=== PATIENT | female | born 1955 | race Caucasian/White ===

== ENCOUNTER 2016-10-17 16:26 | Inpatient (IN) | payer OTHER ==
[2016-10-17 17:41] LABS: Hematocrit 32 % (35-47); Mean Corpuscular HGB Conc 31 g/dl (31-36); Mean Corpuscular Hemoglobin 25 pg (27-31); Mean Corpuscular Volume 80 fL (80-97); Mean Platelet Volume 10 um3 (7.4-10.4); Red Blood Count 3.96 10^6/ul (4.0-5.4); Red Cell Distribution Width 16 % (10.5-15); White Blood Count 6.9 10^3/ul (3.5-10.8)
[2016-10-17 17:55] LABS: Albumin 3.5 g/dL (3.2-5.2); BUN/Creatinine Ratio 56.1 (8-20); C Reactive Protein 25.23 mg/L (< 5.00); Calcium 10.1 mg/dL (8.6-10.3); EGFR Non-African American 57.5 (>60); Globulin 4.2 g/dL (2-4); Potassium 4.2 mmol/L (3.5-5.0); Total Bilirubin 0.6 mg/dL (0.2-1.0); Total Protein 7.7 g/dL (6.4-8.9)
[2016-10-17 19:20] LABS: Budding Yeast Present (Absent); Urine Bacteria Absent (Absent); Urine Bilirubin Negative (Negative); Urine Glucose 3+(>=500 mg/dL) (Negative); Urine Nitrite Negative (Negative)
[2016-10-17] MEDS ORDERED: NS 0.9% 1000 ML* 1,000 ML IV ONE (20:53)
[2016-10-17] MEDS ORDERED: Insulin REGULAR(*) 1 UNITS UNIT IV PUSH ONE (20:53)
[2016-10-17] MEDS ORDERED: Insulin REGULAR(*) 1 UNITS UNIT SUBCUT ONE (20:59)
--- NOTE | 2016-10-17 21:42 | RAD ---
INDICATION: Confusion. History of CVA. COMPARISON: None. TECHNIQUE: Multidetector CT images were obtained from the lung bases to the ischial tuberosities. Evaluation of the viscera is limited without IV contrast. Multiplanar reformation. REPORT: Mild bibasilar subsegmental atelectasis. Mild cardiomegaly and coronary artery calcifications. Unremarkable unenhanced liver. Dependent stones versus hyperdense sludge in the normally distended gallbladder. Unremarkable moderately atrophic pancreas. Small splenule adjacent to the normal dominant spleen. Percutaneous feeding tube enters at the gastric body and extends to the level of the ligament of Treitz. Enteric contrast extends to the rectum. No abnormality of the small bowel loops evident. The appendix is not visualized. Negative for inflammatory change in the RIGHT lower quadrant or surrounding the cecum. Mild colonic diverticulosis primarily at the sigmoid colon without findings of diverticulitis. Negative for ascites, free air, or significant hernias. Normal adrenal glands. Negative for focal renal lesions, conspicuous stones, or hydronephrosis. Unremarkable ureters. Catheterized decompressed urinary bladder. Post hysterectomy. Unremarkable adnexal regions. Negative for lymphadenopathy. Atherosclerotic calcification of normal diameter abdominal aorta and iliac arteries. Largely decompressed IVC indicating low volume state. Polyarticular degenerative arthropathy. No fractures or suspicious focal osseous lesions evident. Negative for retroperitoneal or superficial soft tissue hematoma. IMPRESSION: 1. Cholelithiasis versus biliary sludge without additional CT abnormality of the gallbladder. 2. Mild diverticulosis of the colon without findings of diverticulitis. 3. Negative for obstructive uropathy. 4. Largely decompressed IVC indicating low volume state.
--- NOTE | 2016-10-17 21:50 | RAD ---
Indication: Cough, possible aspiration. Altered mental status. Comparison: October 17, 2016 CT abdomen. Technique: Sitting AP chest 2128 hours Report: Elevated lung volumes and mild prominence of interstitial markings. Confluent alveolar consolidation, focal pulmonary lesion, pleural effusion, pneumothorax. Upper normal heart size. Unremarkable central pulmonary vasculature and mediastinal contours. IMPRESSION: Stigmata of probable chronic obstructive pulmonary disease. No acute cardiopulmonary process evident.
[2016-10-17] MEDS ORDERED: Levofloxacin 750 MG IVPREMIX(* 750 MG/150 ML BAG IVPB ONE (21:59)
--- NOTE | 2016-10-17 22:34 | HP ---
H&P (Free Text) History and Physical: PCP: Derrek Pza MD Date/Time of Evaluation: 10/17/2016 2245 CC: confusion HPI: Mrs Francis is a 61YO female HX NIDDM, CAD, CVA who was admitted to [facility] Aug 2016 with a L MCA CVA causing expressive aphasia, dysphagia, and R- sided weakness. Subsequently she was discharged to [facility] for inpatient rehab services. She presents this evening due to increasing confusion. She denies new or worsening stroke symptoms. She has a feeding tube in place dated 10/16/2016. She denies chest pain, SOB, cough, congestion, abdominal pain, palpitations, subjective F/C, N/V/D, or other issues. Overall she is a very poor historian. Records from [facility] will be requested as well a summary from her PCP. Work up reveals systolics in the 150s-160s and an saO2 in the mid-90s on 2L NC. Labs reveal WBCs of 6.9, HGB 10.0, BUN/cre 55/0.98, & glucose of 428. UA is consistent with UTI. PMedHx DM2 CVA 08/2016 w/ mild residual R-sided weakness, dysphagia s/p L BKA reportedly for an infection resulting from a fall at [facility] ~ 2years ago CAD/CT/stent HTN HLD HLD DVT hypothyroidism GERD Allergies Penicillins Allergy (Verified 10/17/16 18:13) Hives Ambulatory Orders Albuterol 2.5MG/3ML (0.083%)* [Ventolin 2.5 MG/3 ML NEB.AYSE*] 2.5 mg INH Q6H 10/05 Albuterol Sulfate [Proventil Hfa] 108 mcg INH Q4HR PRN 10/18/16 Apixaban* [Eliquis*] 5 mg PEG TUBE DAILY 10/18/16 Aspirin Low Dose CHEW TAB* [Aspirin Low Dose TAB*] 81 mg PEG TUBE DAILY Docusate CAP* [Colace Cap*] 100 mg PEG TUBE BID 10/18/16 Escitalopram Oxalate [Lexapro] 10 mg PO DAILY 10/18/16 Furosemide TAB* [Lasix TAB*] 40 mg PEG TUBE DAILY 10/18/16 Gabapentin CAP(*) [Neurontin 300 CAP(*)] 300 mg PEG TUBE BEDTIME 10/18/16 Insulin GLARGINE(*) [Lantus(*)] 40 units SUBCUT BEDTIME 10/18/16 Insulin REGULAR(*) 8 units SUBCUT ONCE 10/18/16 Lactobacillus [Probiotic] 1 cap PEG TUBE DAILY 10/18/16 Levothyroxine TAB* [Synthroid TAB*] 50 mcg PEG TUBE DAILY 10/18/16 Melatonin 5 mg PO BEDTIME 10/18/16 Metformin HCl [Glucophage] 500 mg PEG TUBE BID 10/18/16 Metoclopramide LIQ* [Reglan LIQ*] 10 mg PEG TUBE Q8HR 10/18/16 Metoprolol Tartrate TAB* [Lopressor TAB*] 50 mg PO DAILY 10/18/16 Mometasone/Formoter 200/5 MDI* [Dulera 200/5 MDI*] 2 puff INH BID 10/18/16 Multivitamins/Minerals TAB* [Thera M Plus TAB*] 1 tab PEG TUBE DAILY 10/18/16 Pantoprazole SUSP(NF) [Protonix SUSP (NF)] 40 mg G TUBE DAILY 10/18/16 Polyethylene Glycol 3350* [Miralax*] 17 gm PEG TUBE DAILY 10/18/16 Rosuvastatin Calcium 20 mg PEG TUBE BEDTIME 10/18/16 Sodium Phosphate ADULT ENEMA* [Fleet Enema*] 1 enema OR BEDTIME PRN 10/18/16 Sucralfate TAB* [Carafate*] 1 gm PEG TUBE QID 10/18/16 Valsartan TAB* [Diovan TAB*] 160 mg PEG TUBE DAILY 10/18/16 hydrALAZINE TAB* [Apresoline TAB*] 25 mg PEG TUBE BID 10/18/16 PSurgHx PEG placement L BKA cardiac stents SocHx: no tobacco, alcohol, or recreational drug HX; , currently residing at [facility] for inpatient rehab s/p CVA; full code status FamHx: positive for HTN, HLD, CAD, DM2 ROS: as above, otherwise reviewed and all were negative Constitutional: NAD, normally developed, morbidly obese white female vitals: Vital Signs Temp 38.5 C 10/17/16 16:33 Pulse 71 10/17/16 23:00 Resp 17 10/17/16 23:00 BP 180/55 10/17/16 21:00 Pulse Ox 96 10/17/16 23:00 Intake & Output 10/16/16 10/17/16 10/17/16 23:59 11:59 23:59 Intake Total 1000 Balance 1000 Weight 115.212 kg Intake: IV Fluids 1000 HEENM: atraumatic; sclera/conjunctiva: non-icteric/clear; hearing: clinically intact; oropharynx: clear, mucosa dry Neck: soft tissue: non-tender, no nuchal rigidity; thyroid: normal Pulmonary: clear to auscultation bilaterally, fair aeration, no accessory muscle use CV: RR/RR, normal S1S2, no carotid bruit, no jugular venous distention, 2+ B DP/ PT, no edema Abdominal: soft, non-distended, non-tender, no rebound/guarding/rigidity, normoactive bowel sounds, no hepatosplenomegaly or masses, no costovertebral angle tenderness, well healed feeding tube in place Musculoskeletal: general: L BKA; gait: non-ambulatory 2nd L BKA, residual weakness on R from CVA Integumental: normal appearance and texture of exposed skin Neurological motor: moves extremities x4, generally weak, mild R pronator drift Psychiatric orientation: AA&O to PP, loosely to situation affect: calm mood: acquiescent eye contact: fair content: seemingly reliable memory: patchy regarding recent events responses: mildly slowed insight: poor Testing: Lab Results 10/17/16 10/17/16 10/17/16 Range/Units 17:30 17:30 17:30 WBC 6.9 (3.5-10.8) 10^3/ul RBC 3.96 L (4.0-5.4) 10^6/ul Hgb 10.0 L (12.0-16.0) g/dl Hct 32 L (35-47) % MCV 80 (80-97) fL MCH 25 L (27-31) pg MCHC 31 (31-36) g/dl RDW 16 H (10.5-15) % Plt Count 267 (150-450) 10^3/ul MPV 10 (7.4-10.4) um3 Neut % (Auto) 78.3 (38-83) % Lymph % (Auto) 12.9 L (25-47) % [place] % (Auto) 8.0 (1-9) % Eos % (Auto) 0.4 (0-6) % Baso % (Auto) 0.4 (0-2) % Absolute Neuts (auto) 5.4 (1.5-7.7) 10^3/ul Absolute Lymphs (auto) 0.9 L (1.0-4.8) 10^3/ul Absolute Monos (auto) 0.6 (0-0.8) 10^3/ul Absolute Eos (auto) 0 (0-0.6) 10^3/ul Absolute Basos (auto) 0 (0-0.2) 10^3/ul Absolute Nucleated RBC 0 10^3/ul Nucleated RBC % 0 Sodium 140 (133-145) mmol/L Potassium 4.2 (3.5-5.0) mmol/L Chloride 101 (101-111) mmol/L Carbon Dioxide 33 H (22-32) mmol/L Anion Gap 6 (2-11) mmol/L BUN 55 H (6-24) mg/dL Creatinine 0.98 H (0.51-0.95) mg/dL Est GFR ( Amer) 74.0 (>60) Est GFR (Non-Af Amer) 57.5 (>60) BUN/Creatinine Ratio 56.1 H (8-20) Glucose 428 H (70-100) mg/dL POC Glucose (mg/dL) (74-106) mg/dL Lactic Acid 0.9 (0.5-2.0) mmol/L Calcium 10.1 (8.6-10.3) mg/dL Total Bilirubin 0.60 (0.2-1.0) mg/dL AST 20 (13-39) U/L ALT 18 (7-52) U/L Alkaline Phosphatase 70 (34-104) U/L C-Reactive Protein 25.23 H (< 5.00) mg/L Total Protein 7.7 (6.4-8.9) g/dL Albumin 3.5 (3.2-5.2) g/dL Globulin 4.2 H (2-4) g/dL Albumin/Globulin Ratio 0.8 L (1-3) Urine Color Urine Appearance Urine pH (5-9) Ur Specific [place] (1.010-1.030) Urine Protein (Negative) Urine Ketones (Negative) Urine Blood (Negative) Urine Nitrate (Negative) Urine Bilirubin (Negative) Urine Urobilinogen (Negative) Ur Leukocyte Esterase (Negative) Urine WBC (Auto) (Absent) Urine RBC (Auto) (Absent) Ur Squamous Epith Cells (Absent) Urine Bacteria (Absent) Urine Yeast (Absent) Urine Glucose (Negative) Urine Ascorbic Acid (Negative) 10/17/16 10/17/16 Range/Units 18:50 20:53 WBC (3.5-10.8) 10^3/ul RBC (4.0-5.4) 10^6/ul Hgb (12.0-16.0) g/dl Hct (35-47) % MCV (80-97) fL MCH (27-31) pg MCHC (31-36) g/dl RDW (10.5-15) % Plt Count (150-450) 10^3/ul MPV (7.4-10.4) um3 Neut % (Auto) (38-83) % Lymph % (Auto) (25-47) % [place] % (Auto) (1-9) % Eos % (Auto) (0-6) % Baso % (Auto) (0-2) % Absolute Neuts (auto) (1.5-7.7) 10^3/ul Absolute Lymphs (auto) (1.0-4.8) 10^3/ul Absolute Monos (auto) (0-0.8) 10^3/ul Absolute Eos (auto) (0-0.6) 10^3/ul Absolute Basos (auto) (0-0.2) 10^3/ul Absolute Nucleated RBC 10^3/ul Nucleated RBC % Sodium (133-145) mmol/L Potassium (3.5-5.0) mmol/L Chloride (101-111) mmol/L Carbon Dioxide (22-32) mmol/L Anion Gap (2-11) mmol/L BUN (6-24) mg/dL Creatinine (0.51-0.95) mg/dL Est GFR ( Amer) (>60) Est GFR (Non-Af Amer) (>60) BUN/Creatinine Ratio (8-20) Glucose (70-100) mg/dL POC Glucose (mg/dL) 389 H (74-106) mg/dL Lactic Acid (0.5-2.0) mmol/L Calcium (8.6-10.3) mg/dL Total Bilirubin (0.2-1.0) mg/dL AST (13-39) U/L ALT (7-52) U/L Alkaline Phosphatase (34-104) U/L C-Reactive Protein (< 5.00) mg/L Total Protein (6.4-8.9) g/dL Albumin (3.2-5.2) g/dL Globulin (2-4) g/dL Albumin/Globulin Ratio (1-3) Urine Color Yellow Urine Appearance Cloudy Urine pH 6.0 (5-9) Ur Specific [place] 1.022 (1.010-1.030) Urine Protein 2+(100 mg/dl) H (Negative) Urine Ketones Negative (Negative) Urine Blood 1+ H (Negative) Urine Nitrate Negative (Negative) Urine Bilirubin Negative (Negative) Urine Urobilinogen Negative (Negative) Ur Leukocyte Esterase 2+ H (Negative) Urine WBC (Auto) 3+(>20/hpf) H (Absent) Urine RBC (Auto) 3+(>10/hpf) H (Absent) Ur Squamous Epith Cells Present H (Absent) Urine Bacteria Absent (Absent) Urine Yeast Present H (Absent) Urine Glucose 3+(>=500 mg/dl) H (Negative) Urine Ascorbic Acid * H (Negative) CXR, personally reviewed: IMPRESSION: Stigmata of probable chronic obstructive pulmonary disease. No acute cardiopulmonary process evident. CT abd/pel WO, personally reviewed: IMPRESSION: 1. Cholelithiasis versus biliary sludge without additional CT abnormality of the gallbladder. 2. Mild diverticulosis of the colon without findings of diverticulitis. 3. Negative for obstructive uropathy. 4. Largely decompressed IVC indicating low volume state. CT brain WO, personally reviewed: no acute finding noted, final read pending Impression: 61F HX CVA 08/2016 presents with confusion with finding of UTI DIAGNOSIS & PLAN Primary UTI : IV ceftriaxone, given 1 dose 750mg IV levofloxacin in ED : IVFs : blood & urine CXs : supportive care : obtain records from [facility] & PCP dehydration : IVFs, recheck BMP in AM Secondary DM2 : basal/bolus/correctional protocol : check A1c : insulin carb ratio diet : hold metformin COPD : albuterol nebs : mometasone/formoterol : tiotropium : incentive spirometry CVA 08/2016 : mild residual R-sided weakness w/ pronator drift : dysphagia, PEG in place s/p L BKA : reportedly for an infection resulting from a fall at [facility] ~2years ago : PT/OT evaluations CAD/CT/stent : continue aspirin & furosemide HTN : continue valsartan, metoprolol, & hydralazine HLD : continue rosuvastatin DVT : continue apixaban hypothyroidism : continue levothyroxine GERD : pantoprazole depression : continue escitalopram Admission Rational: observation for UTI w/ AMS DVTp: SCDs to RLE, no anticoagulation until non-hemorrhagic nature of recent CVA confirmed via records Code Status: full HCP: daughter
--- NOTE | 2016-10-17 22:44 | RAD ---
Indication: Altered mental status. Elevated blood sugar. Diabetic. Comparison: None. Technique: Noncontrast CT vertex of skull through foramen magnum. Report: Mild prominence of the cerebral sulci and moderate prominence of the cerebellar fissures reflecting volume loss. Negative for strange matter white matter obscuration, intra or extra-axial hemorrhage, or mass effect. Unremarkable partially visualized orbital contents. Negative for calvarial or skull base lesions. Fluid level with gas bubbles in the RIGHT sphenoid sinus concerning for potential acute sinusitis. Clear mastoid air spaces. Unremarkable scalp. IMPRESSION: 1. Mild involutional change. No acute pathologic process of the brain evident. 2. Correlate for potential acute RIGHT sphenoid sinusitis.
[2016-10-17] MEDS ORDERED: Melatonin (NF) 3 MG TAB PO PRN (23:36)
[2016-10-17] MEDS ORDERED: Acetaminophen TAB* 325 MG PRN (23:36)
[2016-10-18] MEDS: NS 0.9% 1000 ML* 1,000 ML IV SCH ×2 (02:21→11:57)
[2016-10-18] MEDS: cefTRIAXone VIAL(*) 1,000 MG in NS 0.9% 50 ML* 50 ML IVPB SCH (02:22)
[2016-10-18] MEDS ORDERED: Sodium Phosphate ADULT ENEMA* 118 ml bottle PR PRN (03:29)
[2016-10-18] MEDS ORDERED: Albuterol 2.5 MG/3 ML NEB.SOL* (0.083%) INH PRN (03:32)
[2016-10-18 05:16] LABS: Hematocrit 28 % (35-47); Hemoglobin 8.9 g/dl (12.0-16.0); Mean Corpuscular HGB Conc 32 g/dl (31-36); Mean Corpuscular Hemoglobin 26 pg (27-31); Mean Corpuscular Volume 81 fL (80-97); Mean Platelet Volume 10 um3 (7.4-10.4); Red Blood Count 3.47 10^6/ul (4.0-5.4); Red Cell Distribution Width 16 % (10.5-15); White Blood Count 6.6 10^3/ul (3.5-10.8)
[2016-10-18 05:35] LABS: BUN/Creatinine Ratio 48.8 (8-20); EGFR African American 93.5 (>60); EGFR Non-African American 72.7 (>60); Potassium 3.6 mmol/L (3.5-5.0)
[2016-10-18] MEDS: Levothyroxine TAB* 50 MCG TAB PO SCH (07:00)
[2016-10-18] MEDS: Metoclopramide LIQ* 10 MG/10 ML ORAL.SOLN PEG TUBE SCH ×3 (07:00→20:47)
[2016-10-18] MEDS: Albuterol 2.5 MG/3 ML NEB.SOL* (0.083%) INH SCH ×2 (08:08→13:07)
[2016-10-18] MEDS: Tiotropium CAP.INH* CAP.INH/18 MCG (USE ORDER SET !) INH SCH (08:12)
[2016-10-18] MEDS: Mometasone/Formoter 200/5 MDI INH SCH ×2 (08:12→21:36)
[2016-10-18] MEDS: Insulin LISPRO* 1 UNITS UNIT SUBCUT SCH ×5 (08:16→18:08)
[2016-10-18] MEDS: hydrALAZINE TAB* 25 MG PEG TUBE SCH ×2 (08:21→20:46)
[2016-10-18] MEDS: Polyethylene Glycol 3350* 17 GM PACKET PEG TUBE SCH (08:21)
[2016-10-18] MEDS: Sucralfate TAB* 1 GM PEG TUBE SCH ×4 (08:21→20:42)
[2016-10-18] MEDS: Metoprolol Tartrate TAB* 50 mg PO SCH (08:21)
[2016-10-18] MEDS: Aspirin Low Dose CHEW TAB* 81 MG PEG TUBE SCH (08:22)
[2016-10-18] MEDS: Valsartan TAB* 160 MG PO SCH (08:22)
[2016-10-18] MEDS: Apixaban* 5 MG TAB PO SCH (08:24)
[2016-10-18] MEDS ORDERED: Pantoprazole IV* 40 MG IV SCH (09:00)
[2016-10-18] MEDS ORDERED: Citalopram TAB* 20 MG PO SCH (09:00)
[2016-10-18] MEDS ORDERED: Spiriva Inhaler DEVICE* 1 EACH DEVICE INH ONE (09:00)
[2016-10-18] MEDS ORDERED: Docusate CAP* 100 MG SCH (09:00)
[2016-10-18] MEDS: Ondansetron INJ* 2 MG/ML VIAL IV PRN (10:22)
--- NOTE | 2016-10-18 10:58 | ED ---
Jasbir Mayo Adam, scribed for Jaxon Laws MD on 10/17/16 at 1818 . HPI Diabetic - HPI Summary HPI Summary: Pt is a 61 year old diabetic female presenting with high blood sugar, weakness, and altered mental status. The pt had a CVA 1 month ago which left her with right-sided deficits and loss of her swallowing muscles. She has been in rehab with a feeding tube and a catheter but she had begun to try solid food again. However 5 days ago the pt's family members began to notice that she did not seem to be doing as well. They state that she went from being able to walk 5 steps and eat some solid food to lying in bed with a decreased level of consciousness. They also state that her skin has turned more pale than usual and yesterday they noticed right eye droop. They also report swelling of her extremities. The pt's family state that the pt's glucose has been over 500 for the past 2 days and her BP has been high too. They state that nothing has been done yet to treat these problems. In addition to DM and CVA, pt has a PMHx of CHF. - History Of Current Complaint Chief Complaint: EDDiabeticProb Time Seen by Provider: 10/17/16 18:11 Hx Obtained From: Patient Onset/Duration: Gradual Onset, Lasting Days, Still Present Timing: Constant Severity Initially: Mild Severity Currently: Moderate Aggravating: Other - Unknown Alleviating: Nothing Associated Signs & Symptoms: Decreased Level of Conciousness - Allergies/Home Medications Allergies/Adverse Reactions: Allergies Allergy/AdvReac Type Severity Reaction Status Date / Time Penicillins Allergy Hives Verified 10/17/16 18:13 Home Medications: Home Medications Albuterol 2.5MG/3ML (0.083%)* [Ventolin 2.5 MG/3 ML NEB.AYSE*] 2.5 mg INH Q6H 10/05 [History Confirmed 10/18/16] Albuterol Sulfate [Proventil Hfa] 108 mcg INH Q4HR PRN 10/18/16 [History Confirmed 10/18/16] Apixaban* [Eliquis*] 5 mg PEG TUBE DAILY 10/18/16 [History Confirmed 10/18/16] Aspirin Low Dose CHEW TAB* [Aspirin Low Dose TAB*] 81 mg PEG TUBE DAILY [History Confirmed 10/18/16] Docusate CAP* [Colace Cap*] 100 mg PEG TUBE BID 10/18/16 [History Confirmed 10/05] Escitalopram Oxalate [Lexapro] 10 mg PO DAILY 10/18/16 [History Confirmed ] Furosemide TAB* [Lasix TAB*] 40 mg PEG TUBE DAILY 10/18/16 [History Confirmed ] Gabapentin CAP(*) [Neurontin 300 CAP(*)] 300 mg PEG TUBE BEDTIME 10/18/16 [ History Confirmed 10/18/16] Insulin GLARGINE(*) [Lantus(*)] 40 units SUBCUT BEDTIME 10/18/16 [History Confirmed 10/18/16] Insulin REGULAR(*) 8 units SUBCUT ONCE 10/18/16 [History Confirmed 10/18/16] Lactobacillus [Probiotic] 1 cap PEG TUBE DAILY 10/18/16 [History Confirmed 10/18] Levothyroxine TAB* [Synthroid TAB*] 50 mcg PEG TUBE DAILY 10/18/16 [History Confirmed 10/18/16] Melatonin 5 mg PO BEDTIME 10/18/16 [History Confirmed 10/18/16] Metformin HCl [Glucophage] 500 mg PEG TUBE BID 10/18/16 [History Confirmed 10/18] Metoclopramide LIQ* [Reglan LIQ*] 10 mg PEG TUBE Q8HR 10/18/16 [History Confirmed 10/18/16] Metoprolol Tartrate TAB* [Lopressor TAB*] 50 mg PO DAILY 10/18/16 [History Confirmed 10/18/16] Mometasone/Formoter 200/5 MDI* [Dulera 200/5 MDI*] 2 puff INH BID 10/18/16 [ History Confirmed 10/18/16] Multivitamins/Minerals TAB* [Thera M Plus TAB*] 1 tab PEG TUBE DAILY 10/18/16 [ History Confirmed 10/18/16] Pantoprazole SUSP(NF) [Protonix SUSP (NF)] 40 mg G TUBE DAILY 10/18/16 [History Confirmed 10/18/16] Polyethylene Glycol 3350* [Miralax*] 17 gm PEG TUBE DAILY 10/18/16 [History Confirmed 10/18/16] Rosuvastatin Calcium 20 mg PEG TUBE BEDTIME 10/18/16 [History Confirmed 10/18/16 ] Sodium Phosphate ADULT ENEMA* [Fleet Enema*] 1 enema [place] BEDTIME PRN 10/18/16 [ History Confirmed 10/18/16] Sucralfate TAB* [Carafate*] 1 gm PEG TUBE QID 10/18/16 [History Confirmed ] Valsartan TAB* [Diovan TAB*] 160 mg PEG TUBE DAILY 10/18/16 [History Confirmed 10/18/16] hydrALAZINE TAB* [Apresoline TAB*] 25 mg PEG TUBE BID 10/18/16 [History Confirmed 10/18/16] PMH/Surg Hx/FS Hx/Imm Hx Endocrine/Hematology History: Reports: Hx Diabetes Cardiovascular History: Reports: Hx Congestive Heart Failure Infectious Disease History: No Infectious Disease History: Denies: Traveled Outside the [place] in Last 30 Days - Family History Known Family History: Positive: Cardiac Disease, Diabetes, Other - Cancer, CVA - Social History Occupation: Disabled Lives: Alone Alcohol Use: None Hx Substance Use: No Substance Use Type: Reports: None Hx Tobacco Use: No Smoking Status (MU): Never Smoked Tobacco Review of Systems Positive: Fever Positive: Other - Right eye droop Positive: Other - Difficulty swallowing Positive: Edema - Extremities Positive: Other - Pale Neurological: Other - AMS All Other Systems Reviewed And Are Negative: Yes Physical Exam - Summary Physical Exam Summary: VITAL SIGNS: Reviewed. GENERAL: Patient is an obese female who is lying comfortable in the stretcher. Patient is not in any acute respiratory distress. HEAD AND FACE: No signs of trauma. No ecchymosis, hematomas or skull depressions. No sinus tenderness. EYES: PERRLA, EOMI x 2, No injected conjunctiva, no nystagmus. No photophobia. EARS: Hearing grossly intact. Ear canals and tympanic membranes are within normal limits. MOUTH: Oropharynx within normal limits. NECK: Supple, trachea is midline, no adenopathy, no JVD, no carotid bruit, no c- spine tenderness, neck with full ROM. No meningeal signs, no Kernig's or brudzinskis signs. CHEST: Symmetric, no tenderness at palpation LUNGS: Clear to auscultation bilaterally. No wheezing or crackles. CVS: Regular rate and rhythm, S1 and S2 present, no murmurs or gallops appreciated. ABDOMEN: Soft, non-tender. No signs of distention. No rebound no guarding, and no masses palpated. Bowel sounds are normal. Positive indwelling urinary Villegas catheter. EXTREMITIES: left lower extremity with BKA NEURO: Alert and oriented x 3. No acute neurological deficits. Speech is normal and follows commands. SKIN: Dry and warm Triage Information Reviewed: Yes Vital Signs On Initial Exam: Initial Vitals Temp Pulse Resp BP Pulse Ox 101.3 F 74 17 166/59 95 10/17/16 16:33 10/17/16 16:33 10/17/16 16:33 10/17/16 16:33 10/17/16 16:33 Vital Signs Reviewed: Yes - [place] Coma Scale Coma Scale Total: 15 Diagnostics - Vital Signs Vital Signs Temp Pulse Resp BP Pulse Ox 10/17/16 18:00 73 18 166/57 96 10/17/16 17:31 73 19 92 10/17/16 17:30 159/61 10/17/16 16:33 101.3 F 74 17 166/59 95 - Laboratory Lab Results: Lab Results 10/17/16 10/17/16 10/17/16 Range/Units 17:30 17:30 17:30 WBC 6.9 (3.5-10.8) 10^3/ul RBC 3.96 L (4.0-5.4) 10^6/ul Hgb 10.0 L (12.0-16.0) g/dl Hct 32 L (35-47) % MCV 80 (80-97) fL MCH 25 L (27-31) pg MCHC 31 (31-36) g/dl RDW 16 H (10.5-15) % Plt Count 267 (150-450) 10^3/ul MPV 10 (7.4-10.4) um3 Neut % (Auto) 78.3 (38-83) % Lymph % (Auto) 12.9 L (25-47) % [place] % (Auto) 8.0 (1-9) % Eos % (Auto) 0.4 (0-6) % Baso % (Auto) 0.4 (0-2) % Absolute Neuts (auto) 5.4 (1.5-7.7) 10^3/ul Absolute Lymphs (auto) 0.9 L (1.0-4.8) 10^3/ul Absolute Monos (auto) 0.6 (0-0.8) 10^3/ul Absolute Eos (auto) 0 (0-0.6) 10^3/ul Absolute Basos (auto) 0 (0-0.2) 10^3/ul Absolute Nucleated RBC 0 10^3/ul Nucleated RBC % 0 Sodium 140 (133-145) mmol/L Potassium 4.2 (3.5-5.0) mmol/L Chloride 101 (101-111) mmol/L Carbon Dioxide 33 H (22-32) mmol/L Anion Gap 6 (2-11) mmol/L BUN 55 H (6-24) mg/dL Creatinine 0.98 H (0.51-0.95) mg/dL Est GFR ( Amer) 74.0 (>60) Est GFR (Non-Af Amer) 57.5 (>60) BUN/Creatinine Ratio 56.1 H (8-20) Glucose 428 H (70-100) mg/dL Lactic Acid 0.9 (0.5-2.0) mmol/L Calcium 10.1 (8.6-10.3) mg/dL Total Bilirubin 0.60 (0.2-1.0) mg/dL AST 20 (13-39) U/L ALT 18 (7-52) U/L Alkaline Phosphatase 70 (34-104) U/L C-Reactive Protein 25.23 H (< 5.00) mg/L Total Protein 7.7 (6.4-8.9) g/dL Albumin 3.5 (3.2-5.2) g/dL Globulin 4.2 H (2-4) g/dL Albumin/Globulin Ratio 0.8 L (1-3) Result Diagrams: 10/18/16 04:34 10/18/16 04:34 Lab Statement: Any lab studies that have been ordered have been reviewed, and results considered in the medical decision making process. - Radiology CXR Radiology Interpretation Completed By: Radiologist - IMPRESSION: Stigmata of probable chronic obstructive pulmonary disease. No acute cardiopulmonary process evident. - CT A/P CT Interpretation Completed By: Radiologist - IMPRESSION: 1. Cholelithiasis versus biliary sludge without additional CT abnormality of the gallbladder. 2. Mild diverticulosis of the colon without findings of diverticulitis. 3. Negative for obstructive uropathy. 4. Largely decompressed IVC indicating low volume state. - Additional Comments Diagnostic Additional Comments: POC Glucose - 389 Diabetic Course/Dx - Course Course Of Treatment: Pt is a 61 year old diabetic female presenting with high blood sugar, weakness, and altered mental status. The pt had a CVA 1 month ago which left her with right-sided deficits and loss of her swallowing muscles. She has been in rehab with a feeding tube and a catheter but she had begun to try solid food again. However 5 days ago the pt's family members began to notice that she did not seem to be doing as well. They state that she went from being able to walk 5 steps and eat some solid food to lying in bed with a decreased level of consciousness. They also state that her skin has turned more pale than usual and yesterday they noticed right eye droop. They also report swelling of her extremities. The pt's family state that the pt's glucose has been over 500 for the past 2 days and her BP has been high too. They state that nothing has been done yet to treat these problems. In addition to DM and CVA, pt has a PMHx of CHF. BW is WNL except for slight anemia, creatinine of 0.98, and glucose of 428. Urine seems to be contaminated. However since the pt is febrile I believe that the source is from her urine. CXR shows no acute process. The pt was given Levaquin, IV fluids gently since she has Hx of CHF, and she was given insulin for the hyperglycemia. Head CT impression mild involutional change. No acute pathological process of the brain. Correlate for right sphenoid sinusitis. I did a abdominal and pelvic CT since patient had mild abdominal pain and she has hx of recently PEG tube placement. I discussed my physical exam and findings with Dr. King who agreed to accept the patient for admission. - Diagnoses Differential Dx: CVA, Diabetic Ketoacidosis, Hyperglycemia, Hyperosmolar State, Other - UTI, Pneumonia Provider Diagnoses: UTI (urinary tract infection), Hyperglycemia due to type 2 diabetes mellitus Discharge - Discharge Plan Condition: Stable Disposition: ADMITTED TO [facility] documentation as recorded by the Jasbir ramirez Adam accurately reflects the service I personally performed and the decisions made by me, Jaxon Laws MD.
[2016-10-18] MEDS ORDERED: Acetaminophen ADULT LIQ* 650 MG/20.3 ML UDC G TUBE PRN (15:22)
[2016-10-18] MEDS ORDERED: Dextrose 50% Syringe 50 ML* 25 GM/50 ML SYRINGE IV PUSH PRN (15:26)
--- NOTE | 2016-10-18 15:42 | PN ---
Subjective Date of Service: 10/18/16 Interval History: Pt is feeling well. she states she wants to go back home-when I stated she was at [facility], she stated that is where she wants to go back to. She denies any pain or SOB. Objective Active Medications: Acetaminophen (Tylenol Adult Liq*) 650 mg G TUBE Q4H PRN PRN Reason: PAIN Albuterol (Ventolin 2.5 Mg/3 Ml Neb.Katlyn*) 2.5 mg INH Q2H PRN PRN Reason: SOB/WHEEZING Apixaban (Eliquis*) 5 mg PO DAILY [facility] Last Admin: 10/18/16 08:24 Dose: 5 mg Aspirin (Aspirin Low Dose Tab*) 81 mg PEG TUBE DAILY [facility] Last Admin: 10/18/16 08:22 Dose: 81 mg Atorvastatin Calcium (Lipitor*) 40 mg G TUBE BEDTIME [facility] Citalopram Hydrobromide (Citalopram Katlyn*) 20 mg G TUBE DAILY [facility] Dextrose (D50w Syringe 50 Ml*) 12.5 gm IV PUSH .FOR FS < 60 - SS PRN PRN Reason: FS < 60 Gabapentin (Neurontin Cap(*)) 300 mg PO BEDTIME [facility] Hydralazine HCl (Apresoline Tab*) 25 mg PEG TUBE BID [facility] Last Admin: 10/18/16 08:21 Dose: 25 mg Ceftriaxone Sodium 1,000 mg/ (Sodium Chloride) 50 mls @ 200 mls/hr IVPB Q24H [facility] Last Admin: 10/18/16 02:22 Dose: 200 mls/hr Insulin Glargine (Lantus(*)) 40 units SUBCUT BEDTIME [facility] Insulin Human Lispro (Humalog*) 0 units SUBCUT Q6HR JAROD PRN Reason: Protocol Lansoprazole (Prevacid Solutab*) 30 mg G TUBE DAILY [facility] Levothyroxine Sodium (Synthroid Tab*) 50 mcg PO DAILY@0600 [facility] Last Admin: 10/18/16 07:00 Dose: 50 mcg Metformin HCl (Glucophage*) 500 mg PEG TUBE BID [facility] Metoclopramide HCl (Reglan Liq*) 10 mg PEG TUBE Q8HR [facility] Last Admin: 10/18/16 12:42 Dose: 10 mg Metoprolol Tartrate (Lopressor Tab*) 50 mg PO DAILY [facility] Last Admin: 10/18/16 08:21 Dose: 50 mg Mometasone Furoate/Formoterol Fumar (Dulera 200/5 Mdi*) 2 puff INH BID [facility] Last Admin: 10/18/16 08:12 Dose: 2 puff Ondansetron HCl (Zofran Inj*) 4 mg IV Q6H PRN PRN Reason: NAUSEA Last Admin: 10/18/16 10:22 Dose: 4 mg Polyethylene Glycol/Electrolytes (Miralax*) 17 gm PEG TUBE DAILY [facility] Last Admin: 10/18/16 08:21 Dose: 17 gm Sodium Biphosphate/Sodium Phosphate (Fleet Enema*) 1 bottle LA BEDTIME PRN PRN Reason: CONSTIPATION Sucralfate (Carafate*) 1 gm PEG TUBE QID [facility] Last Admin: 10/18/16 12:42 Dose: 1 gm Tiotropium [place] (Spiriva Cap.Inh*) 1 cap INH DAILY [facility] Last Admin: 10/18/16 08:12 Dose: 1 cap.inh Valsartan (Diovan Tab*) 160 mg PO DAILY [facility] Last Admin: 10/18/16 08:22 Dose: 160 mg Vital Signs 10/17/16 10/18/16 10/18/16 23:52 00:00 00:01 Temperature Pulse Rate 70 69 69 Respiratory 20 20 19 Rate Blood Pressure 147/46 155/45 (mmHg) O2 Sat by Pulse 96 96 96 Oximetry 10/18/16 10/18/16 10/18/16 01:10 07:30 08:15 Temperature 100.2 F 99.3 F Pulse Rate 72 75 72 Respiratory 20 18 16 Rate Blood Pressure 165/63 151/50 (mmHg) O2 Sat by Pulse 99 99 98 Oximetry 10/18/16 10/18/16 13:09 13:10 Temperature 99.4 F Pulse Rate 74 74 Respiratory 16 18 Rate Blood Pressure 162/54 (mmHg) O2 Sat by Pulse 100 99 Oximetry Oxygen Devices in Use Now: None Appearance: Middle aged female sitting up in bed, NAD Eyes: No Scleral Icterus Ears/Nose/Mouth/Throat: Mucous Membranes Moist Respiratory: Symmetrical Chest Expansion and Respiratory Effort, Clear to Auscultation Cardiovascular: NL Sounds; No Murmurs; No JVD, RRR, No Edema Abdominal: NL Sounds; No Tenderness; No Distention Extremities: No Clubbing, Cyanosis, - - s/p L BKA Skin: No Rash or Ulcers, No Nodules or Sclerosis Neurological: Alert and Oriented x 3 Result Diagrams: 10/18/16 04:34 10/18/16 04:34 Additional Lab and Data: Lab Results 10/17/16 10/17/16 10/17/16 Range/Units 17:30 17:30 17:30 WBC 6.9 (3.5-10.8) 10^3/ul RBC 3.96 L (4.0-5.4) 10^6/ul Hgb 10.0 L (12.0-16.0) g/dl Hct 32 L (35-47) % MCV 80 (80-97) fL MCH 25 L (27-31) pg MCHC 31 (31-36) g/dl RDW 16 H (10.5-15) % Plt Count 267 (150-450) 10^3/ul MPV 10 (7.4-10.4) um3 Neut % (Auto) 78.3 (38-83) % Lymph % (Auto) 12.9 L (25-47) % Todd % (Auto) 8.0 (1-9) % Eos % (Auto) 0.4 (0-6) % Baso % (Auto) 0.4 (0-2) % Absolute Neuts (auto) 5.4 (1.5-7.7) 10^3/ul Absolute Lymphs (auto) 0.9 L (1.0-4.8) 10^3/ul Absolute Monos (auto) 0.6 (0-0.8) 10^3/ul Absolute Eos (auto) 0 (0-0.6) 10^3/ul Absolute Basos (auto) 0 (0-0.2) 10^3/ul Absolute Nucleated RBC 0 10^3/ul Nucleated RBC % 0 Sodium 140 (133-145) mmol/L Potassium 4.2 (3.5-5.0) mmol/L Chloride 101 (101-111) mmol/L Carbon Dioxide 33 H (22-32) mmol/L Anion Gap 6 (2-11) mmol/L BUN 55 H (6-24) mg/dL Creatinine 0.98 H (0.51-0.95) mg/dL Est GFR ( Amer) 74.0 (>60) Est GFR (Non-Af Amer) 57.5 (>60) BUN/Creatinine Ratio 56.1 H (8-20) Glucose 428 H (70-100) mg/dL Lactic Acid 0.9 (0.5-2.0) mmol/L Calcium 10.1 (8.6-10.3) mg/dL Total Bilirubin 0.60 (0.2-1.0) mg/dL AST 20 (13-39) U/L ALT 18 (7-52) U/L Alkaline Phosphatase 70 (34-104) U/L C-Reactive Protein 25.23 H (< 5.00) mg/L Total Protein 7.7 (6.4-8.9) g/dL Albumin 3.5 (3.2-5.2) g/dL Globulin 4.2 H (2-4) g/dL Albumin/Globulin Ratio 0.8 L (1-3) Microbiology and Other Data: Microbiology 10/18/16 01:31 Nasal Screen MRSA (PCR)(CLARA) - Final Nasal Mrsa Negative 10/18/16 00:20 Influenza Types A,B Antigen (CLARA) - Final Nasopharyngeal Specimen received for Influenza A/B Molecular testing Assess/Plan/Problems-Billing Ms Francis is a 61 yo F who has a h/o CVA, type II DM, CAD, HTN, HLD, and hypothyroidism who presented to the ER for evaluation of confusion and was found to have a UTI. - Patient Problems (1) UTI (urinary tract infection) Current Visit: Yes Status: Acute Comment: The patient's urine grew stenotrophomonas maltophila. Will continue ceftriaxone for now. Await sensitivites. (2) Encephalopathy Current Visit: Yes Status: Acute Code(s): G93.40 - ENCEPHALOPATHY, UNSPECIFIED SNOMED Code(s): 54940528 Comment: Much improved today. She is oriented except to year which she stated was 2016. I think she will be ready to go back to [facility] tomorrow. (3) Type II diabetes mellitus Current Visit: Yes Status: Acute Comment: Sugars are markedly elevated today though she is not on her usual home medication regimen. Resume home meds and follow sugars. (4) HTN (hypertension) Current Visit: Yes Status: Acute Code(s): I10 - ESSENTIAL (PRIMARY) HYPERTENSION SNOMED Code(s): 52374214 Comment: BP is moderately elevated. Add amlodipine and monitor BP. (5) HLD (hyperlipidemia) Current Visit: Yes Status: Acute Code(s): E78.5 - HYPERLIPIDEMIA, UNSPECIFIED SNOMED Code(s): 81671603 Comment: Continue lipitor. (6) H/O deep venous thrombosis Current Visit: Yes Status: Acute Code(s): Z86.718 - PERSONAL HISTORY OF OTHER VENOUS THROMBOSIS AND EMBOLISM SNOMED Code(s): 942393700 Comment: Continue eliquis. (7) DVT prophylaxis Current Visit: Yes Status: Acute Code(s): GVP3923 - SNOMED Code(s): 230694041 Comment: eliquis (8) Full code status Current Visit: Yes Status: Acute Code(s): Z78.9 - OTHER SPECIFIED HEALTH STATUS SNOMED Code(s): 660281118
[2016-10-18] MEDS: amLODIPine TAB* 5 MG PO SCH (18:03)
[2016-10-18] MEDS: metFORMIN* 500 MG TAB PEG TUBE SCH (20:46)
[2016-10-18] MEDS ORDERED: Melatonin [Melatonin] 5 MG PO SCH (21:00)
[2016-10-18] MEDS ORDERED: Atorvastatin* 40 MG TAB PO SCH (21:00)
[2016-10-18] MEDS ORDERED: Gabapentin CAP(*) 300 MG PO SCH (21:00)
[2016-10-18] MEDS ORDERED: Atorvastatin* 40 MG TAB G TUBE SCH (21:00)
[2016-10-18] MEDS ORDERED: Insulin GLARGINE(*) 1 UNITS UNIT SUBCUT SCH ×2 (21:00)
[2016-10-19] MEDS: Insulin LISPRO* 1 UNITS UNIT SUBCUT SCH ×3 (00:27→12:44)
[2016-10-19] MEDS: cefTRIAXone VIAL(*) 1,000 MG in NS 0.9% 50 ML* 50 ML IVPB SCH (02:41)
[2016-10-19] MEDS: Metoclopramide LIQ* 10 MG/10 ML ORAL.SOLN PEG TUBE SCH ×2 (05:50→13:15)
[2016-10-19] MEDS: Levothyroxine TAB* 50 MCG TAB PO SCH (05:50)
[2016-10-19 06:01] LABS: Hematocrit 30 % (35-47); Hemoglobin 9.4 g/dl (12.0-16.0); Mean Corpuscular HGB Conc 32 g/dl (31-36); Mean Corpuscular Hemoglobin 26 pg (27-31); Mean Corpuscular Volume 81 fL (80-97); Mean Platelet Volume 9 um3 (7.4-10.4); Red Blood Count 3.66 10^6/ul (4.0-5.4); Red Cell Distribution Width 16 % (10.5-15); White Blood Count 8.1 10^3/ul (3.5-10.8)
[2016-10-19] MEDS: Mometasone/Formoter 200/5 MDI INH SCH (08:44)
[2016-10-19] MEDS: Tiotropium CAP.INH* CAP.INH/18 MCG (USE ORDER SET !) INH SCH (08:44)
[2016-10-19] MEDS ORDERED: Lansoprazole SOLUTAB* 30 MG G TUBE SCH (09:00)
[2016-10-19] MEDS ORDERED: CITALOPRAM G TUBE SCH (09:00)
[2016-10-19] MEDS: amLODIPine TAB* 5 MG PO SCH (10:08)
[2016-10-19] MEDS: hydrALAZINE TAB* 25 MG PEG TUBE SCH (10:08)
[2016-10-19] MEDS: Valsartan TAB* 160 MG PO SCH (10:08)
[2016-10-19] MEDS: Sucralfate TAB* 1 GM PEG TUBE SCH ×2 (10:08→13:15)
[2016-10-19] MEDS: Aspirin Low Dose CHEW TAB* 81 MG PEG TUBE SCH (10:08)
[2016-10-19] MEDS: Apixaban* 5 MG TAB PO SCH (10:08)
[2016-10-19] MEDS: Metoprolol Tartrate TAB* 50 mg PO SCH (10:08)
[2016-10-19] MEDS: metFORMIN* 500 MG TAB PEG TUBE SCH (10:08)
[2016-10-19] MEDS: Polyethylene Glycol 3350* 17 GM PACKET PEG TUBE SCH (10:08)
--- NOTE | 2016-10-19 11:50 | PN ---
Subjective Date of Service: 10/19/16 Interval History: Pt is feeling well. No pain or SOB. She is anxious to go back to [facility]. Objective Active Medications: Acetaminophen (Tylenol Adult Liq*) 650 mg G TUBE Q4H PRN PRN Reason: PAIN Albuterol (Ventolin 2.5 Mg/3 Ml Neb.Katlyn*) 2.5 mg INH Q2H PRN PRN Reason: SOB/WHEEZING Amlodipine Besylate (Norvasc Tab*) 5 mg PO DAILY [facility] Last Admin: 10/19/16 10:08 Dose: 5 mg Apixaban (Eliquis*) 5 mg PO DAILY [facility] Last Admin: 10/19/16 10:08 Dose: 5 mg Aspirin (Aspirin Low Dose Tab*) 81 mg PEG TUBE DAILY [facility] Last Admin: 10/19/16 10:08 Dose: 81 mg Atorvastatin Calcium (Lipitor*) 40 mg G TUBE BEDTIME [facility] Last Admin: 10/18/16 20:46 Dose: 40 mg Citalopram Hydrobromide (Citalopram Katlyn*) 20 mg G TUBE DAILY [facility] Last Admin: 10/19/16 10:08 Dose: 20 mg Dextrose (D50w Syringe 50 Ml*) 12.5 gm IV PUSH .FOR FS < 60 - SS PRN PRN Reason: FS < 60 Gabapentin (Neurontin Cap(*)) 300 mg PO BEDTIME [facility] Last Admin: 10/18/16 20:46 Dose: 300 mg Hydralazine HCl (Apresoline Tab*) 25 mg PEG TUBE BID [facility] Last Admin: 10/19/16 10:08 Dose: 25 mg Ceftriaxone Sodium 1,000 mg/ (Sodium Chloride) 50 mls @ 200 mls/hr IVPB Q24H [facility] Last Admin: 10/19/16 02:41 Dose: 200 mls/hr Insulin Glargine (Lantus(*)) 45 units SUBCUT BEDTIME [facility] Insulin Human Lispro (Humalog*) 0 units SUBCUT Q6HR [facility] PRN Reason: Protocol Last Admin: 10/19/16 06:43 Dose: 12 unit Lansoprazole (Prevacid Solutab*) 30 mg G TUBE DAILY [facility] Last Admin: 10/19/16 10:08 Dose: 30 mg Levothyroxine Sodium (Synthroid Tab*) 50 mcg PO DAILY@0600 [facility] Last Admin: 10/19/16 05:50 Dose: 50 mcg Metformin HCl (Glucophage*) 500 mg PEG TUBE BID [facility] Last Admin: 10/19/16 10:08 Dose: 500 mg Metoclopramide HCl (Reglan Liq*) 10 mg PEG TUBE Q8HR [facility] Last Admin: 10/19/16 05:50 Dose: 10 mg Metoprolol Tartrate (Lopressor Tab*) 50 mg PO DAILY [facility] Last Admin: 10/19/16 10:08 Dose: 50 mg Mometasone Furoate/Formoterol Fumar (Dulera 200/5 Mdi*) 2 puff INH BID [facility] Last Admin: 10/19/16 08:44 Dose: 2 puff Ondansetron HCl (Zofran Inj*) 4 mg IV Q6H PRN PRN Reason: NAUSEA Last Admin: 10/18/16 10:22 Dose: 4 mg Polyethylene Glycol/Electrolytes (Miralax*) 17 gm PEG TUBE DAILY [facility] Last Admin: 10/19/16 10:08 Dose: 17 gm Sodium Biphosphate/Sodium Phosphate (Fleet Enema*) 1 bottle SC BEDTIME PRN PRN Reason: CONSTIPATION Sucralfate (Carafate*) 1 gm PEG TUBE QID [facility] Last Admin: 10/19/16 10:08 Dose: 1 gm Tiotropium [place] (Spiriva Cap.Inh*) 1 cap INH DAILY [facility] Last Admin: 10/19/16 08:44 Dose: 1 cap.inh Valsartan (Diovan Tab*) 160 mg PO DAILY [facility] Last Admin: 10/19/16 10:08 Dose: 160 mg Vital Signs 10/18/16 10/18/16 10/18/16 17:52 19:21 20:00 Temperature 99.2 F Pulse Rate 73 75 Respiratory 18 16 Rate Blood Pressure 154/55 (mmHg) O2 Sat by Pulse 98 97 Oximetry 10/18/16 10/18/16 10/19/16 20:46 21:41 01:03 Temperature 100.0 F Pulse Rate 72 Respiratory 20 20 Rate Blood Pressure 136/56 (mmHg) O2 Sat by Pulse 97 95 Oximetry 10/19/16 10/19/16 10/19/16 07:46 08:00 08:46 Temperature 99.3 F Pulse Rate 75 74 Respiratory 20 20 18 Rate Blood Pressure 149/53 (mmHg) O2 Sat by Pulse 98 98 Oximetry Oxygen Devices in Use Now: None Appearance: Middle aged morbidly obese female sitting up in bed, NAD Eyes: No Scleral Icterus Ears/Nose/Mouth/Throat: Mucous Membranes Moist Respiratory: Symmetrical Chest Expansion and Respiratory Effort, Clear to Auscultation Cardiovascular: NL Sounds; No Murmurs; No JVD, RRR, No Edema Abdominal: NL Sounds; No Tenderness; No Distention Extremities: No Clubbing, Cyanosis Skin: No Rash or Ulcers, No Nodules or Sclerosis Neurological: Alert and Oriented x 3 Result Diagrams: 10/19/16 05:48 10/18/16 04:34 Additional Lab and Data: Lab Results 10/17/16 10/17/16 10/17/16 Range/Units 17:30 17:30 17:30 WBC 6.9 (3.5-10.8) 10^3/ul RBC 3.96 L (4.0-5.4) 10^6/ul Hgb 10.0 L (12.0-16.0) g/dl Hct 32 L (35-47) % MCV 80 (80-97) fL MCH 25 L (27-31) pg MCHC 31 (31-36) g/dl RDW 16 H (10.5-15) % Plt Count 267 (150-450) 10^3/ul MPV 10 (7.4-10.4) um3 Neut % (Auto) 78.3 (38-83) % Lymph % (Auto) 12.9 L (25-47) % [place] % (Auto) 8.0 (1-9) % Eos % (Auto) 0.4 (0-6) % Baso % (Auto) 0.4 (0-2) % Absolute Neuts (auto) 5.4 (1.5-7.7) 10^3/ul Absolute Lymphs (auto) 0.9 L (1.0-4.8) 10^3/ul Absolute Monos (auto) 0.6 (0-0.8) 10^3/ul Absolute Eos (auto) 0 (0-0.6) 10^3/ul Absolute Basos (auto) 0 (0-0.2) 10^3/ul Absolute Nucleated RBC 0 10^3/ul Nucleated RBC % 0 Sodium 140 (133-145) mmol/L Potassium 4.2 (3.5-5.0) mmol/L Chloride 101 (101-111) mmol/L Carbon Dioxide 33 H (22-32) mmol/L Anion Gap 6 (2-11) mmol/L BUN 55 H (6-24) mg/dL Creatinine 0.98 H (0.51-0.95) mg/dL Est GFR ( Amer) 74.0 (>60) Est GFR (Non-Af Amer) 57.5 (>60) BUN/Creatinine Ratio 56.1 H (8-20) Glucose 428 H (70-100) mg/dL Lactic Acid 0.9 (0.5-2.0) mmol/L Calcium 10.1 (8.6-10.3) mg/dL Total Bilirubin 0.60 (0.2-1.0) mg/dL AST 20 (13-39) U/L ALT 18 (7-52) U/L Alkaline Phosphatase 70 (34-104) U/L C-Reactive Protein 25.23 H (< 5.00) mg/L Total Protein 7.7 (6.4-8.9) g/dL Albumin 3.5 (3.2-5.2) g/dL Globulin 4.2 H (2-4) g/dL Albumin/Globulin Ratio 0.8 L (1-3) Microbiology and Other Data: Microbiology 10/18/16 01:31 Nasal Screen MRSA (PCR)(CLARA) - Final Nasal Mrsa Negative 10/18/16 00:20 Influenza Types A,B Antigen (CLARA) - Final Nasopharyngeal Specimen received for Influenza A/B Molecular testing Assess/Plan/Problems-Billing Ms Francis is a 61 yo F who has a h/o CVA, type II DM, CAD, HTN, HLD, and hypothyroidism who presented to the ER for evaluation of confusion and was found to have a UTI. - Patient Problems (1) UTI (urinary tract infection) Current Visit: Yes Status: Acute Comment: The patient's urine grew stenotrophomonas maltophila. Sensitivites are not back yet- will change to cipro to complete 7 days total of therapy. (2) Encephalopathy Current Visit: Yes Status: Acute Code(s): G93.40 - ENCEPHALOPATHY, UNSPECIFIED SNOMED Code(s): 48029557 Comment: Pt appears to be alert/oriented and back to baseline. She is ready to go back to [facility] today. (3) Type II diabetes mellitus Current Visit: Yes Status: Acute Comment: Sugars remain markedly elevated. Increase lantus to 45 units SQ daily but I suspect she is going to need further increases in her lantus dose. (4) HTN (hypertension) Current Visit: Yes Status: Acute Code(s): I10 - ESSENTIAL (PRIMARY) HYPERTENSION SNOMED Code(s): 19766603 Comment: BP is better with addition of amlodipine. (5) HLD (hyperlipidemia) Current Visit: Yes Status: Acute Code(s): E78.5 - HYPERLIPIDEMIA, UNSPECIFIED SNOMED Code(s): 16695159 Comment: Continue lipitor. (6) H/O deep venous thrombosis Current Visit: Yes Status: Acute Code(s): Z86.718 - PERSONAL HISTORY OF OTHER VENOUS THROMBOSIS AND EMBOLISM SNOMED Code(s): 888874462 Comment: Continue eliquis. (7) DVT prophylaxis Current Visit: Yes Status: Acute Code(s): GUG2596 - SNOMED Code(s): 192527719 Comment: elialton (8) Full code status Current Visit: Yes Status: Acute Code(s): Z78.9 - OTHER SPECIFIED HEALTH STATUS SNOMED Code(s): 766473648 Status and Disposition: d/c to [facility]
--- NOTE | 2016-10-19 14:01 | DS ---
DISCHARGE SUMMARY: DATE OF ADMISSION: 10/17/16 DATE OF DISCHARGE: 10/19/16 PRIMARY CARE PROVIDER: Dr. Rivas, [facility]. PRINCIPAL DIAGNOSIS: Encephalopathy secondary to Stenotrophomonas maltophilia urinary tract infection. SECONDARY DIAGNOSES: 1. 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 2. Hypertension. 3. Coronary artery disease. 4. Hyperlipidemia. 5. History of deep vein thrombosis. 6. Hypothyroidism. 7. Gastroesophageal reflux disease. DISCHARGE MEDICATIONS: 1. Colace 100 mg per tube b.i.d. 2. Fleet enema 1 enema p.r. at bedtime p.r.n. constipation. 3. Protonix 40 mg per tube daily. 4. Lasix 40 mg per tube daily. 5. Metformin 500 mg per tube b.i.d. 6. Albuterol 2 puffs inhaled q. 4 hours p.r.n. shortness of breath. 7. Crestor 20 mg per tube daily at bedtime. 8. Albuterol 1 neb inhaled q. 6 hours. 9. Valsartan 160 mg per tube daily. 10. MiraLAX 17 g per tube daily. 11. Metoclopramide 10 mg per tube q. 8 hours. 12. Hydralazine 25 mg per tube twice daily. 13. Carafate 1 g per tube 4 times daily. 14. Lexapro 10 mg per tube daily. 15. Aspirin 81 mg per tube daily. 16. Multivitamin 1 tab per tube daily. 17. Lactobacillus 1 cap per tube daily. 18. Eliquis 5 mg per tube twice daily (new frequency). 19. Dulera 200/5 two puffs inhaled twice daily. 20. Melatonin 5 mg per tube q.h.s. 21. Gabapentin 300 mg per tube q.h.s. 22. Synthroid 50 mcg per tube daily. 23. Metoprolol titrate twice daily. 24. Amlodipine 5 mg per tube daily (new). 25. Lantus 45 units subcutaneous q.h.s. (new dose). 26. Cipro 500 mg per tube twice daily x5 days. HOSPITAL COURSE: Ms. Francis is a 61-year-old female, current resident of [facility] following a CVA last year, who presented to the emergency room with hyperglycemia, hypertension, and altered mental status. The patient was found to have a urinalysis consistent with urinary tract infection. Ultimately, this grew Stenotrophomonas maltophilia. The patient has done well in terms of her mental status with treatment of her urinary tract infection. She is now alert and oriented and appropriate. The patient received ceftriaxone while in the hospital and will be discharged with Cipro 500 mg per tube twice daily for 5 more days. In terms of the patient's hypertension, amlodipine was added to her medication regimen. With this, her blood pressure is under better control. Of note, she was only receiving metoprolol tartrate once daily in the hospital as it was not ordered correctly from admission. She will go back up to twice daily and this change with the addition of amlodipine will likely improve her blood pressure. In terms of the patient's marked hyperglycemia, I believe that she needs more Lantus. I have increased her Lantus from 40 units to 45 units. The patient will likely need her Lantus dose being increased even further. If her sugars remain greater than 200 on the day after discharge, her Lantus could be increased to 50 units daily with continued aggressive uptitration to achieve optimal blood sugar control. In reviewing the patient's MAR from the [facility], I noted that she was on Eliquis 5 mg only once daily. For treatment of DVT, this should be twice daily and I have made this adjustment on her discharge medication list to be Eliquis 5 mg per tube twice daily. The patient has otherwise been maintained on all of her usual home medications. At this point, the patient is stable and ready for discharge back to [facility]. FOLLOW-UP CONCERNS: The patient is being discharged to [facility] today, . ACTIVITY LEVEL: As tolerated. DIET: Glucerna tube feeds. CONDITION ON DISCHARGE: Stable. TIME: Thirty-five minute was spent discharging this patient. CC: Dr. Rivas, [facility]* [id number]/[facility] #: [id number] [facility]
[2016-10-19] MEDS: Ondansetron INJ* 2 MG/ML VIAL IV PRN (16:09)
[2016-10-19 16:29] VITALS: BP 138/57
[2016-10-19] MEDS ORDERED: Pneumococcal *Vac Polyvalent 0.5 ML VIAL ONE (17:14)
[2016-10-19] MEDS ORDERED: Insulin GLARGINE(*) 1 UNITS UNIT SUBCUT SCH (21:00)
[2016-10-19] MEDS ORDERED: Apixaban* 5 MG TAB PO SCH (21:00)
[2016-10-20] MEDS ORDERED: Pneumococcal *Vac Polyvalent 0.5 ML VIAL IM ONE (09:00)
== END 2016-10-19 17:15 | DRG 463 ==
LOC: ED 16:26 → MEDTELE 23:33 → OBSVTOIN 10-18 16:44
PROVIDERS: ADMIT Hospitalist; ATTEND Hospitalist
PROC: 3E0234Z Introduction of Serum, Toxoid and Vaccine into Muscle, Percutaneous Approach (ICD-10-PCS; principal; 2016-10-19)
DX: N39.0 Urinary tract infection, site not specified (principal); G93.40 Encephalopathy, unspecified; R13.10 Dysphagia, unspecified; E11.65 Type 2 diabetes mellitus with hyperglycemia; I69.351 Hemiplegia and hemiparesis following cerebral infarction affecting right dominant side; Z68.41 Body mass index [BMI] 40.0-44.9, adult; I25.10 Atherosclerotic heart disease of native coronary artery without angina pectoris; I10 Essential (primary) hypertension; E78.5 Hyperlipidemia, unspecified; E03.9 Hypothyroidism, unspecified; K21.9 Gastro-esophageal reflux disease without esophagitis; E66.01 Morbid (severe) obesity due to excess calories; E86.0 Dehydration; J44.9 Chronic obstructive pulmonary disease, unspecified; F32.9 Major depressive disorder, single episode, unspecified; B96.89 Other specified bacterial agents as the cause of diseases classified elsewhere; I69.391 Dysphagia following cerebral infarction; Z89.512 Acquired absence of left leg below knee; I25.2 Old myocardial infarction; Z95.5 Presence of coronary angioplasty implant and graft; Z86.718 Personal history of other venous thrombosis and embolism; Z88.0 Allergy status to penicillin; Z93.1 Gastrostomy status; Z82.49 Family history of ischemic heart disease and other diseases of the circulatory system; Z83.3 Family history of diabetes mellitus; Z83.49 Family history of other endocrine, nutritional and metabolic diseases; Z23 Encounter for immunization; I69.321 Dysphasia following cerebral infarction; Z79.82 Long term (current) use of aspirin; Z79.01 Long term (current) use of anticoagulants; Z79.4 Long term (current) use of insulin
CPT/HCPCS: 36415; 70450; 71010; 74176; 80048; 80053; 81003; 81015; 82272; 82947; 83036; 83605; 85025; 85027; 86140; 87040; 87086; 87502; 87641; 90732; 93005; 94640; 94760; A9270-GY; G0378; G8978-GP-CN; G8979-GP-CM; G8980-GP-CN; J0696; J2405

== ENCOUNTER 2017-01-04 21:03 | Inpatient (IN) | payer OTHER ==
[2017-01-04 22:25] LABS: Hematocrit 23 % (35-47); Hemoglobin 7.3 g/dl (12.0-16.0); Mean Corpuscular HGB Conc 31 g/dl (31-36); Mean Corpuscular Hemoglobin 24 pg (27-31); Mean Corpuscular Volume 78 fL (80-97); Mean Platelet Volume 8 um3 (7.4-10.4); Red Cell Distribution Width 19 % (10.5-15); White Blood Count 5.6 10^3/ul (3.5-10.8)
[2017-01-04 22:40] LABS: BUN/Creatinine Ratio 22.7 (8-20); Calcium 8.6 mg/dL (8.6-10.3); EGFR African American 116.7 (>60); EGFR Non-African American 90.7 (>60); Globulin 3.7 g/dL (2-4); Potassium 3.3 mmol/L (3.5-5.0); Total Bilirubin 0.8 mg/dL (0.2-1.0); Total Protein 6.7 g/dL (6.4-8.9)
[2017-01-04 22:42] LABS: Troponin I 0.02 ng/mL (<0.04)
--- NOTE | 2017-01-04 22:45 | RAD ---
Indication: Shortness of breath. Single frontal view of the chest performed at 2219 hours was reviewed. Comparison is made with previous exam dated October 17, 2016. No mediastinal shift is noted. Heart is of normal size and configuration. Lung go appear clear. Increased density in the lung bases likely due to overlying soft tissue. IMPRESSION: NO ACTIVE CARDIOPULMONARY DISEASE IS NOTED.
[2017-01-05] MEDS ORDERED: Furosemide IV* 10 MG/ML 10 ML VIAL (100 MG) ONE (00:24)
[2017-01-05] MEDS ORDERED: Furosemide IV* 10 MG/ML 10 ML VIAL (100 MG) IV ONE (00:27)
[2017-01-05] MEDS ORDERED: Nitroglycerin 2% OINT* 1 GM PAK TOPICAL ONE (00:27)
[2017-01-05] MEDS ORDERED: Sodium Phosphate ADULT ENEMA* 118 ml bottle PR PRN (02:21)
[2017-01-05] MEDS ORDERED: Loperamide CAP* 2 MG PO PRN (02:21)
[2017-01-05] MEDS ORDERED: Acetaminophen TAB* 325 MG PO PRN (02:21)
[2017-01-05 02:37] LABS: TSH (Thyroid Stimulating Horm) 6.08 mcIU/mL (0.34-5.60)
[2017-01-05 03:01] LABS: Ferritin 43.3 ng/mL (11-307)
[2017-01-05] MEDS: Albuterol 2.5 MG/3 ML NEB.SOL* (0.083%) INH SCH ×4 (04:09→20:36)
[2017-01-05] MEDS ORDERED: Furosemide IV* 10 MG/ML VIAL (40 MG) IV ONE (07:00)
[2017-01-05] MEDS: Potassium Chlor TAB* 20 MEQ TAB.ER PO SCH ×3 (07:00→22:15)
[2017-01-05] MEDS: Levothyroxine TAB* 50 MCG TAB PO SCH (07:08)
[2017-01-05] MEDS: Mometasone/Formoter 200/5 MDI INH SCH ×2 (07:55→20:37)
[2017-01-05] MEDS: Insulin LISPRO* 1 UNITS UNIT SUBCUT SCH ×4 (08:42→23:47)
[2017-01-05] MEDS: Insulin GLARGINE(*) 1 UNITS UNIT SUBCUT SCH (08:43)
[2017-01-05] MEDS: Losartan TAB* 25 MG PO SCH (08:44)
[2017-01-05] MEDS: Lactobacillus Acidophilu (GG)* 1 CAP CAP PO SCH (08:45)
[2017-01-05] MEDS: amLODIPine TAB* 5 MG PO SCH (08:45)
[2017-01-05] MEDS: Metoprolol Tartrate TAB* 50 mg PO SCH ×2 (08:46→22:14)
[2017-01-05] MEDS: Citalopram TAB* 20 MG PO SCH (08:46)
[2017-01-05] MEDS: Omeprazole CAP* 20 MG PO SCH (08:46)
[2017-01-05 08:58] LABS: Hematocrit 26 % (35-47); Hemoglobin 8.5 g/dl (12.0-16.0); Mean Corpuscular HGB Conc 32 g/dl (31-36); Mean Corpuscular Hemoglobin 25 pg (27-31); Mean Corpuscular Volume 78 fL (80-97); Mean Platelet Volume 8 um3 (7.4-10.4); Red Blood Count 3.35 10^6/ul (4.0-5.4); Red Cell Distribution Width 18 % (10.5-15); White Blood Count 5.3 10^3/ul (3.5-10.8)
[2017-01-05] MEDS ORDERED: hydrALAZINE TAB* 25 MG PEG TUBE SCH (09:00)
[2017-01-05] MEDS ORDERED: Apixaban* 5 MG TAB PO SCH (09:00)
[2017-01-05 09:13] LABS: BUN/Creatinine Ratio 22.2 (8-20); Calcium 8.7 mg/dL (8.6-10.3); EGFR African American 123.1 (>60); EGFR Non-African American 95.8 (>60); Potassium 3.2 mmol/L (3.5-5.0)
[2017-01-05] MEDS: Sucralfate TAB* 1 GM PEG TUBE SCH ×2 (09:38→14:11)
[2017-01-05] MEDS ORDERED: Potassium Chloride LIQUID* 20 MEQ PACKET PO ONE (10:14)
[2017-01-05] MEDS ORDERED: Potassium Chloride LIQUID* 20 MEQ PACKET ONE (10:25)
--- NOTE | 2017-01-05 14:42 | PN ---
Subjective Date of Service: 01/05/17 Interval History: Patient seen and examined at bedside. Denies fever, chills, chest discomfort, N/ V/D. Pt also denies knowledge of blood in her stool. Pt states that she has had UE and LE edema since her stroke in August, but that it is worse over the last few weeks. Denies eating salty foods, but reports she is unaware of what diet she is on at [facility]. Pt reports shortness of breath, feels it is improved from yesterday. She reports orthopnea, she isn't ambulatory so she is unable to report if she has dyspnea on exertion. Pt states that she feels more weak than usual, she was able to transfer to a chair while in acute rehab and has gotten more weak while at [facility]. She is slow in her speech, but states that it is because she has to think about the words and not because she has to catch her breath. Tele: Sinus rhythm, rate 60-70's. Family History: Unchanged from Admission Social History: Unchanged from Admission Past Medical History: Unchanged from Admission Objective Active Medications: Acetaminophen (Tylenol Tab*) 650 mg PO Q6H PRN Reason: PAIN Albuterol (Ventolin 2.5 Mg/3 Ml Neb.Katlyn*) 2.5 mg INH [id number] AWAKE JAROD Amlodipine Besylate (Norvasc Tab*) 5 mg PO DAILY JAROD Atorvastatin Calcium (Lipitor*) 40 mg PO BEDTIME JAROD Citalopram Hydrobromide (Celexa Tab*) 20 mg PO DAILY JAROD Cyanocobalamin (Vitamin B12 Tab*) 1,000 mcg PO DAILY JAROD Ferrous Sulfate (Ferrous Sulfate Tab*) 325 mg PO DAILY JAROD Gabapentin (Neurontin Cap(*)) 300 mg PO BEDTIME JAROD Hydralazine HCl (Apresoline Tab*) 25 mg PEG TUBE BID JAROD Insulin Glargine (Lantus(*)) 10 units SUBCUT Q24H JAROD Insulin Human Lispro (Humalog*) 0 units SUBCUT ACHS JAROD Reason: Protocol Lactobacillus Rhamnosus (Culturelle*) 1 cap PO DAILY JAROD Levothyroxine Sodium (Synthroid Tab*) 50 mcg PO 0600 JAROD Loperamide HCl (Imodium Cap*) 2 mg PO Q4H PRN Reason: DIARRHEA Losartan Potassium (Cozaar Tab*) 100 mg PO DAILY JAROD Metoprolol Tartrate (Lopressor Tab*) 50 mg PO BID [facility] Mometasone Furoate/Formoterol Fumar (Dulera 200/5 Mdi*) 2 puff INH BID [facility] Non-Formulary Medication (Temazepam) 7.5 mg PO BEDTIME JAROD Omeprazole (Prilosec Cap*) 20 mg PO DAILY [facility] Potassium Chloride (Klor Con Er Tab*) 20 meq PO BID JAROD Sodium Biphosphate/Sodium Phosphate (Fleet Enema*) 1 bottle CA BEDTIME PRN Reason: CONSTIPATION Sucralfate (Carafate*) 1 gm PEG TUBE QID JAROD Vital Signs 01/05/17 01/05/17 01/05/17 03:44 04:53 05:07 Temperature 98.0 F 98.7 F 97.9 F Pulse Rate 70 71 70 Respiratory 26 26 28 Rate Blood Pressure 116/56 132/55 121/50 (mmHg) O2 Sat by Pulse 99 98 98 Oximetry 01/05/17 01/05/17 01/05/17 07:00 07:49 07:53 Temperature 97.9 F Pulse Rate 88 74 Respiratory 16 16 16 Rate Blood Pressure 143/53 (mmHg) O2 Sat by Pulse 97 98 Oximetry 01/05/17 01/05/17 08:29 12:11 Temperature 98.1 F 98.2 F Pulse Rate 80 62 Respiratory 26 22 Rate Blood Pressure 129/58 138/56 (mmHg) O2 Sat by Pulse 99 95 Oximetry Oxygen Devices in Use Now: Nasal Cannula - 2L Appearance: NAD, sitting up in bed Eyes: No Scleral Icterus Ears/Nose/Mouth/Throat: Mucous Membranes Moist Respiratory: Symmetrical Chest Expansion and Respiratory Effort, - - Lung sounds with crackles in the bases Cardiovascular: RRR, - - 2+ edema right UE and 1+ edema left LE, 1-2 bilateral LE edema Abdominal: NL Sounds; No Tenderness; No Distention Extremities: - - Left BKA Skin: No Rash or Ulcers Neurological: Alert and Oriented x 3 Lines/Tubes/Other Access: Clean, Dry and Intact Peripheral IV - x2, sites benign , Clean, Dry and Intact Percuteneous Feeding Tube - site benign Nutrition: Taking PO's Result Diagrams: 01/05/17 08:47 01/05/17 08:47 Additional Lab and Data: Microbiology and Other Data: Microbiology 01/05/17 03:35 Nasal Screen MRSA (PCR)(CLARA) - Final Nasal Mrsa Negative 01/05/17 01:49 Stool Occult Blood (CLARA) - Final Stool Assess/Plan/Problems-Billing Assessment: Ms. Francis is a 61 yo female with PMH significant for DM, CVA, HTN, HLD, CAD, GERD and CHF who presented to the emergency room for concern of shortness of breath. She was found to have a acute on chronic CHF exacerbation. - Patient Problems (1) CHF exacerbation Code(s): I50.9 - HEART FAILURE, UNSPECIFIED SNOMED Code(s): 80397880 Comment: - Pt reports improvement in shortness of breath and edema - Echo pending - Continue strict I+O's, daily weights - Will give another dose of IV lasix in the AM (2) Anemia Code(s): D64.9 - ANEMIA, UNSPECIFIED SNOMED Code(s): 952176753 Comment: - Suspect r/t possible GI bleed - Pt has never had a colonoscopy - Received 1 unit RBCs - Guaiac positive, will check another - Continue to follow (3) Electrolyte abnormality Code(s): E87.8 - OTH DISORDERS OF ELECTROLYTE AND FLUID BALANCE, NEC SNOMED Code(s): 269167853 Comment: - Hypokalemia - received replacement and will recheck labs in the AM - Hypomagnesemia - will replace and recheck labs in the AM (4) History of coronary artery disease Code(s): Z86.79 - PERSONAL HISTORY OF OTHER DISEASES OF THE CIRCULATORY SYSTEM SNOMED Code(s): 726782828 Comment: - Asymptomatic - Continue Metoprolol and statin (5) H/O deep venous thrombosis Code(s): Z86.718 - PERSONAL HISTORY OF OTHER VENOUS THROMBOSIS AND EMBOLISM SNOMED Code(s): 874223359 Comment: - Hold eliquis in setting of a possible GI bleed (6) HLD (hyperlipidemia) Code(s): E78.5 - HYPERLIPIDEMIA, UNSPECIFIED SNOMED Code(s): 85718541 Comment: - Continue lipitor. (7) HTN (hypertension) Code(s): I10 - ESSENTIAL (PRIMARY) HYPERTENSION SNOMED Code(s): 76055753 Comment: - Normotensive - Continue amlodipine, losartan, hydralazine, and metoprolol (8) Type II diabetes mellitus Current Visit: No Status: Acute Comment: - HgA1C 6.6 - Hold metformin - Continue Lantus and Lispro SS (9) Hypothyroidism Code(s): E03.9 - HYPOTHYROIDISM, UNSPECIFIED SNOMED Code(s): 99978177 Comment: - TSH 6.08 - Continue levothyroxine (10) DVT prophylaxis Code(s): SYL1796 - SNOMED Code(s): 580253120 Comment: - Hold chemical DVT prophylaxsis in setting of possible GI bleed - SCDs (11) DNR (do not resuscitate) Status and Disposition: OBV. Discharge to [facility] when medically stable, possibly in the morning.
[2017-01-05 14:44] LABS: Magnesium 1.5 mg/dL (1.9-2.7)
[2017-01-05] MEDS ORDERED: Magnesium Sulf 4 GM/100 ML IV* 4,000 MG/100 ML BAG IVPB ONE (15:33)
[2017-01-05] MEDS: Sucralfate TAB* 1 GM PO SCH ×2 (16:18→23:01)
--- NOTE | 2017-01-05 20:45 | ED ---
Ta Mayo Alok, scribed for Roney Morgan MD on 01/05/17 at 0051 . Shortness of Breath - HPI Summary HPI Summary: 61F presents to the ED BIBA for SOB at rest for the past few days, worsening today. Pt states her SOB is aggravated by talking. Pt also notes edema and pain of the upper and lower extremities as well as weakness of the RUE. Her extremities have been swollen since her stroke in 4 months ago. Pt notes weight gain recently. EMS report diaphoresis and gave her 4L O2 in ambulance. Pt denies CP. PMHx includes DM, CHF, h/o UTI, and dx of PNA one week ago. Pt is on a feeding tube but has been eaten food regularly for the last month. Her doctor at [facility] recently prescribed her 40 mg Lasix QD. - History of Current Complaint Chief Complaint: EDShortnessOfBreath Time Seen by Provider: 01/04/17 21:57 Hx Obtained From: Patient Onset/Duration: Lasting Days - SOB, Still Present Timing: Constant Current Severity: Moderate Dyspnea At: Rest Aggrevating Factors: Deep Breaths - talking Associated Signs & Symptoms: Diaphoresis - Allergy/Home Medications Allergies/Adverse Reactions: Allergies Allergy/AdvReac Type Severity Reaction Status Date / Time Penicillins Allergy Hives Verified 10/17/16 18:13 PMH/Surg Hx/FS Hx/Imm Hx Endocrine/Hematology History: Reports: Hx Anticoagulant Therapy - Eliquis, Hx Diabetes Cardiovascular History: Reports: Hx Congestive Heart Failure, Hx Coronary Artery Disease, Hx Hypertension GI History: Reports: Other GI Disorders - PEG tube Musculoskeletal History: Reports: Other Musculoskeletal History - [facility] Neurological History: Reports: Other Neuro Impairments/Disorders - CVA Psychiatric History: Reports: Hx Depression - Surgical History Surgery Procedure, Year, and Place: [facility]. PEG Tube Hx Anesthesia Reactions: No - Immunization History Date of Tetanus Vaccine: unknown Date of Influenza Vaccine: unknown Infectious Disease History: Denies: Traveled Outside the [place] in Last 30 Days - Family History Known Family History: Positive: Cardiac Disease, Diabetes, Other - Cancer, CVA - Social History Occupation: Retired Lives: [facility] [employer] Alcohol Use: None Hx Substance Use: No Substance Use Type: Reports: None Hx Tobacco Use: No Smoking Status (MU): Never Smoked Tobacco Review of Systems Positive: Skin Diaphoresis. Negative: Fever, Chills Negative: Erythema Negative: Sore Throat Negative: Chest Pain Positive: Shortness Of Breath. Negative: Cough Negative: Abdominal Pain, Vomiting, Nausea Negative: hematuria Positive: Edema. Negative: Myalgia Negative: Rash Neurological: Other - Negative: Dizziness All Other Systems Reviewed And Are Negative: Yes Physical Exam - Summary Physical Exam Summary: Constitutional: Well-developed, Well-nourished, Alert. (-) Distressed Skin: Warm, Dry HENT: Normocephalic; Atraumatic Eyes: Conjunctiva normal Neck: Musculoskeletal ROM normal neck. (-) JVD, (-) Stridor, (-) Tracheal deviation Cardio: Rhythm regular, rate normal, Heart sounds normal; Intact distal pulses; The pedal pulses are 2+ and symmetric. Radial pulses are 2+ and symmetric. (-) Murmur Pulmonary/Chest wall: Rales in lung field bases Abd: Soft, (-) Tenderness, (-) Distension, (-) Guarding, (-) Rebound Musculoskeletal: (-) Edema Lymph: (-) Cervical adenopathy Neuro: Alert, Oriented x3 Psych: Mood and affect Normal Triage Information Reviewed: Yes Vital Signs On Initial Exam: Initial Vitals Temp Pulse Resp BP Pulse Ox 98.3 F 66 22 150/45 96 01/04/17 21:10 01/04/17 21:10 01/04/17 21:10 01/04/17 21:10 01/04/17 21:10 Vital Signs Reviewed: Yes - Marshall Coma Scale Coma Scale Total: 15 Diagnostics - Vital Signs Vital Signs Temp Pulse Resp BP Pulse Ox 01/04/17 22:00 65 26 146/53 98 01/04/17 21:30 65 26 135/53 98 01/04/17 21:19 19 01/04/17 21:18 150/45 01/04/17 21:10 98.3 F 66 22 150/45 96 - Laboratory Lab Results: Lab Results 01/04/17 01/04/17 01/04/17 Range/Units 22:15 22:15 22:15 WBC 5.6 (3.5-10.8) 10^3/ul RBC 3.00 L (4.0-5.4) 10^6/ul Hgb 7.3 L (12.0-16.0) g/dl Hct 23 L (35-47) % MCV 78 L (80-97) fL MCH 24 L (27-31) pg MCHC 31 (31-36) g/dl RDW 19 H (10.5-15) % Plt Count 279 (150-450) 10^3/ul MPV 8 (7.4-10.4) um3 Neut % (Auto) 66.8 (38-83) % Lymph % (Auto) 17.6 L (25-47) % [place] % (Auto) 9.8 H (1-9) % Eos % (Auto) 5.1 (0-6) % Baso % (Auto) 0.7 (0-2) % Absolute Neuts (auto) 3.8 (1.5-7.7) 10^3/ul Absolute Lymphs (auto) 1.0 (1.0-4.8) 10^3/ul Absolute Monos (auto) 0.5 (0-0.8) 10^3/ul Absolute Eos (auto) 0.3 (0-0.6) 10^3/ul Absolute Basos (auto) 0 (0-0.2) 10^3/ul Absolute Nucleated RBC 0 10^3/ul Nucleated RBC % 0.1 Sodium 139 (133-145) mmol/L Potassium 3.3 L (3.5-5.0) mmol/L Chloride 99 L (101-111) mmol/L Carbon Dioxide 34 H (22-32) mmol/L Anion Gap 6 (2-11) mmol/L BUN 15 (6-24) mg/dL Creatinine 0.66 (0.51-0.95) mg/dL Est GFR ( Amer) 116.7 (>60) Est GFR (Non-Af Amer) 90.7 (>60) BUN/Creatinine Ratio 22.7 H (8-20) Glucose 173 H (70-100) mg/dL Lactic Acid 1.5 (0.5-2.0) mmol/L Calcium 8.6 (8.6-10.3) mg/dL Total Bilirubin 0.80 (0.2-1.0) mg/dL AST 12 L (13-39) U/L ALT 8 (7-52) U/L Alkaline Phosphatase 74 (34-104) U/L Troponin I 0.02 (<0.04) ng/mL B-Natriuretic Peptide ( - 100) pg/mL Total Protein 6.7 (6.4-8.9) g/dL Albumin 3.0 L (3.2-5.2) g/dL Globulin 3.7 (2-4) g/dL Albumin/Globulin Ratio 0.8 L (1-3) 05// Range/Units 22:15 WBC (3.5-10.8) 10^3/ul RBC (4.0-5.4) 10^6/ul Hgb (12.0-16.0) g/dl Hct (35-47) % MCV (80-97) fL MCH (27-31) pg MCHC (31-36) g/dl RDW (10.5-15) % Plt Count (150-450) 10^3/ul MPV (7.4-10.4) um3 Neut % (Auto) (38-83) % Lymph % (Auto) (25-47) % [place] % (Auto) (1-9) % Eos % (Auto) (0-6) % Baso % (Auto) (0-2) % Absolute Neuts (auto) (1.5-7.7) 10^3/ul Absolute Lymphs (auto) (1.0-4.8) 10^3/ul Absolute Monos (auto) (0-0.8) 10^3/ul Absolute Eos (auto) (0-0.6) 10^3/ul Absolute Basos (auto) (0-0.2) 10^3/ul Absolute Nucleated RBC 10^3/ul Nucleated RBC % Sodium (133-145) mmol/L Potassium (3.5-5.0) mmol/L Chloride (101-111) mmol/L Carbon Dioxide (22-32) mmol/L Anion Gap (2-11) mmol/L BUN (6-24) mg/dL Creatinine (0.51-0.95) mg/dL Est GFR ( Amer) (>60) Est GFR (Non-Af Amer) (>60) BUN/Creatinine Ratio (8-20) Glucose (70-100) mg/dL Lactic Acid (0.5-2.0) mmol/L Calcium (8.6-10.3) mg/dL Total Bilirubin (0.2-1.0) mg/dL AST (13-39) U/L ALT (7-52) U/L Alkaline Phosphatase (34-104) U/L Troponin I (<0.04) ng/mL B-Natriuretic Peptide 620 H ( - 100) pg/mL Total Protein (6.4-8.9) g/dL Albumin (3.2-5.2) g/dL Globulin (2-4) g/dL Albumin/Globulin Ratio (1-3) Result Diagrams: 01/05/17 08:47 01/05/17 08:47 Lab Statement: Any lab studies that have been ordered have been reviewed, and results considered in the medical decision making process. - Radiology CXR Xray Interpretation: Positive (See Comments) - IMPRESSION: NO ACTIVE CARDIOPULMONARY DISEASE IS NOTED. Radiology Interpretation Completed By: Radiologist - EKG 2242 Cardiac Rate: Other Rate - 64 bpm EKG Interpretation: No STEMI EKG Comparison: No Significant Change - From 10/17/2016 Course/Dx - Diagnoses Provider Diagnoses: Pulmonary edema, CHF (congestive heart failure), Symptomatic anemia - Physician Notifications Discussed Care of Patient With: Dr. Vera (Hospitalist) @ [phone] - Will admit pt Discharge - Discharge Plan Condition: Fair Disposition: ADMITTED TO [facility] documentation as recorded by the Ta ramirez Alok accurately reflects the service I personally performed and the decisions made by me, Roney Morgan MD.
--- NOTE | 2017-01-05 21:04 | HP ---
ADMISSION HISTORY AND PHYSICAL: DATE OF ADMISSION: 01/05/17 CHIEF COMPLAINT: Dyspnea. HISTORY OF PRESENT ILLNESS: Ms. Francis is a 61-year-old woman with history of coronary artery disease and diabetes who lives in a long term at this point. The patient reports 3 days of progressive dyspnea at rest. She has had orthopnea, but no PND. She has had a nonproductive cough. The patient denies any chest pain, nausea, or vomiting. She cannot really exert herself, so we cannot ask about exertional dyspnea. She does state that she gets out of breath just from talking. She believes she is following a low sodium diet and she believes she has gained a lot of weight over the last few months. The patient reports that she has had progressive, overall edema in her hands and legs since August. The patient had a stroke in August and has had indwelling Villegas since that time. The patient's stroke left her with some right-sided weakness and dysphagia. For a time, she was on percutaneous gastric tube feeding, but the tube remains, but she is not eating chopped food. PAST MEDICAL HISTORY: Includes: 1. Type 2 diabetes. 2. Hypertension. 3. Hyperlipidemia. 4. History of stroke as above. 5. Coronary artery disease, status post UT and stent. 6. Hypothyroidism. 7. GERD. 8. History of DVT. PAST SURGICAL HISTORY: Left qtzet-nau-geae amputation 2 years ago after a fall at [facility]. She also had PEG tube placement in the past. MEDICATIONS ON ADMISSION: 1. Acetaminophen 650 mg p.o. q.6 hours p.r.n. 2. Albuterol nebulizer q.6 hours as needed. 3. Apixaban 5 mg by G-tube b.i.d. 4. Lexapro 10 mg p.o. daily. 5. Furosemide 40 mg by PEG tube daily. 6. Gabapentin 300 mg by PEG tube at h.s. 7. Humalog insulin 10 units subcutaneous b.i.d. 8. Probiotic 1 cap by PEG tube daily. 9. Levothyroxine 50 mcg by PEG tube daily. 10. Imodium cap 2 mg q.4 hours p.r.n. diarrhea by PEG tube. 11. Losartan 100 mg p.o. daily. 12. Metformin 500 mg by PEG tube b.i.d. 13. Metoprolol 50 mg p.o. b.i.d. 14. Dulera 2 puffs inhaled b.i.d., dose is 200/5 mcg. 15. Multivitamin 1 tablet PEG tube daily. 16. Omeprazole 20 mg p.o. daily. 17. Pantoprazole 40 mg by G-tube b.i.d., unclear why there is 2 PPI's listed. 18. Rosuvastatin 20 mg by PEG tube p.m. 19. Fleet enema as needed bedtime by rectum. 20. Sucralfate 1 g by PEG tube 4 times a day. 21. Temazepam 7.5 mg p.o. q.h.s. p.r.n. insomnia. 22. Amlodipine 5 mg p.o. daily. 23. Hydralazine 25 mg by PEG tube b.i.d. ALLERGIES: PENICILLIN. FAMILY HISTORY: Notable for sister who had a stroke also. Mother and father both of lung cancer. SOCIAL HISTORY: She is disabled. She is and has 2 children. Her daughter, Kavita, is her healthcare proxy. She quit tobacco 5 years ago. No alcohol or drug use. REVIEW OF SYSTEMS: The patient denies any fevers, weight loss, or anorexia. The patient denies any chest pain or palpitations. The patient denies nay hemoptysis, but does have cough and shortness of breath. The patient denies any nausea or vomiting and also denies melena or bright red blood per rectum. Remainder of a 14- point review of systems is negative other than mentioned in the HPI. PHYSICAL EXAMINATION GENERAL: She is an obese woman, lying in bed, no acute distress. VITAL SIGNS: Temperature is 36.8, pulse is 66, respirations 26, blood pressure is 146/53, O2 sat 98%. HEAD: Head is normocephalic, atraumatic. Sclerae anicteric. Pupils are equal , round, and reactive to light and accommodation. Oropharynx is moist. No lesions. NECK: No carotid bruit. No thyromegaly. Neck is thick and JVD is difficult to appreciate. LUNGS: Diminished throughout. No rales or wheezes. HEART: Regular rate and rhythm without murmurs or gallops. ABDOMEN: Soft, obese, nontender. G tube is present in the left upper quadrant. EXTREMITIES: She has a left [id number]-[id number] amputation. She has 3+ pitting edema in both legs and her forearms. SKIN: No rashes. NEUROLOGIC: Cranial nerves II through XII are intact. Right hand wheel borer is 4+/ 5. She moves all 4 extremities with equal power. She is alert and oriented x3. LABORATORY DATA: Sodium 139, potassium 3.3, chloride 99, bicarb 34, BUN 15, creatinine 0.66, glucose 173, calcium 8.6, albumin 3.0, AST 12, ALT 8, bilirubin 0.8, lactic acid 1.5. Troponin 0.02. BNP is 620. White count 5.6, hemoglobin 7.3, hematocrit 23%, platelets are 279. EKG, no sinus rhythm, left bundle branch block. Chest x-ray is negative for infiltrates or effusions. ASSESSMENT AND PLAN: A 61-year-old woman with history of coronary artery disease, now presenting with extensive heart failure symptoms, peripheral edema , and orthopnea. It is unclear at this time whether she has systolic or diastolic failure, but she certainly has decompensation. She will be admitted to the hospital and diuresed with Lasix. We will follow her and take it out strictly and have her daily weights. We will check an echocardiogram as soon as possible to assess her audio function. The patient also has significant anemia, which is below her baseline. She may have a slow GI bleed due to her Eliquis and some other GI lesion. We will hold her Eliquis if her fecal occult blood test comes back positive, which was done in the emergency department. I will also check her iron, TIBC and ferritin and transfuse 1 unit of packed red cells if her occult blood is positive. For her diabetes, she is on b.i.d. Humalog without adjustment for her intake. I will switch her to basal-bolus insulin, which should be more effective. She has hypokalemia due to Lasix used at the emergency room and long term. We will replete this and check in the morning. We will continue diuresis with a goal to have her out a liter per day. The patient arrived with a MOLST form that states she is do not resuscitate. This is confirmed with the patient verbally and the MOLST form was re-signed. For DVT prophylaxis, she is currently on Eliquis. If this is held, we should give her sequential compression devices while she is being worked up for GI bleed. CC: Dr. Naila Valdes * [id number]/[facility] #: [id number] [facility]ITALDiana
[2017-01-05] MEDS: Atorvastatin* 40 MG TAB PO SCH (22:14)
[2017-01-05] MEDS: Gabapentin CAP(*) 300 MG PO SCH (22:15)
[2017-01-05] MEDS: hydrALAZINE TAB* 25 MG PO SCH (22:16)
[2017-01-05] MEDS: TEMAZEPAM 7.5 MG PO SCH (23:06)
[2017-01-06] MEDS: Albuterol 2.5 MG/3 ML NEB.SOL* (0.083%) INH SCH ×4 (01:04→20:00)
[2017-01-06 05:29] LABS: BUN/Creatinine Ratio 19.4 (8-20); Calcium 8.8 mg/dL (8.6-10.3); EGFR African American 125.4 (>60); EGFR Non-African American 97.5 (>60); Potassium 3.5 mmol/L (3.5-5.0)
[2017-01-06 05:33] LABS: Hematocrit 26 % (35-47); Hemoglobin 8.1 g/dl (12.0-16.0); Mean Corpuscular HGB Conc 32 g/dl (31-36); Mean Corpuscular Hemoglobin 25 pg (27-31); Mean Corpuscular Volume 79 fL (80-97); Mean Platelet Volume 9 um3 (7.4-10.4); Red Blood Count 3.24 10^6/ul (4.0-5.4); Red Cell Distribution Width 19 % (10.5-15); White Blood Count 5.2 10^3/ul (3.5-10.8)
[2017-01-06] MEDS: Levothyroxine TAB* 50 MCG TAB PO SCH (05:40)
[2017-01-06] MEDS: Mometasone/Formoter 200/5 MDI INH SCH ×2 (08:06→20:00)
[2017-01-06] MEDS ORDERED: Loperamide LIQ* 2 MG/10 ML UDC PO PRN (08:23)
[2017-01-06] MEDS ORDERED: Acetaminophen ADULT LIQ* 650 MG/20.3 ML UDC PO PRN (08:25)
[2017-01-06] MEDS: Insulin GLARGINE(*) 1 UNITS UNIT SUBCUT SCH (08:26)
[2017-01-06] MEDS: Insulin LISPRO* 1 UNITS UNIT SUBCUT SCH ×4 (08:26→23:09)
[2017-01-06] MEDS: hydrALAZINE TAB* 25 MG PO SCH ×2 (08:27→21:58)
[2017-01-06] MEDS: Lactobacillus Acidophilu (GG)* 1 CAP CAP PO SCH (08:27)
[2017-01-06] MEDS: Omeprazole CAP* 20 MG PO SCH (08:27)
[2017-01-06] MEDS: Losartan TAB* 25 MG PO SCH (08:28)
[2017-01-06] MEDS: Sucralfate TAB* 1 GM PO SCH ×4 (08:28→21:57)
[2017-01-06] MEDS: Citalopram TAB* 20 MG PO SCH (08:28)
[2017-01-06] MEDS: Cyanocobalamin TAB* 500 MCG PO SCH (08:28)
[2017-01-06] MEDS: Metoprolol Tartrate TAB* 50 mg PO SCH ×2 (08:28→21:58)
[2017-01-06] MEDS: amLODIPine TAB* 5 MG PO SCH (08:28)
[2017-01-06] MEDS: Potassium Chloride LIQUID* 20 MEQ PACKET PO SCH ×2 (08:45→21:56)
[2017-01-06] MEDS: Ferrous Sulfate LIQ* 300 MG/5 ML UDC PO SCH (08:45)
--- NOTE | 2017-01-06 09:05 | PN ---
Subjective Date of Service: 01/06/17 Interval History: Patient seen and examined at bedside. Ms. Francis is sleeping but arouses to verbal and tactile stimuli. Denies fever/chills, dyspnea, chest pain, discomfort. Reports no increased edema to extremities. Reports feeling very tired and fatigued today. Family History: Unchanged from Admission Social History: Unchanged from Admission Past Medical History: Unchanged from Admission Objective Active Medications: Acetaminophen (Tylenol Adult Liq*) 650 mg PO Q6H PRN PRN Reason: PAIN Albuterol (Ventolin 2.5 Mg/3 Ml Neb.Katlyn*) 2.5 mg INH [id number] AWAKE JAROD Amlodipine Besylate (Norvasc Tab*) 5 mg PO DAILY JAROD Atorvastatin Calcium (Lipitor*) 40 mg PO BEDTIME JAROD Citalopram Hydrobromide (Celexa Tab*) 20 mg PO DAILY JAROD Cyanocobalamin (Vitamin B12 Tab*) 1,000 mcg PO DAILY JAROD Ferrous Sulfate (Feosol Liq*) 300 mg PO DAILY JAROD Gabapentin (Neurontin Cap(*)) 300 mg PO BEDTIME JAROD Hydralazine HCl (Apresoline Tab*) 25 mg PO BID JAROD Insulin Glargine (Lantus(*)) 10 units SUBCUT Q24H JAROD Insulin Human Lispro (Humalog*) 0 units SUBCUT ACHS [facility] Lactobacillus Rhamnosus (Culturelle*) 1 cap PO DAILY JAROD Levothyroxine Sodium (Synthroid Tab*) 50 mcg PO 0600 JAROD Loperamide HCl (Imodium Liq*) 2 mg PO Q4H PRN PRN Reason: DIARRHEA Losartan Potassium (Cozaar Tab*) 100 mg PO DAILY JAROD Metoprolol Tartrate (Lopressor Tab*) 50 mg PO BID JAROD Mometasone Furoate/Formoterol Fumar (Dulera 200/5 Mdi*) 2 puff INH BID JAROD Non-Formulary Medication (Temazepam) 7.5 mg PO BEDTIME JAROD Omeprazole (Prilosec Cap*) 20 mg PO DAILY JAROD Potassium Chloride (Klor-Con Liquid*) 20 meq PO BID JAROD Sodium Biphosphate/Sodium Phosphate (Fleet Enema*) 1 bottle [place] BEDTIME PRN PRN Reason: CONSTIPATION Sucralfate (Carafate*) 1 gm PO ACHS [facility] Vital Signs 01/05/17 01/05/1701/05/17 12:11 16:09 19:46 Temperature 98.2 F 98.3 F 98.6 F Pulse Rate 62 69 63 Respiratory 22 20 20 Rate Blood Pressure 138/56 129/58 129/55 (mmHg) O2 Sat by Pulse 95 94 94 Oximetry 01/05/17 01/05/17 01/05/17 20:40 22:15 23:47 Temperature 98.7 F Pulse Rate 87 61 Respiratory 20 18 32 Rate Blood Pressure 118/49 (mmHg) O2 Sat by Pulse 99 94 Oximetry 01/06/17 01/06/17 01/06/17 03:42 04:44 08:05 Temperature 98.1 F Pulse Rate 59 64 Respiratory 20 16 Rate Blood Pressure 139/53 (mmHg) O2 Sat by Pulse 99 97 100 Oximetry Oxygen Devices in Use Now: Nasal Cannula - 2L Appearance: Female patient, lying in bed, NAD Eyes: PERRLA Ears/Nose/Mouth/Throat: Mucous Membranes Moist Neck: NL Appearance and Movements; NL JVP Respiratory: Symmetrical Chest Expansion and Respiratory Effort, - - crackles in the bases Cardiovascular: RRR, - - 2+ edema to RUE, 1+ edema to LUE, 1+ LLE, 1-2+ RLE Abdominal: NL Sounds; No Tenderness; No Distention Extremities: - - left BKA Skin: No Rash or Ulcers Neurological: Alert and Oriented x 3 Lines/Tubes/Other Access: Clean, Dry and Intact Peripheral IV Nutrition: Taking PO's Result Diagrams: 01/06/17 04:18 01/06/17 04:18 Additional Lab and Data: Lab Results 01/04/17 01/04/17 01/04/17 Range/Units 22:15 22:15 22:15 WBC 5.6 (3.5-10.8) 10^3/ul RBC 3.00 L (4.0-5.4) 10^6/ul Hgb 7.3 L (12.0-16.0) g/dl Hct 23 L (35-47) % MCV 78 L (80-97) fL MCH 24 L (27-31) pg MCHC 31 (31-36) g/dl RDW 19 H (10.5-15) % Plt Count 279 (150-450) 10^3/ul MPV 8 (7.4-10.4) um3 Neut % (Auto) 66.8 (38-83) % Lymph % (Auto) 17.6 L (25-47) % Coke % (Auto) 9.8 H (1-9) % Eos % (Auto) 5.1 (0-6) % Baso % (Auto) 0.7 (0-2) % Absolute Neuts (auto) 3.8 (1.5-7.7) 10^3/ul Absolute Lymphs (auto) 1.0 (1.0-4.8) 10^3/ul Absolute Monos (auto) 0.5 (0-0.8) 10^3/ul Absolute Eos (auto) 0.3 (0-0.6) 10^3/ul Absolute Basos (auto) 0 (0-0.2) 10^3/ul Absolute Nucleated RBC 0 10^3/ul Nucleated RBC % 0.1 Sodium 139 (133-145) mmol/L Potassium 3.3 L (3.5-5.0) mmol/L Chloride 99 L (101-111) mmol/L Carbon Dioxide 34 H (22-32) mmol/L Anion Gap 6 (2-11) mmol/L BUN 15 (6-24) mg/dL Creatinine 0.66 (0.51-0.95) mg/dL Est GFR ( Amer) 116.7 (>60) Est GFR (Non-Af Amer) 90.7 (>60) BUN/Creatinine Ratio 22.7 H (8-20) Glucose 173 H (70-100) mg/dL Lactic Acid 1.5 (0.5-2.0) mmol/L Calcium 8.6 (8.6-10.3) mg/dL Total Bilirubin 0.80 (0.2-1.0) mg/dL AST 12 L (13-39) U/L ALT 8 (7-52) U/L Alkaline Phosphatase 74 (34-104) U/L Troponin I 0.02 (<0.04) ng/mL B-Natriuretic Peptide ( - 100) pg/mL Total Protein 6.7 (6.4-8.9) g/dL Albumin 3.0 L (3.2-5.2) g/dL Globulin 3.7 (2-4) g/dL Albumin/Globulin Ratio 0.8 L (1-3) 01/04/17 Range/Units 22:15 WBC (3.5-10.8) 10^3/ul RBC (4.0-5.4) 10^6/ul Hgb (12.0-16.0) g/dl Hct (35-47) % MCV (80-97) fL MCH (27-31) pg MCHC (31-36) g/dl RDW (10.5-15) % Plt Count (150-450) 10^3/ul MPV (7.4-10.4) um3 Neut % (Auto) (38-83) % Lymph % (Auto) (25-47) % Coke % (Auto) (1-9) % Eos % (Auto) (0-6) % Baso % (Auto) (0-2) % Absolute Neuts (auto) (1.5-7.7) 10^3/ul Absolute Lymphs (auto) (1.0-4.8) 10^3/ul Absolute Monos (auto) (0-0.8) 10^3/ul Absolute Eos (auto) (0-0.6) 10^3/ul Absolute Basos (auto) (0-0.2) 10^3/ul Absolute Nucleated RBC 10^3/ul Nucleated RBC % Sodium (133-145) mmol/L Potassium (3.5-5.0) mmol/L Chloride (101-111) mmol/L Carbon Dioxide (22-32) mmol/L Anion Gap (2-11) mmol/L BUN (6-24) mg/dL Creatinine (0.51-0.95) mg/dL Est GFR ( Amer) (>60) Est GFR (Non-Af Amer) (>60) BUN/Creatinine Ratio (8-20) Glucose (70-100) mg/dL Lactic Acid (0.5-2.0) mmol/L Calcium (8.6-10.3) mg/dL Total Bilirubin (0.2-1.0) mg/dL AST (13-39) U/L ALT (7-52) U/L Alkaline Phosphatase (34-104) U/L Troponin I (<0.04) ng/mL B-Natriuretic Peptide 620 H ( - 100) pg/mL Total Protein (6.4-8.9) g/dL Albumin (3.2-5.2) g/dL Globulin (2-4) g/dL Albumin/Globulin Ratio (1-3) Microbiology and Other Data: Microbiology 01/05/17 03:35 Nasal Screen MRSA (PCR)(CLARA) - Final Nasal Mrsa Negative 01/05/17 01:49 Stool Occult Blood (CLARA) - Final Stool Assess/Plan/Problems-Billing Assessment: Ms. Francis is a 61 yo female with PMH significant for DM, CVA, HTN, HLD, CAD, GERD and CHF who presented to the emergency room for concern of shortness of breath. She was found to have a acute on chronic CHF exacerbation. - Patient Problems (1) CHF exacerbation Code(s): I50.9 - HEART FAILURE, UNSPECIFIED Comment: Pt reports improvement in shortness of breath and edema Echo pending Continue strict I+O's, daily weights (2) Anemia Code(s): D64.9 - ANEMIA, UNSPECIFIED Comment: Suspect r/t possible GI bleed Pt has never had a colonoscopy Received 1 unit PRBCs Stool occult positive on admission, recheck specimen Continue to follow HH (3) Electrolyte abnormality Code(s): E87.8 - OTH DISORDERS OF ELECTROLYTE AND FLUID BALANCE, NEC Comment: Hypokalemia - resolved. Hypomagnesemia - resolved. (4) History of coronary artery disease Code(s): Z86.79 - PERSONAL HISTORY OF OTHER DISEASES OF THE CIRCULATORY SYSTEM Comment: Asymptomatic Continue metoprolol and statin. (5) H/O deep venous thrombosis Code(s): Z86.718 - PERSONAL HISTORY OF OTHER VENOUS THROMBOSIS AND EMBOLISM Comment: Hold Eliquis in setting of a possible GI bleed. (6) HLD (hyperlipidemia) Code(s): E78.5 - HYPERLIPIDEMIA, UNSPECIFIED Comment: Continue atorvastatin. (7) HTN (hypertension) Code(s): I10 - ESSENTIAL (PRIMARY) HYPERTENSION Comment: Normotensive Continue amlodipine, losartan, hydralazine, and metoprolol. (8) Type II diabetes mellitus Comment: HgA1C 6.6 Hold metformin. Continue Lantus and Lispro SS. (9) Hypothyroidism Code(s): E03.9 - HYPOTHYROIDISM, UNSPECIFIED Comment: TSH 6.08 Continue levothyroxine. (10) DVT prophylaxis Code(s): YQJ4990 - Comment: Hold chemical DVT prophylaxis in setting of possible GI bleed SCDs (11) DNR (do not resuscitate) Status and Disposition: OBV. Discharge to [facility] when medically stable.
[2017-01-06] MEDS ORDERED: Potassium Chloride LIQUID* 20 MEQ PACKET PO ONE (09:30)
[2017-01-06 10:19] LABS: Magnesium 2.3 mg/dL (1.9-2.7)
[2017-01-06] MEDS ORDERED: NS 0.9% 500 ML BAG* 500 ML IV SCH (15:00)
[2017-01-06] MEDS ORDERED: Furosemide IV* 10 MG/ML VIAL (40 MG) IV SLOW PU ONE (17:06)
[2017-01-06] MEDS: Gabapentin CAP(*) 300 MG PO SCH (21:57)
[2017-01-06] MEDS: Atorvastatin* 40 MG TAB PO SCH (21:58)
--- NOTE | 2017-01-06 22:41 | ECHO ---
Patient: ARNOLD CHAMBERLAIN [facility] Rec#: [id number] : 1955 Date: 01/06/2017 Age: 61y Height: 165.1 cm / 65.0 in Weight: 104.3 kg / 229.9 lbs Sex: F BSA: 2.1 Room#: [facility] Admit Date#: 01/05/2017 Type: Inpatient Referring: Sebastian Vera MD Reading: Fer Del Castillo MD Office Assistant: Liza Silver RN RDCS CC: Lucio DALTON,Naila Transthoracic Echocardiogram Indication: CHF BP: 118/49 HR: 65 Rhythm: NSR Findings History: CAD, NH, coronary stent, DM, HTN, HLD, CVA, hypothyroidism, DVT, former smoker, morbid obesity. Technical Comments: The study is technically limited due to patient body habitus. The study is technically limited due to the patient's smoking history. The study was technically limited due to the patient's inability to lay in the left lateral decubitus position. Completed at 1525. Left Ventricle: The left ventricular chamber size is normal. Mild to moderate concentric left ventricular hypertrophy is observed. Global left ventricular wall motion and contractility are within normal limits. Left ventricular systolic function is at the lower limits of normal. The estimated ejection fraction is 50-55%. There is septal flattening of the interventricular septum consistent with right ventricular volume or pressure overload. There is a left ventricular septal wall motion abnormality observed, possibly due to the presence of a left bundle branch block. There is no consistent Doppler evidence of clinically significant diastolic dysfunction. Left Atrium: The left atrial chamber size is normal. Right Ventricle: The right ventricle wall thickness is mildly increased. The right ventricular cavity size is normal. The right ventricular global systolic function is low normal. Right Atrium: The right atrium is mildly dilated. Aortic Valve: The aortic valve structure is not well visualized. There is no evidence of aortic regurgitation. There is no evidence of aortic stenosis. Mitral Valve: The mitral valve leaflets are mildly thickened. There is mild mitral regurgitation. There is no evidence of mitral stenosis. Tricuspid Valve: The tricuspid valve structure is not well visualized. There is mild to moderate tricuspid regurgitation. Unable to estimate the right ventricular systolic pressure. Pulmonic Valve: The pulmonic valve structure is not well visualized. Pericardium: A trivial pericardial effusion is visualized. There are no signs of significant hemodynamic compromise. A pericardial fat pad is visualized. Aorta: The ascending aorta is not well visualized. The aortic arch is not well visualized. There is no dilation of the aortic root. Pulmonary Artery: The main pulmonary artery is not well visualized. Venous: The inferior vena cava appears normal in size. There is less than 50% respiratory change in the inferior vena cava dimension. Summary: There was not any prior study for comparison. Conclusions Mild to moderate concentric left ventricular hypertrophy is observed. Global left ventricular wall motion and contractility are within normal limits. The estimated ejection fraction is 50-55%. There is septal flattening of the interventricular septum consistent with right ventricular volume or pressure overload. There is a left ventricular septal wall motion abnormality observed, possibly due to the presence of a left bundle branch block. The right ventricular global systolic function is low normal. There is no evidence of aortic regurgitation. There is no evidence of aortic stenosis. There is mild mitral regurgitation. There is mild to moderate tricuspid regurgitation. Unable to estimate the right ventricular systolic pressure. A trivial pericardial effusion is visualized. The ascending aorta is not well visualized. Measurements Name Value Normal Range RVDdMajor (2D) 3.9 cm (2.2 - 4.4) RVAW (2D) 0.8 cm (0.2 - 0.5) RAd ISD 4CH 5 cm (3.4 - 4.9) RA (A4C)W 3.9 cm (2.9 - 4.6) IVSd (2D) 1.3 cm (0.6 - 1) LVPWd (2D) 1.2 cm (0.6 - 1) LVIDd (2D) 4.5 cm (3.6 - 5.4) Aortic Annulus 2 cm (1.4 - 2.6) Ao root diameter (2D) 2.8 cm (2.1 - 3.5) LA dimension (AP) 2D 3.8 cm (2.3 - 3.8) LAd ISD 4CH 4.7 cm (2.9 - 5.3) LA ISD 4CH W 4.3 cm (2.5 - 4.5) Name Value Normal Range LA ESV SP 4CH (A/L) 59 ml - LA ESV SP 2CH (A/L) 51 ml - LA ESV BP (A/L) 55 ml - LA ESV BP (A/L) index 26.3 ml/m2 - LA ESV SP 4CH (MOD) 55 ml - LA ESV SP 2CH (MOD) 50 ml - Name Value Normal Range MV E-wave Vmax 1.3 m/sec - MV deceleration time 181 msec - MV A-wave Vmax 0.94 m/sec - MV E:A ratio 1.4 ratio - LV septal e' Vmax 0.06 m/sec - LV lateral e' Vmax 0.08 m/sec - LV E:e' septal ratio 21.7 ratio - LV E:e' lateral ratio 16.3 ratio - Name Value Normal Range AV Vmax 1.7 m/sec - AV VTI 41 cm - AV peak gradient 12 mmHg - AV mean gradient 7 mmHg - LVOT Vmax 1.1 m/sec - LVOT VTI 29 cm - LVOT peak gradient 5 mmHg - LVOT mean gradient 3 mmHg - Name Value Normal Range IVC diameter 2.1 cm - Name Value Normal Range PV Vmax 1.1 m/sec -
[2017-01-07] MEDS: Albuterol 2.5 MG/3 ML NEB.SOL* (0.083%) INH SCH ×4 (01:00→20:23)
[2017-01-07] MEDS: TEMAZEPAM 7.5 MG PO SCH ×2 (01:19→23:30)
[2017-01-07] MEDS: Levothyroxine TAB* 50 MCG TAB PO SCH (05:55)
[2017-01-07 06:42] LABS: Hematocrit 25 % (35-47); Hemoglobin 8.1 g/dl (12.0-16.0)
[2017-01-07 06:51] LABS: BUN/Creatinine Ratio 18.2 (8-20); Calcium 8.6 mg/dL (8.6-10.3); EGFR African American 116.7 (>60); EGFR Non-African American 90.7 (>60); Potassium 3.7 mmol/L (3.5-5.0)
[2017-01-07] MEDS: Mometasone/Formoter 200/5 MDI INH SCH ×2 (07:21→20:26)
[2017-01-07] MEDS ORDERED: Furosemide IV* 10 MG/ML VIAL (40 MG) IV SLOW PU ONE (07:26)
[2017-01-07] MEDS: Insulin GLARGINE(*) 1 UNITS UNIT SUBCUT SCH (09:00)
[2017-01-07] MEDS: Insulin LISPRO* 1 UNITS UNIT SUBCUT SCH ×4 (09:00→21:25)
[2017-01-07] MEDS: Sucralfate TAB* 1 GM PO SCH ×4 (09:06→21:23)
[2017-01-07] MEDS: amLODIPine TAB* 5 MG PO SCH (09:07)
[2017-01-07] MEDS: Ferrous Sulfate LIQ* 300 MG/5 ML UDC PO SCH (09:08)
[2017-01-07] MEDS: Cyanocobalamin TAB* 500 MCG PO SCH (09:08)
[2017-01-07] MEDS: hydrALAZINE TAB* 25 MG PO SCH ×2 (09:08→21:23)
[2017-01-07] MEDS: Citalopram TAB* 20 MG PO SCH (09:08)
[2017-01-07] MEDS: Lactobacillus Acidophilu (GG)* 1 CAP CAP PO SCH (09:09)
[2017-01-07] MEDS: Potassium Chloride LIQUID* 20 MEQ PACKET PO SCH ×2 (09:09→21:25)
[2017-01-07] MEDS: Losartan TAB* 25 MG PO SCH (09:09)
[2017-01-07] MEDS: Omeprazole CAP* 20 MG PO SCH (09:09)
[2017-01-07] MEDS: Metoprolol Tartrate TAB* 50 mg PO SCH ×2 (09:25→21:23)
--- NOTE | 2017-01-07 10:23 | PN ---
Subjective Date of Service: 01/07/17 Interval History: Patient seen and examined at bedside. Reports feeling better this morning. She is laying flat and denies feeling SOB. Denies fever/chills, CP, SOB, abd pain, n/v. No acute complaints. Patient is unable to tell me why she is on Eliquis. I did speak with her daughter, Kavita, who states that the patient never had a DVT or PE (per her knowledge). She reports that the patient had an KS in 2013 and had a stent placed and was maintained on ASA and Plavix. In May 2015, she reports that her mother's cardiology switched her to Xarelto, "in order to keep her blood thin." The patient had a CVA in August 2016 and was switched to Eliquis at that time. Patient and daughter deny any history of PE/DVT or atrial fibrillation. Kavita requested a GI consult for colonoscopy so that her mother can continue her Eliquis, as she is concerned for her mother's high risk for DVT. Records from [facility] report that patient had a positive stool guaiac and decreasing HH after initiating Eliquis. Gastroenterology at [facility] recommended conservative treatment with Protonix and Carafate. Patient's HH was able to remain stable. Family History: Unchanged from Admission Social History: Unchanged from Admission Past Medical History: Unchanged from Admission Objective Active Medications: Acetaminophen (Tylenol Adult Liq*) 650 mg PO Q6H PRN PRN Reason: PAIN Albuterol (Ventolin 2.5 Mg/3 Ml Neb.Katlyn*) 2.5 mg INH [id number] AWAKE [facility] Last Admin: 01/07/17 07:21 Dose: 2.5 mg Amlodipine Besylate (Norvasc Tab*) 5 mg PO DAILY [facility] Last Admin: 01/07/17 09:07 Dose: 5 mg Atorvastatin Calcium (Lipitor*) 40 mg PO BEDTIME JAROD Last Admin: 01/06/17 21:58 Dose: 40 mg Citalopram Hydrobromide (Celexa Tab*) 20 mg PO DAILY [facility] Last Admin: 01/07/17 09:08 Dose: 20 mg Cyanocobalamin (Vitamin B12 Tab*) 1,000 mcg PO DAILY JAROD Last Admin: 01/07/17 09:08 Dose: 1,000 mcg Ferrous Sulfate (Feosol Liq*) 300 mg PO DAILY [facility] Last Admin: 01/07/17 09:08 Dose: 300 mg Gabapentin (Neurontin Cap(*)) 300 mg PO BEDTIME [facility] Last Admin: 01/06/17 21:57 Dose: 300 mg Hydralazine HCl (Apresoline Tab*) 25 mg PO BID [facility] Last Admin: 01/07/17 09:08 Dose: 25 mg Insulin Glargine (Lantus(*)) 10 units SUBCUT Q24H [facility] Last Admin: 01/07/17 09:00 Dose: 10 units Insulin Human Lispro (Humalog*) 0 units SUBCUT [facility] PRN Reason: Protocol Last Admin: 01/07/17 09:00 Dose: 6 units Lactobacillus Rhamnosus (Culturelle*) 1 cap PO DAILY [facility] Last Admin: 01/07/17 09:09 Dose: 1 cap Levothyroxine Sodium (Synthroid Tab*) 50 mcg PO 0600 [facility] Last Admin: 01/07/17 05:55 Dose: 50 mcg Loperamide HCl (Imodium Liq*) 2 mg PO Q4H PRN PRN Reason: DIARRHEA Losartan Potassium (Cozaar Tab*) 100 mg PO DAILY [facility] Last Admin: 01/07/17 09:09 Dose: 100 mg Metoprolol Tartrate (Lopressor Tab*) 50 mg PO BID [facility] Last Admin: 01/07/17 09:25 Dose: Not Given Mometasone Furoate/Formoterol Fumar (Dulera 200/5 Mdi*) 2 puff INH BID [facility] Last Admin: 01/07/17 07:21 Dose: 2 puff Non-Formulary Medication (Temazepam) 7.5 mg PO BEDTIME [facility] Last Admin: 01/07/17 01:19 Dose: Not Given Omeprazole (Prilosec Cap*) 20 mg PO DAILY [facility] Last Admin: 01/07/17 09:09 Dose: 20 mg Potassium Chloride (Klor-Con Liquid*) 20 meq PO BID [facility] Last Admin: 01/07/17 09:09 Dose: 20 meq Sodium Biphosphate/Sodium Phosphate (Fleet Enema*) 1 bottle [place] BEDTIME PRN PRN Reason: CONSTIPATION Sucralfate (Carafate*) 1 gm PO ACHS [facility] Last Admin: 01/07/17 09:06 Dose: 1 gm Vital Signs 05/2101/06/17 01/06/17 11:50 15:04 15:07 Temperature 98.3 F 98.5 F Pulse Rate 57 76 58 Respiratory 20 20 Rate Blood Pressure 136/58 123/56 (mmHg) O2 Sat by Pulse 98 100 100 Oximetry 01/06/17 01/06/17 01/06/17 19:32 21:57 23:27 Temperature 98.0 F 97.8 F Pulse Rate 60 55 Respiratory 20 22 16 Rate Blood Pressure 131/52 118/50 (mmHg) O2 Sat by Pulse 97 97 Oximetry 01/06/17 01/07/17 01/07/17 23:57 05:15 07:23 Temperature 97.6 F 98.3 F Pulse Rate 58 61 Respiratory 16 16 20 Rate Blood Pressure 133/55 149/59 (mmHg) O2 Sat by Pulse 96 95 Oximetry 01/07/17 07:24 Temperature Pulse Rate 60 Respiratory 20 Rate Blood Pressure (mmHg) O2 Sat by Pulse 96 Oximetry Oxygen Devices in Use Now: Nasal Cannula - 2L Appearance: Female patient, lying in bed, NAD Eyes: PERRLA Ears/Nose/Mouth/Throat: Mucous Membranes Moist Neck: NL Appearance and Movements; NL JVP Respiratory: Symmetrical Chest Expansion and Respiratory Effort, Clear to Auscultation - diminished Cardiovascular: NL Sounds; No Murmurs; No JVD, RRR Abdominal: NL Sounds; No Tenderness; No Distention Extremities: - - BLE edema, 1+ edema to BUE Skin: No Rash or Ulcers Neurological: Alert and Oriented x 3 Lines/Tubes/Other Access: Clean, Dry and Intact Peripheral IV Result Diagrams: 01/07/17 06:08 01/07/17 06:08 Additional Lab and Data: Lab Results 01/04/17 01/04/17 01/04/17 Range/Units 22:15 22:15 22:15 WBC 5.6 (3.5-10.8) 10^3/ul RBC 3.00 L (4.0-5.4) 10^6/ul Hgb 7.3 L (12.0-16.0) g/dl Hct 23 L (35-47) % MCV 78 L (80-97) fL MCH 24 L (27-31) pg MCHC 31 (31-36) g/dl RDW 19 H (10.5-15) % Plt Count 279 (150-450) 10^3/ul MPV 8 (7.4-10.4) um3 Neut % (Auto) 66.8 (38-83) % Lymph % (Auto) 17.6 L (25-47) % Slope % (Auto) 9.8 H (1-9) % Eos % (Auto) 5.1 (0-6) % Baso % (Auto) 0.7 (0-2) % Absolute Neuts (auto) 3.8 (1.5-7.7) 10^3/ul Absolute Lymphs (auto) 1.0 (1.0-4.8) 10^3/ul Absolute Monos (auto) 0.5 (0-0.8) 10^3/ul Absolute Eos (auto) 0.3 (0-0.6) 10^3/ul Absolute Basos (auto) 0 (0-0.2) 10^3/ul Absolute Nucleated RBC 0 10^3/ul Nucleated RBC % 0.1 Sodium 139 (133-145) mmol/L Potassium 3.3 L (3.5-5.0) mmol/L Chloride 99 L (101-111) mmol/L Carbon Dioxide 34 H (22-32) mmol/L Anion Gap 6 (2-11) mmol/L BUN 15 (6-24) mg/dL Creatinine 0.66 (0.51-0.95) mg/dL Est GFR ( Amer) 116.7 (>60) Est GFR (Non-Af Amer) 90.7 (>60) BUN/Creatinine Ratio 22.7 H (8-20) Glucose 173 H (70-100) mg/dL Lactic Acid 1.5 (0.5-2.0) mmol/L Calcium 8.6 (8.6-10.3) mg/dL Total Bilirubin 0.80 (0.2-1.0) mg/dL AST 12 L (13-39) U/L ALT 8 (7-52) U/L Alkaline Phosphatase 74 (34-104) U/L Troponin I 0.02 (<0.04) ng/mL B-Natriuretic Peptide ( - 100) pg/mL Total Protein 6.7 (6.4-8.9) g/dL Albumin 3.0 L (3.2-5.2) g/dL Globulin 3.7 (2-4) g/dL Albumin/Globulin Ratio 0.8 L (1-3) // Range/Units 22:15 WBC (3.5-10.8) 10^3/ul RBC (4.0-5.4) 10^6/ul Hgb (12.0-16.0) g/dl Hct (35-47) % MCV (80-97) fL MCH (27-31) pg MCHC (31-36) g/dl RDW (10.5-15) % Plt Count (150-450) 10^3/ul MPV (7.4-10.4) um3 Neut % (Auto) (38-83) % Lymph % (Auto) (25-47) % Slope % (Auto) (1-9) % Eos % (Auto) (0-6) % Baso % (Auto) (0-2) % Absolute Neuts (auto) (1.5-7.7) 10^3/ul Absolute Lymphs (auto) (1.0-4.8) 10^3/ul Absolute Monos (auto) (0-0.8) 10^3/ul Absolute Eos (auto) (0-0.6) 10^3/ul Absolute Basos (auto) (0-0.2) 10^3/ul Absolute Nucleated RBC 10^3/ul Nucleated RBC % Sodium (133-145) mmol/L Potassium (3.5-5.0) mmol/L Chloride (101-111) mmol/L Carbon Dioxide (22-32) mmol/L Anion Gap (2-11) mmol/L BUN (6-24) mg/dL Creatinine (0.51-0.95) mg/dL Est GFR ( Amer) (>60) Est GFR (Non-Af Amer) (>60) BUN/Creatinine Ratio (8-20) Glucose (70-100) mg/dL Lactic Acid (0.5-2.0) mmol/L Calcium (8.6-10.3) mg/dL Total Bilirubin (0.2-1.0) mg/dL AST (13-39) U/L ALT (7-52) U/L Alkaline Phosphatase (34-104) U/L Troponin I (<0.04) ng/mL B-Natriuretic Peptide 620 H ( - 100) pg/mL Total Protein (6.4-8.9) g/dL Albumin (3.2-5.2) g/dL Globulin (2-4) g/dL Albumin/Globulin Ratio (1-3) Microbiology and Other Data: Microbiology 01/05/17 03:35 Nasal Screen MRSA (PCR)(CLARA) - Final Nasal Mrsa Negative 01/05/17 01:49 Stool Occult Blood (CLARA) - Final Stool Assess/Plan/Problems-Billing Assessment: Ms. Francis is a 61 yo female with PMH significant for DM, CVA, HTN, HLD, CAD, GERD and CHF who presented to the emergency room for concern of shortness of breath. She was found to have a acute on chronic CHF exacerbation. - Patient Problems (1) CHF exacerbation Code(s): I50.9 - HEART FAILURE, UNSPECIFIED Comment: Pt reports improvement in shortness of breath and edema Echo shows EF 50-55%; patient with diastolic heart failure. Acute on chronic diastolic HF exacerbation Continue strict I+O's, daily weights (2) Anemia Code(s): D64.9 - ANEMIA, UNSPECIFIED Comment: Suspect r/t possible GI bleed Pt reports remote history of colonoscopy GI consult appreciated - pt and family wish to continue Eliquis but wish to pursue source of bleeding. Received 1 unit PRBCs Stool occult positive on admission, recheck specimen Continue to follow HH (3) Electrolyte abnormality Code(s): E87.8 - OTH DISORDERS OF ELECTROLYTE AND FLUID BALANCE, NEC Comment: Hypokalemia - resolved. Hypomagnesemia - resolved. (4) History of coronary artery disease Code(s): Z86.79 - PERSONAL HISTORY OF OTHER DISEASES OF THE CIRCULATORY SYSTEM Comment: Asymptomatic Continue metoprolol and statin. (5) H/O deep venous thrombosis Code(s): Z86.718 - PERSONAL HISTORY OF OTHER VENOUS THROMBOSIS AND EMBOLISM Comment: Hold Eliquis in setting of a possible GI bleed. (6) HLD (hyperlipidemia) Code(s): E78.5 - HYPERLIPIDEMIA, UNSPECIFIED Comment: Continue atorvastatin. (7) HTN (hypertension) Code(s): I10 - ESSENTIAL (PRIMARY) HYPERTENSION Comment: Normotensive Continue amlodipine, losartan, hydralazine, and metoprolol. (8) Type II diabetes mellitus Comment: HgA1C 6.6 Hold metformin. Continue Lantus and Lispro SS. (9) Hypothyroidism Code(s): E03.9 - HYPOTHYROIDISM, UNSPECIFIED Comment: TSH 6.08 Continue levothyroxine. (10) DVT prophylaxis Code(s): EQM1055 - Comment: Hold chemical DVT prophylaxis in setting of possible GI bleed SCDs (11) DNR (do not resuscitate) Status and Disposition: Inpatient. Discharge to [facility] [place] when medically stable.
[2017-01-07] MEDS: Acetaminophen TAB* 325 MG PO PRN ×2 (18:01→21:21)
[2017-01-07] MEDS: Gabapentin CAP(*) 300 MG PO SCH (21:24)
[2017-01-07] MEDS: Atorvastatin* 40 MG TAB PO SCH (21:24)
[2017-01-08] MEDS: Albuterol 2.5 MG/3 ML NEB.SOL* (0.083%) INH SCH ×2 (02:00→09:30)
--- NOTE | 2017-01-08 03:50 | CONS ---
CONSULTATION REPORT: DATE OF CONSULT: 01/07/17 REQUESTING PROVIDER: Chen Mckeon NP INDICATION: Anemia. NARRATIVE: Ms. Francis is a 61-year-old female with multiple medical comorbidities. She has a history of a recent stroke in August of this year with resulting right- sided weakness and hemiparesis. She has type 2 diabetes; hypertension; hyperlipidemia; coronary artery disease; history of an ME and a stent; hypothyroid; GERD; history of a DVT, on Eliquis; super morbid obesity and was pretty much either bedbound or wheelchair bound. The patient was admitted from her fdc for CHF exacerbation. She has been diuresed. She was found to be anemic. She has been anemic in the past. She had seen a ship's pilot in [facility] during her stroke and was found to be anemic and he recommended conservative GI care. The patient did have heme- positive card. She denies any blood in the stool, but cannot see her stools. The question is whether or not the patient should have a colonoscopy. The patient states that her last colonoscopy was 30 years ago. PAST SURGICAL HISTORY: Includes: 1. Left below the knee amputation. 2. PEG tube placement. MEDICATIONS: Include: 1. Albuterol. 2. Acetaminophen. 3. Lexapro. 4. Lasix. 5. Gabapentin. 6. Humalog. 7. Probiotic. 8. Synthroid. 9. Imodium. 10. Losartan. 11. Metformin. 12. Metoprolol. 13. Dulera. 14. Omeprazole. 15. Rosuvastatin. 16. Fleet's Enema. 17. Sucralfate. 18. Temazepam. 19. Amlodipine. 20. Hydralazine. ALLERGIES: To PENICILLIN. FAMILY HISTORY: CVA and lung cancer. SOCIAL HISTORY: She denies any tobacco or IV drug use. REVIEW OF SYSTEMS: All systems were reviewed, other than that mentioned in the HPI were unremarkable. PHYSICAL EXAM: Temperature is 98.3, blood pressure is 130/52, pulse 62. General: Chronically ill-appearing female, appears older than stated age, lying flat in bed. Super morbidly obese. HEENT: Mucous membranes are moist without lesions, ulcers, or exudate. Neck is supple. Trachea is midline. Head is normocephalic, atraumatic. Heart: Regular rate and rhythm. Lungs: Diffuse breath sounds bilaterally, faint crackles. Abdomen: Super morbidly obese. Positive bowel sounds, soft. Skin is warm and dry. LABORATORY DATA: Of note, BUN is 12, creatinine 0.66. White count is 5.2, hemoglobin 7.1. IMPRESSION: This is a 61-year-old female with multiple medical issues admitted with congestive heart failure exacerbation. She was found to be anemic, which is not new for her. She is now off her Eliquis. Question from the primary team is whether or not she should have a colonoscopy. Unfortunately, this would be a very difficult, risky, and challenge of a colonoscopy. I discussed the procedure with her. I discussed that the patient would need to drink an entire gallon of GoLYTELY. She does not think she can drink the GoLYTELY preparation. She does need to be adequately cleaned out. I also discussed the fact that we would need to sedate her given the fact that she is just now recovering from a congestive heart failure exacerbation. I do not know if now is the time to be sedating this patient. I think she is at high risk. I think this is going to be a very difficult colonoscopy and at this point, I think the risks would outweigh any other benefits. The patient is understanding of this and she states that she really does not want a colonoscopy right now. If things were to change, she may change her mind. We will continue to follow along. I will call the patient's daughter, Kavita. CC: Dr. Naila Valdes* [id number]/CPS #: [id number] MTDD
[2017-01-08 05:08] LABS: Hematocrit 26 % (35-47); Hemoglobin 8.2 g/dl (12.0-16.0)
[2017-01-08] MEDS: Levothyroxine TAB* 50 MCG TAB PO SCH (05:39)
[2017-01-08] MEDS ORDERED: Albuterol 2.5 MG/3 ML NEB.SOL* (0.083%) INH PRN (09:25)
[2017-01-08] MEDS: Mometasone/Formoter 200/5 MDI INH SCH ×2 (09:28→21:10)
[2017-01-08] MEDS: Insulin LISPRO* 1 UNITS UNIT SUBCUT SCH ×4 (09:29→21:48)
[2017-01-08] MEDS: Omeprazole CAP* 20 MG PO SCH (09:29)
[2017-01-08] MEDS: Insulin GLARGINE(*) 1 UNITS UNIT SUBCUT SCH ×2 (09:29→18:39)
[2017-01-08] MEDS: Ferrous Sulfate LIQ* 300 MG/5 ML UDC PO SCH (09:29)
[2017-01-08] MEDS: amLODIPine TAB* 5 MG PO SCH (09:29)
[2017-01-08] MEDS: Citalopram TAB* 20 MG PO SCH (09:30)
[2017-01-08] MEDS: Metoprolol Tartrate TAB* 50 mg PO SCH ×2 (09:30→21:47)
[2017-01-08] MEDS: Lactobacillus Acidophilu (GG)* 1 CAP CAP PO SCH (09:30)
[2017-01-08] MEDS: Cyanocobalamin TAB* 500 MCG PO SCH (09:30)
[2017-01-08] MEDS: Potassium Chloride LIQUID* 20 MEQ PACKET PO SCH ×2 (09:30→21:48)
[2017-01-08] MEDS: Losartan TAB* 25 MG PO SCH (09:30)
[2017-01-08] MEDS: hydrALAZINE TAB* 25 MG PO SCH ×2 (09:30→21:47)
[2017-01-08] MEDS: Sucralfate TAB* 1 GM PO SCH ×4 (09:31→21:47)
[2017-01-08] MEDS: Apixaban* 5 MG TAB PO SCH ×2 (13:43→21:47)
[2017-01-08] MEDS ORDERED: Furosemide IV* 10 MG/ML VIAL (40 MG) IV SLOW PU ONE (17:47)
--- NOTE | 2017-01-08 17:48 | PN ---
Subjective Date of Service: 01/08/17 Interval History: Patient seen and examined at bedside. Patient denies CP, SOB, orthopnea, abd pain, n/v. She is reluctant to have colonoscopy. Patient would like to resume Eliquis but does not want colonoscopy. This was discussed with patient's daughter, Kavita. We discussed having the patient resume her Eliquis with close outpatient monitoring. She would be in agreement with this plan, as long as [facility] continues to follow her mother closely. I spoke with Linda Foreman NP at [facility] who is in agreement with weekly CBC monitoring while resuming Eliquis at this time. Patient is a poor candidate for colonoscopy at this time, per GI, as she is high risk for sedation. Also, she is likely unable to complete the bowel prep. Family History: Unchanged from Admission Social History: Unchanged from Admission Past Medical History: Unchanged from Admission Objective Active Medications: Acetaminophen (Tylenol Tab*) 650 mg PO Q6H PRN PRN Reason: PAIN Last Admin: 01/07/17 21:21 Dose: 650 mg Albuterol (Ventolin 2.5 Mg/3 Ml Neb.Katlyn*) 2.5 mg INH Q6H PRN PRN Reason: SOB/WHEEZING Amlodipine Besylate (Norvasc Tab*) 5 mg PO DAILY [facility] Last Admin: 01/08/17 09:29 Dose: 5 mg Apixaban (Eliquis*) 5 mg PO BID [facility] Last Admin: 01/08/17 13:43 Dose: 5 mg Atorvastatin Calcium (Lipitor*) 40 mg PO BEDTIME [facility] Last Admin: 01/07/17 21:24 Dose: 40 mg Citalopram Hydrobromide (Celexa Tab*) 20 mg PO DAILY [facility] Last Admin: 01/08/17 09:30 Dose: 20 mg Cyanocobalamin (Vitamin B12 Tab*) 1,000 mcg PO DAILY [facility] Last Admin: 01/08/17 09:30 Dose: 1,000 mcg Ferrous Sulfate (Feosol Liq*) 300 mg PO DAILY [facility] Last Admin: 01/08/17 09:29 Dose: 300 mg Gabapentin (Neurontin Cap(*)) 300 mg PO BEDTIME [facility] Last Admin: 01/07/17 21:24 Dose: 300 mg Hydralazine HCl (Apresoline Tab*) 25 mg PO BID [facility] Last Admin: 01/08/17 09:30 Dose: 25 mg Insulin Glargine (Lantus(*)) 10 units SUBCUT Q24H [facility] Last Admin: 01/08/17 09:29 Dose: 10 units Insulin Human Lispro (Humalog*) 0 units SUBCUT [facility] PRN Reason: Protocol Last Admin: 01/08/17 17:23 Dose: 12 units Lactobacillus Rhamnosus (Culturelle*) 1 cap PO DAILY [facility] Last Admin: 01/08/17 09:30 Dose: 1 cap Levothyroxine Sodium (Synthroid Tab*) 50 mcg PO 0600 [facility] Last Admin: 01/08/17 05:39 Dose: 50 mcg Loperamide HCl (Imodium Liq*) 2 mg PO Q4H PRN PRN Reason: DIARRHEA Losartan Potassium (Cozaar Tab*) 100 mg PO DAILY [facility] Last Admin: 01/08/17 09:30 Dose: 100 mg Metoprolol Tartrate (Lopressor Tab*) 50 mg PO BID [facility] Last Admin: 01/08/17 09:30 Dose: 50 mg Mometasone Furoate/Formoterol Fumar (Dulera 200/5 Mdi*) 2 puff INH BID [facility] Last Admin: 01/08/17 09:28 Dose: 2 puff Omeprazole (Prilosec Cap*) 20 mg PO DAILY [facility] Last Admin: 01/08/17 09:29 Dose: 20 mg Potassium Chloride (Klor-Con Liquid*) 20 meq PO BID [facility] Last Admin: 01/08/17 09:30 Dose: 20 meq Sodium Biphosphate/Sodium Phosphate (Fleet Enema*) [address] BEDTIME PRN PRN Reason: CONSTIPATION Sucralfate (Carafate*) 1 gm PO [facility] Last Admin: 01/08/17 12:55 Dose: 1 gm Vital Signs 01/07/17 01/07/17 01/07/17 20:00 20:02 20:27 Temperature 98.6 F Pulse Rate 66 67 Respiratory 20 20 16 Rate Blood Pressure 170/56 (mmHg) O2 Sat by Pulse 91 93 Oximetry 01/07/17 01/07/17 01/07/17 21:24 23:14 23:33 Temperature 98.6 F Pulse Rate 69 Respiratory 20 19 20 Rate Blood Pressure 119/49 (mmHg) O2 Sat by Pulse 95 Oximetry 01/08/17 01/08/17 01/08/17 02:01 08:00 08:03 Temperature 97.6 F Pulse Rate 58 Respiratory 19 22 Rate Blood Pressure 142/58 (mmHg) O2 Sat by Pulse 93 93 Oximetry 01/08/17 01/08/17 01/08/17 09:30 09:31 13:09 Temperature 97.3 F Pulse Rate 69 18 56 Respiratory 18 86 22 Rate Blood Pressure 121/46 (mmHg) O2 Sat by Pulse 93 93 96 Oximetry 01/08/17 16:15 Temperature 98.1 F Pulse Rate 58 Respiratory 20 Rate Blood Pressure 148/60 (mmHg) O2 Sat by Pulse 96 Oximetry Oxygen Devices in Use Now: Nasal Cannula - 2L Appearance: Female patient, OOB to chair, NAD Eyes: PERRLA Ears/Nose/Mouth/Throat: Mucous Membranes Moist Neck: NL Appearance and Movements; NL JVP Respiratory: Symmetrical Chest Expansion and Respiratory Effort, Clear to Auscultation - diminished Cardiovascular: NL Sounds; No Murmurs; No JVD, RRR Abdominal: NL Sounds; No Tenderness; No Distention Extremities: - - 1+ edema to BLE Neurological: Alert and Oriented x 3 Lines/Tubes/Other Access: Clean, Dry and Intact Peripheral IV Nutrition: Taking PO's Result Diagrams: 01/08/17 04:38 01/07/17 06:08 Additional Lab and Data: Lab Results 01/04/17 01/04/17 01/04/17 Range/Units 22:15 22:15 22:15 WBC 5.6 (3.5-10.8) 10^3/ul RBC 3.00 L (4.0-5.4) 10^6/ul Hgb 7.3 L (12.0-16.0) g/dl Hct 23 L (35-47) % MCV 78 L (80-97) fL MCH 24 L (27-31) pg MCHC 31 (31-36) g/dl RDW 19 H (10.5-15) % Plt Count 279 (150-450) 10^3/ul MPV 8 (7.4-10.4) um3 Neut % (Auto) 66.8 (38-83) % Lymph % (Auto) 17.6 L (25-47) % [place] % (Auto) 9.8 H (1-9) % Eos % (Auto) 5.1 (0-6) % Baso % (Auto) 0.7 (0-2) % Absolute Neuts (auto) 3.8 (1.5-7.7) 10^3/ul Absolute Lymphs (auto) 1.0 (1.0-4.8) 10^3/ul Absolute Monos (auto) 0.5 (0-0.8) 10^3/ul Absolute Eos (auto) 0.3 (0-0.6) 10^3/ul Absolute Basos (auto) 0 (0-0.2) 10^3/ul Absolute Nucleated RBC 0 10^3/ul Nucleated RBC % 0.1 Sodium 139 (133-145) mmol/L Potassium 3.3 L (3.5-5.0) mmol/L Chloride 99 L (101-111) mmol/L Carbon Dioxide 34 H (22-32) mmol/L Anion Gap 6 (2-11) mmol/L BUN 15 (6-24) mg/dL Creatinine 0.66 (0.51-0.95) mg/dL Est GFR ( Amer) 116.7 (>60) Est GFR (Non-Af Amer) 90.7 (>60) BUN/Creatinine Ratio 22.7 H (8-20) Glucose 173 H (70-100) mg/dL Lactic Acid 1.5 (0.5-2.0) mmol/L Calcium 8.6 (8.6-10.3) mg/dL Total Bilirubin 0.80 (0.2-1.0) mg/dL AST 12 L (13-39) U/L ALT 8 (7-52) U/L Alkaline Phosphatase 74 (34-104) U/L Troponin I 0.02 (<0.04) ng/mL B-Natriuretic Peptide ( - 100) pg/mL Total Protein 6.7 (6.4-8.9) g/dL Albumin 3.0 L (3.2-5.2) g/dL Globulin 3.7 (2-4) g/dL Albumin/Globulin Ratio 0.8 L (1-3) // Range/Units 22:15 WBC (3.5-10.8) 10^3/ul RBC (4.0-5.4) 10^6/ul Hgb (12.0-16.0) g/dl Hct (35-47) % MCV (80-97) fL MCH (27-31) pg MCHC (31-36) g/dl RDW (10.5-15) % Plt Count (150-450) 10^3/ul MPV (7.4-10.4) um3 Neut % (Auto) (38-83) % Lymph % (Auto) (25-47) % [place] % (Auto) (1-9) % Eos % (Auto) (0-6) % Baso % (Auto) (0-2) % Absolute Neuts (auto) (1.5-7.7) 10^3/ul Absolute Lymphs (auto) (1.0-4.8) 10^3/ul Absolute Monos (auto) (0-0.8) 10^3/ul Absolute Eos (auto) (0-0.6) 10^3/ul Absolute Basos (auto) (0-0.2) 10^3/ul Absolute Nucleated RBC 10^3/ul Nucleated RBC % Sodium (133-145) mmol/L Potassium (3.5-5.0) mmol/L Chloride (101-111) mmol/L Carbon Dioxide (22-32) mmol/L Anion Gap (2-11) mmol/L BUN (6-24) mg/dL Creatinine (0.51-0.95) mg/dL Est GFR ( Amer) (>60) Est GFR (Non-Af Amer) (>60) BUN/Creatinine Ratio (8-20) Glucose (70-100) mg/dL Lactic Acid (0.5-2.0) mmol/L Calcium (8.6-10.3) mg/dL Total Bilirubin (0.2-1.0) mg/dL AST (13-39) U/L ALT (7-52) U/L Alkaline Phosphatase (34-104) U/L Troponin I (<0.04) ng/mL B-Natriuretic Peptide 620 H ( - 100) pg/mL Total Protein (6.4-8.9) g/dL Albumin (3.2-5.2) g/dL Globulin (2-4) g/dL Albumin/Globulin Ratio (1-3) Microbiology and Other Data: Microbiology 01/05/17 03:35 Nasal Screen MRSA (PCR)(CLARA) - Final Nasal Mrsa Negative 01/05/17 01:49 Stool Occult Blood (CLARA) - Final Stool Assess/Plan/Problems-Billing Assessment: Ms. Francis is a 61 yo female with PMH significant for DM, CVA, HTN, HLD, CAD, GERD and CHF who presented to the emergency room for concern of shortness of breath. She was found to have a acute on chronic CHF exacerbation. - Patient Problems (1) CHF exacerbation Code(s): I50.9 - HEART FAILURE, UNSPECIFIED Comment: Resolved. Pt reports improvement in shortness of breath and edema Echo shows EF 50-55%; patient with diastolic heart failure. Acute on chronic diastolic HF exacerbation Continue strict I+O's, daily weights (2) Anemia Code(s): D64.9 - ANEMIA, UNSPECIFIED Comment: Suspect r/t possible GI bleed HH stable after transfusion Patient poor colonoscopy candidate and currently unwilling to take prep. Patient and family in agreement with plan to monitor CBC on weekly basis and resuming Eliquis. Discussed with MAYUR Foreman at [facility]. (3) History of coronary artery disease Code(s): Z86.79 - PERSONAL HISTORY OF OTHER DISEASES OF THE CIRCULATORY SYSTEM Comment: Asymptomatic Continue metoprolol and statin. (4) H/O deep venous thrombosis Code(s): Z86.718 - PERSONAL HISTORY OF OTHER VENOUS THROMBOSIS AND EMBOLISM Comment: Patient and family deny hx of DVT (5) HLD (hyperlipidemia) Code(s): E78.5 - HYPERLIPIDEMIA, UNSPECIFIED Comment: Continue atorvastatin. (6) HTN (hypertension) Code(s): I10 - ESSENTIAL (PRIMARY) HYPERTENSION Comment: Normotensive Continue amlodipine, losartan, hydralazine, and metoprolol. (7) Type II diabetes mellitus Comment: HgA1C 6.6 Hold metformin. Continue Lantus and Lispro SS. (8) Hypothyroidism Code(s): E03.9 - HYPOTHYROIDISM, UNSPECIFIED Comment: TSH 6.08 Continue levothyroxine. (9) DVT prophylaxis Code(s): LGX5500 - Comment: Resume Eliquis SCDs (10) DNR (do not resuscitate) Status and Disposition: Inpatient. Discharge to [facility] tomorrow, pending insurance approval.
[2017-01-08] MEDS: Gabapentin CAP(*) 300 MG PO SCH (21:46)
[2017-01-08] MEDS: Atorvastatin* 40 MG TAB PO SCH (21:48)
[2017-01-09] MEDS: Insulin GLARGINE(*) 1 UNITS UNIT SUBCUT SCH (05:45)
[2017-01-09] MEDS: Levothyroxine TAB* 50 MCG TAB PO SCH (05:46)
[2017-01-09 08:05] VITALS: BP 148/58
[2017-01-09 08:17] LABS: Hematocrit 27 % (35-47); Hemoglobin 8.6 g/dl (12.0-16.0)
[2017-01-09] MEDS: Mometasone/Formoter 200/5 MDI INH SCH (08:29)
[2017-01-09] MEDS: Potassium Chloride LIQUID* 20 MEQ PACKET PO SCH (08:50)
[2017-01-09] MEDS: amLODIPine TAB* 5 MG PO SCH (08:50)
[2017-01-09] MEDS: Losartan TAB* 25 MG PO SCH (08:54)
[2017-01-09] MEDS: Ferrous Sulfate LIQ* 300 MG/5 ML UDC PO SCH (08:54)
[2017-01-09] MEDS: Cyanocobalamin TAB* 500 MCG PO SCH (08:55)
[2017-01-09] MEDS: Lactobacillus Acidophilu (GG)* 1 CAP CAP PO SCH (08:55)
[2017-01-09] MEDS: Citalopram TAB* 20 MG PO SCH (08:55)
[2017-01-09] MEDS: hydrALAZINE TAB* 25 MG PO SCH (08:56)
[2017-01-09] MEDS: Metoprolol Tartrate TAB* 50 mg PO SCH (08:56)
[2017-01-09] MEDS: Sucralfate TAB* 1 GM PO SCH ×2 (08:57→12:38)
[2017-01-09] MEDS: Insulin LISPRO* 1 UNITS UNIT SUBCUT SCH ×2 (08:57→12:38)
[2017-01-09] MEDS: Apixaban* 5 MG TAB PO SCH (08:58)
[2017-01-09] MEDS ORDERED: Furosemide IV* 10 MG/ML VIAL (40 MG) IV SLOW PU SCH (09:00)
--- NOTE | 2017-01-09 09:11 | PN ---
Subjective Date of Service: 01/09/17 Interval History: Patient seen and examined at bedside. Denies fever/chills, CP, SOB, orthopnea, abd pain. No acute complaints. Is agreeable to discharge to [facility] today, pending insurance approval. No acute nursing concerns. Family History: Unchanged from Admission Social History: Unchanged from Admission Past Medical History: Unchanged from Admission Objective Active Medications: Acetaminophen (Tylenol Tab*) 650 mg PO Q6H PRN PRN Reason: PAIN Last Admin: 01/07/17 21:21 Dose: 650 mg Albuterol (Ventolin 2.5 Mg/3 Ml Neb.Katlyn*) 2.5 mg INH Q6H PRN PRN Reason: SOB/WHEEZING Amlodipine Besylate (Norvasc Tab*) 5 mg PO DAILY [facility] Last Admin: 01/09/17 08:50 Dose: 5 mg Apixaban (Eliquis*) 5 mg PO BID [facility] Last Admin: 01/09/17 08:58 Dose: 5 mg Atorvastatin Calcium (Lipitor*) 40 mg PO BEDTIME [facility] Last Admin: 01/08/17 21:48 Dose: 40 mg Citalopram Hydrobromide (Celexa Tab*) 20 mg PO DAILY [facility] Last Admin: 01/09/17 08:55 Dose: 20 mg Cyanocobalamin (Vitamin B12 Tab*) 1,000 mcg PO DAILY [facility] Last Admin: 01/09/17 08:55 Dose: 1,000 mcg Ferrous Sulfate (Feosol Liq*) 300 mg PO DAILY [facility] Last Admin: 01/09/17 08:54 Dose: 300 mg Furosemide (Lasix Iv*) 40 mg IV SLOW PU DAILY [facility] Last Admin: 01/09/17 08:53 Dose: 40 mg Gabapentin (Neurontin Cap(*)) 300 mg PO BEDTIME [facility] Last Admin: 01/08/17 21:46 Dose: 300 mg Hydralazine HCl (Apresoline Tab*) 25 mg PO BID [facility] Last Admin: 01/09/17 08:56 Dose: 25 mg Insulin Glargine (Lantus(*)) 10 units SUBCUT Q12H [facility] Last Admin: 01/09/17 05:45 Dose: 10 units Insulin Human Lispro (Humalog*) 0 units SUBCUT ACHS [facility] PRN Reason: Protocol Last Admin: 01/09/17 08:57 Dose: 3 units Lactobacillus Rhamnosus (Culturelle*) 1 cap PO DAILY [facility] Last Admin: 01/09/17 08:55 Dose: 1 cap Levothyroxine Sodium (Synthroid Tab*) 50 mcg PO 0600 [facility] Last Admin: 01/09/17 05:46 Dose: 50 mcg Loperamide HCl (Imodium Liq*) 2 mg PO Q4H PRN PRN Reason: DIARRHEA Losartan Potassium (Cozaar Tab*) 100 mg PO DAILY [facility] Last Admin: 01/09/17 08:54 Dose: 100 mg Metoprolol Tartrate (Lopressor Tab*) 50 mg PO BID [facility] Last Admin: 01/09/17 08:56 Dose: 50 mg Mometasone Furoate/Formoterol Fumar (Dulera 200/5 Mdi*) 2 puff INH BID [facility] Last Admin: 01/09/17 08:29 Dose: 2 puff Omeprazole (Prilosec Cap*) 20 mg PO DAILY [facility] Last Admin: 01/08/17 09:29 Dose: 20 mg Potassium Chloride (Klor-Con Liquid*) 20 meq PO BID [facility] Last Admin: 01/09/17 08:50 Dose: 20 meq Sodium Biphosphate/Sodium Phosphate (Fleet Enema*) 1 bottle NE BEDTIME PRN PRN Reason: CONSTIPATION Sucralfate (Carafate*) 1 gm PO ACHS [facility] Last Admin: 01/09/17 08:57 Dose: 1 gm Vital Signs 01/08/17 01/08/17 01/08/17 09:30 09:31 13:09 Temperature 97.3 F Pulse Rate 69 18 56 Respiratory 18 86 22 Rate Blood Pressure 121/46 (mmHg) O2 Sat by Pulse 93 93 96 Oximetry 01/08/17 01/08/17 01/08/17 16:15 20:00 20:35 Temperature 98.1 F 98.5 F Pulse Rate 58 59 Respiratory 20 18 18 Rate Blood Pressure 148/60 153/59 (mmHg) O2 Sat by Pulse 96 95 Oximetry 01/08/17 01/08/17 01/08/17 21:13 21:46 23:43 Temperature 98.6 F Pulse Rate 60 57 Respiratory 16 18 16 Rate Blood Pressure 125/46 (mmHg) O2 Sat by Pulse 94 95 Oximetry 01/08/17 01/09/17 01/09/17 23:46 01:46 03:41 Temperature 99.5 F Pulse Rate 58 Respiratory 16 18 18 Rate Blood Pressure 114/44 (mmHg) O2 Sat by Pulse 90 Oximetry 01/09/17 01/09/17 07:53 08:31 Temperature 98.3 F Pulse Rate 61 60 Respiratory 20 12 Rate Blood Pressure 148/58 (mmHg) O2 Sat by Pulse 82 95 Oximetry Oxygen Devices in Use Now: Nasal Cannula - 2L Appearance: Female patient, lying in bed, in NAD Eyes: PERRLA Ears/Nose/Mouth/Throat: Mucous Membranes Moist Neck: NL Appearance and Movements; NL JVP Respiratory: Symmetrical Chest Expansion and Respiratory Effort, Clear to Auscultation - slightly diminished Cardiovascular: NL Sounds; No Murmurs; No JVD, RRR Abdominal: NL Sounds; No Tenderness; No Distention, - - PEG c/d/i Extremities: - - BLE edema 1+ Neurological: Alert and Oriented x 3 Lines/Tubes/Other Access: Clean, Dry and Intact Peripheral IV Nutrition: Taking PO's Result Diagrams: 01/09/17 07:50 01/07/17 06:08 Additional Lab and Data: Lab Results 01/04/17 01/04/17 01/04/17 Range/Units 22:15 22:15 22:15 WBC 5.6 (3.5-10.8) 10^3/ul RBC 3.00 L (4.0-5.4) 10^6/ul Hgb 7.3 L (12.0-16.0) g/dl Hct 23 L (35-47) % MCV 78 L (80-97) fL MCH 24 L (27-31) pg MCHC 31 (31-36) g/dl RDW 19 H (10.5-15) % Plt Count 279 (150-450) 10^3/ul MPV 8 (7.4-10.4) um3 Neut % (Auto) 66.8 (38-83) % Lymph % (Auto) 17.6 L (25-47) % [place] % (Auto) 9.8 H (1-9) % Eos % (Auto) 5.1 (0-6) % Baso % (Auto) 0.7 (0-2) % Absolute Neuts (auto) 3.8 (1.5-7.7) 10^3/ul Absolute Lymphs (auto) 1.0 (1.0-4.8) 10^3/ul Absolute Monos (auto) 0.5 (0-0.8) 10^3/ul Absolute Eos (auto) 0.3 (0-0.6) 10^3/ul Absolute Basos (auto) 0 (0-0.2) 10^3/ul Absolute Nucleated RBC 0 10^3/ul Nucleated RBC % 0.1 Sodium 139 (133-145) mmol/L Potassium 3.3 L (3.5-5.0) mmol/L Chloride 99 L (101-111) mmol/L Carbon Dioxide 34 H (22-32) mmol/L Anion Gap 6 (2-11) mmol/L BUN 15 (6-24) mg/dL Creatinine 0.66 (0.51-0.95) mg/dL Est GFR ( Amer) 116.7 (>60) Est GFR (Non-Af Amer) 90.7 (>60) BUN/Creatinine Ratio 22.7 H (8-20) Glucose 173 H (70-100) mg/dL Lactic Acid 1.5 (0.5-2.0) mmol/L Calcium 8.6 (8.6-10.3) mg/dL Total Bilirubin 0.80 (0.2-1.0) mg/dL AST 12 L (13-39) U/L ALT 8 (7-52) U/L Alkaline Phosphatase 74 (34-104) U/L Troponin I 0.02 (<0.04) ng/mL B-Natriuretic Peptide ( - 100) pg/mL Total Protein 6.7 (6.4-8.9) g/dL Albumin 3.0 L (3.2-5.2) g/dL Globulin 3.7 (2-4) g/dL Albumin/Globulin Ratio 0.8 L (1-3) // Range/Units 22:15 WBC (3.5-10.8) 10^3/ul RBC (4.0-5.4) 10^6/ul Hgb (12.0-16.0) g/dl Hct (35-47) % MCV (80-97) fL MCH (27-31) pg MCHC (31-36) g/dl RDW (10.5-15) % Plt Count (150-450) 10^3/ul MPV (7.4-10.4) um3 Neut % (Auto) (38-83) % Lymph % (Auto) (25-47) % [place] % (Auto) (1-9) % Eos % (Auto) (0-6) % Baso % (Auto) (0-2) % Absolute Neuts (auto) (1.5-7.7) 10^3/ul Absolute Lymphs (auto) (1.0-4.8) 10^3/ul Absolute Monos (auto) (0-0.8) 10^3/ul Absolute Eos (auto) (0-0.6) 10^3/ul Absolute Basos (auto) (0-0.2) 10^3/ul Absolute Nucleated RBC 10^3/ul Nucleated RBC % Sodium (133-145) mmol/L Potassium (3.5-5.0) mmol/L Chloride (101-111) mmol/L Carbon Dioxide (22-32) mmol/L Anion Gap (2-11) mmol/L BUN (6-24) mg/dL Creatinine (0.51-0.95) mg/dL Est GFR ( Amer) (>60) Est GFR (Non-Af Amer) (>60) BUN/Creatinine Ratio (8-20) Glucose (70-100) mg/dL Lactic Acid (0.5-2.0) mmol/L Calcium (8.6-10.3) mg/dL Total Bilirubin (0.2-1.0) mg/dL AST (13-39) U/L ALT (7-52) U/L Alkaline Phosphatase (34-104) U/L Troponin I (<0.04) ng/mL B-Natriuretic Peptide 620 H ( - 100) pg/mL Total Protein (6.4-8.9) g/dL Albumin (3.2-5.2) g/dL Globulin (2-4) g/dL Albumin/Globulin Ratio (1-3) Microbiology and Other Data: Microbiology 01/05/17 03:35 Nasal Screen MRSA (PCR)(CLARA) - Final Nasal Mrsa Negative 01/05/17 01:49 Stool Occult Blood (CLARA) - Final Stool Assess/Plan/Problems-Billing Assessment: Ms. Francis is a 61 yo female with PMH significant for DM, CVA, HTN, HLD, CAD, GERD and CHF who presented to the emergency room for concern of shortness of breath. She was found to have a acute on chronic CHF exacerbation. - Patient Problems (1) CHF exacerbation Code(s): I50.9 - HEART FAILURE, UNSPECIFIED Comment: Resolved. Pt reports improvement in shortness of breath and edema Echo shows EF 50-55%; patient with diastolic heart failure. Acute on chronic diastolic HF exacerbation Continue strict I+O's, daily weights (2) Anemia Code(s): D64.9 - ANEMIA, UNSPECIFIED Comment: Patient with acute blood loss anemia from gastrointestinal bleeding, source unknown. HH stable after transfusion Patient poor colonoscopy candidate and currently unwilling to take prep. Patient and family in agreement with plan to monitor CBC on weekly basis and resuming Eliquis. Discussed with MAYUR Foreman at [facility]. (3) History of coronary artery disease Code(s): Z86.79 - PERSONAL HISTORY OF OTHER DISEASES OF THE CIRCULATORY SYSTEM Comment: Asymptomatic Continue metoprolol and statin. (4) H/O deep venous thrombosis Code(s): Z86.718 - PERSONAL HISTORY OF OTHER VENOUS THROMBOSIS AND EMBOLISM Comment: Patient and family deny hx of DVT (5) HLD (hyperlipidemia) Code(s): E78.5 - HYPERLIPIDEMIA, UNSPECIFIED Comment: Continue atorvastatin. (6) HTN (hypertension) Code(s): I10 - ESSENTIAL (PRIMARY) HYPERTENSION Comment: Normotensive Continue amlodipine, losartan, hydralazine, and metoprolol. (7) Type II diabetes mellitus Comment: HgA1C 6.6 Hold metformin. Continue Lantus and Lispro SS. (8) Hypothyroidism Code(s): E03.9 - HYPOTHYROIDISM, UNSPECIFIED Comment: TSH 6.08 Continue levothyroxine. (9) DVT prophylaxis Code(s): OBW0881 - Comment: Resume Eliquis SCDs (10) DNR (do not resuscitate) Status and Disposition: Inpatient. Discharge to [facility] today, pending insurance approval.
[2017-01-09] MEDS: Omeprazole CAP* 20 MG PO SCH (09:17)
--- NOTE | 2017-01-09 11:46 | DS ---
DISCHARGE SUMMARY: DATE OF ADMISSION: 01/05/17 DATE OF DISCHARGE: 01/09/17 PROVIDER: Arnie Portillo NP. ATTENDING PHYSICIAN: Dr. Caridad Aldana* (dictated by Arnie Portillo NP). CONSULTING PHYSICIAN: Urban Paez MD. PRIMARY CARE PHYSICIAN: Linda Foreman NP. PRIMARY DISCHARGE DIAGNOSES: 1. Congestive heart failure exacerbation. 2. Gastrointestinal bleeding. 3. Anemia. SECONDARY DISCHARGE DIAGNOSES: 1. Type 2 diabetes. 2. Hypertension. 3. Hyperlipidemia. 4. History of cerebrovascular accident. 5. Coronary artery disease, status post myocardial infarction and stent placement. 6. Hypothyroidism. 7. Gastroesophageal reflux disease. Please note that the patient previously has a documented history of DVT. However, per the patient, as well as the daughter, they deny any history of DVT. The patient also has a history of a left mbmif-[id number] amputation 2 years ago. This was secondary to a fall and subsequent infection. MEDICATIONS AT DISCHARGE: 1. Albuterol sulphate one puff inhaled q.4 hours p.r.n. 2. Losartan 100 mg daily. 3. Loperamide 2 mg q.4 hours p.r.n. 4. Albuterol nebulizer 2.5 mg inhaled q.6 hours p.r.n. 5. Acetaminophen 650 mg q.6 hours p.r.n. 6. Fleet Enema, one enema per rectum at bedtime p.r.n. 7. Protonix suspension 40 mg per PEG tube daily p.r.n. 8. Eliquis 5 mg per PEG tube b.i.d. 9. Metoprolol tartrate 50 mg b.i.d. 10. Furosemide 40 mg per PEG tube daily. 11. Hydralazine 25 mg per PEG tube b.i.d. 12. Rosuvastatin 20 mg per PEG tube at bedtime. 13. Multivitamin one tab per PEG tube daily. 14. Metformin 500 mg per PEG tube b.i.d. 15. Gabapentin 300 mg per PEG tube at bedtime. 16. Carafate 1 g per PEG tube 4 times a day. 17. Probiotic one capsule per PEG tube daily. 18. Amlodipine 5 mg per PEG tube daily. 19. Levothyroxine 50 mcg per PEG tube daily. 20. Lexapro 10 mg per PEG tube daily. 21. Clonazepam 7.5 mg at bedtime. 22. Lispro 10 units subcutaneous b.i.d. 23. Omeprazole 20 mg daily. 24. Dulera 200/5, two puffs inhaled b.i.d. 25. Ferrous sulfate 300 mg daily. 26. Vitamin B12, 1000 mcg daily. HOSPITAL COURSE OF STAY: For full details, please refer to the H and P provider by Dr. Vera on 01/05/17. In summary, Ms. Francis is a 61-year-old female with a previous history of CVA earlier this year in August. Since that time she has had indwelling Villegas and the stroke left her with right-sided weakness and dysphagia. The patient has a PEG tube from which she was previously receiving feeds, but now she is able to eat chopped food. When the patient presented to the ER, she reported 3 days of progressive dyspnea at rest with orthopnea. She has had a nonproductive cough. She also reports a progressive weight gain over 10 days, and swelling of her upper and lower extremities. The patient was admitted with concern for CHF exacerbation. She was diuresed with Lasix, with good effect. The patient's echocardiogram showed estimated ejection fraction of 50% to 55%. The patient has septal flattening of the interventricular septum consistent with right ventricular volume or pressure overload. There is a left ventricular septal wall motion abnormality observed, possibly due to presence of a left bundle branch block. The right ventricular global systolic function is low normal. There is no evidence of aortic regurgitation or aortic stenosis. There is mild mitral regurgitation. There is moderate tricuspid regurgitation. The patient's presentation was consistent with [id number]-eccifro diastolic heart failure, which was confirmed through her records that we obtained from [facility]. The patient also presented with anemia. She had a hemoglobin and hematocrit of 7.3 and 22%. Her stool guaiac was positive. The patient was transfused 1 unit of packed red blood cells and her H and H remained stable throughout her stay. The patient was on Eliquis and this was held. I did speak with the patient and her daughter regarding the continuation of Eliquis. Apparently, the patient had a heart attack back in 2013, when she was started on aspirin and Plavix. Per the daughter, in 2014 the cable dispatcher switched her to Eliquis in order to "keep her blood thin". She has been on this, but there is no confirmed history of DVT or PE to support the continuation of the Eliquis. Additionally, there is no documented atrial fibrillation and both the patient and the daughter deny that the patient ever had atrial fibrillation. However, the daughter was very firm that she wanted her mother to continue on Eliquis as she is bedridden and obese and has multiple risk factors for thromboembolism. We did discuss the risk of rebleeding as we have not discovered the source yet. Incidentally, after reviewing the records from [facility], it appears that the patient had the same issue in August before she was released from the hospital where they had switched her from Xarelto to Eliquis following her stroke. The patient was started on Eliquis there and was noted to have a drop in her H and H. She was seen by GI at [facility], who recommended continuing the Eliquis and maintaining the patient on Carafate and the PPI. The patient was seen in consultation by our knotter hand who spoke with the patient. The patient did indicate that she was not interested in taking a prep because she felt that she was not able to complete it fully and have a good diagnostic colonoscopy. Initially there was a concern that the patient would be a high risk for sedation given her cardiac and respiratory function. This was discussed with the patient's daughter, Kavita. We did discuss the possibility of continuing the Eliquis and having the patient be monitored on weekly CBCs to monitor for bleeding. If she does continue to bleed then we need to pursue either endoscopy or just consider that she may not be able to continue on Eliquis. Both the patient and the daughter were in agreement with this plan. Eliquis was restarted here and a followup H and H this morning shows a stable H and H of 8.6 and 27. In regards to the patient's CHF, she has been maintained on daily weights. She showed approximately 10-pound weight loss over her time here and has had significant improvement in her edema. She is able to lay flat comfortably and denies any chest pain or shortness of breath. On the day of discharge, the patient is on her chronic O2 settings of 2 L nasal cannula. She denies any acute complaints. She is alert and oriented x3. Pupils are equal, round, and reactive to light. Mucous membranes are moist. Breath sounds are clear throughout, although slightly diminished. The patient has regular rate and rhythm. S1 and S2. Heart sounds, no murmurs, rubs, or gallops. Abdomen is obese, but soft, nontender, nondistended. The patient has 1 to 2+ bilateral lower extremity edema to the right calf and to the left thigh and trace edema to the upper extremities. The patient does endorse chronic edema. Her cath demonstrating clear yellow urine. CONCERNS AT DISCHARGE: Ms. Francis will be discharge to [facility] on 01/09/17. She is to follow up with the nurse practitioner at the facility. Outpatient Follow Needs: The patient needs to have a weekly CBC and should be maintained on daily weights or have frequent weights in order to monitor for weight gain. DIET: Low sodium, heart healthy diet. ACTIVITY: As tolerated. CONDITION: Improved, stable. DISPOSITION: To [facility]. TIME SPENT: Time spent on this discharge was approximately 50 minutes. Again, this is only a brief summary of the patient's hospital course of stay. For full details, please refer to the full medical record. If you have any further questions or need further assistance, please feel free to contact me at [phone]. ARNIE PORTILLO NP CC: Linda Foreman NP* [id number]/[facility] #: [id number] MTDD
== END 2017-01-09 15:35 | DRG 663 ==
LOC: ED 21:03 → MEDTELE 01-05 01:39 → ED 01-05 02:38 → OBSVTOIN 01-06 09:00 → MED 01-08 19:16
PROVIDERS: ADMIT Internal Medicine; ATTEND Internal Medicine
PROC: 30233N1 Transfusion of Nonautologous Red Blood Cells into Peripheral Vein, Percutaneous Approach (ICD-10-PCS; principal; 2017-01-05)
DX: D62 Acute posthemorrhagic anemia (principal); I50.33 Acute on chronic diastolic (congestive) heart failure; I08.1 Rheumatic disorders of both mitral and tricuspid valves; Z68.42 Body mass index [BMI] 45.0-49.9, adult; Z99.81 Dependence on supplemental oxygen; I69.351 Hemiplegia and hemiparesis following cerebral infarction affecting right dominant side; K92.2 Gastrointestinal hemorrhage, unspecified; I11.0 Hypertensive heart disease with heart failure; I25.10 Atherosclerotic heart disease of native coronary artery without angina pectoris; F32.9 Major depressive disorder, single episode, unspecified; E03.9 Hypothyroidism, unspecified; E78.5 Hyperlipidemia, unspecified; K21.9 Gastro-esophageal reflux disease without esophagitis; E11.9 Type 2 diabetes mellitus without complications; I44.7 Left bundle-branch block, unspecified; E87.6 Hypokalemia; T50.1X5A Adverse effect of loop [high-ceiling] diuretics, initial encounter; Z66 Do not resuscitate; E83.42 Hypomagnesemia; E66.01 Morbid (severe) obesity due to excess calories; Z82.49 Family history of ischemic heart disease and other diseases of the circulatory system; Z79.01 Long term (current) use of anticoagulants; I69.391 Dysphagia following cerebral infarction; Z88.0 Allergy status to penicillin; Z87.440 Personal history of urinary (tract) infections; Z89.522 Acquired absence of left knee; Z93.1 Gastrostomy status; Z83.3 Family history of diabetes mellitus; Z82.3 Family history of stroke; Z95.5 Presence of coronary angioplasty implant and graft; I25.2 Old myocardial infarction; Z86.718 Personal history of other venous thrombosis and embolism; Z87.891 Personal history of nicotine dependence; Z80.1 Family history of malignant neoplasm of trachea, bronchus and lung; Z74.01 Bed confinement status; Z99.3 Dependence on wheelchair
CPT/HCPCS: 36415; 71010; 80048; 80053; 82270; 82272; 82607; 82728; 83036; 83540; 83550; 83605; 83735; 83880; 84443; 84484; 85014; 85018; 85025; 86850; 86900; 86901; 86922; 87040; 87641; 93005; 93306; 94003; 94640; 94760; A9270-GY; G0378; J1940; P9040

== ENCOUNTER 2017-02-12 12:13 | Emergency (ER) | payer OTHER ==
[2017-02-12 12:52] LABS: Hematocrit 26 % (35-47); Hemoglobin 8.2 g/dl (12.0-16.0); Mean Corpuscular HGB Conc 32 g/dl (31-36); Mean Corpuscular Hemoglobin 24 pg (27-31); Mean Corpuscular Volume 77 fL (80-97); Mean Platelet Volume 8 um3 (7.4-10.4); Red Blood Count 3.38 10^6/ul (4.0-5.4); Red Cell Distribution Width 19 % (10.5-15); White Blood Count 5.3 10^3/ul (3.5-10.8)
[2017-02-12 13:07] LABS: BUN/Creatinine Ratio 28.9 (8-20); Calcium 9.3 mg/dL (8.6-10.3); EGFR African American 99.2 (>60); EGFR Non-African American 77.1 (>60); Globulin 3.7 g/dL (2-4); Potassium 4.2 mmol/L (3.5-5.0); Total Bilirubin 0.9 mg/dL (0.2-1.0); Total Protein 6.7 g/dL (6.4-8.9)
[2017-02-12] MEDS ORDERED: Pantoprazole IV* 40 MG IV ONE (13:07)
[2017-02-12 13:09] LABS: Troponin I 0.01 ng/mL (<0.04)
--- NOTE | 2017-02-12 13:10 | RAD ---
INDICATION: Worsening shortness of breath COMPARISON: Chest x-ray dated January 04, 2017 TECHNIQUE: Single AP portable view of the chest was obtained. FINDINGS: Image quality is compromised due to the relative inferiority of a portable chest x-ray. Similar to the previous chest x-ray there is mild cardiomegaly. There is density obscuring the bilateral lung bases causing bilateral costophrenic angle blunting. Pulmonary vasculature is mildly engorged and indistinct. Visualized bones are normal for the patient's age. IMPRESSION: Chest x-ray findings are most consistent with exacerbation of congestive heart failure possibly with bibasilar pleural effusions.
[2017-02-12] MEDS ORDERED: Pantoprazole IV* 80 MG in NS 0.9% 250 ML* 250 ML IV SCH (14:00)
[2017-02-12] MEDS ORDERED: Furosemide IV* 10 MG/ML VIAL (40 MG) IV ONE (14:55)
--- NOTE | 2017-02-12 18:36 | ED ---
Travis Mayo Thomas, scribed for Eladio Delcid MD on 02/12/17 at 1259 . Shortness of Breath - HPI Summary HPI Summary: Pt is a 61 y/o F presenting to the ED c/o SOB. Additionally c/o pitting edema in arms and legs and swollen arms and legs. PMHx: DM, CHF, CVA. PSHx: L BKA and nasogastric tube. Her GI physician (at [facility]) thinks that she has a GI bleed and has considered a colonoscopy but has not done so because the pt cannot tolerate a colonoscopy. She was previously admitted a month ago to [facility] for SOB. Per nursing documentation, the pt is scheduled for an infusion by her PCP. The pt has been on O2 every day for the last month, prescribed at [facility]. - History of Current Complaint Chief Complaint: EDShortnessOfBreath Time Seen by Provider: 02/12/17 12:29 Hx Obtained From: Patient Onset/Duration: Lasting Weeks - SOB for a month Associated Signs & Symptoms: Edema - in upper and lower extremities - Allergy/Home Medications Allergies/Adverse Reactions: Allergies Allergy/AdvReac Type Severity Reaction Status Date / Time Penicillins Allergy Hives Verified 10/17/16 18:13 Home Medications: Home Medications Apixaban* [Eliquis*] 5 mg PO BID 02/12/17 [History Confirmed 02/12/17] Escitalopram (NF) [Lexapro 10 mg (NF)] 10 mg PO QAM 02/12/17 [History Confirmed 02/12/17] Ferrous Sulfate TAB* 325 mg PO DAILY 02/12/17 [History Confirmed 02/12/17] Insulin Glargine (Nf) [Toujeo Solostar Pen (NF)] 50 unit SUBCUT BEDTIME [History Confirmed 02/12/17] Magnesium Oxide TAB* [MagOx 400 TAB*] 800 mg PO DAILY 02/12/17 [History Confirmed 02/12/17] Polyethylene Glycol 3350* [Miralax*] 17 gm PO DAILY PRN 02/12/17 [History Confirmed 02/12/17] Potassium Chlor TAB* [Klor Con ER TAB*] 20 meq PO DAILY 02/12/17 [History Confirmed 02/12/17] Sucralfate TAB* [Carafate*] 1 gm PO QID 02/12/17 [History Confirmed 02/12/17] amLODIPine TAB* [Norvasc 5 mg TAB*] 5 mg PO QAM 02/12/17 [History Confirmed ] metFORMIN* [Glucophage 500 MG TAB *] 500 mg PO BID 02/12/17 [History Confirmed 02/12/17] PMH/Surg Hx/FS Hx/Imm Hx Previously Healthy: No Endocrine/Hematology History: Reports: Hx Anticoagulant Therapy - Eliquis, Hx Diabetes Cardiovascular History: Reports: Hx Congestive Heart Failure, Hx Coronary Artery Disease, Hx Hypertension GI History: Reports: Other GI Disorders - PEG tube Musculoskeletal History: Reports: Other Musculoskeletal History - LBKA Sensory History: Denies: Hx Contacts or Glasses, Hx Hearing Aid Opthamlomology History: Denies: Hx Contacts or Glasses Neurological History: Reports: Other Neuro Impairments/Disorders - CVA Psychiatric History: Reports: Hx Depression - Surgical History Surgery Procedure, Year, and Place: K[place]. PEG Tube Hx Anesthesia Reactions: No - Immunization History Date of Tetanus Vaccine: unknown Date of Influenza Vaccine: unknown Infectious Disease History: No Infectious Disease History: Reports: Hx of Known/Suspected MRSA Denies: Traveled Outside the [place] in Last 30 Days - Family History Known Family History: Positive: Cardiac Disease, Diabetes, Other - Cancer, CVA - Social History Alcohol Use: None Hx Substance Use: No Substance Use Type: Reports: None Hx Tobacco Use: No Smoking Status (MU): Never Smoked Tobacco Review of Systems Constitutional: Negative Eyes: Negative ENT: Negative Cardiovascular: Negative Positive: Shortness Of Breath - onset 1 month Genitourinary: Negative Positive: Edema - pitting edema upper and lower extremities, Other - POS: swollen upper and lower extremities Skin: Negative Neurological: Negative Psychological: Normal All Other Systems Reviewed And Are Negative: Yes Physical Exam Triage Information Reviewed: Yes Vital Signs On Initial Exam: Initial Vitals Temp Pulse Resp BP Pulse Ox 98.6 F 54 24 120/52 94 02/12/17 12:16 02/12/17 12:16 02/12/17 12:16 02/12/17 12:16 02/12/17 12:16 Vital Signs Reviewed: Yes Appearance: Positive: Well-Appearing, No Pain Distress Skin: Positive: Warm, Skin Color Reflects Adequate Perfusion, Dry Head/Face: Positive: Normal Head/Face Inspection Eyes: Positive: Other: - POS: conjunctiva pale ENT: Positive: Normal ENT inspection Neck: Positive: Supple, Nontender Respiratory/Lung Sounds: Positive: Clear to Auscultation, Breath Sounds Present Cardiovascular: Positive: RRR Abdomen Description: Positive: Nontender, Soft Bowel Sounds: Positive: Present Musculoskeletal: Positive: Edema Right - pitting edema RLE 2+, Other - POS: L BKA Neurological: Positive: Normal, Sensory/Motor Intact, Alert, Oriented to Person Place, Time, CN Intact II-III Psychiatric: Positive: Normal, Affect/Mood Appropriate - Tabatha Coma Scale Coma Scale Total: 15 Diagnostics - Vital Signs Vital Signs Temp Pulse Resp BP Pulse Ox 02/12/17 12:25 96 02/12/17 12:20 54 17 120/52 93 02/12/17 12:19 54 92 02/12/17 12:16 98.6 F 54 24 120/52 94 - Laboratory Lab Results: Lab Results 02/12/17 02/12/17 02/12/17 Range/Units 12:40 12:40 12:40 WBC 5.3 (3.5-10.8) 10^3/ul RBC 3.38 L (4.0-5.4) 10^6/ul Hgb 8.2 L (12.0-16.0) g/dl Hct 26 L (35-47) % MCV 77 L (80-97) fL MCH 24 L (27-31) pg MCHC 32 (31-36) g/dl RDW 19 H (10.5-15) % Plt Count 218 (150-450) 10^3/ul MPV 8 (7.4-10.4) um3 Neut % (Auto) 63.1 (38-83) % Lymph % (Auto) 24.7 L (25-47) % Stevens % (Auto) 8.2 (1-9) % Eos % (Auto) 3.5 (0-6) % Baso % (Auto) 0.5 (0-2) % Absolute Neuts (auto) 3.3 (1.5-7.7) 10^3/ul Absolute Lymphs (auto) 1.3 (1.0-4.8) 10^3/ul Absolute Monos (auto) 0.4 (0-0.8) 10^3/ul Absolute Eos (auto) 0.2 (0-0.6) 10^3/ul Absolute Basos (auto) 0 (0-0.2) 10^3/ul Absolute Nucleated RBC 0 10^3/ul Nucleated RBC % 0 Sodium 138 (133-145) mmol/L Potassium 4.2 (3.5-5.0) mmol/L Chloride 99 L (101-111) mmol/L Carbon Dioxide 37 H (22-32) mmol/L Anion Gap 2 (2-11) mmol/L BUN 22 (6-24) mg/dL Creatinine 0.76 (0.51-0.95) mg/dL Est GFR ( Amer) 99.2 (>60) Est GFR (Non-Af Amer) 77.1 (>60) BUN/Creatinine Ratio 28.9 H (8-20) Glucose 89 (70-100) mg/dL Lactic Acid 1.1 (0.5-2.0) mmol/L Calcium 9.3 (8.6-10.3) mg/dL Total Bilirubin 0.90 (0.2-1.0) mg/dL AST 10 L (13-39) U/L ALT 6 L (7-52) U/L Alkaline Phosphatase 64 (34-104) U/L Troponin I 0.01 (<0.04) ng/mL B-Natriuretic Peptide ( - 100) pg/mL Total Protein 6.7 (6.4-8.9) g/dL Albumin 3.0 L (3.2-5.2) g/dL Globulin 3.7 (2-4) g/dL Albumin/Globulin Ratio 0.8 L (1-3) Blood Type Antibody Screen 02/12/17 02/12/17 02/12/17 Range/Units 12:40 12:40 15:40 WBC (3.5-10.8) 10^3/ul RBC (4.0-5.4) 10^6/ul Hgb (12.0-16.0) g/dl Hct (35-47) % MCV (80-97) fL MCH (27-31) pg MCHC (31-36) g/dl RDW (10.5-15) % Plt Count (150-450) 10^3/ul MPV (7.4-10.4) um3 Neut % (Auto) (38-83) % Lymph % (Auto) (25-47) % Stevens % (Auto) (1-9) % Eos % (Auto) (0-6) % Baso % (Auto) (0-2) % Absolute Neuts (auto) (1.5-7.7) 10^3/ul Absolute Lymphs (auto) (1.0-4.8) 10^3/ul Absolute Monos (auto) (0-0.8) 10^3/ul Absolute Eos (auto) (0-0.6) 10^3/ul Absolute Basos (auto) (0-0.2) 10^3/ul Absolute Nucleated RBC 10^3/ul Nucleated RBC % Sodium (133-145) mmol/L Potassium (3.5-5.0) mmol/L Chloride (101-111) mmol/L Carbon Dioxide (22-32) mmol/L Anion Gap (2-11) mmol/L BUN (6-24) mg/dL Creatinine (0.51-0.95) mg/dL Est GFR ( Amer) (>60) Est GFR (Non-Af Amer) (>60) BUN/Creatinine Ratio (8-20) Glucose (70-100) mg/dL Lactic Acid (0.5-2.0) mmol/L Calcium (8.6-10.3) mg/dL Total Bilirubin (0.2-1.0) mg/dL AST (13-39) U/L ALT (7-52) U/L Alkaline Phosphatase (34-104) U/L Troponin I 0.02 (<0.04) ng/mL B-Natriuretic Peptide 809 H ( - 100) pg/mL Total Protein (6.4-8.9) g/dL Albumin (3.2-5.2) g/dL Globulin (2-4) g/dL Albumin/Globulin Ratio (1-3) Blood Type B Positive Antibody Screen Negative Result Diagrams: 02/12/17 12:40 02/12/17 12:40 Lab Statement: Any lab studies that have been ordered have been reviewed, and results considered in the medical decision making process. - Radiology CXR Xray Interpretation: Positive (See Comments) - Chest x-ray findings are most consistent with exacerbation of congestive heart failure possibly with bibasilar pleural effusions. Radiology Interpretation Completed By: Radiologist - EKG 1223 Cardiac Rate: Bradycardia - 53 bpm EKG Interpretation: Sinus Bradycardia. Probable old anterior infarct. Re-Evaluation - Re-Evaluation First Eval Re-Evaluation Time: 16:30 Change: Improved - Breathing is better Course/Dx - Course Course Of Treatment: Ms. Francis presented with SOB. Her labs were checked yesterday and she was again anemic. She also has peripheral edema and a history of CHF. Her H/H today was actually a bit better than yesterday but her BNP and CXR reflected a worsening of her CHF. She was given additional lasix here and diuresed some and felt better. She was breathing a lot easier when she left. - Diagnoses Provider Diagnoses: CHF (congestive heart failure) Discharge - Discharge Plan Condition: Stable Disposition: HOME Patient Education Materials: Heart Failure (ED) Referrals: Naila Valdes MD [Primary Care Provider] - 3 Days The documentation as recorded by the Travis ramirez Thomas accurately reflects the service I personally performed and the decisions made by me, Eladio Delcid MD.
[2017-02-12 18:53] VITALS: BP 131/61
== END 2017-02-12 19:03 | disposition home or self-care (01) ==
LOC: ED 12:13
DX: I50.9 Heart failure, unspecified (principal); F32.9 Major depressive disorder, single episode, unspecified; Z88.0 Allergy status to penicillin; I25.10 Atherosclerotic heart disease of native coronary artery without angina pectoris
CPT/HCPCS: 36415; 71010; 80053; 83605; 83880; 84484; 85025; 86850; 86900; 86901; 87040; 96374; 96375; 99283; J1940

== ENCOUNTER 2017-05-27 17:34 | Emergency (ER) | payer MEDICARE, OTHER ==
[2017-05-27] MEDS ORDERED: NS 0.9% 1000 ML* 1,000 ML IV ONE ×2 (18:11→19:08)
[2017-05-27] MEDS ORDERED: Ondansetron INJ* 2 MG/ML VIAL IV ONE (18:11)
[2017-05-27 18:46] LABS: Hematocrit 27 % (35-47); Mean Corpuscular HGB Conc 34 g/dl (31-36); Mean Corpuscular Hemoglobin 26 pg (27-31); Mean Corpuscular Volume 78 fL (80-97); Mean Platelet Volume 8 um3 (7.4-10.4); Red Blood Count 3.42 10^6/ul (4.0-5.4); Red Cell Distribution Width 16 % (10.5-15); White Blood Count 7.7 10^3/ul (3.5-10.8)
[2017-05-27 18:51] LABS: Urine Bacteria 2+ (Absent); Urine Bilirubin Negative (Negative); Urine Glucose 3+(>=500 mg/dL) (Negative); Urine Nitrite Negative (Negative)
[2017-05-27 18:58] LABS: ALT 10 U/L (7-52); AST 14 U/L (13-39); Albumin 3.4 g/dL (3.2-5.2); Alkaline Phosphatase 52 U/L (34-104); Anion Gap 8 mmol/L (2-11); Blood Urea Nitrogen 36 mg/dL (6-24); C Reactive Protein 202.83 mg/L (< 5.00); CO2 Carbon Dioxide 30 mmol/L (22-32); Calcium 9.4 mg/dL (8.6-10.3); Chloride 94 mmol/L (101-111); EGFR African American 60.9 (>60); EGFR Non-African American 47.3 (>60); Globulin 3.9 g/dL (2-4); Glucose 288 mg/dL (70-100); Lipase < 10 U/L (11.0-82.0); Potassium 3.9 mmol/L (3.5-5.0); Sodium 132 mmol/L (133-145); Total Protein 7.3 g/dL (6.4-8.9)
--- NOTE | 2017-05-27 19:15 | ED ---
Luis Manuel Mayo Nilda, scribed for Eladio Delcid MD on 05/27/17 at 1814 . GI/ HPI - HPI Summary HPI Summary: This patient is a 61 year old F BIBA from [facility] to [facility] with a chief complaint of vomiting (coffee ground emesis per nurse note) since yesterday. Symptoms aggravated by movement and alleviated by nothing. Patient reports nausea, but denies dizziness, feeling that room is spinning, general pain, and diarrhea. Patient is not on medication for vomiting. Patient has catheter ( changed 1 month ago) since she has trouble ambulating to bathroom due to loss of function in leg s/p CVA. - History of Current Complaint Chief Complaint: EDGIBleed Time Seen by Provider: 05/27/17 17:44 Stated Complaint: POSSIBLE GI BLEED Hx Obtained From: Patient, Medical Records - nurse note Onset/Duration: Started Days Ago - 1 day Current Severity: Moderate Vaginal Bleeding Description: Brown - "coffee ground emesis" Pain Intensity: 0 Associated Signs and Symptoms: Positive: Other: - nausea, but denies dizziness, feeling that room is spinning, general pain, and diarrhea. Aggravating Factor(s): Movement Alleviating Factor(s): Nothing - Additional Pertinent History Primary Care Physician: [id number] - Allergy/Home Medications Allergies/Adverse Reactions: Allergies Allergy/AdvReac Type Severity Reaction Status Date / Time Penicillins Allergy Hives Verified 10/17/16 18:13 Home Medications: Home Medications Albuterol/Ipratropium NEB.AYSE* [Duoneb (Albuterol 2.5 MG/Ipratropium 0.5 MG)] 1 neb INH Q6H PRN 05/27/17 [History Confirmed 05/27/17] Cyanocobalamin TAB* [Vitamin B12 TAB*] 1,000 mcg PO QAM 05/27/17 [History Confirmed 05/27/17] Fluticasone NASAL * [Flonase *] 2 spray BOTH NARES QAM 05/27/17 [History Confirmed 05/27/17] Furosemide TAB* [Lasix TAB*] 60 mg PO Q12HR 05/27/17 [History Confirmed 05/27/17 ] Insulin Glargine (Nf) [Toujeo Solostar Pen (NF)] 56 units SUBCUT BEDTIME [History Confirmed 05/27/17] Metoprolol Tartrate TAB* [Lopressor TAB*] 12.5 mg PO BID 05/27/17 [History Confirmed 05/27/17] Mometasone/Formoter 200/5 MDI* [Dulera 200/5 MDI*] 2 puff INH BID 05/27/17 [ History Confirmed 05/27/17] Ondansetron TAB* [Zofran 4 MG Tab*] 8 mg PO ONCE PRN 05/27/17 [History Confirmed 05/27/17] Rosuvastatin (NF) [Crestor] 20 mg PO BEDTIME 05/27/17 [History Confirmed ] Sulfamethox/Trimethoprim DS* [Bactrim DS 800/160 TAB*] 1 tab PO BID 05/27/17 [ History Confirmed 05/27/17] PMH/Surg Hx/FS Hx/Imm Hx Endocrine/Hematology History: Reports: Hx Anticoagulant Therapy - Eliquis, Hx Diabetes Cardiovascular History: Reports: Hx Congestive Heart Failure, Hx Coronary Artery Disease, Hx Hypertension GI History: Reports: Other GI Disorders - PEG tube Musculoskeletal History: Reports: Other Musculoskeletal History - LBKA Sensory History: Denies: Hx Contacts or Glasses, Hx Hearing Aid Opthamlomology History: Denies: Hx Contacts or Glasses Neurological History: Reports: Other Neuro Impairments/Disorders - CVA Psychiatric History: Reports: Hx Depression - Surgical History Surgery Procedure, Year, and Place: LBKA. PEG Tube Hx Anesthesia Reactions: No - Immunization History Date of Tetanus Vaccine: unknown Date of Influenza Vaccine: unknown Infectious Disease History: No Infectious Disease History: Reports: Hx of Known/Suspected MRSA Denies: Traveled Outside the [place] in Last 30 Days - Family History Known Family History: Positive: Cardiac Disease, Diabetes, Other - Cancer, CVA - Social History Alcohol Use: None Hx Substance Use: No Substance Use Type: Reports: None Hx Tobacco Use: No Smoking Status (MU): Never Smoked Tobacco Review of Systems Positive: Other - negative general pain Positive: Vomiting - coffee ground emesis, Nausea. Negative: Diarrhea Neurological: Other - negative dizziness, feelings that room is spinning All Other Systems Reviewed And Are Negative: Yes Physical Exam Triage Information Reviewed: Yes Vital Signs On Initial Exam: Initial Vitals Temp Pulse Resp BP Pulse Ox 97.6 F 80 16 144/77 95 05/27/17 17:39 05/27/17 17:39 05/27/17 17:39 05/27/17 17:39 05/27/17 17:39 Vital Signs Reviewed: Yes Appearance: Positive: Well-Appearing, No Pain Distress, Obese Skin: Positive: Warm, Skin Color Reflects Adequate Perfusion, Diaphoretic Head/Face: Positive: Normal Head/Face Inspection Eyes: Positive: Normal ENT: Positive: Normal ENT inspection Neck: Positive: Supple, Nontender Respiratory/Lung Sounds: Positive: Clear to Auscultation, Breath Sounds Present Cardiovascular: Positive: RRR Abdomen Description: Positive: Nontender, Soft Bowel Sounds: Positive: Present Musculoskeletal: Positive: Normal Neurological: Positive: Normal Psychiatric: Positive: Normal, Affect/Mood Appropriate Diagnostics - Vital Signs Vital Signs Temp Pulse Resp BP Pulse Ox 05/27/17 17:39 97.6 F 80 16 144/77 95 - Laboratory Lab Results: Lab Results 05/27/17 05/27/17 05/27/17 Range/Units 18:22 18:22 18:22 WBC 7.7 (3.5-10.8) 10^3/ul RBC 3.42 L (4.0-5.4) 10^6/ul Hgb 9.0 L (12.0-16.0) g/dl Hct 27 L (35-47) % MCV 78 L (80-97) fL MCH 26 L (27-31) pg MCHC 34 (31-36) g/dl RDW 16 H (10.5-15) % Plt Count 253 (150-450) 10^3/ul MPV 8 (7.4-10.4) um3 Neut % (Auto) 80.0 (38-83) % Lymph % (Auto) 9.2 L (25-47) % Canadian % (Auto) 10.5 H (1-9) % Eos % (Auto) 0.1 (0-6) % Baso % (Auto) 0.2 (0-2) % Absolute Neuts (auto) 6.2 (1.5-7.7) 10^3/ul Absolute Lymphs (auto) 0.7 L (1.0-4.8) 10^3/ul Absolute Monos (auto) 0.8 (0-0.8) 10^3/ul Absolute Eos (auto) 0 (0-0.6) 10^3/ul Absolute Basos (auto) 0 (0-0.2) 10^3/ul Absolute Nucleated RBC 0 10^3/ul Nucleated RBC % 0 Sodium 132 L (133-145) mmol/L Potassium 3.9 (3.5-5.0) mmol/L Chloride 94 L (101-111) mmol/L Carbon Dioxide 30 (22-32) mmol/L Anion Gap 8 (2-11) mmol/L BUN 36 H (6-24) mg/dL Creatinine 1.16 H (0.51-0.95) mg/dL Est GFR ( Amer) 60.9 (>60) Est GFR (Non-Af Amer) 47.3 (>60) BUN/Creatinine Ratio 31.0 H (8-20) Glucose 288 H (70-100) mg/dL Lactic Acid 1.7 (0.5-2.0) mmol/L Calcium 9.4 (8.6-10.3) mg/dL Total Bilirubin 1.50 H (0.2-1.0) mg/dL AST 14 (13-39) U/L ALT 10 (7-52) U/L Alkaline Phosphatase 52 (34-104) U/L C-Reactive Protein 202.83 H (< 5.00) mg/L Total Protein 7.3 (6.4-8.9) g/dL Albumin 3.4 (3.2-5.2) g/dL Globulin 3.9 (2-4) g/dL Albumin/Globulin Ratio 0.9 L (1-3) Lipase < 10 L (11.0-82.0) U/L Urine Color Urine Appearance Urine pH (5-9) Ur Specific Walton (1.010-1.030) Urine Protein (Negative) Urine Ketones (Negative) Urine Blood (Negative) Urine Nitrate (Negative) Urine Bilirubin (Negative) Urine Urobilinogen (Negative) Ur Leukocyte Esterase (Negative) Urine WBC (Auto) (Absent) Urine RBC (Auto) (Absent) Ur Squamous Epith Cells (Absent) Urine Bacteria (Absent) Urine Glucose (Negative) 05/27/17 Range/Units 18:35 WBC (3.5-10.8) 10^3/ul RBC (4.0-5.4) 10^6/ul Hgb (12.0-16.0) g/dl Hct (35-47) % MCV (80-97) fL MCH (27-31) pg MCHC (31-36) g/dl RDW (10.5-15) % Plt Count (150-450) 10^3/ul MPV (7.4-10.4) um3 Neut % (Auto) (38-83) % Lymph % (Auto) (25-47) % Canadian % (Auto) (1-9) % Eos % (Auto) (0-6) % Baso % (Auto) (0-2) % Absolute Neuts (auto) (1.5-7.7) 10^3/ul Absolute Lymphs (auto) (1.0-4.8) 10^3/ul Absolute Monos (auto) (0-0.8) 10^3/ul Absolute Eos (auto) (0-0.6) 10^3/ul Absolute Basos (auto) (0-0.2) 10^3/ul Absolute Nucleated RBC 10^3/ul Nucleated RBC % Sodium (133-145) mmol/L Potassium (3.5-5.0) mmol/L Chloride (101-111) mmol/L Carbon Dioxide (22-32) mmol/L Anion Gap (2-11) mmol/L BUN (6-24) mg/dL Creatinine (0.51-0.95) mg/dL Est GFR ( Amer) (>60) Est GFR (Non-Af Amer) (>60) BUN/Creatinine Ratio (8-20) Glucose (70-100) mg/dL Lactic Acid (0.5-2.0) mmol/L Calcium (8.6-10.3) mg/dL Total Bilirubin (0.2-1.0) mg/dL AST (13-39) U/L ALT (7-52) U/L Alkaline Phosphatase (34-104) U/L C-Reactive Protein (< 5.00) mg/L Total Protein (6.4-8.9) g/dL Albumin (3.2-5.2) g/dL Globulin (2-4) g/dL Albumin/Globulin Ratio (1-3) Lipase (11.0-82.0) U/L Urine Color Yellow Urine Appearance Cloudy Urine pH 5.0 (5-9) Ur Specific Walton 1.016 (1.010-1.030) Urine Protein 2+(100 mg/dl) H (Negative) Urine Ketones Negative (Negative) Urine Blood 2+ H (Negative) Urine Nitrate Negative (Negative) Urine Bilirubin Negative (Negative) Urine Urobilinogen Negative (Negative) Ur Leukocyte Esterase 1+ H (Negative) Urine WBC (Auto) 3+(>20/hpf) H (Absent) Urine RBC (Auto) 1+(3-5/hpf) H (Absent) Ur Squamous Epith Cells Present H (Absent) Urine Bacteria 2+ H (Absent) Urine Glucose 3+(>=500 mg/dl) H (Negative) Result Diagrams: 05/27/17 18:22 05/27/17 18:22 Lab Statement: Any lab studies that have been ordered have been reviewed, and results considered in the medical decision making process. - EKG 1850 Cardiac Rate: NL EKG Rhythm: Sinus Rhythm EKG Interpretation: LBBB EKG Comparison: No Significant Change - from 01/04/17 GIGU Course/Dx - Course Course Of Treatment: Ms. Francis presented with nausea and vomiting today. She saw what she thought was coffee ground and came in worried that she has a GI bleed. He labs looked more like she was quite dehydrated and she is currently getting hydrated and I expect she will go home when her symptoms are controlled. - Diagnoses Provider Diagnoses: Vomiting, Dehydration Discharge - Discharge Plan Condition: Stable Disposition: HOME Prescriptions: Ondansetron ODT TAB* [Zofran Odt TAB*] 4 mg PO Q6H PRN #20 tab.odt PRN Reason: Nausea/Vomiting Patient Education Materials: Acute Nausea and Vomiting (ED) Referrals: Naila Valdes MD [Primary Care Provider] - Additional Instructions: Follow up if not improved in 24 hours The documentation as recorded by the Luis Manuel ramirez Nilda accurately reflects the service I personally performed and the decisions made by me, Eladio Delcid MD.
[2017-05-27] MEDS ORDERED: Metoclopramide IV* 5 MG/ML 2 ML VIAL IV ONE (20:45)
--- NOTE | 2017-05-27 21:09 | RAD ---
Indication: Cough, shortness of breath, chest pain. History of congestive heart failure. Comparison: February 12, 2017 Technique: Upright AP 2050 hours Report: Mild patchy consolidation at the RIGHT lung base. Grossly clear pleural spaces. Negative for pneumothorax. Negative for cardiomegaly. Unremarkable central pulmonary vasculature and mediastinal contours. IMPRESSION: The constellation of findings favors inflammatory infiltrate/pneumonia at the RIGHT lung base.
[2017-05-27 21:14] LABS: Hematocrit 29 % (35-47); Hemoglobin 9.8 g/dl (12.0-16.0); Mean Corpuscular HGB Conc 34 g/dl (31-36); Mean Corpuscular Hemoglobin 27 pg (27-31); Mean Corpuscular Volume 79 fL (80-97); Mean Platelet Volume 8 um3 (7.4-10.4); Red Blood Count 3.64 10^6/ul (4.0-5.4); Red Cell Distribution Width 16 % (10.5-15); White Blood Count 7.8 10^3/ul (3.5-10.8)
[2017-05-27] MEDS ORDERED: Iodixanol* (CONTRAST) 320 MG/ML 100 ML SDV ONE (21:25)
[2017-05-27] MEDS ORDERED: Iodixanol* (CONTRAST) 320 MG/ML 100 ML SDV IV ONE (22:43)
[2017-05-28 01:15] VITALS: BP 143/60
--- NOTE | 2017-05-28 07:46 | RAD ---
CLINICAL HISTORY: Vomiting blood COMPARISON: October 17, 2016 TECHNIQUE: Multiple contiguous axial CT scans were obtained of the abdomen and pelvis after the administration of intravenous contrast. Coronal and sagittal multiplanar reformations are submitted for review. Oral contrast was administered. Delayed images were obtained through the abdomen and pelvis. FINDINGS: LUNG BASES: There is been interval development of a pattern of centrilobular nodularity the lung bases bilaterally, greater on the right than on the left. The largest nodule measures up to 1.4 cm. LIVER: The liver is diffusely low in attenuation compared to the spleen. There are no focal hepatic parenchymal masses. The liver measures 21.5 cm in long axis. BILE DUCTS: There is no intrahepatic or extrahepatic biliary dilatation. GALLBLADDER: There is sludge versus multiple small stones layering dependently within the gallbladder. There is no pericholecystic inflammatory change. PANCREAS: The pancreas is normal, without mass or ductal dilatation. SPLEEN: Normal in size and appearance. UPPER GI TRACT: Evaluation of the gastrointestinal tract is limited by incomplete gastric distention. There is a small sliding hiatal hernia. There is mild mucosal thickening of the distal esophagus. SMALL BOWEL AND MESENTERY: The small bowel is normal in contour, course, and caliber. There is no obstruction or dilatation. COLON: The colon is normal in contour, course, caliber. There is no pericolonic inflammatory change. There are scattered diverticula of the distal colon ADRENALS: Normal bilaterally. KIDNEYS: The kidneys are normal in shape, size, contour, and axis. There is no hydronephrosis or nephrolithiasis. BLADDER: The bladder is collapsed rounded Villegas catheter. PELVIC ORGANS: The pelvic organs are not visualized. AORTA: There is calcific atherosclerotic disease of the abdominal aorta and its branches, without aneurysmal dilatation IVC: Unremarkable LYMPH NODES: There is no lymphadenopathy by size criteria. ABDOMINAL WALL: There is no evidence for abdominal wall hernia. BONES AND SOFT TISSUES: There are mild diffuse degenerative changes. OTHER: None IMPRESSION: 1. CENTRILOBULAR PATTERN OF NODULARITY WITHIN THE LUNG BASES BILATERALLY, GREATER ON THE RIGHT THAN ON THE LEFT. THE APPEARANCE IS SUGGESTIVE OF AN AIRWAY CENTERED INFLAMMATORY OR INFECTIOUS PROCESS, THOUGH AIRWAY SPREAD OF NEOPLASM IS WITHIN THE DIFFERENTIAL. THE LARGEST NODULE MEASURES UP TO 1.4 CM IN SIZE. RECOMMEND CONSIDERATION OF CORRELATION WITH DEDICATED IMAGING OF THE CHEST. 2. HEPATOMEGALY WITH FATTY INFILTRATION OF LIVER. 3. SLUDGE VERSUS SMALL STONES WITHIN THE GALLBLADDER. 4. ATHEROSCLEROSIS. 5. SCATTERED DIVERTICULA OF THE COLON. 6. SMALL HIATAL HERNIA. THERE IS MILD MUCOSAL THICKENING OF THE DISTAL ESOPHAGUS. THE DIFFERENTIAL INCLUDES REFLUX ESOPHAGITIS.
--- NOTE | 2017-05-29 12:41 | ED ---
I, Jerry Magdaleno, scribed for Dragan Lee MD on 05/27/17 at 205 . Progress - Progress Note Progress Note: This is a 61yo female, who is a sign out pt from Dr. Delcid. Pt was seen c/o coffee ground emesis at [facility]. Pt denies any emesis while at the ED and currently reports coughing and states is still in discomfort. - Results/Orders Results/Orders: CXR: IMPRESSION: The constellation of findings favors inflammatory infiltrate/ pneumonia at the RIGHT lung base. ED physician has reviewed this radiology report and agrees. CT W A/P: See EMR. ED physician has reviewed this radiology report and agrees. Re-Evaluation - Re-Evaluation First Eval Re-Evaluation Time: 20:39 Comment: Pt has been re-assessed. Pt is c/o of coughing. Not in acute distress. Lung is CTA. Labs show dehydration with elevated CRP. Will recheck CRP, CBC, and obtain CXR amd dispo. Second Eval Re-Evaluation Time: 00:14 Comment: Reviewed labs and imaging reports with the pt. Course/Dx - Course Course Of Treatment: Reviewed pts medication and allergy lists. High blood pressure noted. - Diagnoses Provider Diagnoses: Anorexia The documentation as recorded by the maurizioibeRasta Benjamin accurately reflects the service I personally performed and the decisions made by me, Dragan Lee MD.
--- NOTE | 2017-05-30 08:55 | PN ---
Progress Note - Progress Note Date of Service: 05/30/17 Note: Patient urine grew Enterobacter cloacae >100,000. patient was placed on cipro which is resistant to so sent script for macrobid 100mgbid x7 days. spoke with becca about change.
== END 2017-05-28 01:33 | disposition home or self-care (01) ==
LOC: ED 17:34
DX: R63.0 Anorexia (principal); R11.10 Vomiting, unspecified; E86.0 Dehydration; Z79.01 Long term (current) use of anticoagulants
CPT/HCPCS: 36415; 71010; 74177; 80053; 81003; 81015; 83605; 83690; 85025; 85027; 85610; 86140; 87077; 87086; 87186; 93005; 96361; 96374; 99285; J2405; J2765; Q9967

== ENCOUNTER 2018-01-07 07:47 | Inpatient (IN) | payer MEDICARE ==
[2018-01-07 08:26] LABS: ABS Basophils 0 10^3/ul (0-0.2); ABS Eosinophils 0.3 10^3/ul (0-0.6); ABS Lymphocytes 0.8 10^3/ul (1.0-4.8); ABS Monocytes 0.5 10^3/ul (0-0.8); ABS Neutrophils 4.4 10^3/ul (1.5-7.7); ABS Nucleated RBC 0 10^3/ul; Hematocrit 25 % (35-47); Hemoglobin 8.2 g/dl (12.0-16.0); Lymphocyte % 12.7 % (25-47); Mean Corpuscular HGB Conc 33 g/dl (31-36); Mean Corpuscular Hemoglobin 26 pg (27-31); Mean Corpuscular Volume 79 fL (80-97); Mean Platelet Volume 8.3 um3 (7.4-10.4); Nucleated Red Blood Cells % 0; Platelet Count 228 10^3/ul (150-450); Red Blood Count 3.17 10^6/ul (4.0-5.4); Red Cell Distribution Width 16 % (10.5-15); White Blood Count 5.9 10^3/ul (3.5-10.8)
--- NOTE | 2018-01-07 09:00 | RAD ---
INDICATION: Short of breath COMPARISON: May 27, 2017 TECHNIQUE: AP seated and lateral views were obtained. FINDINGS: Bones/Soft Tissues: There are no acute bony findings. Cardiomediastinal: The heart is normal in size. Central pulmonary vessels and interstitium are prominent compatible with moderate vascular congestion. Lungs: There is no focal consolidation. Pleura: There are moderate-sized bilateral pleural effusions. Other: None IMPRESSION: MODERATE VASCULAR CONGESTION.
[2018-01-07] MEDS ORDERED: Furosemide IV* 10 MG/ML VIAL (40 MG) IV SLOW PU ONE (09:04)
[2018-01-07] MEDS ORDERED: Nitroglycerin 2% OINT* 1 GM PAK TOPICAL ONE (09:04)
[2018-01-07] MEDS ORDERED: Sodium Phosphate ADULT ENEMA* 118 ml bottle PR PRN (09:52)
[2018-01-07] MEDS ORDERED: Docusate CAP* 100 MG PO PRN (09:52)
[2018-01-07] MEDS ORDERED: Furosemide IV* 10 MG/ML 2 ML VIAL (20 MG) IV ONE (09:59)
--- NOTE | 2018-01-07 09:59 | RAD ---
HISTORY: Swelling, left upper extremity COMPARISONS: None relevant TECHNIQUE: Multiple transverse and longitudinal ultrasound images were obtained of the left upper extremity from the level of the internal jugular vein inferiorly through to the infra-cubital veins using grayscale, color Doppler, and spectral Doppler imaging with and without compression and with augmentation. Comparison images were obtained of the contralateral internal jugular vein and subclavian vein. FINDINGS: VEINS: The venous system of the left upper extremity is compressible throughout its course, with normal flow on color Doppler imaging and normal response to augmentation on spectral Doppler imaging. No basilic vein is identified. SOFT TISSUES: Unremarkable. OTHER FINDINGS: None. IMPRESSION: NO LEFT UPPER EXTREMITY DEEP VEIN THROMBOSIS
[2018-01-07] MEDS: Insulin LISPRO* 1 UNITS UNIT SUBCUT SCH ×6 (12:00→21:10)
[2018-01-07] MEDS: Omeprazole CAP* 20 MG PO SCH ×2 (13:36→20:49)
[2018-01-07] MEDS: Heparin VIAL(*) 5000 UNITS/ML VIAL (FIVE THOUSAND) SUBCUT SCH ×2 (13:36→21:05)
[2018-01-07] MEDS: Metoprolol Tartrate TAB* 25 MG PO SCH (13:36)
[2018-01-07] MEDS: Brimonidine P 0.15%(NF) OPH SOL 5 ML BTL LEFT EYE SCH ×2 (15:00→21:43)
[2018-01-07] MEDS: Gabapentin CAP(*) 300 MG PO SCH ×2 (15:04→20:54)
[2018-01-07] MEDS: CMCS Escitalopram (NF) 10 MG TAB PO SCH (15:04)
--- NOTE | 2018-01-07 15:56 | HP ---
CC: Dr. Eulalia Carlos, at [facility].* HISTORY AND PHYSICAL: DATE OF ADMISSION: 01/07/18. TIME OF EVALUATION: 9:40 a.m. PRIMARY CARE PROVIDER: Dr. uElalia Carlos, at [facility]. CHIEF COMPLAINT: Shortness of breath. HISTORY OF PRESENT ILLNESS: Ms. Francis is a 62-year-old lady with a past medical history of type 2 diabetes, hypertension, hyperlipidemia, CVA, coronary artery disease, hypothyroidism, GERD, DVT, morbid obesity, left below knee amputation, who presents to the emergency room with complaints of shortness of breath. The patient states she has had progressive shortness of breath for the past couple weeks and she also noticed that she was getting "puffed up." The patient denies fever, chills, chest pain, palpitations. She states the shortness of breath became progressively worse, to the point that last night she could not sleep. She would not lay down for shortness of breath and have to sit up. She states that she spent the whole night "going up and down." She denies dietary indiscretion but states that a person at [facility] was telling her that she was, "eating too much." She thinks she gained at least 10 pounds over the past couple of weeks. PAST MEDICAL HISTORY: 1. Type 2 diabetes. 2. Hypertension. 3. Hyperlipidemia. 4. History of CVA with some residual right hemiparesis. 5. Coronary artery disease, status post TN and stent. 6. Hypothyroidism. 7. GERD. 8. History of DVT. 9. Left below knee amputation 2 years ago done at [facility]. 10. History of PEG tube when she had her stroke. 11. Chronic Villegas. 12. Chronic anemia. MEDICATIONS: Medication list is extensive as follows: 1. Acetaminophen 650 mg p.o. q.6 hours p.r.n. pain or fever. 2. Amlodipine 7.5 mg p.o. q.a.m. 3. Alphagan P 0.15% 1 drop to the left eye q.12 hours. 4. Cyanocobalamin 1000 mcg p.o. q.a.m. 5. Colace 200 mg p.o. q. 12 hours as needed for constipation. 6. Citalopram 10 mg p.o. q.a.m. 7. Ferrous gluconate 325 mg p.o. b.i.d. 8. Fluticasone nasal spray 2 sprays to both nares in the morning. 9. Furosemide 60 mg p.o. q.a.m. 10. Gabapentin 300 mg p.o. q.12 hours. 11. Insulin glargine 70 units subcutaneous at bed time. 12. Lispro 12 units subcutaneously after meals. 13. Levothyroxine 50 mcg p.o. at 6 in the morning. 14. Losartan 50 mg p.o. q. 12. 15. Milk of magnesia 30 mL p.o. once a day as needed for constipation. 16. Magnesium oxide 800 mg p.o. daily. 17. Metformin 500 mg p.o. b.i.d. 18. Metoprolol tartrate 12.5 mg p.o. q.a.m. 19. Dulera 200/5 two puffs inhaled b.i.d. 20. Multivitamin 1 tablet p.o. daily. 21. Omeprazole 10 mg p.o. b.i.d. 22. MiraLAX 17 g p.o. daily. 23. Rosuvastatin 10 mg p.o. at bed time. 24. Senokot-S 1 tablet p.o. at bed time. 25. Enema 1 enema per rectum at bed time as needed for constipation. 26. Spironolactone 25 mg p.o. b.i.d. 27. Temazepam 7.5 mg p.o. at bed time. ALLERGIES: To PENICILLIN, the patient experienced hives. FAMILY HISTORY: Sister had CVA. Mother and father of lung cancer. SOCIAL HISTORY: She quit tobacco 6 years ago. No history of alcohol or drug use. She is a resident at [facility] and surrogate decision maker is her daughter Kavita Francis, phone number is [phone]. REVIEW OF SYSTEMS: A 14-point review of systems performed and all other pertinent negatives and positives are in the HPI. PHYSICAL EXAMINATION GENERAL: The patient is a morbid obese lady lying in bed in no acute distress, but with head at bed elevated at 45 degrees. VITAL SIGNS: Temperature 97.8, heart rate 87, respiratory rate is 20, oxygen saturation is 96% on 2 L nasal cannula, blood pressure 143/69. HEENT: Pupils are equal. Moist mucous membranes. I am unable to check JVD due to body habitus. CHEST: Breath sounds clear bilaterally with bilateral crackles up to bilateral lung mid go. CVS: Normal S1, S2. Regular rate and rhythm. ABDOMEN: Obese, soft, bowel sounds are present. EXTREMITIES: The patient is status post left BKA. She has significant pitting edema on her right lower extremity and also both hands. NEURO: She is alert and oriented x3, able to move all 4 extremities. DIAGNOSTIC STUDIES/LABORATORY DATA: The patient had a CBC that showed a WBC of 5.9, hemoglobin 8.2, hematocrit 25, platelets of 228 with 74% neutrophils. Chemistry showed a sodium of 138, potassium 5.2, chloride of 103, bicarb of 31, BUN 48, creatinine 1.3, glucose of 232, lactic acid is 0.7, calcium 9.2. LFTs are normal. Troponin 0.01. Chest x-ray showed moderate vascular congestion. EKG showed sinus rhythm at 73 beats per minute with a left bundle branch block and this is unchanged from her prior EKG from May 2017. Her last echocardiogram in our system was done in September 2017, showed mild concentric LVH with a sigmoid septum. Ejection fraction was 60% to 65%. No significant valvular issues, and there is interval improvement of ejection fraction from 50% to 55% in December 2016. Left upper extremity Doppler was negative for DVT. ASSESSMENT AND PLAN: Ms. Francis is a 62-year-old lady with a past medical history of type 2 diabetes, hypertension, hyperlipidemia, CVA, CAD, hypothyroidism, GERD, DVT, morbid obesity, chronic Villegas, chronic anemia, CKD, who presents to the emergency room with complaints of shortness of breath, found to have congestive heart failure exacerbation. 1. Acute diastolic congestive heart failure exacerbation. The patient denies dietary indiscretion but she describes a weight gain of 10 pounds over the last couple weeks. Compared to her prior admission, the patient weight has gone down. In December she was around 280 pounds and the reported weight at this time in the ED 250 pounds, so we are going to recheck her weight this admission and we are going to monitor it. She will be diuresed with IV furosemide and we are going to monitor her intake and output. She has an echocardiogram done in September and I do not think another one is necessary at this time. I am going to hold her spironolactone and rosuvastatin now as she has border line hyperkalemia, but this should be resumed soon. 2. Type 2 diabetes, we will continue glargine, Lispro sliding scale. We will check hemoglobin A1c. 3. Hypothyroidism. We will check TSH and continue levothyroxine. 4. Hypertension. We will continue amlodipine and metoprolol and monitor her blood pressure. 5. DVT prophylaxis. The patient has a score of 5 on the DVT Prophylaxis Assessment Guide and she will be started on subcutaneous heparin. SCDs are contraindicating in the setting of congestive heart failure. 6. Code Status: Was discussed with the patient and she confirms she wishes to be a do not resuscitate. Her MOLST was updated. TIME SPENT: Approximately 50 minutes was spent with the patient's interview, medical records review, physical examination, to complete the admission; more than half of this time was spent [id number] with the patient and coordination of care. [id number]/[facility] #: [id number] NARESH
[2018-01-07] MEDS: Ferrous Gluconate TAB* 324 MG TAB PO SCH (20:48)
[2018-01-07] MEDS: Docusate LIQ* 100 MG/10 ML UDC PO SCH (20:48)
[2018-01-07] MEDS: Acetaminophen TAB* 325 MG PO PRN (20:49)
[2018-01-07] MEDS: Senna TAB PO SCH (20:49)
[2018-01-07] MEDS: Atorvastatin* 20 MG TAB PO SCH (20:50)
[2018-01-07] MEDS: Mometasone/Formoter 200/5 MDI INH SCH (20:58)
[2018-01-07] MEDS ORDERED: Ferrous Gluconate TAB* 324 MG TAB PO SCH (21:00)
[2018-01-07] MEDS ORDERED: Senna/Docusate (NF) TAB PO SCH (21:00)
[2018-01-07] MEDS ORDERED: Insulin GLARGINE(*) 1 UNITS UNIT SUBCUT SCH (21:00)
[2018-01-07] MEDS: TEMAZEPAM 7.5 MG PO SCH (21:09)
[2018-01-07] MEDS: CMCS:Melatonin (NF) 3 MG TAB PO PRN (21:44)
[2018-01-08] MEDS: Heparin VIAL(*) 5000 UNITS/ML VIAL (FIVE THOUSAND) SUBCUT SCH ×3 (05:28→21:40)
[2018-01-08] MEDS: Levothyroxine TAB* 50 MCG TAB PO SCH (05:29)
[2018-01-08 06:14] LABS: ABS Basophils 0 10^3/ul (0-0.2); ABS Eosinophils 0.3 10^3/ul (0-0.6); ABS Monocytes 0.4 10^3/ul (0-0.8); ABS Neutrophils 2.5 10^3/ul (1.5-7.7); ABS Nucleated RBC 0 10^3/ul; Eosinophil % 7.4 % (0-6); Hematocrit 23 % (35-47); Hemoglobin 7.5 g/dl (12.0-16.0); Lymphocyte % 22.6 % (25-47); Mean Corpuscular HGB Conc 33 g/dl (31-36); Mean Corpuscular Hemoglobin 26 pg (27-31); Mean Corpuscular Volume 78 fL (80-97); Nucleated Red Blood Cells % 0; Platelet Count 206 10^3/ul (150-450); Red Blood Count 2.94 10^6/ul (4.0-5.4); Red Cell Distribution Width 16 % (10.5-15); White Blood Count 4.2 10^3/ul (3.5-10.8)
[2018-01-08 06:33] LABS: EGFR Non-African American 49.1 (>60)
[2018-01-08] MEDS: Mometasone/Formoter 200/5 MDI INH SCH ×2 (07:46→20:40)
[2018-01-08] MEDS: Insulin LISPRO* 1 UNITS UNIT SUBCUT SCH ×7 (09:16→21:40)
[2018-01-08] MEDS: Polyethylene Glycol 3350* 17 GM PACKET PO SCH (09:23)
[2018-01-08] MEDS: Metoprolol Tartrate TAB* 25 MG PO SCH (09:32)
[2018-01-08] MEDS: Magnesium Oxide TAB* 400 MG PO SCH (09:32)
[2018-01-08] MEDS: Gabapentin CAP(*) 300 MG PO SCH ×2 (09:33→21:38)
[2018-01-08] MEDS: Ferrous Gluconate TAB* 324 MG TAB PO SCH ×2 (09:33→21:39)
[2018-01-08] MEDS: Multivitamins/Minerals TAB PO SCH (09:33)
[2018-01-08] MEDS: Omeprazole CAP* 20 MG PO SCH ×2 (09:33→21:39)
[2018-01-08] MEDS: Cyanocobalamin TAB* 500 MCG PO SCH (09:34)
[2018-01-08] MEDS: amLODIPine TAB* 5 MG PO SCH (09:34)
[2018-01-08] MEDS: CMC:Brimonidine P 0.15%(NF) OPH SOL 5 ML BTL LEFT EYE SCH ×2 (09:37→21:39)
[2018-01-08] MEDS: Furosemide IV* 10 MG/ML VIAL (40 MG) IV SLOW PU SCH (09:37)
[2018-01-08] MEDS: Fluticasone NASAL SPRAY 50MCG* 16 gm SPRAY BTL BOTH NARES SCH (09:37)
--- NOTE | 2018-01-08 11:05 | ED ---
Luis Manuel Mayo Nilda, scribed for Roney Morgan MD on 01/07/18 at 0754 . Shortness of Breath - HPI Summary HPI Summary: This patient is a 62 year old F BIBA with a chief complaint of constant SOB at rest for the past few days that worsened this morning. The patient rates the pain 0/10 in severity. Symptoms aggravated by sitting up and alleviated by nothing. Patient reports productive cough (yellow), edema (bilat LE and bilat UE ), recent weight gain, and photophobia. Pt states shes on home oxygen and lives at [facility]. She notes her nursing staff has never missed administering medication, though this morning she was unable to receive her daily medications since she was being transported to the hospital. PMHx includes CHF but no COPD. - History of Current Complaint Time Seen by Provider: 01/07/18 07:50 Hx Obtained From: Patient Onset/Duration: Sudden Onset, Lasting Days, Still Present Timing: Constant Dyspnea At: Rest Aggrevating Factors: Other - sitting up Alleviating Factors: Nothing Associated Signs & Symptoms: Cough (Productive), Edema Related History: Obesity - Allergy/Home Medications Allergies/Adverse Reactions: Allergies Allergy/AdvReac Type Severity Reaction Status Date / Time Penicillins Allergy Hives Verified 01/07/18 09:01 Home Medications: Home Medications Brimonidine P 0.15%(NF) [Alphagan P 0.15%(NF)] 1 drop LEFT EYE Q12H 01/07/18 [ History Confirmed 01/07/18] Docusate CAP* [Colace Cap*] 200 mg PO Q12H PRN 01/07/18 [History Confirmed 01/07] Ferrous Gluconate TAB* [Fergon TAB*] 325 mg PO BID 01/07/18 [History Confirmed 01/07/18] Insulin Glargine (Nf) [Toujeo Solostar Pen (NF)] 70 unit SUBCUT BEDTIME [History Confirmed 01/07/18] Insulin LISPRO* [HumaLOG*] 12 units SUBCUT PC 01/07/18 [History Confirmed ] Magnesium Hydroxide LIQ* [Milk of Magnesia LIQ*] 30 ml PO ONCE PRN 01/07/18 [ History Confirmed 01/07/18] Omeprazole CAP* [Prilosec CAP* 20 MG] 20 mg PO Q12H 01/07/18 [History Confirmed 01/07/18] Rosuvastatin (NF) [Crestor (NF)] 10 mg PO 2100 01/07/18 [History Confirmed 01/07] Senna/Docusate (NF) [Sennokot-S] 1 tab PO BEDTIME 01/07/18 [History Confirmed ] Spironolactone TAB* [Aldactone TAB*] 25 mg PO BID 01/07/18 [History Confirmed ] PMH/Surg Hx/FS Hx/Imm Hx Endocrine/Hematology History: Reports: Hx Anticoagulant Therapy - Eliquis, Hx Diabetes Cardiovascular History: Reports: Hx Congestive Heart Failure, Hx Coronary Artery Disease, Hx Hypertension GI History: Reports: Other GI Disorders - PEG tube History: Denies: Hx Dialysis, Hx Renal Disease Musculoskeletal History: Reports: Other Musculoskeletal History - LBKA Sensory History: Denies: Hx Contacts or Glasses, Hx Hearing Aid Opthamlomology History: Denies: Hx Contacts or Glasses Neurological History: Reports: Other Neuro Impairments/Disorders - CVA Psychiatric History: Reports: Hx Depression - Surgical History Surgery Procedure, Year, and Place: LBKA. PEG Tube Hx Anesthesia Reactions: No - Immunization History Date of Tetanus Vaccine: unknown Date of Influenza Vaccine: unknown Infectious Disease History: Reports: Hx of Known/Suspected MRSA - Family History Known Family History: Positive: Cardiac Disease, Diabetes, Other - Cancer, CVA - Social History Alcohol Use: None Hx Substance Use: No Substance Use Type: Reports: None Hx Tobacco Use: No Smoking Status (MU): Never Smoked Tobacco Review of Systems Negative: Fever, Chills Positive: Photophobia. Negative: Erythema Negative: Sore Throat Negative: Chest Pain Positive: Shortness Of Breath, Cough Positive: Other - recent weight gain. Negative: Abdominal Pain, Vomiting, Nausea Negative: dysuria, hematuria Positive: Edema. Negative: Myalgia Negative: Rash Neurological: Other - negative dizziness All Other Systems Reviewed And Are Negative: Yes Physical Exam - Summary Physical Exam Summary: Constitutional: Well-developed, Well-nourished, Alert. (-) Distressed Skin: Warm, Dry HENT: Normocephalic; Atraumatic Eyes: Conjunctiva normal Neck: Musculoskeletal ROM normal neck. (-) JVD, (-) Stridor, (-) Tracheal deviation Cardio: Rhythm regular, rate normal, Heart sounds normal; Intact distal pulses; The pedal pulses are 2+ and symmetric. Radial pulses are 2+ and symmetric. (-) Murmur Pulmonary/Chest wall: Effort normal. (-) Respiratory distress, (-) Wheezes, Bilat rales worse on the right Abd: Soft, (-) Tenderness, (-) Distension, (-) Guarding, (-) Rebound Musculoskeletal: 2+ pitting Edema, left BKA Lymph: (-) Cervical adenopathy Neuro: Alert, Oriented x3 Psych: Mood and affect Normal Triage Information Reviewed: Yes Vital Signs On Initial Exam: Initial Vitals Temp Pulse Resp BP Pulse Ox 97.8 F 80 29 143/82 92 01/07/18 07:51 01/07/18 07:51 01/07/18 07:51 01/07/18 07:51 01/07/18 07:51 Vital Signs Reviewed: Yes Diagnostics - Laboratory Result Diagrams: 01/07/18 08:10 01/07/18 08:10 Lab Statement: Any lab studies that have been ordered have been reviewed, and results considered in the medical decision making process. - Radiology CXR Radiology Interpretation Completed By: Radiologist - CXR reveals moderate vascular congestion. Dr. Morgan has reviewed this radiology report. - EKG 0813 Cardiac Rate: NL - 73 bpm EKG Rhythm: Sinus Rhythm EKG Interpretation: no STEMI EKG Comparison: No Significant Change - Additional Comments Diagnostic Additional Comments: US Venous Doppler, per radiologist, reveals NO LEFT UPPER EXTREMITY DEEP VEIN THROMBOSIS. Dr. Morgan has reviewed this report. Course/Dx - Course Assessment/Plan: Weight gain with pulmonary edema and increased work of breathing. Plan for IV diuresis and admission in hospital. - Diagnoses Provider Diagnoses: CHF exacerbation - Physician Notifications Discussed Care of Patient With: Caridad Mojica - Hospitalist Time Discussed With Above Provider: 09:12 Instructed by Provider To: Admit As Inpatient Discharge - Sign-Out/Discharge Documenting (check all that apply): Discharge/Admit/Transfer - Discharge Plan Condition: Stable Disposition: ADMITTED TO [facility], [place] documentation as recorded by the Luis Manuel ramirez Nilda accurately reflects the service I personally performed and the decisions made by , Roney Morgan MD.
[2018-01-08] MEDS: CMCS Escitalopram (NF) 10 MG TAB PO SCH (11:25)
[2018-01-08 14:59] LABS: Urine Appearance Cloudy; Urine Blood 1+ (Negative); Urine Color Yellow; Urine Ketones Negative (Negative); Urine Protein 1+(30 mg/dL) (Negative); Urine Specific Gravity 1.008 (1.010-1.030); Urine Urobilinogen Negative (Negative)
--- NOTE | 2018-01-08 15:48 | PN ---
Subjective Date of Service: 01/08/18 Interval History: HOSPITALIST PROGRESS NOTE Patient seen and examined at bedside. Care reviewed and d/w Valerie Bronson RN. She feels a little better today. Still has some wheezing, but breathing is easier. Family History: Unchanged from Admission Social History: Unchanged from Admission Past Medical History: Unchanged from Admission Objective Active Medications: Acetaminophen (Tylenol Tab*) 650 mg PO Q6H PRN PRN Reason: PAIN Last Admin: 01/07/18 20:49 Dose: 650 mg Amlodipine Besylate (Norvasc Tab*) 7.5 mg PO QAM [facility] Last Admin: 01/08/18 09:34 Dose: 7.5 mg Atorvastatin Calcium (Lipitor*) 20 mg PO 2100 [facility] PRN Reason: Protocol Last Admin: 01/07/18 20:50 Dose: 20 mg Brimonidine Tartrate (Alphagan P 0.15%(Nf)) 1 drop LEFT EYE Q12H [facility] Last Admin: 01/08/18 09:37 Dose: 1 drop Cyanocobalamin (Vitamin B12 Tab*) 1,000 mcg PO QAM [facility] Last Admin: 01/08/18 09:34 Dose: 1,000 mcg Docusate Sodium (Colace Cap*) 200 mg PO Q12H PRN PRN Reason: CONSTIPATION Docusate Sodium (Colace Liq*) 50 mg PO BEDTIME [facility] Last Admin: 01/07/18 20:48 Dose: 50 mg Escitalopram Oxalate (Lexapro (Nf)) 10 mg PO QAM [facility] Last Admin: 01/08/18 11:25 Dose: 10 mg Ferrous Gluconate (Fergon Tab*) 324 mg PO BID [facility] Last Admin: 01/08/18 09:33 Dose: 324 mg Fluticasone Propionate (Flonase Nasal [place] 50mcg*) 2 spray BOTH NARES QAM [facility] Last Admin: 01/08/18 09:37 Dose: 2 spray Furosemide (Lasix Iv*) 40 mg IV SLOW PU DAILY [facility] Last Admin: 01/08/18 09:37 Dose: 40 mg Gabapentin (Neurontin Cap(*)) 300 mg PO Q12HR [facility] Last Admin: 01/08/18 09:33 Dose: 300 mg Heparin Sodium (Porcine) (Heparin Vial(*)) 5,000 units SUBCUT Q8HR [facility] Last Admin: 01/08/18 14:45 Dose: 5,000 units Insulin Glargine (Lantus(*)) 40 units SUBCUT BEDTIME [facility] Insulin Human Lispro (Humalog*) 0 units SUBCUT AC [facility] PRN Reason: Protocol Last Admin: 01/08/18 13:09 Dose: 4 units Insulin Human Lispro (Humalog*) 0 units SUBCUT ACHS [facility] PRN Reason: Protocol Last Admin: 01/08/18 13:10 Dose: 3 unit Levothyroxine Sodium (Synthroid Tab*) 50 mcg PO 0600 [facility] Last Admin: 01/08/18 05:29 Dose: 50 mcg Magnesium Oxide (Magox 400 Tab*) 800 mg PO DAILY [facility] Last Admin: 01/08/18 09:32 Dose: 800 mg Melatonin (Melatonin (Nf)) 3 mg PO BEDTIME PRN PRN Reason: INSOMNIA Last Admin: 01/07/18 21:44 Dose: 3 mg Metoprolol Tartrate (Lopressor Tab*) 12.5 mg PO QAM [facility] Last Admin: 01/08/18 09:32 Dose: 12.5 mg Mometasone Furoate/Formoterol Fumar (Dulera 200/5 Mdi*) 2 puff INH BID [facility] Last Admin: 01/08/18 07:46 Dose: 2 puff Multivitamins/Minerals (Theragran/Minerals Tab*) 1 tab PO DAILY [facility] Last Admin: 01/08/18 09:33 Dose: 1 tab Non-Formulary Medication (Temazepam) 7.5 mg PO BEDTIME [facility] Last Admin: 01/07/18 21:09 Dose: Not Given Omeprazole (Prilosec Cap*) 20 mg PO Q12HR [facility] Last Admin: 01/08/18 09:33 Dose: 20 mg Polyethylene Glycol/Electrolytes (Miralax*) 17 gm PO DAILY [facility] Last Admin: 01/08/18 09:23 Dose: Not Given Senna (Senokot Tab*) 1 tab PO BEDTIME [facility] Last Admin: 01/07/18 20:49 Dose: 1 tab Sodium Biphosphate/Sodium Phosphate (Fleet Enema*) 1 bottle [place] BEDTIME PRN PRN Reason: CONSTIPATION Vital Signs - 8 hr 01/08/18 01/08/18 01/08/18 07:48 08:00 09:33 Pulse Rate 55 Respiratory 20 20 18 Rate Blood Pressure (mmHg) O2 Sat by Pulse 98 Oximetry 01/08/18 11:05 Pulse Rate 61 Respiratory 18 Rate Blood Pressure 121/58 (mmHg) O2 Sat by Pulse 96 Oximetry Oxygen Devices in Use Now: Nasal Cannula - 3 liters Appearance: Morbid obese lady lying in bed in NAD. Eyes: No Scleral Icterus Ears/Nose/Mouth/Throat: Mucous Membranes Moist Neck: Trachea Midline Respiratory: Symmetrical Chest Expansion and Respiratory Effort, - - BS+ bilaterally with bilateral crackles and scattered wheezes Cardiovascular: RRR - Normal S1 and S2 Abdominal: NL Sounds; No Tenderness; No Distention Extremities: - - Left BKA, RLE pitting edema, bilateral UE edema Neurological: Alert and Oriented x 3, NL Muscle Strength and Tone Result Diagrams: 01/08/18 06:00 01/08/18 06:00 Assess/Plan/Problems-Billing Assessment: Mrs. Francis is a 62yo F with PMH of type 2 DM, HTN, HLD, CVA with residual right hemiparesis, CAD, hypothyroidism, GERD, DVT, left BKA, chronic Villegas, chronic anemia, who presented to ED with c/o weight gain, edema, and dyspnea, found to have CHF exacerbation. - Patient Problems (1) Acute and chronic respiratory failure Comment: - Secondary to CHF exacerbation. - Continue supplemental O2. (2) CHF exacerbation Comment: - Acute diastolic CHF exacerbation. - Weight 270lbs, UO 2300ml. - Continue diuresis, I/Os, daily weights. (3) Type II diabetes mellitus Comment: - HgA1C 6.6. - Continue Lantus and Lispro SS. (4) Hypothyroidism Comment: - TSH 3.73. - Continue levothyroxine. (5) HTN (hypertension) Comment: - Continue amlodipine and metoprolol. (6) DVT prophylaxis Comment: - SQ heparin. (7) DNR (do not resuscitate) Status and Disposition: Inpatient.
[2018-01-08] MEDS ORDERED: Insulin GLARGINE(*) 1 UNITS UNIT SUBCUT SCH (21:00)
[2018-01-08] MEDS: Atorvastatin* 20 MG TAB PO SCH (21:39)
[2018-01-08] MEDS: Senna TAB PO SCH (21:39)
[2018-01-08] MEDS: Docusate LIQ* 100 MG/10 ML UDC PO SCH (21:39)
[2018-01-08] MEDS: TEMAZEPAM 7.5 MG PO SCH (21:41)
[2018-01-08] MEDS: CMCS:Melatonin (NF) 3 MG TAB PO PRN (21:50)
[2018-01-09] MEDS: Levothyroxine TAB* 50 MCG TAB PO SCH (05:38)
[2018-01-09] MEDS: Heparin VIAL(*) 5000 UNITS/ML VIAL (FIVE THOUSAND) SUBCUT SCH ×3 (05:38→22:16)
[2018-01-09 06:24] LABS: ABS Basophils 0 10^3/ul (0-0.2); ABS Eosinophils 0.3 10^3/ul (0-0.6); ABS Lymphocytes 0.9 10^3/ul (1.0-4.8); ABS Monocytes 0.5 10^3/ul (0-0.8); ABS Neutrophils 4.1 10^3/ul (1.5-7.7); ABS Nucleated RBC 0 10^3/ul; Eosinophil % 4.4 % (0-6); Hematocrit 25 % (35-47); Hemoglobin 7.9 g/dl (12.0-16.0); Lymphocyte % 15.2 % (25-47); Mean Corpuscular HGB Conc 32 g/dl (31-36); Mean Corpuscular Hemoglobin 25 pg (27-31); Mean Corpuscular Volume 79 fL (80-97); Mean Platelet Volume 8.8 um3 (7.4-10.4); Nucleated Red Blood Cells % 0; Platelet Count 217 10^3/ul (150-450); Red Blood Count 3.12 10^6/ul (4.0-5.4); Red Cell Distribution Width 16 % (10.5-15); White Blood Count 5.8 10^3/ul (3.5-10.8)
[2018-01-09 06:42] LABS: EGFR Non-African American 49.6 (>60)
[2018-01-09] MEDS: Mometasone/Formoter 200/5 MDI INH SCH ×2 (07:46→21:04)
[2018-01-09] MEDS: Insulin LISPRO* 1 UNITS UNIT SUBCUT SCH ×6 (08:21→21:20)
[2018-01-09] MEDS ORDERED: Metolazone TAB* 5 MG PO ONE (08:30)
[2018-01-09] MEDS: Polyethylene Glycol 3350* 17 GM PACKET PO SCH (08:43)
[2018-01-09] MEDS: Furosemide IV* 10 MG/ML VIAL (40 MG) IV SLOW PU SCH (08:52)
[2018-01-09] MEDS: Fluticasone NASAL SPRAY 50MCG* 16 gm SPRAY BTL BOTH NARES SCH (08:55)
[2018-01-09] MEDS: CMC:Brimonidine P 0.15%(NF) OPH SOL 5 ML BTL LEFT EYE SCH ×2 (08:55→20:11)
[2018-01-09] MEDS: CMCS Escitalopram (NF) 10 MG TAB PO SCH (08:56)
[2018-01-09] MEDS: Magnesium Oxide TAB* 400 MG PO SCH (08:56)
[2018-01-09] MEDS: Ferrous Gluconate TAB* 324 MG TAB PO SCH ×2 (08:56→20:09)
[2018-01-09] MEDS: Cyanocobalamin TAB* 500 MCG PO SCH (08:56)
[2018-01-09] MEDS: Omeprazole CAP* 20 MG PO SCH ×2 (08:56→20:10)
[2018-01-09] MEDS: Gabapentin CAP(*) 300 MG PO SCH ×2 (08:56→20:10)
[2018-01-09] MEDS: Metoprolol Tartrate TAB* 25 MG PO SCH (08:57)
[2018-01-09] MEDS: Multivitamins/Minerals TAB PO SCH (08:57)
[2018-01-09] MEDS: amLODIPine TAB* 5 MG PO SCH (08:57)
[2018-01-09] MEDS: Ciproflox/Dexameth OTIC.SUSP* 7.5 ML BTL LEFT EAR SCH ×2 (12:44→20:11)
--- NOTE | 2018-01-09 14:41 | PN ---
Subjective Date of Service: 01/09/18 Interval History: HOSPITALIST PROGRESS NOTE Patient seen and examined at bedside. Care reviewed and d/w Carlyn Fernández RN. She feels a little better today, breathing easier, edema improving. C/o left ear pain, no discharge. Family History: Unchanged from Admission Social History: Unchanged from Admission Past Medical History: Unchanged from Admission Objective Active Medications: Acetaminophen (Tylenol Tab*) 650 mg PO Q6H PRN PRN Reason: PAIN Last Admin: 01/07/18 20:49 Dose: 650 mg Amlodipine Besylate (Norvasc Tab*) 7.5 mg PO QAM [facility] Last Admin: 01/09/18 08:57 Dose: 7.5 mg Atorvastatin Calcium (Lipitor*) 20 mg PO 2100 [facility] PRN Reason: Protocol Last Admin: 01/08/18 21:39 Dose: 20 mg Brimonidine Tartrate (Alphagan P 0.15%(Nf)) 1 drop LEFT EYE Q12H [facility] Last Admin: 01/09/18 08:55 Dose: 1 drop Ciprofloxacin/Dexamethasone (Ciprodex Otic.Susp*) 4 drop LEFT EAR BID [facility] Last Admin: 01/09/18 12:44 Dose: 4 drop Cyanocobalamin (Vitamin B12 Tab*) 1,000 mcg PO QAM [facility] Last Admin: 01/09/18 08:56 Dose: 1,000 mcg Docusate Sodium (Colace Cap*) 200 mg PO Q12H PRN PRN Reason: CONSTIPATION Docusate Sodium (Colace Liq*) 50 mg PO BEDTIME [facility] Last Admin: 01/08/18 21:39 Dose: 50 mg Escitalopram Oxalate (Lexapro (Nf)) 10 mg PO QAM [facility] Last Admin: 01/09/18 08:56 Dose: 10 mg Ferrous Gluconate (Fergon Tab*) 324 mg PO BID [facility] Last Admin: 01/09/18 08:56 Dose: 324 mg Fluticasone Propionate (Flonase Nasal [place] 50mcg*) 2 spray BOTH NARES QAM [facility] Last Admin: 01/09/18 08:55 Dose: 2 spray Furosemide (Lasix Iv*) 40 mg IV SLOW PU DAILY [facility] Last Admin: 01/09/18 08:52 Dose: 40 mg Gabapentin (Neurontin Cap(*)) 300 mg PO Q12HR [facility] Last Admin: 01/09/18 08:56 Dose: 300 mg Heparin Sodium (Porcine) (Heparin Vial(*)) 5,000 units SUBCUT Q8HR [facility] Last Admin: 01/09/18 12:45 Dose: 5,000 units Insulin Glargine (Lantus(*)) 30 units SUBCUT BEDTIME [facility] Insulin Human Lispro (Humalog*) 0 units SUBCUT ACHS [facility] PRN Reason: Protocol Last Admin: 01/09/18 12:05 Dose: 3 unit Levothyroxine Sodium (Synthroid Tab*) 50 mcg PO 0600 [facility] Last Admin: 01/09/18 05:38 Dose: 50 mcg Magnesium Oxide (Magox 400 Tab*) 800 mg PO DAILY [facility] Last Admin: 01/09/18 08:56 Dose: 800 mg Melatonin (Melatonin (Nf)) 3 mg PO BEDTIME PRN PRN Reason: INSOMNIA Last Admin: 01/08/18 21:50 Dose: 3 mg Metoprolol Tartrate (Lopressor Tab*) 12.5 mg PO QAM [facility] Last Admin: 01/09/18 08:57 Dose: 12.5 mg Mometasone Furoate/Formoterol Fumar (Dulera 200/5 Mdi*) 2 puff INH BID [facility] Last Admin: 01/09/18 07:46 Dose: 2 puff Multivitamins/Minerals (Theragran/Minerals Tab*) 1 tab PO DAILY [facility] Last Admin: 01/09/18 08:57 Dose: 1 tab Non-Formulary Medication (Temazepam) 7.5 mg PO BEDTIME [facility] Last Admin: 01/08/18 21:41 Dose: Not Given Omeprazole (Prilosec Cap*) 20 mg PO Q12HR [facility] Last Admin: 01/09/18 08:56 Dose: 20 mg Polyethylene Glycol/Electrolytes (Miralax*) 17 gm PO DAILY [facility] Last Admin: 01/09/18 08:43 Dose: Not Given Senna (Senokot Tab*) 1 tab PO BEDTIME [facility] Last Admin: 01/08/18 21:39 Dose: 1 tab Sodium Biphosphate/Sodium Phosphate (Fleet Enema*) 1 bottle [place] BEDTIME PRN PRN Reason: CONSTIPATION Vital Signs - 8 hr 01/09/18 01/09/18 01/09/18 07:31 07:47 08:00 Temperature 97.9 F Pulse Rate 61 Respiratory 16 14 16 Rate Blood Pressure 134/48 (mmHg) O2 Sat by Pulse 97 Oximetry 01/09/18 01/09/18 08:56 11:11 Temperature 97.5 F Pulse Rate 61 Respiratory 18 16 Rate Blood Pressure 140/56 (mmHg) O2 Sat by Pulse 97 Oximetry Oxygen Devices in Use Now: Nasal Cannula - 3 liters Appearance: Morbid obese lady lying in bed in NAD. Eyes: No Scleral Icterus Ears/Nose/Mouth/Throat: Mucous Membranes Moist, - - Left ear mild edema/ erythema ear canal, no discharge, small amount of cerumen, TM is normal, no fluid visualized Neck: Trachea Midline Respiratory: Symmetrical Chest Expansion and Respiratory Effort, - - BS+ bilaterally with bilateral crackles Cardiovascular: RRR - Normal S1 and S2 Extremities: - - Left BKA, RLE pitting edema. UE edema is improved Neurological: Alert and Oriented x 3 Result Diagrams: 01/09/18 05:49 01/09/18 05:49 Assess/Plan/Problems-Billing Assessment: Mrs. Francis is a 62yo F with PMH of type 2 DM, HTN, HLD, CVA with residual right hemiparesis, CAD, hypothyroidism, GERD, DVT, left BKA, chronic Villegas, chronic anemia, who presented to ED with c/o weight gain, edema, and dyspnea, found to have CHF exacerbation. - Patient Problems (1) Acute and chronic respiratory failure Comment: - Secondary to CHF exacerbation. - Continue supplemental O2. (2) CHF exacerbation Comment: - Acute diastolic CHF exacerbation. - Weight 270lbs, UO 3600ml. - Continue diuresis, I/Os, daily weights. (3) Type II diabetes mellitus Comment: - HgA1C 6.6. - Continue Lantus and Lispro SS. (4) Otitis externa Comment: - Ciprodex. (5) Hypothyroidism Comment: - TSH 3.73. - Continue levothyroxine. (6) HTN (hypertension) Comment: - Continue amlodipine and metoprolol. (7) DVT prophylaxis Comment: - SQ heparin. (8) DNR (do not resuscitate) Status and Disposition: Inpatient.
[2018-01-09] MEDS: Senna TAB PO SCH (20:09)
[2018-01-09] MEDS: Atorvastatin* 20 MG TAB PO SCH (20:09)
[2018-01-09] MEDS: Docusate LIQ* 100 MG/10 ML UDC PO SCH (20:10)
[2018-01-09] MEDS: Insulin GLARGINE(*) 1 UNITS UNIT SUBCUT SCH (21:21)
[2018-01-09] MEDS: TEMAZEPAM 7.5 MG PO SCH (21:41)
[2018-01-09] MEDS: CMCS:Melatonin (NF) 3 MG TAB PO PRN (23:20)
[2018-01-10] MEDS: Heparin VIAL(*) 5000 UNITS/ML VIAL (FIVE THOUSAND) SUBCUT SCH ×3 (05:50→21:59)
[2018-01-10] MEDS: Levothyroxine TAB* 50 MCG TAB PO SCH (05:50)
[2018-01-10 06:07] LABS: EGFR Non-African American 46.3 (>60)
[2018-01-10] MEDS: Insulin LISPRO* 1 UNITS UNIT SUBCUT SCH ×4 (08:02→21:58)
[2018-01-10] MEDS: Mometasone/Formoter 200/5 MDI INH SCH ×2 (08:09→20:27)
[2018-01-10] MEDS: Ciproflox/Dexameth OTIC.SUSP* 7.5 ML BTL LEFT EAR SCH ×2 (08:25→22:05)
[2018-01-10] MEDS: CMC:Brimonidine P 0.15%(NF) OPH SOL 5 ML BTL LEFT EYE SCH ×2 (08:27→22:04)
[2018-01-10] MEDS: Fluticasone NASAL SPRAY 50MCG* 16 gm SPRAY BTL BOTH NARES SCH (08:30)
[2018-01-10] MEDS ORDERED: Metolazone TAB* 5 MG PO ONE (08:30)
[2018-01-10] MEDS: Gabapentin CAP(*) 300 MG PO SCH ×2 (08:31→22:01)
[2018-01-10] MEDS: Cyanocobalamin TAB* 500 MCG PO SCH (08:31)
[2018-01-10] MEDS: CMCS Escitalopram (NF) 10 MG TAB PO SCH (08:31)
[2018-01-10] MEDS: Multivitamins/Minerals TAB PO SCH (08:31)
[2018-01-10] MEDS: Omeprazole CAP* 20 MG PO SCH ×2 (08:32→22:02)
[2018-01-10] MEDS: Metoprolol Tartrate TAB* 25 MG PO SCH (08:32)
[2018-01-10] MEDS: Ferrous Gluconate TAB* 324 MG TAB PO SCH ×2 (08:32→22:01)
[2018-01-10] MEDS: Magnesium Oxide TAB* 400 MG PO SCH (08:32)
[2018-01-10] MEDS: Polyethylene Glycol 3350* 17 GM PACKET PO SCH (08:39)
[2018-01-10] MEDS: amLODIPine TAB* 5 MG PO SCH (09:14)
[2018-01-10] MEDS: Furosemide IV* 10 MG/ML VIAL (40 MG) IV SLOW PU SCH (09:18)
--- NOTE | 2018-01-10 13:57 | PN ---
Subjective Date of Service: 01/10/18 Interval History: HOSPITALIST PROGRESS NOTE Patient seen and examined at bedside. Care reviewed and d/w Sharee Johansen RN. She feels a little better today. Breathing is easier, but not yet back to baseline. Upper extremities edema is resolved, and lower extremities improved. Family History: Unchanged from Admission Social History: Unchanged from Admission Past Medical History: Unchanged from Admission Objective Active Medications: Acetaminophen (Tylenol Tab*) 650 mg PO Q6H PRN PRN Reason: PAIN Last Admin: 01/07/18 20:49 Dose: 650 mg Amlodipine Besylate (Norvasc Tab*) 7.5 mg PO QAM [facility] Last Admin: 01/10/18 09:14 Dose: 7.5 mg Atorvastatin Calcium (Lipitor*) 20 mg PO 2100 [facility] PRN Reason: Protocol Last Admin: 01/09/18 20:09 Dose: 20 mg Brimonidine Tartrate (Alphagan P 0.15%(Nf)) 1 drop LEFT EYE Q12H [facility] Last Admin: 01/10/18 08:27 Dose: 1 drop Ciprofloxacin/Dexamethasone (Ciprodex Otic.Susp*) 4 drop LEFT EAR BID [facility] Last Admin: 01/10/18 08:25 Dose: 4 drop Cyanocobalamin (Vitamin B12 Tab*) 1,000 mcg PO QAM [facility] Last Admin: 01/10/18 08:31 Dose: 1,000 mcg Docusate Sodium (Colace Cap*) 200 mg PO Q12H PRN PRN Reason: CONSTIPATION Docusate Sodium (Colace Liq*) 50 mg PO BEDTIME [facility] Last Admin: 01/09/18 20:10 Dose: 50 mg Escitalopram Oxalate (Lexapro (Nf)) 10 mg PO QAM [facility] Last Admin: 01/10/18 08:31 Dose: 10 mg Ferrous Gluconate (Fergon Tab*) 324 mg PO BID [facility] Last Admin: 01/10/18 08:32 Dose: 324 mg Fluticasone Propionate (Flonase Nasal [place] 50mcg*) 2 spray BOTH NARES QAM [facility] Last Admin: 01/10/18 08:30 Dose: Not Given Furosemide (Lasix Iv*) 40 mg IV SLOW PU DAILY [facility] Last Admin: 01/10/18 09:18 Dose: 40 mg Gabapentin (Neurontin Cap(*)) 300 mg PO Q12HR [facility] Last Admin: 01/10/18 08:31 Dose: 300 mg Heparin Sodium (Porcine) (Heparin Vial(*)) 5,000 units SUBCUT Q8HR [facility] Last Admin: 01/10/18 13:26 Dose: 5,000 units Insulin Glargine (Lantus(*)) 30 units SUBCUT BEDTIME [facility] Last Admin: 01/09/18 21:21 Dose: 30 unit Insulin Human Lispro (Humalog*) 0 units SUBCUT ACHS [facility] PRN Reason: Protocol Last Admin: 01/10/18 13:26 Dose: 6 unit Levothyroxine Sodium (Synthroid Tab*) 50 mcg PO 0600 [facility] Last Admin: 01/10/18 05:50 Dose: 50 mcg Magnesium Oxide (Magox 400 Tab*) 800 mg PO DAILY [facility] Last Admin: 01/10/18 08:32 Dose: 800 mg Melatonin (Melatonin (Nf)) 3 mg PO BEDTIME PRN PRN Reason: INSOMNIA Last Admin: 01/09/18 23:20 Dose: 3 mg Metoprolol Tartrate (Lopressor Tab*) 12.5 mg PO QAM [facility] Last Admin: 01/10/18 08:32 Dose: 12.5 mg Mometasone Furoate/Formoterol Fumar (Dulera 200/5 Mdi*) 2 puff INH BID [facility] Last Admin: 01/10/18 08:09 Dose: 2 puff Multivitamins/Minerals (Theragran/Minerals Tab*) 1 tab PO DAILY [facility] Last Admin: 01/10/18 08:31 Dose: 1 tab Non-Formulary Medication (Temazepam) 7.5 mg PO BEDTIME [facility] Last Admin: 01/09/18 21:41 Dose: Not Given Omeprazole (Prilosec Cap*) 20 mg PO Q12HR [facility] Last Admin: 01/10/18 08:32 Dose: 20 mg Polyethylene Glycol/Electrolytes (Miralax*) 17 gm PO DAILY [facility] Last Admin: 01/10/18 08:39 Dose: Not Given Senna (Senokot Tab*) 1 tab PO BEDTIME [facility] Last Admin: 01/09/18 20:09 Dose: 1 tab Sodium Biphosphate/Sodium Phosphate (Fleet Enema*) 1 bottle [place] BEDTIME PRN PRN Reason: CONSTIPATION Vital Signs - 8 hr 01/10/18 01/10/18 01/10/18 07:44 08:00 08:12 Temperature 99.0 F Pulse Rate 58 53 Respiratory 22 20 Rate Blood Pressure 134/48 (mmHg) O2 Sat by Pulse 97 96 Oximetry 01/10/18 01/10/18 01/10/18 08:31 10:30 11:15 Temperature 98.0 F Pulse Rate 54 Respiratory 16 20 20 Rate Blood Pressure 124/43 (mmHg) O2 Sat by Pulse 99 Oximetry Oxygen Devices in Use Now: Nasal Cannula - 2 liters Appearance: Morbid obese lady lying in recliner in NAD. Eyes: No Scleral Icterus Ears/Nose/Mouth/Throat: Mucous Membranes Moist Neck: Trachea Midline Respiratory: Symmetrical Chest Expansion and Respiratory Effort, - - BS+ bilaterally with bibasilar crackles, scattered wheezes Cardiovascular: RRR - Normal S1 and S2 Abdominal: - - Obese, BS+ Extremities: - - Left BKA, RLE pitting edema Neurological: Alert and Oriented x 3 Lines/Tubes/Other Access: Clean, Dry and Intact Villegas Result Diagrams: 01/09/18 05:49 01/10/18 05:16 Assess/Plan/Problems-Billing Assessment: Mrs. Francis is a 62yo F with PMH of type 2 DM, HTN, HLD, CVA with residual right hemiparesis, CAD, hypothyroidism, GERD, DVT, left BKA, chronic Villegas, chronic anemia, who presented to ED with c/o weight gain, edema, and dyspnea, found to have CHF exacerbation. - Patient Problems (1) Acute and chronic respiratory failure Comment: - Secondary to CHF exacerbation. - Continue supplemental O2. (2) CHF exacerbation Comment: - Acute diastolic CHF exacerbation. - Weight down to 266lbs. - Continue diuresis, I/Os, daily weights. (3) Type II diabetes mellitus Comment: - HgA1C 6.6. - Continue Lantus and Lispro SS. (4) Anemia Comment: - Patient has mycrocytic, hypochromic anemia, with iron 38 and normal ferritin, B12, and folate (on iron and B12 supplementation). Suspect her anemia may be secondary to CKD (will check erythropoietin), but with ESR 120 I'm concerned with malignancy. She does have 1+ protein in the urine but suspect secondary to diabetic nephropathy. Check SPEP and UPEP. (5) Otitis externa Comment: - Ciprodex. (6) Hypothyroidism Comment: - TSH 3.73. - Continue levothyroxine. (7) HTN (hypertension) Comment: - Continue amlodipine and metoprolol. (8) DVT prophylaxis Comment: - SQ heparin. (9) DNR (do not resuscitate) Status and Disposition: Inpatient.
[2018-01-10] MEDS: Insulin GLARGINE(*) 1 UNITS UNIT SUBCUT SCH (21:58)
[2018-01-10] MEDS: Senna TAB PO SCH (22:01)
[2018-01-10] MEDS: Atorvastatin* 20 MG TAB PO SCH (22:01)
[2018-01-10] MEDS: CMCS:Melatonin (NF) 3 MG TAB PO PRN (22:02)
[2018-01-10] MEDS: Docusate LIQ* 100 MG/10 ML UDC PO SCH (22:03)
[2018-01-10] MEDS: TEMAZEPAM 7.5 MG PO SCH (22:08)
--- NOTE | 2018-01-11 04:34 | CONS ---
CC: [facility]; Dr. Potter * MEDICAL ONCOLOGY/HEMATOLOGY CONSULTATION NOTE: DATE OF CONSULT: 01/10/18 REASON FOR CONSULT: Microcytic anemia. HISTORY OF PRESENT ILLNESS: Leti Francis is a 62-year-old female with history of type 2 diabetes since age 26, along with hypertension, status post CVA with residual right hemiplegia approximately 2 years ago, coronary artery disease, status post DVT, status post left knee amputation following trauma along with morbid obesity. She presented to the emergency room on 01/07/18 with increasing shortness of breath and marked peripheral edema. She reports that her weight has increased dramatically over the past several years, although reporting her appetite is poor and not taking much in terms of oral intake. Of note for this consultation, she has had anemia, which dates back to October of 2016. Pretty much all H and Hs obtained over that period of time. The hemoglobin has been in the 7s to 9s. Her MCV has been in the 77 to 80 range. Previous H and H in 2014 with a hemoglobin of 12.2 and MCV of 87. At all occasions, she has had a normal white count and platelet count. Sedimentation rate was 63 in 2014; it is 120 now. She has had iron saturations checked on multiple occasions in December and January of 2017 at 8%, in October of this year with 16% , and currently at 13%. Over this period in the last 14 months, she did receive 1 unit of packed red blood cells in December of 2016 but none before or since. B12 levels and folic acid levels are normal at this time. Reviewing the chart, stool was positive for occult blood in October and in December of 2016, but have not been checked since. The patient reports that she has not had any GI bleeding, specifically denying any bright red blood per rectum or melena or hematemesis. She does report, however, that she has had multiple episodes of blowing her nose with some blood in the secretions occurring on multiple occasions and multiple times per week over the past year or more. It does not sound as though this has been enough to cause significant anemia. PAST MEDICAL HISTORY: Diabetes, type 2, in 1970; hypertension, 1969; hyperlipidemia; status post CVA with mild residual right hemiparesis, she is right handed, after CVA 2 years ago. Coronary artery disease status post GA and stent, hypothyroidism, GERD. DVT greater than 3 years ago, unsure as to which side, no longer on anticoagulation. Left below the knee amputation 2 years ago; she reports this occurred when she was hospitalized at [facility], fell while hospitalized, developed a fracture, which would not heal and eventually required an amputation. Status post PEG tube after CVA, now eating full regular diet; history of chronic anemia. MEDICATIONS: Very extensive and are fully outlined in the H and P done by Dr. Aldana at the time of admission. It should be noted that this does include: 1. Cyanocobalamin 1000 mcg daily. 2. Ferrous sulfate 325 mg b.i.d. ALLERGIES: To PENICILLIN. FAMILY HISTORY: Mother and father were both smokers and of lung cancer. Sister just diagnosed this week with uterine carcinoma at age 62. Same sister has had a CVA. A brother and another sister are alive and well. No other family history of malignancies. SOCIAL HISTORY: The patient smoked 1 pack of cigarettes per day from age 17 to 56, quitting 6 years ago. No significant alcohol use. She is a resident at [facility] and her surrogate decision maker is her daughter, Kavita Francis. REVIEW OF SYSTEMS: She reports that her appetite has been poor when at [facility], does not like the food there, only eats breakfast and rarely eats snack. However, her weight has gone up from 165 pounds before her amputation to 264 pounds now. It had been as high as 281 pounds just recently. She denies any changes in her bowels. Denies any bright red blood or melena. Does use MiraLAX daily for her bowels. Denies any shortness of breath, chest pain, or palpitation when at rest. Denies any significant arthritic or bony complaints. Review of systems otherwise negative except as discussed in the accompanied health history form on a complete review of systems. PHYSICAL EXAM: A 62-year-old female, in no acute distress. Vital Signs: Blood pressure 125/51, pulse 56, afebrile. HEENT: PERRL, EOMI. No erythema or exudates. No palpable cervical, supraclavicular, or axillary adenopathy. Lungs: Clear. Heart: Regular rate and rhythm without murmurs, rubs, or gallops. Abdomen: Obese without masses or organomegaly. Extremities: Status post left BKA. Significant edema in the right lower extremity, mild edema in the hands which she reports this is much better than on admission. Neurologic Exam: Weakness in the right arm, but moves both upper arms fairly symmetrically , and also has reasonable strength in her right leg. DIAGNOSTIC STUDIES/LAB DATA: CBC with white count of 5800, H and H 25/7.9 with MCV of 79, platelet count 217, normal differential. Sedimentation rate 120. Iron 38, iron saturation of 13% with transferrin of 216 and ferritin of 77. Normal LFTs. Markedly elevated C-reactive protein at 193. B12 675, folic acid 10.5. The patient did have a CT scan of the abdomen and pelvis performed in May of 2017. At that point, there was an evidence for central lobular nodularity in the lung bases, right greater than left. Most likely inflammatory or infectious but possibility of neoplastic process is not ruled out. There were some nodules as large as 1.4 cm noted. The liver is low in attenuation compared to spleen and consistent with fatty infiltration. No other significant findings in the abdomen or pelvis from this review of systems, specifically no significant adenopathy or other masses. IMPRESSION AND PLAN: A 62-year-old female with multiple medical problems, has had longstanding anemia of approximately 14 months' duration, which has not worsened, which is a microcytic anemia associated with low iron levels despite taking oral iron and B12. Sedimentation rate has been elevated in the past and is markedly more elevated now along with a very high CRP. It would be necessary to rule out serious underlying conditions for her anemia. She has had guaiac-positive stools x2 in the past, although she does report some fairly chronic epistaxis, which could be confounding that situation. I did fully work her up; however, given previous iron-deficiency anemia with report of guaiac- positive stool, GI workup would be in order. If no cause for anemia is found on GI workup, then looking for other causes given the high sedimentation rate including multiple myeloma with serum protein electrophoresis and collection of urine for 24-hour protein would certainly be in order. Erythropoietin level is pending. It is unlikely given the low MCV that this is related to any renal insufficiency. Finally, given the fact that she did have some nodularity on a chest CT, has extremely elevated inflammatory markers, ruling out malignancy would be appropriate including CT scan of the chest, abdomen, and pelvis. [id number]/[facility] #: [id number] NARESH
[2018-01-11] MEDS: Levothyroxine TAB* 50 MCG TAB PO SCH (06:28)
[2018-01-11] MEDS: Heparin VIAL(*) 5000 UNITS/ML VIAL (FIVE THOUSAND) SUBCUT SCH ×3 (06:30→22:38)
[2018-01-11 06:33] LABS: EGFR Non-African American 45.8 (>60)
[2018-01-11] MEDS: Mometasone/Formoter 200/5 MDI INH SCH ×2 (07:39→19:51)
[2018-01-11] MEDS: amLODIPine TAB* 5 MG PO SCH (09:00)
[2018-01-11] MEDS: Metoprolol Tartrate TAB* 25 MG PO SCH (09:00)
[2018-01-11] MEDS: Magnesium Oxide TAB* 400 MG PO SCH (09:01)
[2018-01-11] MEDS: Gabapentin CAP(*) 300 MG PO SCH ×2 (09:02→22:33)
[2018-01-11] MEDS: Multivitamins/Minerals TAB PO SCH (09:02)
[2018-01-11] MEDS: CMCS Escitalopram (NF) 10 MG TAB PO SCH (09:03)
[2018-01-11] MEDS: Cyanocobalamin TAB* 500 MCG PO SCH (09:03)
[2018-01-11] MEDS: Ferrous Gluconate TAB* 324 MG TAB PO SCH ×2 (09:03→22:30)
[2018-01-11] MEDS: CMC:Brimonidine P 0.15%(NF) OPH SOL 5 ML BTL LEFT EYE SCH ×2 (09:04→22:39)
[2018-01-11] MEDS: Ciproflox/Dexameth OTIC.SUSP* 7.5 ML BTL LEFT EAR SCH ×2 (09:04→22:39)
[2018-01-11] MEDS: Omeprazole CAP* 20 MG PO SCH ×3 (09:05→22:34)
[2018-01-11] MEDS: Fluticasone NASAL SPRAY 50MCG* 16 gm SPRAY BTL BOTH NARES SCH (09:05)
[2018-01-11] MEDS: Furosemide IV* 10 MG/ML VIAL (40 MG) IV SLOW PU SCH (09:06)
[2018-01-11] MEDS: Polyethylene Glycol 3350* 17 GM PACKET PO SCH (09:06)
[2018-01-11] MEDS: Insulin LISPRO* 1 UNITS UNIT SUBCUT SCH ×4 (09:10→21:50)
[2018-01-11] MEDS ORDERED: Nitrofurantoin Macrocrystals* 50 MG CAP PO SCH (13:00)
[2018-01-11] MEDS ORDERED: Insulin GLARGINE(*) 1 UNITS UNIT SUBCUT SCH (13:35)
--- NOTE | 2018-01-11 13:41 | PN ---
Subjective Date of Service: 01/11/18 Interval History: Patient states breathing is OK. Denies chest pain. States edema is chronic. Has been at [facility] for 1 year due to inability to walk. Denies dysuria, denies abdominal pain, has indwelling coleman. Family History: Unchanged from Admission Social History: Unchanged from Admission Past Medical History: Unchanged from Admission Objective Active Medications: Acetaminophen (Tylenol Tab*) 650 mg PO Q6H PRN PRN Reason: PAIN Last Admin: 01/07/18 20:49 Dose: 650 mg Amlodipine Besylate (Norvasc Tab*) 7.5 mg PO QAM [facility] Last Admin: 01/11/18 09:00 Dose: 7.5 mg Atorvastatin Calcium (Lipitor*) 20 mg PO 2100 [facility] PRN Reason: Protocol Last Admin: 01/10/18 22:01 Dose: 20 mg Brimonidine Tartrate (Alphagan P 0.15%(Nf)) 1 drop LEFT EYE Q12H [facility] Last Admin: 01/11/18 09:04 Dose: 1 drop Ciprofloxacin/Dexamethasone (Ciprodex Otic.Susp*) 4 drop LEFT EAR BID [facility] Last Admin: 01/11/18 09:04 Dose: 4 drop Cyanocobalamin (Vitamin B12 Tab*) 1,000 mcg PO QAM [facility] Last Admin: 01/11/18 09:03 Dose: 1,000 mcg Docusate Sodium (Colace Cap*) 200 mg PO Q12H PRN PRN Reason: CONSTIPATION Docusate Sodium (Colace Liq*) 50 mg PO BEDTIME [facility] Last Admin: 01/10/18 22:03 Dose: 50 mg Escitalopram [facility]alate (Lexapro (Nf)) [facility] Admin: 01/11/18 09:03 Dose: 10 mg Ferrous Gluconate (Fergon Tab*) 324 mg PO BID [facility] Last Admin: 01/11/18 09:03 Dose: 324 mg Fluticasone Propionate (Flonase Nasal Cincinnatus 50mcg*) 2 spray [facility] Last Admin: 01/11/18 09:05 Dose: Not Given Furosemide (Lasix Iv*) 40 mg IV SLOW PU DAILY [facility] Last Admin: 01/11/18 09:06 Dose: 40 mg Gabapentin (Neurontin Cap(*)) 300 mg PO Q12HR [facility] Last Admin: 01/11/18 09:02 Dose: 300 mg Heparin Sodium (Porcine) (Heparin Vial(*)) 5,000 units SUBCUT Q8HR [facility] Last Admin: 01/11/18 12:59 Dose: 5,000 units Insulin Glargine (Lantus(*)) 15 units SUBCUT BEDTIME [facility] Insulin Human Lispro (Humalog*) 0 units SUBCUT ACHS JAROD PRN Reason: Protocol Last Admin: 01/11/18 12:59 Dose: 6 unit Levothyroxine Sodium (Synthroid Tab*) 50 mcg PO 0600 [facility] Last Admin: 01/11/18 06:28 Dose: 50 mcg Magnesium Oxide (Magox 400 Tab*) 800 mg PO DAILY [facility] Last Admin: 01/11/18 09:01 Dose: 800 mg Melatonin (Melatonin (Nf)) 3 mg PO BEDTIME PRN PRN Reason: INSOMNIA Last Admin: 01/10/18 22:02 Dose: 3 mg Metoprolol Tartrate (Lopressor Tab*) 12.5 mg PO QAM [facility] Last Admin: 01/11/18 09:00 Dose: 12.5 mg Mometasone Furoate/Formoterol Fumar (Dulera 200/5 Mdi*) 2 puff INH BID [facility] Last Admin: 01/11/18 07:39 Dose: 2 puff Multivitamins/Minerals (Theragran/Minerals Tab*) 1 tab PO DAILY [facility] Last Admin: 01/11/18 09:02 Dose: 1 tab Nitrofurantoin Macrocrystals (Macrodantin*) 100 mg PO BID [facility] Non-Formulary Medication (Temazepam) 7.5 mg PO BEDTIME [facility] Last Admin: 01/10/18 22:08 Dose: Not Given Omeprazole (Prilosec Cap*) 20 mg PO Q12HR [facility] Last Admin: 01/11/18 09:05 Dose: 20 mg Polyethylene Glycol/Electrolytes (Miralax*) 17 gm PO DAILY [facility] Last Admin: 01/11/18 09:06 Dose: Not Given Senna (Senokot Tab*) 1 tab PO BEDTIME [facility] Last Admin: 01/10/18 22:01 Dose: 1 tab Sodium Biphosphate/Sodium Phosphate (Fleet Enema*) 1 bottle KS BEDTIME PRN PRN Reason: CONSTIPATION Vital Signs - 8 hr 01/11/18 01/11/18 12:08 12:18 Temperature 36.6 C Pulse Rate 59 Respiratory 18 18 Rate Blood Pressure 115/43 (mmHg) O2 Sat by Pulse 97 Oximetry Oxygen Devices in Use Now: Nasal Cannula Appearance: alert, NAD Ears/Nose/Mouth/Throat: Clear Oropharnyx Neck: No Thyroid Enlargement, Masses Respiratory: Symmetrical Chest Expansion and Respiratory Effort, Clear to Auscultation Cardiovascular: NL Sounds; No Murmurs; No JVD, RRR Abdominal: No Hepatosplenomegaly, - - obese, tender suprapubic Lymphatic: No Cervical Adenopathy Extremities: - - pitting edema bilat LE Lines/Tubes/Other Access: Clean, Dry and Intact Peripheral IV Nutrition: Taking PO's Result Diagrams: 01/09/18 05:49 01/11/18 05:49 Microbiology and Other Data: Microbiology 01/08/18 14:42 Urine Urine Culture - Final Enterococcus Faecalis 01/07/18 12:20 Nasal Nasal Screen MRSA (PCR)(CLARA) - Final Mrsa Not Detected 01/07/18 14:24 Blood Venous Aerobic Blood Culture - Preliminary 01/07/18 14:24 Blood Venous Anaerobic Blood Culture - Preliminary No Growth Day 3 No Growth Day 3 01/07/18 08:09 Blood Venous Aerobic Blood Culture - Preliminary 01/07/18 08:09 Blood Venous Anaerobic Blood Culture - Preliminary No Growth Day 4 No Growth Day 4 Assess/Plan/Problems-Billing Assessment: Mrs. Francis is a 62yo F with PMH of type 2 DM, HTN, HLD, CVA with residual right hemiparesis, CAD, hypothyroidism, GERD, DVT, left BKA, chronic Coleman, chronic anemia, who presented to ED with c/o weight gain, edema, and dyspnea, found to have diastolic CHF exacerbation. - Patient Problems (1) Acute diastolic (congestive) heart failure Current Visit: Yes Status: Acute Priority: High Code(s): I50.31 - ACUTE DIASTOLIC (CONGESTIVE) HEART FAILURE SNOMED Code(s): 663759348 Comment: - diastolic CHF exacerbation improving, has diuresed well w/ IV lasix. - decompensation thought to be due to diet indiscretion - will need low-salt diet, daily weights, prn diuretics after discharge (2) Anemia Current Visit: Yes Status: Chronic Priority: Medium Code(s): D64.9 - ANEMIA, UNSPECIFIED SNOMED Code(s): 330386104 Comment: - hematology consult appreciated - microcytic, iron deficient, will recheck FOBT, arrange outpatient GI investigation - elevated ESR, unknown cause, differential includes endocarditis, osteomyelitis , malignancy. Blood cultures no growth to date. No focal bone pain. Will check CT chest/abdo/pelvis per Dr. Potter's recommendations. - Check SPEP and UPEP, as differential includes immune distruction of RBC. (3) UTI (urinary tract infection) due to urinary indwelling catheter Current Visit: Yes Status: Chronic Priority: Medium Code(s): T83.511A - I/ I REACT D/T INDWELLING URETHRAL CATHETER, INIT; N39.0 - URINARY TRACT INFECTION , SITE NOT SPECIFIED SNOMED Code(s): 770990084 Comment: - Abnormal UA, enterococcal culture may represent colonization - with high ESR, abdominal tenderness, will treat w/ macrobid (4) Type II diabetes mellitus Current Visit: Yes Status: Acute Priority: Medium Comment: - HgA1C 6.6. - cut lantus in 1/2 due to NPO status for CT. - cover meals w/ Lispro SS. (5) DNR (do not resuscitate) Current Visit: Yes Status: Acute Priority: Low Comment: -code status is appropriate. Status and Disposition: Inpatient, likely discharge to [facility] tomorrow
[2018-01-11] MEDS ORDERED: Iodixanol* (CONTRAST) 320 MG/ML 100 ML SDV IV ONE (13:44)
--- NOTE | 2018-01-11 16:42 | RAD ---
HISTORY: Lung nodules, anemia COMPARISONS: CT of the abdomen and pelvis dated May 27, 2017 TECHNIQUE: Multiple contiguous axial CT scans were obtained of the chest, abdomen, and pelvis after the administration of intravenous contrast. Coronal and sagittal multiplanar reformations are submitted for review.. Oral contrast was administered. Delayed images were obtained through the abdomen and pelvis. FINDINGS: CHEST NECK AND THYROID: The lower neck and thyroid are unremarkable. CHEST WALL: There is no lower cervical, axillary, or supraclavicular lymphadenopathy by size criteria. HEART AND PERICARDIUM: The heart is unremarkable. AORTA AND PULMONARY VASCULATURE: The aorta and pulmonary vasculature are normal. MEDIASTINUM: There are subcentimeter short axis prevascular lymph nodes measuring up to 0.8 cm in short axis. VITOR: There is no hilar lymphadenopathy by size criteria. AIRWAY AND ESOPHAGUS: The airway is unremarkable, without endobronchial filling defect. The esophagus is grossly normal. LUNG PARENCHYMA: There is a 0.4 cm nodule of the right upper lobe on axial image 22. There is dependent atelectasis of the lung bases bilaterally. PLEURA: There are small bilateral pleural effusions. BONES AND SOFT TISSUES: No bone or soft tissue abnormalities are noted. ABDOMEN/PELVIS: LIVER: The liver is normal in shape, size, contour, and attenuation. BILE DUCTS: There is no intrahepatic or extrahepatic biliary dilatation. GALLBLADDER: There is sludge within the gallbladder. There is small stones within gallbladder. There is no pericholecystic inflammatory change. PANCREAS: The pancreas is normal, without mass or ductal dilatation. SPLEEN: Normal in size and appearance. UPPER GI TRACT: Evaluation of the gastrointestinal tract is limited by incomplete gastric distention. The upper GI tract is unremarkable. SMALL BOWEL & MESENTERY: The small bowel is normal in contour, course, and caliber. There is no obstruction or dilatation. COLON: There is scattered diverticula of the distal colon. ADRENALS: Normal bilaterally. KIDNEYS: The kidneys are normal in shape, size, contour, and axis. There is no hydronephrosis or nephrolithiasis. BLADDER: The bladder is incompletely distended. There is mild bladder wall thickening which may be an artifact of incomplete distention. PELVIC ORGANS: The pelvic organs are not visualized. AORTA: There is calcific atherosclerotic disease of the abdominal aorta and its branches, without aneurysmal dilatation IVC: Unremarkable LYMPH NODES: There is no lymphadenopathy by size criteria. ABDOMINAL WALL: There is no evidence for abdominal wall hernia. BONES AND SOFT TISSUES: There are mild diffuse degenerative changes. OTHER: None IMPRESSION: 1. THE NODULARITY NOTED ON THE PREVIOUS EXAMINATION WITHIN THE LUNG BASES HAS RESOLVED. THERE IS A 0.4 CM NODULE OF THE RIGHT UPPER LOBE. THE RECOMMENDATIONS FOR FOLLOWUP AND MANAGEMENT OF AN INCIDENTALLY DETECTED PULMONARY NODULE LESS THAN 6 MM IN SIZE, IN A PATIENT WITHOUT A HISTORY OF MALIGNANCY, INCLUDE NO FOLLOWUP FOR A LOW-RISK PATIENT OR OPTIONAL FOLLOWUP CT IN 12 MONTHS FOR A HIGH RISK PATIENT. 2. SMALL BILATERAL PLEURAL EFFUSIONS. 3. ATHEROSCLEROSIS. 4. SCATTERED DIVERTICULA OF THE COLON. 5. SLUDGE AND SMALL STONES WITHIN THE GALLBLADDER. NOTES: SIZE = AVERAGE LENGTH AND WIDTH; HIGH RISK IS DEFINED A HISTORY OF SMOKING OR OTHER KNOW RISK FACTORS FOR LUNG CANCER; LOW RISK IS DEFINED MINIMAL OR ABSENT HISTORY OF SMOKING OR OTHER KNOWN RISK FACTORS. Myra H, SANIA Giron, STONE Garces, et al (2017) "Guidelines for Management of Incidental Pulmonary Nodules Detected on CT Images: From the Fleischner Society 2017." Radiology; 284(1): 228-243. doi:10.1148/radiol.[id number]
[2018-01-11] MEDS ORDERED: Ondansetron ODT TAB* 4 MG PO PRN (21:08)
[2018-01-11] MEDS: Acetaminophen TAB* 325 MG PO PRN (22:29)
[2018-01-11] MEDS: Atorvastatin* 20 MG TAB PO SCH (22:30)
[2018-01-11] MEDS: Senna TAB PO SCH ×2 (22:30→22:34)
[2018-01-11] MEDS: Docusate LIQ* 100 MG/10 ML UDC PO SCH (22:32)
[2018-01-11] MEDS: TEMAZEPAM 7.5 MG PO SCH (22:33)
[2018-01-11] MEDS: Nitrofurantoin Macrocrystals* 100 MG CAP PO SCH (22:37)
[2018-01-12] MEDS ORDERED: KCL 10 MEQ/50 ML IVPREMIX* 0 MEQ/0 ML BAG ONE (04:26)
[2018-01-12] MEDS: Levothyroxine TAB* 50 MCG TAB PO SCH (05:28)
[2018-01-12] MEDS: Heparin VIAL(*) 5000 UNITS/ML VIAL (FIVE THOUSAND) SUBCUT SCH (05:28)
[2018-01-12 06:13] LABS: ABS Basophils 0 10^3/ul (0-0.2); ABS Eosinophils 0.2 10^3/ul (0-0.6); ABS Lymphocytes 0.6 10^3/ul (1.0-4.8); ABS Monocytes 0.6 10^3/ul (0-0.8); ABS Neutrophils 5.6 10^3/ul (1.5-7.7); ABS Nucleated RBC 0 10^3/ul; Eosinophil % 3.2 % (0-6); Hematocrit 25 % (35-47); Hemoglobin 8.2 g/dl (12.0-16.0); Lymphocyte % 8.3 % (25-47); Mean Corpuscular HGB Conc 33 g/dl (31-36); Mean Corpuscular Hemoglobin 26 pg (27-31); Mean Corpuscular Volume 78 fL (80-97); Nucleated Red Blood Cells % 0; Platelet Count 233 10^3/ul (150-450); Red Blood Count 3.17 10^6/ul (4.0-5.4); Red Cell Distribution Width 15 % (10.5-15); White Blood Count 7.1 10^3/ul (3.5-10.8)
[2018-01-12 06:38] LABS: EGFR Non-African American 44.5 (>60)
[2018-01-12] MEDS: Insulin LISPRO* 1 UNITS UNIT SUBCUT SCH ×2 (08:24→12:22)
[2018-01-12] MEDS: Mometasone/Formoter 200/5 MDI INH SCH (10:08)
[2018-01-12] MEDS: Gabapentin CAP(*) 300 MG PO SCH (10:44)
[2018-01-12] MEDS: Omeprazole CAP* 20 MG PO SCH (10:44)
[2018-01-12] MEDS: Magnesium Oxide TAB* 400 MG PO SCH (10:44)
[2018-01-12] MEDS: Nitrofurantoin Macrocrystals* 100 MG CAP PO SCH (10:45)
[2018-01-12] MEDS: Cyanocobalamin TAB* 500 MCG PO SCH (10:46)
[2018-01-12] MEDS: Metoprolol Tartrate TAB* 25 MG PO SCH (10:46)
[2018-01-12] MEDS: Multivitamins/Minerals TAB PO SCH (10:46)
[2018-01-12] MEDS: CMCS Escitalopram (NF) 10 MG TAB PO SCH (10:46)
[2018-01-12] MEDS: Ferrous Gluconate TAB* 324 MG TAB PO SCH (10:46)
[2018-01-12] MEDS: Furosemide IV* 10 MG/ML VIAL (40 MG) IV SLOW PU SCH (10:47)
[2018-01-12] MEDS: amLODIPine TAB* 5 MG PO SCH (10:47)
[2018-01-12] MEDS: CMC:Brimonidine P 0.15%(NF) OPH SOL 5 ML BTL LEFT EYE SCH (10:48)
[2018-01-12] MEDS: Ciproflox/Dexameth OTIC.SUSP* 7.5 ML BTL LEFT EAR SCH (10:48)
[2018-01-12] MEDS: Polyethylene Glycol 3350* 17 GM PACKET PO SCH (10:48)
[2018-01-12] MEDS: Fluticasone NASAL SPRAY 50MCG* 16 gm SPRAY BTL BOTH NARES SCH (10:48)
--- NOTE | 2018-01-12 10:56 | PN ---
Progress Note - Progress Note Date of Service: 01/12/18 Note: Discharge Progress Note Primary Diagnosis: diastolic congestive heart failure exacerbation Secondary Diagnosis: microcytic anemia, chronic sedimentation rate 120 hypertension hyperlipidemia h/o CVA, with RT hemiparesis LT BK amputee CAD w/ h/o MS, stent GERD hypothyroid ho DVT Consultations: Dr. Potter Procedures: none Complications: none Pertinent lab/radiology results: LUE venous doppler: no DVT CT Ch/Ab/Pelv: RT upper lobe nodule, sludge in GB, small bilat pleural effusions A1c 6.6, Creatinine 2.2, SPEP negative, urine albumin positive ESR 120, HGB 8.2 HCT 25, BNP 598, Iron 38, %sat13 UA Enterococcus faecalis, sensitive to macrobid Tests pending upon discharge: 24h urine protein occult blood stool Physical exam on DC: Selected Entries 01/12/18 08:27 Temperature 37.1 C Pulse Rate 68 Respiratory 18 Rate Blood Pressure 120/45 (mmHg) O2 Sat by Pulse 95 Oximetry Lungs: clear Heart; RRR LT BK amputee RLE 1+ edema Abdomen obese
[2018-01-12 12:54] VITALS: BP 137/47
--- NOTE | 2018-01-12 20:49 | TRS ---
CC: Dr. Valdes at [facility] * TRANSFER SUMMARY: DATE OF ADMISSION: 01/07/18 DATE OF DISCHARGE: 01/12/18 PRIMARY DIAGNOSIS: Diastolic congestive heart failure exacerbation. SECONDARY DIAGNOSES: 1. Chronic microcytic anemia, sedimentation rate of 120. 2. Hypertension. 3. Hyperlipidemia. 4. History of cerebrovascular accident with right hemiparesis. 5. Left [id number] amputation. 6. Coronary artery disease with history of myocardial infarction and stent placement. 7. Gastroesophageal reflux disease. 8. Hypothyroidism. 9. History of deep venous thrombosis. 10. Depression. PROBLEM LIST ON DISCHARGE: 1. Glaucoma. 2. Otitis externa, left ear. 3. Chronic obstructive pulmonary disease. MEDICATIONS ON DISCHARGE: 1. Acetaminophen 650 mg p.o. q.6 hours p.r.n. pain. 2. Norvasc 7.5 mg p.o. q.a.m. 3. Brimonidine 0.15% 1 drop left eye q.12 hours. 4. Ciprofloxacin with dexamethasone 4 drops left ear b.i.d. for 4 days. 5. Vitamin B12, 1000 mcg p.o. daily. 6. Colace 200 mg p.o. q.12 hours. 7. Lexapro 10 mg p.o. q.a.m. 8. Ferrous gluconate 325 mg p.o. b.i.d. 9. Flonase 2 sprays both nostrils daily. 10. Furosemide 60 mg p.o. q.a.m. 11. Gabapentin 300 mg p.o. q.12 hours. 12. Toujeo insulin 70 units subcutaneous q.p.m. 13. Magnesium hydroxide 30 mL p.o. daily as needed for constipation. 14. Magnesium oxide 800 mg p.o. daily. 15. Metformin 500 mg p.o. b.i.d., to start in 2 days after the CAT scan of . 16. Metoprolol 12.5 mg p.o. q.a.m. 17. Mometasone/formoterol 200/5, 2 puffs inhaled b.i.d. 18. Multivitamin 1 tab p.o. daily. 19. Nitrofurantoin macrocrystals 100 mg p.o. b.i.d. for 5 days. 20. Omeprazole 20 mg p.o. q.12 hours. 21. MiraLax 17 g mixed with water daily as needed for constipation. 22. Crestor 10 mg p.o. q.h.s. 23. Senna with docusate 1 tab p.o. q.p.m. 24. Fleet enema 1 per rectum daily p.r.n. constipation. 25. Aldactone 25 mg p.o. b.i.d. 26. Temazepam 7.5 mg p.o. q.h.s. p.r.n. HOSPITAL COURSE: A 62-year-old woman, who is disabled from obesity and history of stroke with right-sided hemiparesis as well as left [id number] amputation due to diabetes and peripheral vascular disease, who was admitted to the hospital with progressive dyspnea and swelling. She was found to have congestive heart failure with volume overload. Echocardiogram performed on 04/05 showed ejection fraction of 60% to 65%, so was thought to be diastolic dysfunction. The patient was started with intravenous Lasix and she had an output greater than intake between 1500 and 2500 mL per day for 3 days and her weight reduced by 3 kg. The patient's heart failure was thought to be stable and she was advised to have daily weights, strict no salt diet and titration of her diuretics based on her weights on a daily basis. The patient did have some swelling in her left upper extremity. She had a left upper extremity doppler study done which was negative for DVT. Her chest x-ray showed congestive heart failure and her BNP was elevated at 598. The patient also has had chronic microcytic anemia with her hemoglobin on discharge 8.2. Her iron level was 38 and her iron saturation was 13%. She had a consultation with Dr. Potter of Hematology, who recommended checking the stool for occult blood and the gastroenterology consult based on that and previous positive occult blood testing. Dr. Potter also advised checking serum protein electrophoresis and urine protein electrophoresis. The SPEP was negative. The UPEP should be completed on a 24-hour basis as an outpatient. Dr. Potter addressed the anemia as well as the elevated sedimentation rate of 120. He was concerned about malignancy and found an old abdomen and pelvis CT from May 2017 that showed some nodularity in the lungs at the bases. Based on Dr. Potter' s recommendations, a CT of the chest, abdomen and pelvis was done to surveil for lung neoplasm and other neoplastic processes that could be causing sed rate of [address] showed only a sludge in the gallbladder and a right upper lobe pulmonary nodule that was 4 mm. There are also small bilateral pleural effusions. The patient had a urinalysis that showed inflammation with red cells and white cells and had culture of Enterococcus faecalis that was sensitive to PENICILLIN and nitrofurantoin. Due to her PENICILLIN allergy and the sedimentation rate of 120 and also the patient being a poor historian, the patient was treated for urinary tract infection with nitrofurantoin twice a day, which should be completed for 1 week. DISPOSITION: To [facility] for subacute rehabilitation. DIET: Low salt and diabetic. ACTIVITY: Should be to get out of the bed to chair with a Gisela lift. TIME SPENT: I spent 60 minutes coordinating the care of the patient and completing the necessary paperwork for this discharge. [id number]/[facility] #: [id number] MTDD
== END 2018-01-12 15:20 | DRG 292 ==
LOC: ED 07:47 → MEDTELE 09:51 → MED 01-09 22:45
PROVIDERS: ADMIT Internal Medicine; ATTEND Internal Medicine
DX: I11.0 Hypertensive heart disease with heart failure (principal); I69.351 Hemiplegia and hemiparesis following cerebral infarction affecting right dominant side; N39.0 Urinary tract infection, site not specified; Z68.41 Body mass index [BMI] 40.0-44.9, adult; I50.31 Acute diastolic (congestive) heart failure; D50.9 Iron deficiency anemia, unspecified; E78.5 Hyperlipidemia, unspecified; I25.10 Atherosclerotic heart disease of native coronary artery without angina pectoris; K21.9 Gastro-esophageal reflux disease without esophagitis; E03.9 Hypothyroidism, unspecified; Z66 Do not resuscitate; F32.9 Major depressive disorder, single episode, unspecified; E11.42 Type 2 diabetes mellitus with diabetic polyneuropathy; R91.1 Solitary pulmonary nodule; B95.2 Enterococcus as the cause of diseases classified elsewhere; E66.01 Morbid (severe) obesity due to excess calories; I44.7 Left bundle-branch block, unspecified; Z95.5 Presence of coronary angioplasty implant and graft; Z86.718 Personal history of other venous thrombosis and embolism; Z89.512 Acquired absence of left leg below knee; Z79.84 Long term (current) use of oral hypoglycemic drugs; Z79.1 Long term (current) use of non-steroidal anti-inflammatories (NSAID); Z79.4 Long term (current) use of insulin; Z79.899 Other long term (current) drug therapy; Z88.0 Allergy status to penicillin; Z82.3 Family history of stroke; Z80.1 Family history of malignant neoplasm of trachea, bronchus and lung; Z87.891 Personal history of nicotine dependence; Z81.2 Family history of tobacco abuse and dependence; Z80.49 Family history of malignant neoplasm of other genital organs
CPT/HCPCS: 36415; 71046; 71260; 74177; 80048; 80053; 81003; 81015; 82272; 82607; 82668; 82728; 82746; 83036; 83540; 83550; 83605; 83880; 84155; 84156; 84165; 84166; 84443; 84484; 85025; 85652; 86140; 87040; 87077; 87086; 87186; 87641; 93005; 94640; 99284; A9270-GY; J1644; J1940; J3480; Q9967

== ENCOUNTER 2018-02-24 20:41 | Inpatient (IN) | payer MEDICARE ==
[2018-02-24] MEDS ORDERED: Albuterol/Ipratropium NEB.SOL* Albuterol 2.5 MG/Ipratropium 0.5 MG 3 ML INH ONE (20:46)
[2018-02-24] MEDS ORDERED: Levofloxacin 750 MG IVPREMIX(* 750 MG/150 ML BAG IVPB ONE (20:49)
[2018-02-24] MEDS ORDERED: NS 0.9% 1000 ML* 1,000 ML IV ONE (20:50)
[2018-02-24] MEDS ORDERED: Acetaminophen TAB* 325 MG PO ONE (20:50)
[2018-02-24] MEDS ORDERED: Furosemide IV* 10 MG/ML VIAL (40 MG) IV ONE (21:04)
--- NOTE | 2018-02-24 21:11 | RAD ---
INDICATION: Short of breath COMPARISON: January 07, 2018 TECHNIQUE: An AP portable view obtained at 2105 hours is submitted. FINDINGS: Bones/Soft Tissues: There are no acute bony findings. Cardiomediastinal: The central pulmonary vessels and interstitium are prominent compatible with interstitial and early alveolar edema. Lungs: There are no infiltrates. Pleura: There are no pleural effusions. Other: None IMPRESSION: MODERATE VASCULAR CONGESTIVE FINDINGS.
[2018-02-24 21:12] LABS: INR 1.02 (0.77-1.02)
[2018-02-24 21:19] LABS: ABS Basophils 0 10^3/ul (0-0.2); ABS Eosinophils 0 10^3/ul (0-0.6); ABS Lymphocytes 0.5 10^3/ul (1.0-4.8); ABS Monocytes 0.8 10^3/ul (0-0.8); ABS Nucleated RBC 0 10^3/ul; EGFR Non-African American 29.4 (>60); Eosinophil % 0.3 % (0-6); Hematocrit 27 % (35-47); Hemoglobin 8.5 g/dl (12.0-16.0); Lymphocyte % 4.5 % (25-47); Mean Corpuscular HGB Conc 32 g/dl (31-36); Mean Corpuscular Hemoglobin 25 pg (27-31); Mean Corpuscular Volume 77 fL (80-97); Mean Platelet Volume 8.3 um3 (7.4-10.4); Nucleated Red Blood Cells % 0.1; Platelet Count 291 10^3/ul (150-450); Red Blood Count 3.43 10^6/ul (4.00-5.40); Red Cell Distribution Width 17 % (10.5-15); White Blood Count 11.4 10^3/ul (3.5-10.8)
[2018-02-24] MEDS: Albuterol 2.5 MG/3 ML NEB.SOL* (0.083%) INH SCH (22:03)
[2018-02-24] MEDS ORDERED: Acetaminophen TAB* 325 MG PO PRN (22:06)
[2018-02-24] MEDS ORDERED: Ondansetron INJ* 2 MG/ML VIAL IV PRN (22:06)
[2018-02-24] MEDS ORDERED: Dextrose 50% Syringe 50 ML* 25 GM/50 ML SYRINGE IV PUSH PRN (22:06)
[2018-02-24] MEDS ORDERED: Furosemide IV* 10 MG/ML VIAL (40 MG) IV SLOW PU ONE (22:11)
[2018-02-24] MEDS ORDERED: BRIMONIDINE LEFT EYE SCH (23:00)
--- NOTE | 2018-02-24 23:14 | ED ---
Felipe Mayo Tariq, scribed for Winifred Cervantes MD on 02/24/18 at 2135 . Respiratory - HPI Summary HPI Summary: A 62 y/o female NIKKY presents to the ED s/p respiratory distress. As per EMS, they could hear gurggling from across the room. They found crackles in all go. Current blood pressure is 118/70. Additionally, it was noted that the patient was slightly confused. As per triage, "Pt comes from SNF and was found to be in respiratory distress. She was on BiPap upon arrival, placed on [facility] bipap and O2 sat 100%, all other VSS, pt AAO, though lethargic. She has a L BKA and a coleman at baseline". Lives at [facility]. - History of Current Complaint Chief Complaint: EDShortnessOfBreath Stated Complaint: SOB Time Seen by Provider: 02/24/18 20:44 Hx Obtained From: Patient Onset/Duration: Sudden Onset, Still Present Pain Intensity: 0 Sputum Amount: None Aggravating Factor(s): Nothing Alleviating Factor(s): Nothing Associated Signs and Symptoms: SOB - Allergy/Home Medications Allergies/Adverse Reactions: Allergies Allergy/AdvReac Type Severity Reaction Status Date / Time Penicillins Allergy Hives Verified 01/07/18 09:01 Home Medications: Home Medications Furosemide TAB* [Lasix TAB*] 80 mg PO DAILY 02/24/18 [History Confirmed 02/24/18 ] amLODIPine TAB* [Norvasc 5 mg TAB*] 2.5 mg PO DAILY 02/24/18 [History Confirmed 02/24/18] amLODIPine TAB* [Norvasc 5 mg TAB*] 5 mg PO DAILY 02/24/18 [History Confirmed ] PMH/Surg Hx/FS Hx/Imm Hx Endocrine/Hematology History: Reports: Hx Anticoagulant Therapy - Eliquis, Hx Diabetes Cardiovascular History: Reports: Hx Congestive Heart Failure, Hx Coronary Artery Disease, Hx Deep Vein Thrombosis, Hx Hypercholesterolemia, Hx Hypertension Respiratory History: Denies: Hx Asthma, Hx Chronic Obstructive Pulmonary Disease (COPD) - did smoke before though GI History: Reports: Hx Gastroesophageal Reflux Disease, Other GI Disorders - PEG tube History: Reports: Other Problems/Disorders - chronic coleman Denies: Hx Dialysis, Hx Renal Disease Musculoskeletal History: Reports: Other Musculoskeletal History - LBKA Sensory History: Reports: Hx Cataracts Denies: Hx Contacts or Glasses, Hx Hearing Aid Opthamlomology History: Reports: Hx Cataracts Denies: Hx Contacts or Glasses Neurological History: Reports: Other Neuro Impairments/Disorders - CVA Psychiatric History: Reports: Hx Depression - Surgical History Surgery Procedure, Year, and Place: [facility]. PEG Tube. left leg amputaion below knee. [place] with stent Hx Anesthesia Reactions: No - Immunization History Date of Tetanus Vaccine: unknown Date of Influenza Vaccine: unknown Infectious Disease History: No Infectious Disease History: Reports: Hx of Known/Suspected MRSA Denies: Traveled Outside the [place] in Last 30 Days - Family History Known Family History: Positive: Cardiac Disease, Diabetes, Other - Cancer, CVA - Social History Alcohol Use: None Hx Substance Use: No Substance Use Type: Reports: None Hx Tobacco Use: No Smoking Status (MU): Former Smoker Review of Systems Negative: Fever Positive: Shortness Of Breath All Other Systems Reviewed And Are Negative: Yes Physical Exam - Summary Physical Exam Summary: VITAL SIGNS: Reviewed. GENERAL: Patient is a well-developed and nourished FEMALE who is lying comfortable in the stretcher. Patient is in acute respiratory distress. Patient is morbidly obese. HEAD AND FACE: No signs of trauma. No ecchymosis, hematomas or skull depressions. No sinus tenderness. EYES: PERRLA, EOMI x 2, No injected conjunctiva, no nystagmus. EARS: Hearing grossly intact. Ear canals and tympanic membranes are within normal limits. MOUTH: Oropharynx within normal limits. NECK: Supple, trachea is midline, no adenopathy, no JVD, no carotid bruit, no c- spine tenderness, neck with full ROM. CHEST: Symmetric, no tenderness at palpation LUNGS: Bilateral crackles on both sides. CVS: Regular rate and rhythm, S1 and S2 present, no murmurs or gallops appreciated. ABDOMEN: Soft, non-tender. No signs of distention. No rebound no guarding, and no masses palpated. Bowel sounds are normal. EXTREMITIES: Left bilateral pedal edema. NEURO: Alert and oriented x 3. No acute neurological deficits. Speech is normal and follows commands. SKIN: Dry and warm Triage Information Reviewed: Yes Vital Signs On Initial Exam: Initial Vitals Pulse Resp Pulse Ox 77 24 100 02/24/18 20:47 02/24/18 20:47 02/24/18 20:47 Vital Signs Reviewed: Yes Diagnostics - Vital Signs Vital Signs Temp Pulse Resp BP Pulse Ox 02/24/18 20:52 99.5 F 75 23 134/66 100 02/24/18 20:47 77 24 100 - Laboratory Lab Results: Lab Results 02/24/18 02/24/18 02/24/18 Range/Units 20:48 20:48 20:48 WBC 11.4 H (3.5-10.8) 10^3/ul RBC 3.43 L (4.00-5.40) 10^6/ul Hgb 8.5 L (12.0-16.0) g/dl Hct 27 L (35-47) % MCV 77 L (80-97) fL MCH 25 L (27-31) pg MCHC 32 (31-36) g/dl RDW 17 H (10.5-15) % Plt Count 291 (150-450) 10^3/ul MPV 8.3 (7.4-10.4) um3 Neut % (Auto) 88.3 H (38-83) % Lymph % (Auto) 4.5 L (25-47) % [place] % (Auto) 6.8 (0-7) % Eos % (Auto) 0.3 (0-6) % Baso % (Auto) 0.1 (0-2) % Absolute Neuts (auto) 10.0 H (1.5-7.7) 10^3/ul Absolute Lymphs (auto) 0.5 L (1.0-4.8) 10^3/ul Absolute Monos (auto) 0.8 (0-0.8) 10^3/ul Absolute Eos (auto) 0 (0-0.6) 10^3/ul Absolute Basos (auto) 0 (0-0.2) 10^3/ul Absolute Nucleated RBC 0 10^3/ul Nucleated RBC % 0.1 INR (Anticoag Therapy) (0.77-1.02) APTT (26.0-36.3) seconds Sodium 135 (135-145) mmol/L Potassium 4.6 (3.5-5.0) mmol/L Chloride 99 L (101-111) mmol/L Carbon Dioxide 26 (22-32) mmol/L Anion Gap 10 (2-11) mmol/L BUN 58 H (6-24) mg/dL Creatinine 1.75 H (0.51-0.95) mg/dL Est GFR ( Amer) 35.5 (>60) Est GFR (Non-Af Amer) 29.4 (>60) BUN/Creatinine Ratio 33.1 H (8-20) Glucose 146 H (70-100) mg/dL Lactic Acid 1.0 (0.5-2.0) mmol/L Calcium 9.4 (8.6-10.3) mg/dL Total Bilirubin 0.70 (0.2-1.0) mg/dL AST 12 L (13-39) U/L ALT 7 (7-52) U/L Alkaline Phosphatase 78 (34-104) U/L Troponin I 0.01 (<0.04) ng/mL C-Reactive Protein 22.85 H (<8.01) mg/L B-Natriuretic Peptide ( - 100) pg/mL Total Protein 8.0 (6.4-8.9) g/dL Albumin 3.8 (3.2-5.2) g/dL Globulin 4.2 H (2-4) g/dL Albumin/Globulin Ratio 0.9 L (1-3) 02/24/18 02/24/18 Range/Units 20:48 20:48 WBC (3.5-10.8) 10^3/ul RBC (4.00-5.40) 10^6/ul Hgb (12.0-16.0) g/dl Hct (35-47) % MCV (80-97) fL MCH (27-31) pg MCHC (31-36) g/dl RDW (10.5-15) % Plt Count (150-450) 10^3/ul MPV (7.4-10.4) um3 Neut % (Auto) (38-83) % Lymph % (Auto) (25-47) % [place] % (Auto) (0-7) % Eos % (Auto) (0-6) % Baso % (Auto) (0-2) % Absolute Neuts (auto) (1.5-7.7) 10^3/ul Absolute Lymphs (auto) (1.0-4.8) 10^3/ul Absolute Monos (auto) (0-0.8) 10^3/ul Absolute Eos (auto) (0-0.6) 10^3/ul Absolute Basos (auto) (0-0.2) 10^3/ul Absolute Nucleated RBC 10^3/ul Nucleated RBC % INR (Anticoag Therapy) 1.02 (0.77-1.02) APTT 28.6 (26.0-36.3) seconds Sodium (135-145) mmol/L Potassium (3.5-5.0) mmol/L Chloride (101-111) mmol/L Carbon Dioxide (22-32) mmol/L Anion Gap (2-11) mmol/L BUN (6-24) mg/dL Creatinine (0.51-0.95) mg/dL Est GFR ( Amer) (>60) Est GFR (Non-Af Amer) (>60) BUN/Creatinine Ratio (8-20) Glucose (70-100) mg/dL Lactic Acid (0.5-2.0) mmol/L Calcium (8.6-10.3) mg/dL Total Bilirubin (0.2-1.0) mg/dL AST (13-39) U/L ALT (7-52) U/L Alkaline Phosphatase (34-104) U/L Troponin I (<0.04) ng/mL C-Reactive Protein (<8.01) mg/L B-Natriuretic Peptide 494 H ( - 100) pg/mL Total Protein (6.4-8.9) g/dL Albumin (3.2-5.2) g/dL Globulin (2-4) g/dL Albumin/Globulin Ratio (1-3) Result Diagrams: 02/24/18 20:48 02/24/18 20:48 Lab Statement: Any lab studies that have been ordered have been reviewed, and results considered in the medical decision making process. - Radiology CXR Radiology Interpretation Completed By: Radiologist - MODERATE VASCULAR CONGESTIVE FINDINGS. ED PHYSICIAN REVIEWED THIS RADIOLOGY REPORT. - EKG 2055 Cardiac Rate: NL - 74 BPM EKG Rhythm: Sinus Rhythm EKG Interpretation: LEFT BUNDLE BRANCH BLOCK Disposition - Course Course Of Treatment: A 62 y/o female BIBA presents to the ED s/p respiratory distress. As per EMS, they could hear gurggling from across the room. They found crackles in all go. Current blood pressure is 118/70. Additionally, it was noted that the patient was slightly confused. A CXR revealed moderate vascular congestive findings. An EKG revealed a heart rate of 74 BPM, normal sinus rhythm and left bundle branch block. In the ED course, patient was given Tylenol, Ventolin, Albuterol and Lasix. Patient will be admitted with a diagnosis of CHF. Pt is agreeable with this plan. - Diagnoses Provider Diagnoses: CHF (congestive heart failure) - Critical Care Time Critical Care Time: 30-74 min - 40 minutes. Discharge - Sign-Out/Discharge Documenting (check all that apply): Discharge/Admit/Transfer - ADMIT - Discharge Plan Condition: Stable Disposition: ADMITTED TO [facility] Referrals: Naila Valdes MD [Primary Care Provider] - The documentation as recorded by the Felipe ramirez Tariq accurately reflects the service I personally performed and the decisions made by , Winifred Cervantes MD.
[2018-02-24] MEDS: Furosemide IV* 10 MG/ML 2 ML VIAL (20 MG) IV SLOW PU ONE (23:35)
[2018-02-25 00:47] LABS: EGFR Non-African American 30.2 (>60)
[2018-02-25] MEDS: Omeprazole CAP* 20 MG PO SCH ×2 (00:54→11:43)
--- NOTE | 2018-02-25 00:59 | HP ---
CC: Dr. Valdes * HISTORY AND PHYSICAL: DATE OF ADMISSION: 02/24/18 PRIMARY CARE PROVIDER: Dr. Valdes. ATTENDING PHYSICIAN WHILE IN THE HOSPITAL: Howard King MD * (report dictated by Waldemar Tucker NP) CHIEF COMPLAINT: Shortness of breath. HISTORY OF PRESENTING ILLNESS: Mrs. Francis is a 62-year-old female patient with multiple medical problems. She has a history of left bundle-branch block, diabetes, hypertension, hyperlipidemia, CVA, CAD, hypothyroidism, GERD, history of DVT, obesity, history of diastolic CHF, MN and anemia. She is presenting to our ER today for the last 2 days she has had progressive worsening, shortness of breath. The patient does have residual effects from her CVA and recently was given medications to help her sleep tonight prior to coming from [facility]. Her history reliability is poor, but she states that she has been feeling short of breath, worsening over the last 2 days. She is really unable to characterize this presenting orthopnea. The sister, who is with the patient states that that she has noticed that her hands are gotten more swollen, she looks in her words puffy. There has been no reports of weight change, but the daughter and the patient are unaware if she has gained weight. No recent reports of change in food. According to the family that she has been getting her meds as prescribed, but they have noticed over the last couple of days there has just been worsening shortness of breath. There has been no reports of cough. No reports of fevers. No vomiting or diarrhea. They were concerned because of the breathing today that the sister want to see her sister at [facility] today, she was concerned because her work of breathing was quite significant. The patient was then brought to the ER, on evaluation in the ED appeared that she appeared to be in CHF and because of these findings, we were asked to evaluate for admission. PAST MEDICAL HISTORY: Significant for: 1. Left bundle-branch block. 2. Diabetes. 3. Hypertension. 4. Hyperlipidemia. 5. CVA. 6. CAD. 7. Hypothyroidism. 8. GERD. 9. History of DVT. 10. Obesity. 11. History of diastolic CHF. 12. MN. 13. Anemia. PAST SURGICAL HISTORY: 1. She has had a left BKA. 2. She has had a cardiac cath. 3. PEG tube placement. 4. Hysterectomy. 5. Appendectomy. MEDICATIONS: Home meds include: 1. Aldactone 25 mg p.o. b.i.d. 2. Tylenol 650 mg every 6 hours as needed. 3. Crestor 10 mg daily. 4. Lasix 80 mg daily. 5. Multivitamin 1 tablet daily. 6. Lispro 12 units subcu after meals. 7. Lantus 70 units subcu at bedtime. 8. Prilosec 20 mg every 12 hours. 9. Alphagan 1 drop left eye q. 12. 10. Amlodipine 7.5 mg daily. 11. Lexapro 10 mg daily. 12. Glucophage 500 mg p.o. b.i.d. 13. Temazepam 7.5 mg at bedtime. 14. Fergon 325 mg p.o. b.i.d. 15. MiraLAX 17 g p.o. daily. 16. Flonase 2 sprays both nares daily. 17. Senna 1 tablet p.o. at bedtime. 18. Magnesium oxide 800 mg daily. 19. Dulera 2 puffs inhaled b.i.d. 20. Gabapentin 300 mg every 12 hours. 21. Lopressor 12.5 mg in the morning. 22. Cozaar 50 mg every 12 hours. 23. Synthroid 50 mcg daily. ALLERGIES: Allergies to medications include PENICILLIN. FAMILY HISTORY: Mother had a history of CA and heart disease. Father had a history of cancer as well. SOCIAL HISTORY: The patient is former smoker. She does not drink alcohol. Surrogate decision maker is the patient's daughter. REVIEW OF SYSTEMS: There is no documented fever. Weight change is unknown. There is no double vision. No ear discharge. There was no rhinorrhea. No sore throat. No thyroid enlargement. She denies having a cough. Again, there has been shortness of breath. There has been no obvious orthopnea, no nocturnal dyspnea. There was no abdominal pain. There is no nausea. No vomiting. No dysuria. No frequency. No seizure. No loss of conscious. No pruritus. No skin ulcerations. Review of 14 systems completed and otherwise negative. PHYSICAL EXAMINATION GENERAL: At this time, Mrs. Francis is a 62-year-old female patient. She is morbidly obese, sitting in the ED stretcher. She does not appear to be in any acute distress now after BiPAP initiation. VITAL SIGNS: Blood pressure 134/66, pulse 75, respirations 20, O2 sat 100%, temperature 99.5. HEENT: Head: Atraumatic, normocephalic. Eyes: EOMs are intact. Sclerae anicteric, not pale. NECK: Supple. Throat: Oral mucosa appears to be moist. No oropharyngeal erythema. LUNGS: Again, she had crackles, two thirds in the lung go bilaterally. She had equal diaphragmatic expansion. HEART: Sounds S1, S2. Regular rate and rhythm. No murmurs, rubs or gallops. ABDOMEN: Soft, flat, nontender. Bowel sounds are present. EXTREMITIES: Pulses 2+. She did have pitting edema 2+ to her lower extremity. She has a left AKA. NEUROLOGICAL: She does awake and she is alert. She is oriented x3. Her architectural inspector are equal. Tongue is midline. No facial dropping. No gross focal deficits. SKIN: Intact. DIAGNOSTIC STUDIES/LAB DATA: Labs revealing a WBC today of 11.4, RBC of 3.43, hemoglobin of 8.5, hematocrit of 27, platelet count of 291. INR was 1.02, PTT is 28.6. Sodium 135, potassium 4.6, chloride 99, bicarb 26, BUN 58, creatinine 1.75, glucose 146, lactate 1, calcium 9.4. Total bili 0.7, AST 12, ALT 7, alk phos 78. Troponin 0.01. CRP of 22. BNP of 494. Albumin of 3.8. She had a EKG obtained today, which revealed a normal sinus rhythm with a left bundle-branch block. Her rate was 74. Reviewed to the previous EKG, this is similar. She did have an echo just done 5 months ago, which showed EF 60 to 65 % and diastolic function. She did have chest x-ray obtained today when I reviewed it I did not appreciate any focal infiltrates, but I did appreciate vascular congestion. Radiology read as moderate vascular congestive findings. Old medical records reviewed. ASSESSMENT AND PLAN: Mrs. Francis is a 62-year-old female patient with multiple medical problems coming in to the ED with complaints of shortness of breath progressively getting worse over the last 2 days. She will be admitted under observation status for: 1. Congestive heart failure exacerbation. I suspect this is diastolic failure. I am going to give her a total of 80 IV Lasix here in the ED. She got 40 by the ED provider, I am going to give her another 40 because she takes 80 a day at [facility]. We will get daily weights on the patient. In addition to this, I will go ahead and cycle her troponins, place her on a BiPAP as this is recovering her. I suspect the reason for her shortness of breath is probably secondary to congestive heart failure exacerbation. I do not know the insulting factor causing the exacerbation at this point. We will continue to diurese her and check daily weights 2. Diabetes. We will continue her Lantus and sliding scale. 3. Hypertension. Continue her meds as prescribed. 4. Hyperlipidemia. Continue statin therapy. 5. History of cerebrovascular accident. Continue with secondary prevention. She is on statin therapy. 6. Hypothyroidism. Continue her Synthroid. 7. History of deep vein thrombosis. Again, at this point not an active issue. 8. History of myocardial infarction. Continue statin, beta aric therapy. I do not see that she is on an aspirin. We did touch base with her primary, she was in the case, we need to consider starting her on an aspirin. 9. DVT prophylaxis. High risk. We placed her on heparin subcu. 10. Code status. She is a DNR reported in our computer system. We will need to clarify this. Her health care proxy is not here. 11. Fluids, electrolytes, and nutrition. I have not ordered a diet at this point until we can get her liberated from the BiPAP, but the goal would be a consistent carb diet. TIME SPENT: On this admission was 60 minutes, greater than half the time was spent [id number] with the patient obtaining my history and physical, other half of the time was spent going over the plan of care with the patient and implementing the plan of care. I did discuss the plan of care with my attending, Dr. King, he is in agreement. WALDEMAR TUCKER, MAYUR [id number]/[facility] #: [id number] NARESH
[2018-02-25] MEDS: Losartan TAB* 25 MG PO SCH ×2 (01:11→11:43)
[2018-02-25] MEDS: BRIMONIDINE BOTH EYES SCH ×2 (01:12→11:44)
[2018-02-25] MEDS: Levothyroxine TAB* 50 MCG TAB PO SCH (06:02)
[2018-02-25] MEDS: Heparin VIAL(*) 5000 UNITS/ML VIAL (FIVE THOUSAND) SUBCUT SCH ×3 (06:02→20:54)
[2018-02-25 06:33] LABS: ABS Basophils 0 10^3/ul (0-0.2); ABS Eosinophils 0 10^3/ul (0-0.6); ABS Lymphocytes 0.7 10^3/ul (1.0-4.8); ABS Monocytes 0.6 10^3/ul (0-0.8); ABS Neutrophils 7.3 10^3/ul (1.5-7.7); ABS Nucleated RBC 0 10^3/ul; Eosinophil % 0.1 % (0-6); Hematocrit 22 % (35-47); Hemoglobin 7.3 g/dl (12.0-16.0); Lymphocyte % 8.2 % (25-47); Mean Corpuscular HGB Conc 33 g/dl (31-36); Mean Corpuscular Hemoglobin 26 pg (27-31); Mean Corpuscular Volume 79 fL (80-97); Nucleated Red Blood Cells % 0; Platelet Count 231 10^3/ul (150-450); Red Blood Count 2.83 10^6/ul (4.00-5.40); Red Cell Distribution Width 17 % (10.5-15); White Blood Count 8.6 10^3/ul (3.5-10.8)
[2018-02-25 06:41] LABS: EGFR Non-African American 31.6 (>60)
[2018-02-25] MEDS: Mometasone/Formoter 200/5 MDI INH SCH ×2 (08:16→20:21)
[2018-02-25] MEDS: Insulin LISPRO* 1 UNITS UNIT SUBCUT SCH ×3 (08:48→18:40)
[2018-02-25] MEDS: Furosemide IV* 10 MG/ML VIAL (40 MG) IV SLOW PU SCH ×2 (08:49→18:38)
[2018-02-25] MEDS: Metoprolol Tartrate TAB* 25 MG PO SCH (08:50)
[2018-02-25] MEDS: Multivitamins/Minerals TAB PO SCH (08:51)
[2018-02-25] MEDS: Ferrous Gluconate TAB* 324 MG TAB PO SCH ×2 (08:51→20:51)
[2018-02-25] MEDS: Citalopram TAB* 20 MG PO SCH (08:52)
[2018-02-25] MEDS: amLODIPine TAB* 5 MG PO SCH (08:52)
[2018-02-25] MEDS: Magnesium Oxide TAB* 400 MG PO SCH (08:52)
[2018-02-25] MEDS: Gabapentin CAP(*) 300 MG PO SCH ×2 (08:52→20:51)
[2018-02-25] MEDS: Fluticasone NASAL SPRAY 50MCG* 16 gm SPRAY BTL BOTH NARES SCH (08:53)
[2018-02-25] MEDS ORDERED: amLODIPine TAB* 5 MG PO SCH (09:00)
[2018-02-25] MEDS ORDERED: Spironolactone TAB* 25 MG PO SCH (09:00)
--- NOTE | 2018-02-25 13:20 | PN ---
Subjective Date of Service: 02/25/18 Interval History: Pt was on BIPAP last night, now to her baseline 02 at 2l. Denies dietary indiscretion, no CP. "All of a sudden when laying in bed got SOB" Objective Active Medications: Acetaminophen (Tylenol Tab*) 650 mg PO Q4H PRN PRN Reason: FEVER/PAIN Amlodipine Besylate (Norvasc Tab*) 7.5 mg PO DAILY [facility] Last Admin: 02/25/18 08:52 Dose: 7.5 mg Atorvastatin Calcium (Lipitor*) 20 mg PO 2100 [facility]; Protocol Brimonidine Tartrate (Alphagan P 0.15%(Nf)) 1 drop BOTH EYES 1100,2300 [facility] Last Admin: 02/25/18 11:44 Dose: 1 drop Citalopram Hydrobromide (Celexa Tab*) 20 mg PO QAM [facility] Last Admin: 02/25/18 08:52 Dose: 20 mg Dextrose (D50w Syringe 50 Ml*) 12.5 gm IV PUSH .FOR FS < 60 - SS PRN PRN Reason: FS < 60 Docusate Sodium (Colace Cap*) 100 mg PO BEDTIME [facility] Ferrous Gluconate (Fergon Tab*) 324 mg PO BID [facility] Last Admin: 02/25/18 08:51 Dose: 324 mg Fluticasone Propionate (Flonase Nasal [place] 50mcg*) 2 spray BOTH NARES QAM [facility] Last Admin: 02/25/18 08:53 Dose: 2 spray Furosemide (Lasix Iv*) 40 mg IV SLOW PU 0800,1700 [facility] Last Admin: 02/25/18 08:49 Dose: 40 mg Gabapentin (Neurontin Cap(*)) 300 mg PO Q12HR [facility] Last Admin: 02/25/18 08:52 Dose: 300 mg Heparin Sodium (Porcine) (Heparin Vial(*)) 5,000 units SUBCUT Q8HR [facility] Last Admin: 02/25/18 06:02 Dose: 5,000 units Insulin Glargine (Lantus(*)) 70 units SUBCUT BEDTIME [facility] Insulin Human Lispro (Humalog*) 0 units SUBCUT AC [facility]; Protocol Last Admin: 02/25/18 11:42 Dose: 6 units Levothyroxine Sodium (Synthroid Tab*) 50 mcg PO 0600 [facility] Last Admin: 07/10/18 06:02 Dose: 50 mcg Losartan Potassium (Cozaar Tab*) 50 mg PO Q12H [facility] Last Admin: 02/25/18 11:43 Dose: 50 mg Magnesium Oxide (Magox 400 Tab*) 800 mg PO DAILY [facility] Last Admin: 02/25/18 08:52 Dose: 800 mg Metoprolol Tartrate (Lopressor Tab*) 12.5 mg PO QAM [facility] Last Admin: 02/25/18 08:50 Dose: 12.5 mg Mometasone Furoate/Formoterol Fumar (Dulera 200/5 Mdi*) 2 puff INH BID [facility] Last Admin: 02/25/18 08:16 Dose: 2 puff Multivitamins/Minerals (Theragran/Minerals Tab*) 1 tab PO DAILY [facility] Last Admin: 02/25/18 08:51 Dose: 1 tab Omeprazole (Prilosec Cap*) 20 mg PO Q12H [facility] Last Admin: 02/25/18 11:43 Dose: 20 mg Ondansetron HCl (Zofran Inj*) 4 mg IV Q6H PRN PRN Reason: NAUSEA Senna (Senokot Tab*) 1 tab PO BEDTIME [facility] Spironolactone (Aldactone Tab*) 25 mg PO BID [facility] Last Admin: 02/25/18 08:53 Dose: 25 mg Vital Signs - 8 hr 02/25/18 02/25/18 02/25/18 05:31 05:45 06:00 Temperature 99.1 F 99.1 F 99.1 F Pulse Rate 59 61 61 Respiratory 20 17 17 Rate Blood Pressure 98/41 123/50 (mmHg) O2 Sat by Pulse 97 99 98 Oximetry 02/25/18 02/25/18 02/25/18 06:01 06:19 06:31 Temperature 99.1 F 99.1 F 99.1 F Pulse Rate 61 60 60 Respiratory 17 18 17 Rate Blood Pressure 120/56 109/46 104/47 (mmHg) O2 Sat by Pulse 99 98 98 Oximetry 02/25/18 02/25/18 02/25/18 06:46 07:00 07:01 Temperature 99.1 F 99.1 F 99.1 F Pulse Rate 60 58 59 Respiratory 18 17 18 Rate Blood Pressure 100/46 96/45 (mmHg) O2 Sat by Pulse 98 96 97 Oximetry 02/25/18 02/25/18 02/25/18 07:16 07:31 07:46 Temperature 99.1 F 99.1 F 99.0 F Pulse Rate 58 57 59 Respiratory 19 18 15 Rate Blood Pressure 103/43 98/45 106/46 (mmHg) O2 Sat by Pulse 98 96 98 Oximetry 02/25/18 02/25/18 02/25/18 08:00 08:01 08:06 Temperature 99.0 F 99.0 F 99.0 F Pulse Rate 57 57 61 Respiratory 18 19 16 Rate Blood Pressure 89/43 100/40 (mmHg) O2 Sat by Pulse 97 97 98 Oximetry 02/25/18 02/25/18 02/25/18 08:30 08:31 09:00 Temperature 99.0 F 98.8 F Pulse Rate 63 65 65 Respiratory 18 20 16 Rate Blood Pressure 111/47 (mmHg) O2 Sat by Pulse 97 97 97 Oximetry 02/25/18 02/25/18 02/25/18 09:01 09:31 10:00 Temperature 98.8 F 98.8 F 99.0 F Pulse Rate 65 58 56 Respiratory 23 17 16 Rate Blood Pressure 117/43 111/40 (mmHg) O2 Sat by Pulse 98 97 96 Oximetry 02/25/18 02/25/18 02/25/18 10:01 10:30 11:00 Temperature 99.0 F 99.0 F 99.0 F Pulse Rate 61 55 57 Respiratory 17 17 17 Rate Blood Pressure 97/43 99/44 (mmHg) O2 Sat by Pulse 97 98 96 Oximetry 02/25/18 11:01 Temperature 99.0 F Pulse Rate 57 Respiratory 17 Rate Blood Pressure 122/56 (mmHg) O2 Sat by Pulse 96 Oximetry Oxygen Devices in Use Now: Nasal Cannula Appearance: 62 yo F in nAD, aAOx3 Eyes: No Scleral Icterus, PERRLA Ears/Nose/Mouth/Throat: NL Teeth, Lips, Gums, Mucous Membranes Moist Neck: NL Appearance and Movements; NL JVP Respiratory: Symmetrical Chest Expansion and Respiratory Effort, - - crackles at b/l bases Cardiovascular: NL Sounds; No Murmurs; No JVD, RRR Abdominal: NL Sounds; No Tenderness; No Distention Lymphatic: No Cervical Adenopathy Extremities: No Clubbing, Cyanosis, - - trace leg edema b/l . L BKA Skin: No Rash or Ulcers, No Nodules or Sclerosis Neurological: Alert and Oriented x 3, - - R leg-unable to raise of bed, r handgrip at 4/5 Result Diagrams: 02/25/18 06:17 02/25/18 06:17 Additional Lab and Data: Lab Results 02/24/18 02/24/18 02/24/18 Range/Units 20:48 20:48 20:48 WBC 11.4 H (3.5-10.8) 10^3/ul RBC 3.43 L (4.00-5.40) 10^6/ul Hgb 8.5 L (12.0-16.0) g/dl Hct 27 L (35-47) % MCV 77 L (80-97) fL MCH 25 L (27-31) pg MCHC 32 (31-36) g/dl RDW 17 H (10.5-15) % Plt Count 291 (150-450) 10^3/ul MPV 8.3 (7.4-10.4) um3 Neut % (Auto) 88.3 H (38-83) % Lymph % (Auto) 4.5 L (25-47) % [place] % (Auto) 6.8 (0-7) % Eos % (Auto) 0.3 (0-6) % Baso % (Auto) 0.1 (0-2) % Absolute Neuts (auto) 10.0 H (1.5-7.7) 10^3/ul Absolute Lymphs (auto) 0.5 L (1.0-4.8) 10^3/ul Absolute Monos (auto) 0.8 (0-0.8) 10^3/ul Absolute Eos (auto) 0 (0-0.6) 10^3/ul Absolute Basos (auto) 0 (0-0.2) 10^3/ul Absolute Nucleated RBC 0 10^3/ul Nucleated RBC % 0.1 INR (Anticoag Therapy) (0.77-1.02) APTT (26.0-36.3) seconds Sodium 135 (135-145) mmol/L Potassium 4.6 (3.5-5.0) mmol/L Chloride 99 L (101-111) mmol/L Carbon Dioxide 26 (22-32) mmol/L Anion Gap 10 (2-11) mmol/L BUN 58 H (6-24) mg/dL Creatinine 1.75 H (0.51-0.95) mg/dL Est GFR ( Amer) 35.5 (>60) Est GFR (Non-Af Amer) 29.4 (>60) BUN/Creatinine Ratio 33.1 H (8-20) Glucose 146 H (70-100) mg/dL Lactic Acid 1.0 (0.5-2.0) mmol/L Calcium 9.4 (8.6-10.3) mg/dL Total Bilirubin 0.70 (0.2-1.0) mg/dL AST 12 L (13-39) U/L ALT 7 (7-52) U/L Alkaline Phosphatase 78 (34-104) U/L Troponin I 0.01 (<0.04) ng/mL C-Reactive Protein 22.85 H (<8.01) mg/L B-Natriuretic Peptide ( - 100) pg/mL Total Protein 8.0 (6.4-8.9) g/dL Albumin 3.8 (3.2-5.2) g/dL Globulin 4.2 H (2-4) g/dL Albumin/Globulin Ratio 0.9 L (1-3) 02/24/18 02/24/18 Range/Units 20:48 20:48 WBC (3.5-10.8) 10^3/ul RBC (4.00-5.40) 10^6/ul Hgb (12.0-16.0) g/dl Hct (35-47) % MCV (80-97) fL MCH (27-31) pg MCHC (31-36) g/dl RDW (10.5-15) % Plt Count (150-450) 10^3/ul MPV (7.4-10.4) um3 Neut % (Auto) (38-83) % Lymph % (Auto) (25-47) % [place] % (Auto) (0-7) % Eos % (Auto) (0-6) % Baso % (Auto) (0-2) % Absolute Neuts (auto) (1.5-7.7) 10^3/ul Absolute Lymphs (auto) (1.0-4.8) 10^3/ul Absolute Monos (auto) (0-0.8) 10^3/ul Absolute Eos (auto) (0-0.6) 10^3/ul Absolute Basos (auto) (0-0.2) 10^3/ul Absolute Nucleated RBC 10^3/ul Nucleated RBC % INR (Anticoag Therapy) 1.02 (0.77-1.02) APTT 28.6 (26.0-36.3) seconds Sodium (135-145) mmol/L Potassium (3.5-5.0) mmol/L Chloride (101-111) mmol/L Carbon Dioxide (22-32) mmol/L Anion Gap (2-11) mmol/L BUN (6-24) mg/dL Creatinine (0.51-0.95) mg/dL Est GFR ( Amer) (>60) Est GFR (Non-Af Amer) (>60) BUN/Creatinine Ratio (8-20) Glucose (70-100) mg/dL Lactic Acid (0.5-2.0) mmol/L Calcium (8.6-10.3) mg/dL Total Bilirubin (0.2-1.0) mg/dL AST (13-39) U/L ALT (7-52) U/L Alkaline Phosphatase (34-104) U/L Troponin I (<0.04) ng/mL C-Reactive Protein (<8.01) mg/L B-Natriuretic Peptide 494 H ( - 100) pg/mL Total Protein (6.4-8.9) g/dL Albumin (3.2-5.2) g/dL Globulin (2-4) g/dL Albumin/Globulin Ratio (1-3) Microbiology and Other Data: Microbiology 02/24/18 23:50 Nasal Screen MRSA (PCR) - Final Nasal Mrsa Not Detected Assess/Plan/Problems-Billing Assessment: Mrs. Francis is a 62yo F with PMH of type 2 DM, HTN, HLD, CVA with residual right hemiparesis, CAD, hypothyroidism, GERD, DVT, left BKA, chronic Villegas, chronic anemia, who presented to ED with c/o dyspnea, found to have CHF exacerbation. - Patient Problems (1) Acute and chronic respiratory failure Comment: - Secondary to CHF exacerbation. - Continue supplemental O2(at baseline 2 l today) -off BIPAP -check overnight pulse ox on 2 L 02 to r/o WINIFRED as cause of CHF (2) Acute diastolic (congestive) heart failure Comment: - diastolic CHF exacerbation improving, has diuresed well w/ IV lasix. - no reason for decompensation evident (3) Anemia Comment: chronic, stable under th care of hematology cont iron supplement (4) DVT prophylaxis Comment: - SQ heparin. (5) Type II diabetes mellitus Comment: cont Lantus and ISS (6) HLD (hyperlipidemia) Comment: Continue atorvastatin. (7) HTN (hypertension) Comment: - Continue amlodipine and metoprolol. (8) History of coronary artery disease Comment: Asymptomatic Continue metoprolol and statin. (9) Hypothyroidism Comment: - TSH 3.7 in 01/03 - Continue levothyroxine. (10) MOLLY (acute kidney injury) Comment: creat in 2017 at <1, steadily increasing this year slightly better with diuresis. cont to monailt. due to low SBP-will d/c aldactone and cont Lasix IV (11) Indwelling Villegas catheter present Comment: will check UA Status and Disposition: inpatient
[2018-02-25] MEDS: Furosemide IV* 10 MG/ML 2 ML VIAL (20 MG) IV SLOW PU ONE (19:29)
[2018-02-25] MEDS: Senna TAB PO SCH (20:51)
[2018-02-25] MEDS: Docusate CAP* 100 MG PO SCH (20:51)
[2018-02-25] MEDS: Atorvastatin* 20 MG TAB PO SCH (20:51)
[2018-02-25] MEDS: Insulin GLARGINE(*) 1 UNITS UNIT SUBCUT SCH (20:52)
[2018-02-26] MEDS: Omeprazole CAP* 20 MG PO SCH ×3 (00:02→21:01)
[2018-02-26] MEDS: Losartan TAB* 25 MG PO SCH ×3 (00:02→21:00)
[2018-02-26] MEDS: BRIMONIDINE BOTH EYES SCH ×3 (00:03→21:09)
[2018-02-26] MEDS ORDERED: TEMAZEPAM 7.5 MG PO PRN (00:08)
[2018-02-26] MEDS: Melatonin 3 MG TAB PO PRN ×2 (00:21→21:08)
[2018-02-26 04:45] LABS: Urine Appearance Cloudy; Urine Blood 2+ (Negative); Urine Color Yellow; Urine Ketones Negative (Negative); Urine Protein 2+(100 mg/dL) (Negative); Urine Red Blood Cell 3+(>10/hpf) (Absent); Urine Specific Gravity 1.012 (1.010-1.030); Urine Urobilinogen Negative (Negative); Urine White Blood Cell 3+(>20/hpf) (Absent)
[2018-02-26] MEDS: Levothyroxine TAB* 50 MCG TAB PO SCH (06:01)
[2018-02-26] MEDS: Heparin VIAL(*) 5000 UNITS/ML VIAL (FIVE THOUSAND) SUBCUT SCH ×3 (06:01→21:12)
[2018-02-26] MEDS: Mometasone/Formoter 200/5 MDI INH SCH ×2 (07:23→19:38)
[2018-02-26 08:03] LABS: EGFR Non-African American 29.6 (>60)
[2018-02-26] MEDS: Insulin LISPRO* 1 UNITS UNIT SUBCUT SCH ×3 (08:54→18:43)
[2018-02-26] MEDS: Furosemide IV* 10 MG/ML VIAL (40 MG) IV SLOW PU SCH ×2 (08:55→18:54)
[2018-02-26] MEDS: Magnesium Oxide TAB* 400 MG PO SCH (08:58)
[2018-02-26] MEDS: Multivitamins/Minerals TAB PO SCH (08:59)
[2018-02-26] MEDS: Ferrous Gluconate TAB* 324 MG TAB PO SCH ×2 (08:59→21:00)
[2018-02-26] MEDS: Gabapentin CAP(*) 300 MG PO SCH ×2 (08:59→21:00)
[2018-02-26] MEDS: Citalopram TAB* 20 MG PO SCH (08:59)
[2018-02-26] MEDS: Metoprolol Tartrate TAB* 25 MG PO SCH (09:00)
[2018-02-26] MEDS: amLODIPine TAB* 5 MG PO SCH (09:00)
[2018-02-26 09:50] LABS: ABS Basophils 0 10^3/ul (0-0.2); ABS Eosinophils 0.2 10^3/ul (0-0.6); ABS Monocytes 0.6 10^3/ul (0-0.8); ABS Nucleated RBC 0 10^3/ul; Eosinophil % 3.3 % (0-6); Hematocrit 21 % (35-47); Lymphocyte % 17.1 % (25-47); Mean Corpuscular HGB Conc 33 g/dl (31-36); Mean Corpuscular Hemoglobin 25 pg (27-31); Mean Corpuscular Volume 77 fL (80-97); Nucleated Red Blood Cells % 0.1; Platelet Count 218 10^3/ul (150-450); Red Blood Count 2.75 10^6/ul (4.00-5.40); Red Cell Distribution Width 17 % (10.5-15); White Blood Count 5.8 10^3/ul (3.5-10.8)
[2018-02-26] MEDS: Fluticasone NASAL SPRAY 50MCG* 16 gm SPRAY BTL BOTH NARES SCH (11:57)
[2018-02-26] MEDS ORDERED: Magnesium Hydroxide LIQ* 30 ML UDC PO ONE (14:28)
[2018-02-26] MEDS ORDERED: Furosemide IV* 10 MG/ML VIAL (40 MG) IV ONE (14:29)
--- NOTE | 2018-02-26 14:40 | PN ---
Subjective Date of Service: 02/26/18 Interval History: Pt feels well. SOB improved. Denies BRBPR, or melena, no BM today yet Objective Active Medications: Acetaminophen (Tylenol Tab*) 650 mg PO Q4H PRN PRN Reason: FEVER/PAIN Amlodipine Besylate (Norvasc Tab*) 7.5 mg PO DAILY [facility] Last Admin: 02/26/18 09:00 Dose: 7.5 mg Atorvastatin Calcium (Lipitor*) 20 mg PO 2100 [facility]; Protocol Last Admin: 02/25/18 20:51 Dose: 20 mg Brimonidine Tartrate (Alphagan P 0.15%(Nf)) 1 drop BOTH EYES BID [facility] Last Admin: 02/26/18 11:57 Dose: 1 drop Citalopram Hydrobromide (Celexa Tab*) 20 mg PO QAM [facility] Last Admin: 02/26/18 08:59 Dose: 20 mg Dextrose (D50w Syringe 50 Ml*) 12.5 gm IV PUSH .FOR FS < 60 - SS PRN PRN Reason: FS < 60 Docusate Sodium (Colace Cap*) 100 mg PO BEDTIME [facility] Last Admin: 02/25/18 20:51 Dose: 100 mg Ferrous Gluconate (Fergon Tab*) 324 mg PO BID [facility] Last Admin: 02/26/18 08:59 Dose: 324 mg Fluticasone Propionate (Flonase Nasal [place] 50mcg*) 2 spray BOTH NARES QAM [facility] Last Admin: 02/26/18 11:57 Dose: 2 spray Furosemide (Lasix Iv*) 40 mg IV SLOW PU 0800,1700 [facility] Last Admin: 02/26/18 08:55 Dose: 40 mg Gabapentin (Neurontin Cap(*)) 300 mg PO Q12HR [facility] Last Admin: 02/26/18 08:59 Dose: 300 mg Heparin Sodium (Porcine) (Heparin Vial(*)) 5,000 units SUBCUT Q8HR [facility] Last Admin: 02/26/18 13:26 Dose: 5,000 units Insulin Glargine (Lantus(*)) 70 units SUBCUT BEDTIME [facility] Last Admin: 02/25/18 20:52 Dose: 70 unit Insulin Human Lispro (Humalog*) 0 units SUBCUT AC [facility]; Protocol Last Admin: 02/26/18 13:25 Dose: 6 units Levothyroxine Sodium (Synthroid Tab*) 50 mcg PO 0600 [facility] Last Admin: 02/26/18 06:01 Dose: 50 mcg Losartan Potassium (Cozaar Tab*) 50 mg PO BID [facility] Last Admin: 02/26/18 08:58 Dose: 50 mg Magnesium Oxide (Magox 400 Tab*) 800 mg PO DAILY [facility] Last Admin: 02/26/18 08:58 Dose: 800 mg Melatonin (Melatonin) 3 mg PO BEDTIME PRN PRN Reason: INSOMNIA Last Admin: 02/26/18 00:21 Dose: 3 mg Metoprolol Tartrate (Lopressor Tab*) 12.5 mg PO QAM [facility] Last Admin: 02/26/18 09:00 Dose: 12.5 mg Mometasone Furoate/Formoterol Fumar (Dulera 200/5 Mdi*) 2 puff INH BID [facility] Last Admin: 02/26/18 07:23 Dose: 2 puff Multivitamins/Minerals (Theragran/Minerals Tab*) 1 tab PO DAILY [facility] Last Admin: 02/26/18 08:59 Dose: 1 tab Omeprazole (Prilosec Cap*) 20 mg PO BID [facility] Last Admin: 02/26/18 10:31 Dose: 20 mg Ondansetron HCl (Zofran Inj*) 4 mg IV Q6H PRN PRN Reason: NAUSEA Senna (Senokot Tab*) 1 tab PO BEDTIME [facility] Last Admin: 02/25/18 20:51 Dose: Not Given Vital Signs - 8 hr 02/26/18 02/26/18 02/26/18 07:46 08:00 08:59 Temperature 97.3 F Pulse Rate 61 Respiratory 16 18 18 Rate Blood Pressure 105/36 (mmHg) O2 Sat by Pulse 95 Oximetry Oxygen Devices in Use Now: Nasal Cannula Appearance: 62 yo F in nAD, AAOx3 Eyes: No Scleral Icterus, PERRLA Ears/Nose/Mouth/Throat: NL Teeth, Lips, Gums, Mucous Membranes Moist Neck: NL Appearance and Movements; NL JVP, Trachea Midline Respiratory: Symmetrical Chest Expansion and Respiratory Effort, Clear to Auscultation, - - crackles b/l lower to mid lungs Cardiovascular: NL Sounds; No Murmurs; No JVD, RRR Abdominal: NL Sounds; No Tenderness; No Distention Lymphatic: No Cervical Adenopathy Extremities: No Clubbing, Cyanosis, - - trace leg edema b/l, s/p L BKA Skin: No Nodules or Sclerosis Neurological: Alert and Oriented x 3, - - UE at 4+/5, R LE at 3+/5, speech clear Result Diagrams: 02/27/18 06:50 02/27/18 06:50 Additional Lab and Data: Lab Results 02/24/18 02/24/18 02/24/18 Range/Units 20:48 20:48 20:48 WBC 11.4 H (3.5-10.8) 10^3/ul RBC 3.43 L (4.00-5.40) 10^6/ul Hgb 8.5 L (12.0-16.0) g/dl Hct 27 L (35-47) % MCV 77 L (80-97) fL MCH 25 L (27-31) pg MCHC 32 (31-36) g/dl RDW 17 H (10.5-15) % Plt Count 291 (150-450) 10^3/ul MPV 8.3 (7.4-10.4) um3 Neut % (Auto) 88.3 H (38-83) % Lymph % (Auto) 4.5 L (25-47) % [place] % (Auto) 6.8 (0-7) % Eos % (Auto) 0.3 (0-6) % Baso % (Auto) 0.1 (0-2) % Absolute Neuts (auto) 10.0 H (1.5-7.7) 10^3/ul Absolute Lymphs (auto) 0.5 L (1.0-4.8) 10^3/ul Absolute Monos (auto) 0.8 (0-0.8) 10^3/ul Absolute Eos (auto) 0 (0-0.6) 10^3/ul Absolute Basos (auto) 0 (0-0.2) 10^3/ul Absolute Nucleated RBC 0 10^3/ul Nucleated RBC % 0.1 INR (Anticoag Therapy) (0.77-1.02) APTT (26.0-36.3) seconds Sodium 135 (135-145) mmol/L Potassium 4.6 (3.5-5.0) mmol/L Chloride 99 L (101-111) mmol/L Carbon Dioxide 26 (22-32) mmol/L Anion Gap 10 (2-11) mmol/L BUN 58 H (6-24) mg/dL Creatinine 1.75 H (0.51-0.95) mg/dL Est GFR ( Amer) 35.5 (>60) Est GFR (Non-Af Amer) 29.4 (>60) BUN/Creatinine Ratio 33.1 H (8-20) Glucose 146 H (70-100) mg/dL Lactic Acid 1.0 (0.5-2.0) mmol/L Calcium 9.4 (8.6-10.3) mg/dL Total Bilirubin 0.70 (0.2-1.0) mg/dL AST 12 L (13-39) U/L ALT 7 (7-52) U/L Alkaline Phosphatase 78 (34-104) U/L Troponin I 0.01 (<0.04) ng/mL C-Reactive Protein 22.85 H (<8.01) mg/L B-Natriuretic Peptide ( - 100) pg/mL Total Protein 8.0 (6.4-8.9) g/dL Albumin 3.8 (3.2-5.2) g/dL Globulin 4.2 H (2-4) g/dL Albumin/Globulin Ratio 0.9 L (1-3) 02/24/18 02/24/18 Range/Units 20:48 20:48 WBC (3.5-10.8) 10^3/ul RBC (4.00-5.40) 10^6/ul Hgb (12.0-16.0) g/dl Hct (35-47) % MCV (80-97) fL MCH (27-31) pg MCHC (31-36) g/dl RDW (10.5-15) % Plt Count (150-450) 10^3/ul MPV (7.4-10.4) um3 Neut % (Auto) (38-83) % Lymph % (Auto) (25-47) % [place] % (Auto) (0-7) % Eos % (Auto) (0-6) % Baso % (Auto) (0-2) % Absolute Neuts (auto) (1.5-7.7) 10^3/ul Absolute Lymphs (auto) (1.0-4.8) 10^3/ul Absolute Monos (auto) (0-0.8) 10^3/ul Absolute Eos (auto) (0-0.6) 10^3/ul Absolute Basos (auto) (0-0.2) 10^3/ul Absolute Nucleated RBC 10^3/ul Nucleated RBC % INR (Anticoag Therapy) 1.02 (0.77-1.02) APTT 28.6 (26.0-36.3) seconds Sodium (135-145) mmol/L Potassium (3.5-5.0) mmol/L Chloride (101-111) mmol/L Carbon Dioxide (22-32) mmol/L Anion Gap (2-11) mmol/L BUN (6-24) mg/dL Creatinine (0.51-0.95) mg/dL Est GFR ( Amer) (>60) Est GFR (Non-Af Amer) (>60) BUN/Creatinine Ratio (8-20) Glucose (70-100) mg/dL Lactic Acid (0.5-2.0) mmol/L Calcium (8.6-10.3) mg/dL Total Bilirubin (0.2-1.0) mg/dL AST (13-39) U/L ALT (7-52) U/L Alkaline Phosphatase (34-104) U/L Troponin I (<0.04) ng/mL C-Reactive Protein (<8.01) mg/L B-Natriuretic Peptide 494 H ( - 100) pg/mL Total Protein (6.4-8.9) g/dL Albumin (3.2-5.2) g/dL Globulin (2-4) g/dL Albumin/Globulin Ratio (1-3) Microbiology and Other Data: Microbiology 02/24/18 23:50 Nasal Screen MRSA (PCR) - Final Nasal Mrsa Not Detected Assess/Plan/Problems-Billing Assessment: Mrs. Francis is a 62yo F with PMH of type 2 DM, HTN, HLD, CVA with residual right hemiparesis, CAD, hypothyroidism, GERD, DVT, left BKA, chronic Villegas, chronic anemia, who presented to ED with c/o dyspnea, found to have CHF exacerbation. - Patient Problems (1) Acute and chronic respiratory failure Comment: - Secondary to CHF exacerbation. - Continue supplemental O2(at baseline 2 l today) -off BIPAP -overnight pulse ox on 2 L 02 did not show significant desaturations (2) Acute diastolic (congestive) heart failure Comment: - diastolic CHF exacerbation improving, has diuresed well w/ IV lasix. will cont IV diurestic x one more day - no reason for decompensation evident (3) Anemia Comment: chronic, with worsening. Under the care of hematology in the past cont iron supplement will recheck anemia work-up, including stool guaiac (4) Type II diabetes mellitus Comment: cont Lantus and ISS (5) HLD (hyperlipidemia) Comment: Continue atorvastatin. (6) HTN (hypertension) Comment: - Continue metoprolol.Holding norvasc due to low SBP's (7) History of coronary artery disease Comment: Asymptomatic Continue metoprolol and statin. (8) Hypothyroidism Comment: - TSH 3.7 in 01/03 - Continue levothyroxine. (9) MOLLY (acute kidney injury) Comment: creat in 2017 at <1, steadily increasing this year Slightly better with diuresis. Cont to monitor. Due to low SBP- aldactone was d/ c'd (10) Indwelling Villegas catheter present Comment: UA positive for UTI will replace Villegas, start Ceftriaxone (11) DVT prophylaxis Comment: - SQ heparin. Status and Disposition: inpatient
[2018-02-26] MEDS: cefTRIAXone(*) 1 GM in NS 0.9% 50 ML* 50 ML IVPB SCH (16:49)
[2018-02-26] MEDS: Atorvastatin* 20 MG TAB PO SCH (21:00)
[2018-02-26] MEDS: Insulin GLARGINE(*) 1 UNITS UNIT SUBCUT SCH (21:01)
[2018-02-26] MEDS: Senna TAB PO SCH (21:01)
[2018-02-26] MEDS: Docusate CAP* 100 MG PO SCH (21:01)
[2018-02-27] MEDS: Levothyroxine TAB* 50 MCG TAB PO SCH (05:53)
[2018-02-27] MEDS: Heparin VIAL(*) 5000 UNITS/ML VIAL (FIVE THOUSAND) SUBCUT SCH ×3 (05:53→22:45)
[2018-02-27 07:22] LABS: ABS Basophils 0 10^3/ul (0-0.2); ABS Eosinophils 0.3 10^3/ul (0-0.6); ABS Lymphocytes 0.8 10^3/ul (1.0-4.8); ABS Monocytes 0.5 10^3/ul (0-0.8); ABS Nucleated RBC 0 10^3/ul; Eosinophil % 5.4 % (0-6); Hematocrit 21 % (35-47); Hemoglobin 6.9 g/dl (12.0-16.0); Lymphocyte % 15.1 % (25-47); Mean Corpuscular HGB Conc 33 g/dl (31-36); Mean Corpuscular Hemoglobin 25 pg (27-31); Mean Corpuscular Volume 77 fL (80-97); Mean Platelet Volume 8.3 um3 (7.4-10.4); Nucleated Red Blood Cells % 0; Platelet Count 222 10^3/ul (150-450); Red Blood Count 2.76 10^6/ul (4.00-5.40); Red Cell Distribution Width 16 % (10.5-15); White Blood Count 5.6 10^3/ul (3.5-10.8)
[2018-02-27 07:41] LABS: EGFR Non-African American 29.6 (>60)
[2018-02-27] MEDS: Mometasone/Formoter 200/5 MDI INH SCH ×2 (08:15→19:26)
[2018-02-27] MEDS ORDERED: Albuterol/Ipratropium NEB.SOL* Albuterol 2.5 MG/Ipratropium 0.5 MG 3 ML ONE (08:36)
[2018-02-27] MEDS: Albuterol/Ipratropium NEB.SOL* Albuterol 2.5 MG/Ipratropium 0.5 MG 3 ML INH SCH ×4 (08:42→19:26)
[2018-02-27] MEDS: Insulin LISPRO* 1 UNITS UNIT SUBCUT SCH ×3 (09:38→18:07)
[2018-02-27] MEDS: Ferrous Gluconate TAB* 324 MG TAB PO SCH ×2 (09:39→22:44)
[2018-02-27] MEDS: Furosemide IV* 10 MG/ML VIAL (40 MG) IV SLOW PU SCH ×2 (09:39→18:07)
[2018-02-27] MEDS: Losartan TAB* 25 MG PO SCH ×2 (09:39→22:43)
[2018-02-27] MEDS: Omeprazole CAP* 20 MG PO SCH ×2 (09:39→22:44)
[2018-02-27] MEDS: Gabapentin CAP(*) 300 MG PO SCH ×2 (09:39→22:43)
[2018-02-27] MEDS: Citalopram TAB* 20 MG PO SCH (09:39)
[2018-02-27] MEDS: Metoprolol Tartrate TAB* 25 MG PO SCH (09:40)
[2018-02-27] MEDS: Magnesium Oxide TAB* 400 MG PO SCH (09:40)
[2018-02-27] MEDS: Multivitamins/Minerals TAB PO SCH (09:40)
[2018-02-27] MEDS: Fluticasone NASAL SPRAY 50MCG* 16 gm SPRAY BTL BOTH NARES SCH (13:17)
[2018-02-27] MEDS: BRIMONIDINE BOTH EYES SCH ×2 (13:17→22:45)
[2018-02-27] MEDS ORDERED: Magnesium CITRATE* 300 ML BTL PO ONE (13:49)
--- NOTE | 2018-02-27 15:26 | PN ---
Subjective Date of Service: 02/27/18 Interval History: Pt was wheezing this AM , better after duoneb. No BM x 3 days, denied abd pain, melena, BRBPR Objective Active Medications: Acetaminophen (Tylenol Tab*) 650 mg PO Q4H PRN PRN Reason: FEVER/PAIN Albuterol/Ipratropium (Duoneb (Albuterol 2.5 Mg/Ipratropium 0.5 Mg)) 1 neb INH Q4H [facility] Last Admin: 02/27/18 14:45 Dose: Not Given Atorvastatin Calcium (Lipitor*) 20 mg PO 2100 [facility]; Protocol Last Admin: 02/26/18 21:00 Dose: 20 mg Brimonidine Tartrate (Alphagan P 0.15%(Nf)) 1 drop BOTH EYES BID [facility] Last Admin: 02/27/18 13:17 Dose: 1 drop Citalopram Hydrobromide (Celexa Tab*) 20 mg PO QAM [facility] Last Admin: 02/27/18 09:39 Dose: 20 mg Dextrose (D50w Syringe 50 Ml*) 12.5 gm IV PUSH .FOR FS < 60 - SS PRN PRN Reason: FS < 60 Docusate Sodium (Colace Cap*) 100 mg PO BEDTIME [facility] Last Admin: 02/26/18 21:01 Dose: 100 mg Ferrous Gluconate (Fergon Tab*) 324 mg PO BID [facility] Last Admin: 02/27/18 09:39 Dose: 324 mg Fluticasone Propionate (Flonase Nasal [place] 50mcg*) 2 spray BOTH NARES QAM [facility] Last Admin: 02/27/18 13:17 Dose: 2 spray Furosemide (Lasix Iv*) 40 mg IV SLOW PU 0800,1700 [facility] Last Admin: 02/27/18 09:39 Dose: 40 mg Gabapentin (Neurontin Cap(*)) 300 mg PO Q12HR [facility] Last Admin: 02/27/18 09:39 Dose: 300 mg Heparin Sodium (Porcine) (Heparin Vial(*)) 5,000 units SUBCUT Q8HR [facility] Last Admin: 02/27/18 13:17 Dose: 5,000 units Insulin Glargine (Lantus(*)) 70 units SUBCUT BEDTIME [facility] Last Admin: 02/26/18 21:01 Dose: 70 unit Insulin Human Lispro (Humalog*) 0 units SUBCUT AC [facility]; Protocol Last Admin: 02/27/18 13:16 Dose: 6 units Levothyroxine Sodium (Synthroid Tab*) 50 mcg PO 0600 [facility] Last Admin: 02/27/18 05:53 Dose: 50 mcg Losartan Potassium (Cozaar Tab*) 50 mg PO BID [facility] Last Admin: 02/27/18 09:39 Dose: 50 mg Magnesium Oxide (Magox 400 Tab*) 800 mg PO DAILY [facility] Last Admin: 02/27/18 09:40 Dose: 800 mg Melatonin (Melatonin) 3 mg PO BEDTIME PRN PRN Reason: INSOMNIA Last Admin: 02/26/18 21:08 Dose: 3 mg Metolazone (Zaroxolyn Tab*) 5 mg PO ONCE ONE Stop: 02/27/18 16:31 Metoprolol Tartrate (Lopressor Tab*) 12.5 mg PO QAM [facility] Last Admin: 02/27/18 09:40 Dose: 12.5 mg Mometasone Furoate/Formoterol Fumar (Dulera 200/5 Mdi*) 2 puff INH BID [facility] Last Admin: 02/27/18 08:15 Dose: 2 puff Multivitamins/Minerals (Theragran/Minerals Tab*) 1 tab PO DAILY [facility] Last Admin: 02/27/18 09:40 Dose: 1 tab Omeprazole (Prilosec Cap*) 20 mg PO BID [facility] Last Admin: 02/27/18 09:39 Dose: 20 mg Ondansetron HCl (Zofran Inj*) 4 mg IV Q6H PRN PRN Reason: NAUSEA Senna (Senokot Tab*) 1 tab PO BEDTIME [facility] Last Admin: 02/26/18 21:01 Dose: 1 tab Vital Signs - 8 hr 02/27/18 02/27/18 02/27/18 07:45 07:50 08:19 Temperature 98.3 F Pulse Rate 59 60 Respiratory 17 20 20 Rate Blood Pressure 128/44 (mmHg) O2 Sat by Pulse 96 93 Oximetry 02/27/18 02/27/18 02/27/18 08:46 09:39 11:25 Temperature 98.2 F Pulse Rate 63 59 Respiratory 20 16 20 Rate Blood Pressure 117/42 (mmHg) O2 Sat by Pulse 93 96 Oximetry Oxygen Devices in Use Now: Nasal Cannula Appearance: 62 yo F in nAD, aAOx3 Eyes: No Scleral Icterus, PERRLA Ears/Nose/Mouth/Throat: NL Teeth, Lips, Gums, Mucous Membranes Moist Neck: NL Appearance and Movements; NL JVP, Trachea Midline Respiratory: Symmetrical Chest Expansion and Respiratory Effort, - - rales at b/ l bases, mid lung wheezes Cardiovascular: NL Sounds; No Murmurs; No JVD, RRR Abdominal: NL Sounds; No Tenderness; No Distention, No Hepatosplenomegaly Lymphatic: No Cervical Adenopathy Extremities: No Clubbing, Cyanosis, - - mile b/l leg edema s/p BKA on left Skin: No Rash or Ulcers, No Nodules or Sclerosis Neurological: Alert and Oriented x 3, - - R arm at 4+/5, R leg at 3+/5 Result Diagrams: 02/27/18 06:50 02/27/18 06:50 Additional Lab and Data: Lab Results 02/24/18 02/24/18 02/24/18 Range/Units 20:48 20:48 20:48 WBC 11.4 H (3.5-10.8) 10^3/ul RBC 3.43 L (4.00-5.40) 10^6/ul Hgb 8.5 L (12.0-16.0) g/dl Hct 27 L (35-47) % MCV 77 L (80-97) fL MCH 25 L (27-31) pg MCHC 32 (31-36) g/dl RDW 17 H (10.5-15) % Plt Count 291 (150-450) 10^3/ul MPV 8.3 (7.4-10.4) um3 Neut % (Auto) 88.3 H (38-83) % Lymph % (Auto) 4.5 L (25-47) % [place] % (Auto) 6.8 (0-7) % Eos % (Auto) 0.3 (0-6) % Baso % (Auto) 0.1 (0-2) % Absolute Neuts (auto) 10.0 H (1.5-7.7) 10^3/ul Absolute Lymphs (auto) 0.5 L (1.0-4.8) 10^3/ul Absolute Monos (auto) 0.8 (0-0.8) 10^3/ul Absolute Eos (auto) 0 (0-0.6) 10^3/ul Absolute Basos (auto) 0 (0-0.2) 10^3/ul Absolute Nucleated RBC 0 10^3/ul Nucleated RBC % 0.1 INR (Anticoag Therapy) (0.77-1.02) APTT (26.0-36.3) seconds Sodium 135 (135-145) mmol/L Potassium 4.6 (3.5-5.0) mmol/L Chloride 99 L (101-111) mmol/L Carbon Dioxide 26 (22-32) mmol/L Anion Gap 10 (2-11) mmol/L BUN 58 H (6-24) mg/dL Creatinine 1.75 H (0.51-0.95) mg/dL Est GFR ( Amer) 35.5 (>60) Est GFR (Non-Af Amer) 29.4 (>60) BUN/Creatinine Ratio 33.1 H (8-20) Glucose 146 H (70-100) mg/dL Lactic Acid 1.0 (0.5-2.0) mmol/L Calcium 9.4 (8.6-10.3) mg/dL Total Bilirubin 0.70 (0.2-1.0) mg/dL AST 12 L (13-39) U/L ALT 7 (7-52) U/L Alkaline Phosphatase 78 (34-104) U/L Troponin I 0.01 (<0.04) ng/mL C-Reactive Protein 22.85 H (<8.01) mg/L B-Natriuretic Peptide ( - 100) pg/mL Total Protein 8.0 (6.4-8.9) g/dL Albumin 3.8 (3.2-5.2) g/dL Globulin 4.2 H (2-4) g/dL Albumin/Globulin Ratio 0.9 L (1-3) 02/24/18 02/24/18 Range/Units 20:48 20:48 WBC (3.5-10.8) 10^3/ul RBC (4.00-5.40) 10^6/ul Hgb (12.0-16.0) g/dl Hct (35-47) % MCV (80-97) fL MCH (27-31) pg MCHC (31-36) g/dl RDW (10.5-15) % Plt Count (150-450) 10^3/ul MPV (7.4-10.4) um3 Neut % (Auto) (38-83) % Lymph % (Auto) (25-47) % [place] % (Auto) (0-7) % Eos % (Auto) (0-6) % Baso % (Auto) (0-2) % Absolute Neuts (auto) (1.5-7.7) 10^3/ul Absolute Lymphs (auto) (1.0-4.8) 10^3/ul Absolute Monos (auto) (0-0.8) 10^3/ul Absolute Eos (auto) (0-0.6) 10^3/ul Absolute Basos (auto) (0-0.2) 10^3/ul Absolute Nucleated RBC 10^3/ul Nucleated RBC % INR (Anticoag Therapy) 1.02 (0.77-1.02) APTT 28.6 (26.0-36.3) seconds Sodium (135-145) mmol/L Potassium (3.5-5.0) mmol/L Chloride (101-111) mmol/L Carbon Dioxide (22-32) mmol/L Anion Gap (2-11) mmol/L BUN (6-24) mg/dL Creatinine (0.51-0.95) mg/dL Est GFR ( Amer) (>60) Est GFR (Non-Af Amer) (>60) BUN/Creatinine Ratio (8-20) Glucose (70-100) mg/dL Lactic Acid (0.5-2.0) mmol/L Calcium (8.6-10.3) mg/dL Total Bilirubin (0.2-1.0) mg/dL AST (13-39) U/L ALT (7-52) U/L Alkaline Phosphatase (34-104) U/L Troponin I (<0.04) ng/mL C-Reactive Protein (<8.01) mg/L B-Natriuretic Peptide 494 H ( - 100) pg/mL Total Protein (6.4-8.9) g/dL Albumin (3.2-5.2) g/dL Globulin (2-4) g/dL Albumin/Globulin Ratio (1-3) Microbiology and Other Data: Microbiology 07/09/18 23:50 Nasal Screen MRSA (PCR) - Final Nasal Mrsa Not Detected Assess/Plan/Problems-Billing Assessment: Mrs. Francis is a 62yo F with PMH of type 2 DM, HTN, HLD, CVA with residual right hemiparesis, CAD, hypothyroidism, GERD, DVT, left BKA, chronic Villegas, chronic anemia, who presented to ED with c/o dyspnea, found to have CHF exacerbation. - Patient Problems (1) Acute and chronic respiratory failure Comment: - Secondary to CHF exacerbation. - Continue supplemental O2(at baseline 2 l today) -off BIPAP -overnight pulse ox on 2 L 02 did not show significant desaturations -chito add on Zarozolyn to IV Lasix, still significant rales (2) Acute diastolic (congestive) heart failure Comment: - diastolic CHF exacerbation improving, has diuresed well w/ IV lasix. will cont IV diuretc , adding Zaroxolyn - no reason for decompensation evident (3) Anemia Comment: chronic, with worsening. Under the care of hematology in the past despite iron supplement, iron levels low. Will transfuse 1 U PRBC today, if tolerated well, may be able to do iron infusion tomorrow Stool guaiac pending (4) Type II diabetes mellitus Comment: cont Lantus and ISS (5) HLD (hyperlipidemia) Comment: Continue atorvastatin. (6) HTN (hypertension) Comment: - Continue metoprolol.Holding norvasc due to low SBP's (7) History of coronary artery disease Comment: Asymptomatic Continue metoprolol and statin. (8) Hypothyroidism Comment: - TSH 3.7 in 01/03 - Continue levothyroxine. (9) MOLLY (acute kidney injury) Comment: creat in 2017 at <1, steadily increasing this year Slightly better with diuresis. Cont to monitor. Due to low SBP- aldactone was d/ c'd (10) COPD (chronic obstructive pulmonary disease) Comment: in mild exacerbation today. Cont Dulera, started duonebs. No steroids du to r/o GI bleed w/up ongoing (11) Indwelling Villegas catheter present Comment: UA abnormal , but urine cx did not grow any significant pathogens. Villegas exchanged on 02/26/18 d/c Ceftriaxone (12) DVT prophylaxis Comment: - SQ heparin. Status and Disposition: inpatient
[2018-02-27] MEDS: cefTRIAXone(*) 1 GM in NS 0.9% 50 ML* 50 ML IVPB SCH (15:34)
[2018-02-27] MEDS ORDERED: Metolazone TAB* 5 MG PO ONE (16:30)
[2018-02-27] MEDS: Atorvastatin* 20 MG TAB PO SCH (22:43)
[2018-02-27] MEDS: Melatonin 3 MG TAB PO PRN (22:44)
[2018-02-27] MEDS: Docusate CAP* 100 MG PO SCH (22:44)
[2018-02-27] MEDS: Insulin GLARGINE(*) 1 UNITS UNIT SUBCUT SCH (22:45)
[2018-02-27] MEDS: Senna TAB PO SCH (22:45)
[2018-02-28] MEDS: Albuterol/Ipratropium NEB.SOL* Albuterol 2.5 MG/Ipratropium 0.5 MG 3 ML INH SCH ×3 (02:14→07:03)
[2018-02-28] MEDS: Levothyroxine TAB* 50 MCG TAB PO SCH (06:00)
[2018-02-28] MEDS: Heparin VIAL(*) 5000 UNITS/ML VIAL (FIVE THOUSAND) SUBCUT SCH ×3 (06:00→22:39)
[2018-02-28] MEDS: Mometasone/Formoter 200/5 MDI INH SCH ×2 (07:06→20:47)
[2018-02-28 07:21] LABS: Hematocrit 24 % (35-47); Hemoglobin 7.8 g/dl (12.0-16.0); Mean Corpuscular HGB Conc 33 g/dl (31-36); Mean Corpuscular Hemoglobin 26 pg (27-31); Mean Corpuscular Volume 79 fL (80-97); Mean Platelet Volume 8.6 um3 (7.4-10.4); Platelet Count 244 10^3/ul (150-450); Red Blood Count 3.03 10^6/ul (4.00-5.40); Red Cell Distribution Width 18 % (10.5-15); White Blood Count 5.8 10^3/ul (3.5-10.8)
[2018-02-28] MEDS: Omeprazole CAP* 20 MG PO SCH ×2 (08:23→22:41)
[2018-02-28] MEDS: Furosemide IV* 10 MG/ML VIAL (40 MG) IV SLOW PU SCH ×2 (08:23→17:30)
[2018-02-28] MEDS: Metoprolol Tartrate TAB* 25 MG PO SCH (08:23)
[2018-02-28] MEDS: Ferrous Gluconate TAB* 324 MG TAB PO SCH ×2 (08:23→22:40)
[2018-02-28] MEDS: Gabapentin CAP(*) 300 MG PO SCH ×2 (08:23→22:39)
[2018-02-28] MEDS: Insulin LISPRO* 1 UNITS UNIT SUBCUT SCH ×3 (08:23→17:30)
[2018-02-28] MEDS: Magnesium Oxide TAB* 400 MG PO SCH (08:23)
[2018-02-28] MEDS: BRIMONIDINE BOTH EYES SCH ×2 (08:23→22:39)
[2018-02-28] MEDS: Citalopram TAB* 20 MG PO SCH (08:23)
[2018-02-28] MEDS: Losartan TAB* 25 MG PO SCH ×2 (08:23→22:39)
[2018-02-28] MEDS: Multivitamins/Minerals TAB PO SCH (08:23)
[2018-02-28] MEDS: Fluticasone NASAL SPRAY 50MCG* 16 gm SPRAY BTL BOTH NARES SCH (08:23)
[2018-02-28] MEDS ORDERED: Sodium Polystyrene ORAL.SOL* 15 GM/60 ML BTL PO ONE (08:36)
[2018-02-28] MEDS ORDERED: Metolazone TAB* 5 MG PO ONE (10:00)
[2018-02-28] MEDS ORDERED: Furosemide IV* 10 MG/ML VIAL (40 MG) IV ONE (11:00)
[2018-02-28] MEDS ORDERED: Albuterol/Ipratropium NEB.SOL* Albuterol 2.5 MG/Ipratropium 0.5 MG 3 ML INH SCH (13:00)
[2018-02-28] MEDS ORDERED: Ferric Gluconate IV* 100 MG in NS 0.9% 100 ML* 100 ML IVPB ONE (13:03)
[2018-02-28] MEDS ORDERED: Ferric Gluconate IV* 25 MG in NS 0.9% 50 ML* 50 ML IVPB ONE (13:03)
--- NOTE | 2018-02-28 13:12 | PN ---
Subjective Date of Service: 02/28/18 Interval History: Pt feels better. Still constipated, but just received Kayexalate Objective Active Medications: Acetaminophen (Tylenol Tab*) 650 mg PO Q4H PRN PRN Reason: FEVER/PAIN Albuterol/Ipratropium (Duoneb (Albuterol 2.5 Mg/Ipratropium 0.5 Mg)) 1 neb INH Q6H PRN PRN Reason: SOB/WHEEZING Atorvastatin Calcium (Lipitor*) 20 mg PO 2100 [facility]; Protocol Last Admin: 02/27/18 22:43 Dose: 20 mg Brimonidine Tartrate (Alphagan P 0.15%(Nf)) 1 drop BOTH EYES BID [facility] Last Admin: 02/28/18 08:23 Dose: 1 drop Citalopram Hydrobromide (Celexa Tab*) 20 mg PO QAM [facility] Last Admin: 02/28/18 08:23 Dose: 20 mg Dextrose (D50w Syringe 50 Ml*) 12.5 gm IV PUSH .FOR FS < 60 - SS PRN PRN Reason: FS < 60 Docusate Sodium (Colace Cap*) 100 mg PO BEDTIME [facility] Last Admin: 02/27/18 22:44 Dose: 100 mg Ferrous Gluconate (Fergon Tab*) 324 mg PO BID [facility] Last Admin: 02/28/18 08:23 Dose: 324 mg Fluticasone Propionate (Flonase Nasal [place] 50mcg*) 2 spray BOTH NARES QAM [facility] Last Admin: 02/28/18 08:23 Dose: 2 spray Furosemide (Lasix Iv*) 60 mg IV SLOW PU 0800,1700 [facility] Gabapentin (Neurontin Cap(*)) 300 mg PO Q12HR [facility] Last Admin: 02/28/18 08:23 Dose: 300 mg Heparin Sodium (Porcine) (Heparin Vial(*)) 5,000 units SUBCUT Q8HR [facility] Last Admin: 02/28/18 12:49 Dose: 5,000 units Ferric Sodium Gluconate (Complex 25 mg/ Sodium Chloride) 52 mls @ 52 mls/hr IVPB ONCE ONE Stop: 02/28/18 14:02 Ferric Sodium Gluconate Complex 100 mg/ Sodium Chloride 108 mls @ 0 mls/hr IVPB ONCE ONE Stop: 02/28/18 13:04 Insulin Glargine (Lantus(*)) 75 units SUBCUT BEDTIME [facility] Insulin Human Lispro (Humalog*) 0 units SUBCUT AC [facility]; Protocol Last Admin: 02/28/18 12:48 Dose: 3 units Levothyroxine Sodium (Synthroid Tab*) 50 mcg PO 0600 [facility] Last Admin: 02/28/18 06:00 Dose: 50 mcg Losartan Potassium (Cozaar Tab*) 50 mg PO BID [facility] Last Admin: 02/28/18 08:23 Dose: 50 mg Magnesium Oxide (Magox 400 Tab*) 800 mg PO DAILY [facility] Last Admin: 02/28/18 08:23 Dose: 800 mg Melatonin (Melatonin) 3 mg PO BEDTIME PRN PRN Reason: INSOMNIA Last Admin: 02/27/18 22:44 Dose: 3 mg Metolazone (Zaroxolyn Tab*) 5 mg PO DAILY [facility] Metoprolol Tartrate (Lopressor Tab*) 12.5 mg PO QAM [facility] Last Admin: 02/28/18 08:23 Dose: 12.5 mg Mometasone Furoate/Formoterol Fumar (Dulera 200/5 Mdi*) 2 puff INH BID [facility] Last Admin: 02/28/18 07:06 Dose: 2 puff Multivitamins/Minerals (Theragran/Minerals Tab*) 1 tab PO DAILY [facility] Last Admin: 02/28/18 08:23 Dose: 1 tab Omeprazole (Prilosec Cap*) 20 mg PO BID [facility] Last Admin: 02/28/18 08:23 Dose: 20 mg Ondansetron HCl (Zofran Inj*) 4 mg IV Q6H PRN PRN Reason: NAUSEA Senna (Senokot Tab*) 1 tab PO BEDTIME [facility] Last Admin: 02/27/18 22:45 Dose: 1 tab Vital Signs - 8 hr 02/28/18 02/28/18 02/28/18 07:08 07:39 07:53 Temperature 98.2 F Pulse Rate 84 64 Respiratory 15 16 16 Rate Blood Pressure 133/49 (mmHg) O2 Sat by Pulse 98 96 Oximetry 02/28/18 02/28/18 02/28/18 08:23 10:14 10:29 Temperature Pulse Rate 60 Respiratory 20 22 Rate Blood Pressure 115/44 (mmHg) O2 Sat by Pulse 96 Oximetry 02/28/18 11:33 Temperature 98.1 F Pulse Rate 61 Respiratory 20 Rate Blood Pressure 124/49 (mmHg) O2 Sat by Pulse 98 Oximetry Oxygen Devices in Use Now: Nasal Cannula Appearance: 62 yo F, obese, in NAD, AAOx3 Eyes: No Scleral Icterus, PERRLA Ears/Nose/Mouth/Throat: NL Teeth, Lips, Gums, Mucous Membranes Moist Neck: NL Appearance and Movements; NL JVP, Trachea Midline Respiratory: Symmetrical Chest Expansion and Respiratory Effort, - - bibasiliar crackles-improved from yesterday Cardiovascular: NL Sounds; No Murmurs; No JVD, RRR Abdominal: NL Sounds; No Tenderness; No Distention, No Hepatosplenomegaly Lymphatic: No Cervical Adenopathy Extremities: No Clubbing, Cyanosis, - - trace b/l leg edema s/p left BKA Neurological: Alert and Oriented x 3, - - R arm at 4+/5, R leg at 4/5 Result Diagrams: 02/28/18 06:46 02/28/18 06:46 Additional Lab and Data: Lab Results 02/24/18 02/24/18 02/24/18 Range/Units 20:48 20:48 20:48 WBC 11.4 H (3.5-10.8) 10^3/ul RBC 3.43 L (4.00-5.40) 10^6/ul Hgb 8.5 L (12.0-16.0) g/dl Hct 27 L (35-47) % MCV 77 L (80-97) fL MCH 25 L (27-31) pg MCHC 32 (31-36) g/dl RDW 17 H (10.5-15) % Plt Count 291 (150-450) 10^3/ul MPV 8.3 (7.4-10.4) um3 Neut % (Auto) 88.3 H (38-83) % Lymph % (Auto) 4.5 L (25-47) % [place] % (Auto) 6.8 (0-7) % Eos % (Auto) 0.3 (0-6) % Baso % (Auto) 0.1 (0-2) % Absolute Neuts (auto) 10.0 H (1.5-7.7) 10^3/ul Absolute Lymphs (auto) 0.5 L (1.0-4.8) 10^3/ul Absolute Monos (auto) 0.8 (0-0.8) 10^3/ul Absolute Eos (auto) 0 (0-0.6) 10^3/ul Absolute Basos (auto) 0 (0-0.2) 10^3/ul Absolute Nucleated RBC 0 10^3/ul Nucleated RBC % 0.1 INR (Anticoag Therapy) (0.77-1.02) APTT (26.0-36.3) seconds Sodium 135 (135-145) mmol/L Potassium 4.6 (3.5-5.0) mmol/L Chloride 99 L (101-111) mmol/L Carbon Dioxide 26 (22-32) mmol/L Anion Gap 10 (2-11) mmol/L BUN 58 H (6-24) mg/dL Creatinine 1.75 H (0.51-0.95) mg/dL Est GFR ( Amer) 35.5 (>60) Est GFR (Non-Af Amer) 29.4 (>60) BUN/Creatinine Ratio 33.1 H (8-20) Glucose 146 H (70-100) mg/dL Lactic Acid 1.0 (0.5-2.0) mmol/L Calcium 9.4 (8.6-10.3) mg/dL Total Bilirubin 0.70 (0.2-1.0) mg/dL AST 12 L (13-39) U/L ALT 7 (7-52) U/L Alkaline Phosphatase 78 (34-104) U/L Troponin I 0.01 (<0.04) ng/mL C-Reactive Protein 22.85 H (<8.01) mg/L B-Natriuretic Peptide ( - 100) pg/mL Total Protein 8.0 (6.4-8.9) g/dL Albumin 3.8 (3.2-5.2) g/dL Globulin 4.2 H (2-4) g/dL Albumin/Globulin Ratio 0.9 L (1-3) 02/24/18 02/24/18 Range/Units 20:48 20:48 WBC (3.5-10.8) 10^3/ul RBC (4.00-5.40) 10^6/ul Hgb (12.0-16.0) g/dl Hct (35-47) % MCV (80-97) fL MCH (27-31) pg MCHC (31-36) g/dl RDW (10.5-15) % Plt Count (150-450) 10^3/ul MPV (7.4-10.4) um3 Neut % (Auto) (38-83) % Lymph % (Auto) (25-47) % [place] % (Auto) (0-7) % Eos % (Auto) (0-6) % Baso % (Auto) (0-2) % Absolute Neuts (auto) (1.5-7.7) 10^3/ul Absolute Lymphs (auto) (1.0-4.8) 10^3/ul Absolute Monos (auto) (0-0.8) 10^3/ul Absolute Eos (auto) (0-0.6) 10^3/ul Absolute Basos (auto) (0-0.2) 10^3/ul Absolute Nucleated RBC 10^3/ul Nucleated RBC % INR (Anticoag Therapy) 1.02 (0.77-1.02) APTT 28.6 (26.0-36.3) seconds Sodium (135-145) mmol/L Potassium (3.5-5.0) mmol/L Chloride (101-111) mmol/L Carbon Dioxide (22-32) mmol/L Anion Gap (2-11) mmol/L BUN (6-24) mg/dL Creatinine (0.51-0.95) mg/dL Est GFR ( Amer) (>60) Est GFR (Non-Af Amer) (>60) BUN/Creatinine Ratio (8-20) Glucose (70-100) mg/dL Lactic Acid (0.5-2.0) mmol/L Calcium (8.6-10.3) mg/dL Total Bilirubin (0.2-1.0) mg/dL AST (13-39) U/L ALT (7-52) U/L Alkaline Phosphatase (34-104) U/L Troponin I (<0.04) ng/mL C-Reactive Protein (<8.01) mg/L B-Natriuretic Peptide 494 H ( - 100) pg/mL Total Protein (6.4-8.9) g/dL Albumin (3.2-5.2) g/dL Globulin (2-4) g/dL Albumin/Globulin Ratio (1-3) Microbiology and Other Data: Microbiology 02/24/18 23:50 Nasal Screen MRSA (PCR) - Final Nasal Mrsa Not Detected Assess/Plan/Problems-Billing Assessment: Mrs. Francis is a 62yo F with PMH of type 2 DM, HTN, HLD, CVA with residual right hemiparesis, CAD, hypothyroidism, GERD, DVT, left BKA, chronic Villegas, chronic anemia, who presented to ED with c/o dyspnea, found to have CHF exacerbation. - Patient Problems (1) Acute and chronic respiratory failure Comment: - Secondary to CHF exacerbation. - Continue supplemental O2(at baseline 2 l today) -off BIPAP -overnight pulse ox on 2 L 02 did not show significant desaturations -chito add on Zarozolyn to IV Lasix, and increase Laix does from 40 to 60 mg. (2) Acute diastolic (congestive) heart failure Comment: - diastolic CHF exacerbation improving, has diuresed well w/ IV lasix intially, but now UO decreased. will increase IV diuretc , added Zaroxolyn - no reason for decompensation evident (3) Anemia Comment: chronic, with worsening. Under the care of hematology in the past despite iron supplement, iron levels low. Transfused 1 U PRBC on 02/27/18 Will order iron infusion today Stool guaiac neg (4) Type II diabetes mellitus Comment: cont Lantus and ISS (5) HLD (hyperlipidemia) Comment: Continue atorvastatin. (6) HTN (hypertension) Comment: - Continue metoprolol.Holding norvasc due to low SBP's (7) History of coronary artery disease Comment: Asymptomatic Continue metoprolol and statin. (8) Hypothyroidism Comment: - TSH 3.7 in 01/03 - Continue levothyroxine. (9) MOLLY (acute kidney injury) Comment: creat in 2017 at <1, steadily increasing this year Slightly better with diuresis. Cont to monitor. Due to low SBP- aldactone was d/ c'd Today will treat mild hyperkalemia with kayexalate (10) COPD (chronic obstructive pulmonary disease) Comment: stable today. Cont moses Echevarria. (11) Indwelling Villegas catheter present Comment: UA abnormal , but urine cx did not grow any significant pathogens. Villegas exchanged on 02/26/18 Ceftriaxone d/c 'd on 02/27/18 (12) DVT prophylaxis Comment: - SQ heparin. Status and Disposition: inpatient. Pt had been at [facility] x 2 years , but requested to be placed in another facility at discharge. CM following
[2018-02-28] MEDS ORDERED: Insulin GLARGINE(*) 1 UNITS UNIT SUBCUT SCH (21:00)
[2018-02-28] MEDS: Atorvastatin* 20 MG TAB PO SCH (22:39)
[2018-02-28] MEDS: Senna TAB PO SCH (22:40)
[2018-02-28] MEDS: Melatonin 3 MG TAB PO PRN (22:40)
[2018-02-28] MEDS: Docusate CAP* 100 MG PO SCH (22:41)
[2018-02-28] MEDS: Albuterol/Ipratropium NEB.SOL* Albuterol 2.5 MG/Ipratropium 0.5 MG 3 ML INH PRN (22:59)
[2018-03-01 05:51] LABS: ABS Basophils 0 10^3/ul (0-0.2); ABS Eosinophils 0.3 10^3/ul (0-0.6); ABS Monocytes 0.6 10^3/ul (0-0.8); ABS Neutrophils 4.5 10^3/ul (1.5-7.7); ABS Nucleated RBC 0 10^3/ul; Eosinophil % 5.1 % (0-6); Hematocrit 24 % (35-47); Hemoglobin 8.2 g/dl (12.0-16.0); Lymphocyte % 15.1 % (25-47); Mean Corpuscular HGB Conc 34 g/dl (31-36); Mean Corpuscular Hemoglobin 26 pg (27-31); Mean Corpuscular Volume 79 fL (80-97); Nucleated Red Blood Cells % 0; Platelet Count 267 10^3/ul (150-450); Red Blood Count 3.08 10^6/ul (4.00-5.40); Red Cell Distribution Width 18 % (10.5-15); White Blood Count 6.4 10^3/ul (3.5-10.8)
[2018-03-01 06:07] LABS: EGFR Non-African American 42.1 (>60)
[2018-03-01] MEDS: Levothyroxine TAB* 50 MCG TAB PO SCH (06:31)
[2018-03-01] MEDS: Heparin VIAL(*) 5000 UNITS/ML VIAL (FIVE THOUSAND) SUBCUT SCH ×3 (06:31→21:41)
[2018-03-01] MEDS: Insulin LISPRO* 1 UNITS UNIT SUBCUT SCH ×3 (07:41→17:42)
[2018-03-01] MEDS: Ferrous Gluconate TAB* 324 MG TAB PO SCH ×2 (08:35→21:35)
[2018-03-01] MEDS: Losartan TAB* 25 MG PO SCH ×2 (08:35→21:34)
[2018-03-01] MEDS: Gabapentin CAP(*) 300 MG PO SCH ×2 (08:35→21:34)
[2018-03-01] MEDS: Omeprazole CAP* 20 MG PO SCH ×2 (08:35→21:35)
[2018-03-01] MEDS: Citalopram TAB* 20 MG PO SCH (08:36)
[2018-03-01] MEDS: Multivitamins/Minerals TAB PO SCH (08:36)
[2018-03-01] MEDS: Magnesium Oxide TAB* 400 MG PO SCH (08:36)
[2018-03-01] MEDS: Metoprolol Tartrate TAB* 25 MG PO SCH (08:36)
[2018-03-01] MEDS: Metolazone TAB* 5 MG PO SCH (08:36)
[2018-03-01] MEDS: BRIMONIDINE BOTH EYES SCH ×2 (08:36→21:41)
[2018-03-01] MEDS: Fluticasone NASAL SPRAY 50MCG* 16 gm SPRAY BTL BOTH NARES SCH (08:37)
[2018-03-01] MEDS: Furosemide IV* 10 MG/ML VIAL (40 MG) IV SLOW PU SCH ×2 (08:37→17:43)
[2018-03-01] MEDS: Mometasone/Formoter 200/5 MDI INH SCH ×3 (09:53→20:07)
--- NOTE | 2018-03-01 16:57 | PN ---
Subjective Date of Service: 03/01/18 Interval History: Pt with fatigue and poor appetite since admission. BG 65 this AM. Denies SOB, chest pain, abdominal pain. Used to work at [employer], Family is in [employer]. Does not want to return to [employer]. [place] 123.5kg (272lbs), reports baseline weight is usually around 260lbs. PHLEBOTOMIST ASSOCIATE continues to improve. Net negative 1.4L. Objective Active Medications: Acetaminophen (Tylenol Tab*) 650 mg PO Q4H PRN PRN Reason: FEVER/PAIN Albuterol/Ipratropium (Duoneb (Albuterol 2.5 Mg/Ipratropium 0.5 Mg)) 1 neb INH Q6H PRN PRN Reason: SOB/WHEEZING Last Admin: 02/28/18 22:59 Dose: 1 neb Atorvastatin Calcium (Lipitor*) 20 mg PO 2100 JAROD; Protocol Last Admin: 02/28/18 22:39 Dose: 20 mg Brimonidine Tartrate (Alphagan P 0.15%(Nf)) 1 drop BOTH EYES BID [facility] Last Admin: 03/01/18 08:36 Dose: 1 drop Citalopram Hydrobromide (Celexa Tab*) 20 mg PO QAM [facility] Last Admin: 03/01/18 08:36 Dose: 20 mg Dextrose (D50w Syringe 50 Ml*) 12.5 gm IV PUSH .FOR FS < 60 - SS PRN PRN Reason: FS < 60 Docusate Sodium (Colace Cap*) 100 mg PO BEDTIME [facility] Last Admin: 02/28/18 22:41 Dose: 100 mg Ferrous Gluconate (Fergon Tab*) 324 mg PO BID [facility] Last Admin: 03/01/18 08:35 Dose: 324 mg Fluticasone Propionate (Flonase Nasal [place] 50mcg*) 2 spray BOTH NARES QAM [facility] Last Admin: 03/01/18 08:37 Dose: 2 spray Furosemide (Lasix Iv*) 60 mg IV SLOW PU 0800,1700 [facility] Last Admin: 03/01/18 08:37 Dose: 60 mg Gabapentin (Neurontin Cap(*)) 300 mg PO Q12HR [facility] Last Admin: 03/01/18 08:35 Dose: 300 mg Heparin Sodium (Porcine) (Heparin Vial(*)) 5,000 units SUBCUT Q8HR [facility] Last Admin: 03/01/18 06:31 Dose: 5,000 units Insulin Glargine (Lantus(*)) 60 units SUBCUT BEDTIME [facility] Insulin Human Lispro (Humalog*) 0 units SUBCUT AC [facility]; Protocol Last Admin: 03/01/18 12:26 Dose: Not Given Levothyroxine Sodium (Synthroid Tab*) 50 mcg PO 0600 [facility] Last Admin: 03/01/18 06:31 Dose: 50 mcg Losartan Potassium (Cozaar Tab*) 50 mg PO BID [facility] Last Admin: 03/01/18 08:35 Dose: 50 mg Magnesium Oxide (Magox 400 Tab*) 800 mg PO DAILY [facility] Last Admin: 03/01/18 08:36 Dose: 800 mg Melatonin (Melatonin) 3 mg PO BEDTIME PRN PRN Reason: INSOMNIA Last Admin: 02/28/18 22:40 Dose: 3 mg Metolazone (Zaroxolyn Tab*) 5 mg PO DAILY [facility] Last Admin: 03/01/18 08:36 Dose: 5 mg Metoprolol Tartrate (Lopressor Tab*) 12.5 mg PO QAM [facility] Last Admin: 03/01/18 08:36 Dose: 12.5 mg Mometasone Furoate/Formoterol Fumar (Dulera 200/5 Mdi*) 2 puff INH BID [facility] Last Admin: 03/01/18 09:53 Dose: 2 puff Multivitamins/Minerals (Theragran/Minerals Tab*) 1 tab PO DAILY [facility] Last Admin: 03/01/18 08:36 Dose: 1 tab Omeprazole (Prilosec Cap*) 20 mg PO BID [facility] Last Admin: 03/01/18 08:35 Dose: 20 mg Ondansetron HCl (Zofran Inj*) 4 mg IV Q6H PRN PRN Reason: NAUSEA Senna (Senokot Tab*) 1 tab PO BEDTIME [facility] Last Admin: 02/28/18 22:40 Dose: 1 tab Vital Signs - 8 hr 03/01/18 03/01/18 03/01/18 09:56 11:47 12:26 Temperature 97.4 F Pulse Rate 56 61 Respiratory 16 16 18 Rate Blood Pressure 122/52 (mmHg) O2 Sat by Pulse 97 98 Oximetry 03/01/18 15:47 Temperature 97.5 F Pulse Rate 58 Respiratory 16 Rate Blood Pressure 124/47 (mmHg) O2 Sat by Pulse 99 Oximetry Oxygen Devices in Use Now: Nasal Cannula Appearance: NAD, chronically ill appearing. Eyes: No Scleral Icterus, PERRLA Ears/Nose/Mouth/Throat: NL Teeth, Lips, Gums Respiratory: Symmetrical Chest Expansion and Respiratory Effort, Clear to Auscultation Cardiovascular: NL Sounds; No Murmurs; No JVD, RRR Abdominal: - - obese, distended, soft, nontender. Extremities: - - trace edema b/l LE. s/p left BKA. Skin: No Rash or Ulcers Neurological: Alert and Oriented x 3, NL Sensation Nutrition: Taking PO's Result Diagrams: 03/01/18 05:26 03/01/18 05:26 Additional Lab and Data: Laboratory Results - last 24 hr 02/28/18 03/01/18 03/01/18 16:59 05:26 05:26 WBC 6.4 RBC 3.08 L Hgb 8.2 L Hct 24 L MCV 79 L MCH 26 L MCHC 34 RDW 18 H Plt Count 267 MPV 8.0 Neut % (Auto) 70.0 Lymph % (Auto) 15.1 L [place] % (Auto) 9.5 H Eos % (Auto) 5.1 Baso % (Auto) 0.3 Absolute Neuts (auto) 4.5 Absolute Lymphs (auto) 1.0 Absolute Monos (auto) 0.6 Absolute Eos (auto) 0.3 Absolute Basos (auto) 0 Absolute Nucleated RBC 0 Nucleated RBC % 0 Sodium 138 Potassium 4.3 Chloride 98 L Carbon Dioxide 34 H Anion Gap 6 BUN 67 H Creatinine 1.28 H Est GFR ( Amer) 51.0 Est GFR (Non-Af Amer) 42.1 BUN/Creatinine Ratio 52.3 H Glucose 97 POC Glucose (mg/dL) 215 H Calcium 9.3 03/01/18 03/01/18 03/01/18 07:38 12:05 16:35 WBC RBC Hgb Hct MCV MCH MCHC RDW Plt Count MPV Neut % (Auto) Lymph % (Auto) [place] % (Auto) Eos % (Auto) Baso % (Auto) Absolute Neuts (auto) Absolute Lymphs (auto) Absolute Monos (auto) Absolute Eos (auto) Absolute Basos (auto) Absolute Nucleated RBC Nucleated RBC % Sodium Potassium Chloride Carbon Dioxide Anion Gap BUN Creatinine Est GFR ( Amer) Est GFR (Non-Af Amer) BUN/Creatinine Ratio Glucose POC Glucose (mg/dL) 65 L 129 H 164 H Calcium Microbiology and Other Data: Microbiology 02/24/18 21:18 Blood Venous Aerobic Blood Culture - Preliminary No Growth Day 4 02/24/18 21:18 Blood Venous Anaerobic Blood Culture - Preliminary No Growth Day 4 02/24/18 21:18 Blood Venous Aerobic Blood Culture - Preliminary No Growth Day 4 02/24/18 21:18 Blood Venous Anaerobic Blood Culture - Preliminary No Growth Day 4 02/28/18 12:26 Stool Stool Occult Blood (CLARA) - Final 02/26/18 04:25 Urine Urine Culture - Final 02/24/18 23:50 Nasal Nasal Screen MRSA (PCR) - Final Mrsa Not Detected Assess/Plan/Problems-Billing Assessment: 62yo F PMH of IDDMT2, HTN, HLD, CVA with residual right hemiparesis, CAD, hypothyroidism, GERD, DVT, left BKA, chronic Villegas,chronic anemia, who presented with c/o dyspnea, found to have acute diastolic CHF exacerbation and hypoxic respiratory failure. - Patient Problems (1) Acute diastolic (congestive) heart failure Current Visit: No Status: Acute Priority: High Code(s): I50.31 - ACUTE DIASTOLIC (CONGESTIVE) HEART FAILURE SNOMED Code(s): 373932020 Comment: - diastolic CHF exacerbation improving, continue lasix 60mg po BID and Zaroxolyn 5mg po daily. - daily weights - strict ios. (2) Acute and chronic respiratory failure Current Visit: No Status: Acute Code(s): J96.20 - ACUTE AND CHR RESP FAILURE , UNSP W HYPOXIA OR HYPERCAPNIA SNOMED Code(s): 41722163 Comment: - Secondary to diastolic CHF exacerbation. - Continue supplemental O2(at baseline 2 l today) -off BIPAP -overnight pulse ox on 2 L 02 did not show significant desaturations -continue metolazone 5mg daily and 60IV Lasix BID (3) MOLLY (acute kidney injury) Current Visit: Yes Status: Acute Code(s): N17.9 - ACUTE KIDNEY FAILURE, UNSPECIFIED SNOMED Code(s): 42791198 Comment: creat in 2017 at <1, steadily increasing this year Continued improvement with diuresis. Cont to monitor BMP daily. Due to low SBP on 02/25- 25mg po aldactone was d/c'd (4) Indwelling Villegas catheter present Current Visit: Yes Status: Acute Code(s): Z96.0 - PRESENCE OF UROGENITAL IMPLANTS SNOMED Code(s): 830283543 Comment: UA abnormal , but urine cx did not grow any significant pathogens. Villegas exchanged on 02/26/18 Ceftriaxone d/c 'd on 02/27/18 (5) Anemia Current Visit: No Status: Acute Code(s): D64.9 - ANEMIA, UNSPECIFIED SNOMED Code(s): 697973564 Comment: microcytic, chronic, with worsening. Under the care of hematology in the past despite iron supplement, iron levels low. Transfused 1 U PRBC on 02/27/18 s/p iron infusion 02/28 Stool guaiac neg (6) DVT prophylaxis Current Visit: No Status: Acute Code(s): EUA9603 - SNOMED Code(s): 965251725 Comment: - SQ heparin. (7) Type II diabetes mellitus Current Visit: No Status: Acute Priority: Medium Comment: cont Lantus and ISS (8) COPD (chronic obstructive pulmonary disease) Current Visit: Yes Status: Acute Code(s): J44.9 - CHRONIC OBSTRUCTIVE PULMONARY DISEASE, UNSPECIFIED SNOMED Code(s): 85530185 Comment: stable today. Cont Duleramoses. (9) HLD (hyperlipidemia) Current Visit: No Status: Chronic Code(s): E78.5 - HYPERLIPIDEMIA, UNSPECIFIED SNOMED Code(s): 30288554 Comment: Continue atorvastatin. (10) HTN (hypertension) Current Visit: No Status: Chronic Code(s): I10 - ESSENTIAL (PRIMARY) HYPERTENSION SNOMED Code(s): 16988935 Comment: - Continue metoprolol 12.5mg po daily. - Continue losartan 50mg po BID - Holding norvasc due to lower SBP's (11) History of coronary artery disease Current Visit: No Status: Chronic Code(s): Z86.79 - PERSONAL HISTORY OF OTHER DISEASES OF THE CIRCULATORY SYSTEM SNOMED Code(s): 313136255 Comment: Asymptomatic Continue metoprolol and statin. (12) Hypothyroidism Current Visit: No Status: Chronic Code(s): E03.9 - HYPOTHYROIDISM, UNSPECIFIED SNOMED Code(s): 90779590 Comment: - TSH 3.7 in 01/03 - Continue levothyroxine 50mcg po daily. Status and Disposition: inpatient. Pt had been at [facility] x 2 years , but requested to be placed in another facility at discharge. CM following
[2018-03-01] MEDS: Albuterol/Ipratropium NEB.SOL* Albuterol 2.5 MG/Ipratropium 0.5 MG 3 ML INH PRN (18:47)
[2018-03-01] MEDS ORDERED: Insulin GLARGINE(*) 1 UNITS UNIT SUBCUT SCH (21:00)
[2018-03-01] MEDS: Atorvastatin* 20 MG TAB PO SCH (21:34)
[2018-03-01] MEDS: Docusate CAP* 100 MG PO SCH (21:35)
[2018-03-01] MEDS: Senna TAB PO SCH (21:35)
[2018-03-01] MEDS: Melatonin 3 MG TAB PO PRN (21:40)
[2018-03-02] MEDS: Heparin VIAL(*) 5000 UNITS/ML VIAL (FIVE THOUSAND) SUBCUT SCH ×3 (07:13→22:07)
[2018-03-02] MEDS: Levothyroxine TAB* 50 MCG TAB PO SCH (07:13)
[2018-03-02] MEDS: Insulin LISPRO* 1 UNITS UNIT SUBCUT SCH ×3 (07:50→17:04)
[2018-03-02] MEDS: Mometasone/Formoter 200/5 MDI INH SCH ×2 (08:08→20:24)
[2018-03-02 09:31] LABS: ABS Basophils 0 10^3/ul (0-0.2); ABS Eosinophils 0.3 10^3/ul (0-0.6); ABS Monocytes 0.5 10^3/ul (0-0.8); ABS Neutrophils 4.1 10^3/ul (1.5-7.7); ABS Nucleated RBC 0 10^3/ul; Eosinophil % 4.7 % (0-6); Hematocrit 27 % (35-47); Hemoglobin 8.5 g/dl (12.0-16.0); Lymphocyte % 16.9 % (25-47); Mean Corpuscular HGB Conc 32 g/dl (31-36); Mean Corpuscular Hemoglobin 26 pg (27-31); Mean Corpuscular Volume 80 fL (80-97); Mean Platelet Volume 7.7 um3 (7.4-10.4); Nucleated Red Blood Cells % 0.1; Platelet Count 275 10^3/ul (150-450); Red Blood Count 3.34 10^6/ul (4.00-5.40); Red Cell Distribution Width 17 % (10.5-15); White Blood Count 5.9 10^3/ul (3.5-10.8)
[2018-03-02 09:46] LABS: EGFR Non-African American 42.5 (>60)
[2018-03-02] MEDS: Metoprolol Tartrate TAB* 25 MG PO SCH (10:03)
[2018-03-02] MEDS: Losartan TAB* 25 MG PO SCH ×2 (10:04→22:05)
[2018-03-02] MEDS: Metolazone TAB* 5 MG PO SCH (10:04)
[2018-03-02] MEDS: Gabapentin CAP(*) 300 MG PO SCH ×2 (10:04→22:05)
[2018-03-02] MEDS: Ferrous Gluconate TAB* 324 MG TAB PO SCH ×2 (10:05→22:06)
[2018-03-02] MEDS: Multivitamins/Minerals TAB PO SCH (10:05)
[2018-03-02] MEDS: Magnesium Oxide TAB* 400 MG PO SCH (10:05)
[2018-03-02] MEDS: Citalopram TAB* 20 MG PO SCH (10:05)
[2018-03-02] MEDS: Omeprazole CAP* 20 MG PO SCH ×2 (10:05→22:05)
[2018-03-02] MEDS: Fluticasone NASAL SPRAY 50MCG* 16 gm SPRAY BTL BOTH NARES SCH (10:08)
[2018-03-02] MEDS: BRIMONIDINE BOTH EYES SCH ×2 (10:09→22:07)
[2018-03-02] MEDS: Furosemide IV* 10 MG/ML VIAL (40 MG) IV SLOW PU SCH ×2 (10:10→17:05)
--- NOTE | 2018-03-02 17:04 | PN ---
Subjective Date of Service: 03/02/18 Interval History: Poor appetite but did eat both dinner and lunch. Denies other complaints. BG 69 fasting this AM. 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 Negative 1.2 L. metolazone stopped this AM. Planning on [facility] [place] [facility]. Objective Active Medications: Acetaminophen (Tylenol Tab*) 650 mg PO Q4H PRN PRN Reason: FEVER/PAIN Albuterol/Ipratropium (Duoneb (Albuterol 2.5 Mg/Ipratropium 0.5 Mg)) 1 neb INH Q6H PRN PRN Reason: SOB/WHEEZING Last Admin: 03/01/18 18:47 Dose: 1 neb Atorvastatin Calcium (Lipitor*) 20 mg PO 2100 JAROD; Protocol Last Admin: 03/01/18 21:34 Dose: 20 mg Brimonidine Tartrate (Alphagan P 0.15%(Nf)) 1 drop BOTH EYES BID [facility] Last Admin: 03/02/18 10:09 Dose: 1 drop Citalopram Hydrobromide (Celexa Tab*) 20 mg PO QAM [facility] Last Admin: 03/02/18 10:05 Dose: 20 mg Dextrose (D50w Syringe 50 Ml*) 12.5 gm IV PUSH .FOR FS < 60 - SS PRN PRN Reason: FS < 60 Docusate Sodium (Colace Cap*) 100 mg PO BEDTIME [facility] Last Admin: 03/01/18 21:35 Dose: 100 mg Ferrous Gluconate (Fergon Tab*) 324 mg PO BID [facility] Last Admin: 03/02/18 10:05 Dose: 324 mg Fluticasone Propionate (Flonase Nasal [place] 50mcg*) 2 spray BOTH NARES QAM [facility] Last Admin: 03/02/18 10:08 Dose: 2 spray Furosemide (Lasix Iv*) 60 mg IV SLOW PU 0800,1700 [facility] Last Admin: 03/02/18 10:10 Dose: 60 mg Gabapentin (Neurontin Cap(*)) 300 mg PO Q12HR [facility] Last Admin: 03/02/18 10:04 Dose: 300 mg Heparin Sodium (Porcine) (Heparin Vial(*)) 5,000 units SUBCUT Q8HR [facility] Last Admin: 03/02/18 15:16 Dose: 5,000 units Insulin Glargine (Lantus(*)) 40 units SUBCUT BEDTIME [facility] Insulin Human Lispro (Humalog*) 0 units SUBCUT AC [facility]; Protocol Last Admin: 03/02/18 12:41 Dose: Not Given Levothyroxine Sodium (Synthroid Tab*) 50 mcg PO 0600 [facility] Last Admin: 03/02/18 07:13 Dose: 50 mcg Losartan Potassium (Cozaar Tab*) 50 mg PO BID [facility] Last Admin: 03/02/18 10:04 Dose: 50 mg Magnesium Oxide (Magox 400 Tab*) 800 mg PO DAILY [facility] Last Admin: 03/02/18 10:05 Dose: 800 mg Melatonin (Melatonin) 3 mg PO BEDTIME PRN PRN Reason: INSOMNIA Last Admin: 03/01/18 21:40 Dose: 3 mg Metoprolol Tartrate (Lopressor Tab*) 12.5 mg PO QAM [facility] Last Admin: 03/02/18 10:03 Dose: 12.5 mg Mometasone Furoate/Formoterol Fumar (Dulera 200/5 Mdi*) 2 puff INH BID [facility] Last Admin: 03/02/18 08:08 Dose: 2 puff Multivitamins/Minerals (Theragran/Minerals Tab*) 1 tab PO DAILY [facility] Last Admin: 03/02/18 10:05 Dose: 1 tab Omeprazole (Prilosec Cap*) 20 mg PO BID [facility] Last Admin: 03/02/18 10:05 Dose: 20 mg Ondansetron HCl (Zofran Inj*) 4 mg IV Q6H PRN PRN Reason: NAUSEA Senna (Senokot Tab*) 1 tab PO BEDTIME [facility] Last Admin: 03/01/18 21:35 Dose: 1 tab Vital Signs - 8 hr 03/02/18 03/02/18 03/02/18 10:04 11:50 12:43 Temperature 98.0 F Pulse Rate 56 Respiratory 16 18 16 Rate Blood Pressure 118/49 (mmHg) O2 Sat by Pulse 98 Oximetry Oxygen Devices in Use Now: Nasal Cannula Appearance: NAD, sitting in chair, deconditioned and chronically ill appearing. Eyes: No Scleral Icterus, PERRLA Ears/Nose/Mouth/Throat: NL Teeth, Lips, Gums Respiratory: Symmetrical Chest Expansion and Respiratory Effort, - - Anteriorly clear to auscultation but limited exam Cardiovascular: NL Sounds; No Murmurs; No JVD, RRR Abdominal: NL Sounds; No Tenderness; No Distention, No Hepatosplenomegaly, - - obese Extremities: - - 1+ edema right pedal. Neurological: Alert and Oriented x 3, NL Sensation, NL Muscle Strength and Tone Nutrition: Taking PO's Result Diagrams: 03/02/18 09:22 03/02/18 09:22 Additional Lab and Data: Laboratory Results - last 24 hr 03/02/18 03/02/18 03/02/18 07:35 09:22 09:22 WBC 5.9 RBC 3.34 L Hgb 8.5 L Hct 27 L MCV 80 MCH 26 L MCHC 32 RDW 17 H Plt Count 275 MPV 7.7 Neut % (Auto) 69.2 Lymph % (Auto) 16.9 L [place] % (Auto) 8.5 H Eos % (Auto) 4.7 Baso % (Auto) 0.7 Absolute Neuts (auto) 4.1 Absolute Lymphs (auto) 1.0 Absolute Monos (auto) 0.5 Absolute Eos (auto) 0.3 Absolute Basos (auto) 0 Absolute Nucleated RBC 0 Nucleated RBC % 0.1 Sodium 139 Potassium 4.2 Chloride 97 L Carbon Dioxide 36 H Anion Gap 6 BUN 65 H Creatinine 1.27 H Est GFR ( Amer) 51.4 Est GFR (Non-Af Amer) 42.5 BUN/Creatinine Ratio 51.2 H Glucose 102 H POC Glucose (mg/dL) 69 L Calcium 9.5 Magnesium 2.8 H 03/02/18 03/02/18 11:55 16:25 WBC RBC Hgb Hct MCV MCH MCHC RDW Plt Count MPV Neut % (Auto) Lymph % (Auto) [place] % (Auto) Eos % (Auto) Baso % (Auto) Absolute Neuts (auto) Absolute Lymphs (auto) Absolute Monos (auto) Absolute Eos (auto) Absolute Basos (auto) Absolute Nucleated RBC Nucleated RBC % Sodium Potassium Chloride Carbon Dioxide Anion Gap BUN Creatinine Est GFR ( Amer) Est GFR (Non-Af Amer) BUN/Creatinine Ratio Glucose POC Glucose (mg/dL) 128 H 233 H Calcium Magnesium Microbiology and Other Data: Microbiology 02/24/18 21:18 Blood Venous Aerobic Blood Culture - Final No Growth Day 02/24/18 21:18 Blood Venous Anaerobic Blood Culture - Final No Growth Day 5 02/24/18 21:18 Blood Venous Aerobic Blood Culture - Final No Growth Day 5 02/24/18 21:18 Blood Venous Anaerobic Blood Culture - Final No Growth Day 5 02/28/18 12:26 Stool Stool Occult Blood (CLARA) - Final 02/26/18 04:25 Urine Urine Culture - Final 02/24/18 23:50 Nasal Nasal Screen MRSA (PCR) - Final Mrsa Not Detected Assess/Plan/Problems-Billing Assessment: 62yo F PMH of IDDMT2, chronic hypoxic respiratory failure(2L), morbid obesity, HTN, HLD, CVA with residual right hemiparesis, CAD, hypothyroidism, GERD, DVT, left BKA, chronic Villegas,chronic anemia, who presented with c/o dyspnea, found to have acute diastolic CHF exacerbation and acute on chronic hypoxic respiratory failure. - Patient Problems (1) Acute diastolic (congestive) heart failure Current Visit: No Status: Acute Priority: High Code(s): I50.31 - ACUTE DIASTOLIC (CONGESTIVE) HEART FAILURE SNOMED Code(s): 304913052 Comment: - diastolic CHF exacerbation improving, - continue lasix 60mg IV BID. Will stop Zaroxolyn 5mg po today given increase in bicarb. - daily weights - strict ios. (2) Acute and chronic respiratory failure Current Visit: No Status: Acute Code(s): J96.20 - ACUTE AND CHR RESP FAILURE , UNSP W HYPOXIA OR HYPERCAPNIA SNOMED Code(s): 94568816 Comment: - Secondary to diastolic CHF exacerbation. - Continue supplemental O2(at baseline 2 l today) -off BIPAP -overnight pulse ox on 2 L 02 did not show significant desaturations -continue 60IV Lasix BID, stopped metolazone. (3) MOLLY (acute kidney injury) Current Visit: Yes Status: Acute Code(s): N17.9 - ACUTE KIDNEY FAILURE, UNSPECIFIED SNOMED Code(s): 51513744 Comment: creat in 2017 at <1, steadily increasing this year Continued improvement with diuresis. Cont to monitor BMP daily. Due to low SBP on 02/25- 25mg po aldactone was d/c'd (4) Indwelling Villegas catheter present Current Visit: Yes Status: Acute Code(s): Z96.0 - PRESENCE OF UROGENITAL IMPLANTS SNOMED Code(s): 489542118 Comment: UA abnormal , but urine cx did not grow any significant pathogens. Villegas exchanged on 02/26/18 Ceftriaxone d/c 'd on 02/27/18 (5) Anemia Current Visit: No Status: Acute Code(s): D64.9 - ANEMIA, UNSPECIFIED SNOMED Code(s): 910169473 Comment: microcytic, chronic, with worsening. Under the care of hematology in the past despite po iron supplements, iron levels low. Transfused 1 U PRBC on 02/27/18 s/p iron infusion 02/28 Stool guaiac neg (6) DVT prophylaxis Current Visit: No Status: Acute Code(s): RVR6761 - SNOMED Code(s): 478737014 Comment: - SQ heparin. (7) Type II diabetes mellitus Current Visit: No Status: Acute Priority: Medium Comment: cont Lantus ( decreased from 75 to 60 and now 40U qhs given falls to <70 fasting with relatively poor appetite. SSI (8) COPD (chronic obstructive pulmonary disease) Current Visit: Yes Status: Acute Code(s): J44.9 - CHRONIC OBSTRUCTIVE PULMONARY DISEASE, UNSPECIFIED SNOMED Code(s): 74568902 Comment: stable today. Cont Dulera, duonebs. (9) HLD (hyperlipidemia) Current Visit: No Status: Chronic Code(s): E78.5 - HYPERLIPIDEMIA, UNSPECIFIED SNOMED Code(s): 44350478 Comment: Continue atorvastatin. (10) HTN (hypertension) Current Visit: No Status: Chronic Code(s): I10 - ESSENTIAL (PRIMARY) HYPERTENSION SNOMED Code(s): 95791164 Comment: - Continue metoprolol 12.5mg po daily. - Continue losartan 50mg po BID - Holding norvasc due to lower SBP's (11) History of coronary artery disease Current Visit: No Status: Chronic Code(s): Z86.79 - PERSONAL HISTORY OF OTHER DISEASES OF THE CIRCULATORY SYSTEM SNOMED Code(s): 387407355 Comment: Asymptomatic Continue metoprolol and statin. (12) Hypothyroidism Current Visit: No Status: Chronic Code(s): E03.9 - HYPOTHYROIDISM, UNSPECIFIED SNOMED Code(s): 57424143 Comment: - TSH 3.7 in 01/03 - Continue levothyroxine 50mcg po daily. Status and Disposition: inpatient. Pt had been at [facility] [place] x 2 years , but requested to be placed in another facility at discharge. CM following. [facility] in [place] seems to be family preference.
[2018-03-02] MEDS ORDERED: Insulin GLARGINE(*) 1 UNITS UNIT SUBCUT SCH (21:00)
[2018-03-02] MEDS: Docusate CAP* 100 MG PO SCH (22:05)
[2018-03-02] MEDS: Atorvastatin* 20 MG TAB PO SCH (22:06)
[2018-03-02] MEDS: Senna TAB PO SCH (22:06)
[2018-03-02] MEDS: Melatonin 3 MG TAB PO PRN (22:06)
[2018-03-03] MEDS: Levothyroxine TAB* 50 MCG TAB PO SCH (05:58)
[2018-03-03] MEDS: Heparin VIAL(*) 5000 UNITS/ML VIAL (FIVE THOUSAND) SUBCUT SCH ×2 (05:58→13:02)
[2018-03-03] MEDS: Mometasone/Formoter 200/5 MDI INH SCH (07:56)
[2018-03-03] MEDS: Metoprolol Tartrate TAB* 25 MG PO SCH (09:09)
[2018-03-03] MEDS: Gabapentin CAP(*) 300 MG PO SCH (09:09)
[2018-03-03] MEDS: Magnesium Oxide TAB* 400 MG PO SCH (09:09)
[2018-03-03] MEDS: Losartan TAB* 25 MG PO SCH (09:10)
[2018-03-03] MEDS: Omeprazole CAP* 20 MG PO SCH (09:10)
[2018-03-03] MEDS: Citalopram TAB* 20 MG PO SCH (09:10)
[2018-03-03] MEDS: Multivitamins/Minerals TAB PO SCH (09:10)
[2018-03-03] MEDS: Ferrous Gluconate TAB* 324 MG TAB PO SCH (09:10)
[2018-03-03] MEDS: Furosemide IV* 10 MG/ML VIAL (40 MG) IV SLOW PU SCH (09:10)
[2018-03-03] MEDS: Insulin LISPRO* 1 UNITS UNIT SUBCUT SCH ×2 (09:10→13:02)
[2018-03-03] MEDS: Fluticasone NASAL SPRAY 50MCG* 16 gm SPRAY BTL BOTH NARES SCH (09:23)
[2018-03-03] MEDS: BRIMONIDINE BOTH EYES SCH (09:23)
--- NOTE | 2018-03-03 11:53 | PN ---
Subjective Date of Service: 03/03/18 Interval History: Patient seen and examined at bedside. Denies fever, shortness of breath (above baseline), chest discomfort, N/V/D. Pt states that she feels chilled. Overall she feels much better than when she was admitted. Tele: Sinus jessie to sinus rhythm, rate 50-60's Family History: Unchanged from Admission Social History: Unchanged from Admission Past Medical History: Unchanged from Admission Objective Active Medications: Acetaminophen (Tylenol Tab*) 650 mg PO Q4H PRN Reason: FEVER/PAIN Albuterol/Ipratropium (Duoneb (Albuterol 2.5 Mg/Ipratropium 0.5 Mg)) 1 neb INH Q6H PRN Reason: SOB/WHEEZING Atorvastatin Calcium (Lipitor*) 20 mg PO 2100 JAROD; Protocol Brimonidine Tartrate (Alphagan P 0.15%(Nf)) 1 drop BOTH EYES BID JAROD Citalopram Hydrobromide (Celexa Tab*) 20 mg PO QAM JAROD Dextrose (D50w Syringe 50 Ml*) 12.5 gm IV PUSH .FOR FS < 60 - SS PRN Reason: FS < 60 Docusate Sodium (Colace Cap*) 100 mg PO BEDTIME JAROD Ferrous Gluconate (Fergon Tab*) 324 mg PO BID JAROD Fluticasone Propionate (Flonase Nasal Niland 50mcg*) 2 spray BOTH NARES QAM JAROD Furosemide (Lasix Iv*) 60 mg IV SLOW PU 0800,1700 JAROD Gabapentin (Neurontin Cap(*)) 300 mg PO Q12HR JAROD Heparin Sodium (Porcine) (Heparin Vial(*)) 5,000 units SUBCUT Q8HR JAROD Insulin Glargine (Lantus(*)) 40 units SUBCUT BEDTIME JAROD Insulin Human Lispro (Humalog*) 0 units SUBCUT AC JAROD; Protocol Levothyroxine Sodium (Synthroid Tab*) 50 mcg PO 0600 JAROD Losartan Potassium (Cozaar Tab*) 50 mg PO BID JAROD Magnesium Oxide (Magox 400 Tab*) 800 mg PO DAILY JAROD Melatonin (Melatonin) 3 mg PO BEDTIME PRN Reason: INSOMNIA Metoprolol Tartrate (Lopressor Tab*) 12.5 mg PO QAM JAROD Mometasone Furoate/Formoterol Fumar (Dulera 200/5 Mdi*) 2 puff INH BID JAROD Multivitamins/Minerals (Theragran/Minerals Tab*) 1 tab PO DAILY JAROD Omeprazole (Prilosec Cap*) 20 mg PO BID JAORD Ondansetron HCl (Zofran Inj*) 4 mg IV Q6H PRN Reason: NAUSEA Senna (Senokot Tab*) 1 tab PO BEDTIME JAROD Vital Signs - 8 hr 03/03/18 03/03/18 07:57 09:09 Pulse Rate 60 Respiratory 20 18 Rate O2 Sat by Pulse 95 Oximetry Oxygen Devices in Use Now: Nasal Cannula - 2L Appearance: NAD, laying in bed Ears/Nose/Mouth/Throat: Mucous Membranes Moist Respiratory: Symmetrical Chest Expansion and Respiratory Effort, Clear to Auscultation - , diminished Cardiovascular: NL Sounds; No Murmurs; No JVD, RRR Abdominal: NL Sounds; No Tenderness; No Distention Extremities: No Edema Skin: No Rash or Ulcers Neurological: Alert and Oriented x 3, NL Muscle Strength and Tone Lines/Tubes/Other Access: Clean, Dry and Intact Peripheral IV - site benign Nutrition: Taking PO's Result Diagrams: 03/02/18 09:22 03/02/18 09:22 Additional Lab and Data: . Microbiology and Other Data: Microbiology 02/24/18 21:18 Blood Venous Aerobic Blood Culture - Final No Growth Day 5 02/24/18 21:18 Blood Venous Anaerobic Blood Culture - Final No Growth Day 5 02/24/18 21:18 Blood Venous Aerobic Blood Culture - Final No Growth Day 5 02/24/18 21:18 Blood Venous Anaerobic Blood Culture - Final No Growth Day 5 02/28/18 12:26 Stool Stool Occult Blood (CLARA) - Final 02/26/18 04:25 Urine Urine Culture - Final 02/24/18 23:50 Nasal Nasal Screen MRSA (PCR) - Final Mrsa Not Detected Assess/Plan/Problems-Billing Assessment: Ms. Francis is a 62yo Female with PMH significant for IDDMT2, chronic hypoxic respiratory failure(2L), morbid obesity, HTN, HLD, CVA with residual right hemiparesis, CAD, hypothyroidism, GERD, DVT, left BKA, chronic Villegas,chronic anemia, who presented with c/o dyspnea, found to have acute diastolic CHF exacerbation and acute on chronic hypoxic respiratory failure. - Patient Problems (1) Acute diastolic (congestive) heart failure Code(s): I50.31 - ACUTE DIASTOLIC (CONGESTIVE) HEART FAILURE SNOMED Code(s): 014329530 Comment: - Acute on chronic - Continue lasix (change to PO), daily weights, and strict I+O's (2) Acute and chronic respiratory failure Code(s): J96.20 - ACUTE AND CHR RESP FAILURE, UNSP W HYPOXIA OR HYPERCAPNIA SNOMED Code(s): 48470413 Comment: - Secondary to diastolic CHF exacerbation - Now off BiPAP - Overnight pulse ox on 2 L did not show significant desaturations - Continue supplemental O2 (at baseline 2 L) (3) MOLLY (acute kidney injury) Code(s): N17.9 - ACUTE KIDNEY FAILURE, UNSPECIFIED SNOMED Code(s): 24710059 Comment: - Creatinine in 2017 at <1, steadily increasing this year - Continued improvement with continue to monitor BMP periodically (4) Indwelling Villegas catheter present Code(s): Z96.0 - PRESENCE OF UROGENITAL IMPLANTS SNOMED Code(s): 803858719 Comment: - UA abnormal, but urine cx did not grow any significant pathogens - Villegas exchanged on 02/26/18 - Ceftriaxone d/c 'd on 02/27/18 (5) Anemia Code(s): D64.9 - ANEMIA, UNSPECIFIED SNOMED Code(s): 713236821 Comment: - HH improved and stable after 1 unit PRBCs - Chronic microcytic and iron deficient - Stool guaiac negative - Continue iron supplement - Continue to follow outpatient, has followed with Hematology in the past (6) Type II diabetes mellitus Comment: - Glucose 120-250's - HgA1C 6.6 in 12/2017 - Continue Lantus (decreased from 75 to 40U qhs given falls to <70 fasting with relatively poor appetite) and Lispro SSI - Resume metformin at discharge (7) COPD (chronic obstructive pulmonary disease) Code(s): J44.9 - CHRONIC OBSTRUCTIVE PULMONARY DISEASE, UNSPECIFIED SNOMED Code(s): 19423900 Comment: - No signs of acute exacerbation today - Continue Dulera and duonebs (8) HTN (hypertension) Code(s): I10 - ESSENTIAL (PRIMARY) HYPERTENSION SNOMED Code(s): 93602218 Comment: - Normotensive, SBP 110-140's - Continue metoprolol and losartan - Holding norvasc due to lower SBP's (9) HLD (hyperlipidemia) Code(s): E78.5 - HYPERLIPIDEMIA, UNSPECIFIED SNOMED Code(s): 82966791 Comment: - Continue atorvastatin (10) History of coronary artery disease Code(s): Z86.79 - PERSONAL HISTORY OF OTHER DISEASES OF THE CIRCULATORY SYSTEM SNOMED Code(s): 164822230 Comment: - Asymptomatic - Continue metoprolol and statin (11) Hypothyroidism Code(s): E03.9 - HYPOTHYROIDISM, UNSPECIFIED SNOMED Code(s): 76242913 Comment: - TSH 3.7 in 01/03 - Continue levothyroxine (12) H/O deep venous thrombosis Code(s): Z86.718 - PERSONAL HISTORY OF OTHER VENOUS THROMBOSIS AND EMBOLISM SNOMED Code(s): 513772551 Comment: - Patient and family deny hx of DVT (13) DVT prophylaxis SNOMED Code(s): 855508932 Comment: - SQ heparin (14) DNR (do not resuscitate) Status and Disposition: Inpatient. Stable for discharge back to [facility] [place] today.
[2018-03-03 12:10] VITALS: BP 121/48
--- NOTE | 2018-03-03 13:44 | DS ---
CC: Dr. Valdes; [facility]* DATE OF ADMISSION: 02/24/2018. DATE OF DISCHARGE: 03/03/2018. ATTENDING PHYSICIAN: Dr. Román Dent* (dictated by Amber White NP). PRIMARY CARE PHYSICIAN: Dr. Valdes. PRIMARY DIAGNOSES: 1. Acute on chronic CHF exacerbation. 2. Acute on chronic hypoxic respiratory failure. 3. Acute on chronic kidney injury. SECONDARY DIAGNOSES: 1. Diabetes mellitus. 2. Hypertension. 3. Hyperlipidemia. 4. History of cerebral vascular accident. 5. Hypothyroidism. 6. History of deep vein thrombosis. 7. History of myocardial infarction. 8. Chronic indwelling urinary catheter. 9. Chronic microcytic anemia. STUDIES WHILE IN THE HOSPITAL: 1. Chest x-ray on 02/24/2018: Radiologist's impression: Moderate vascular congestive findings. 2. Overnight pulse oximetry, 02/25/2018: There was no time spent with a saturation less than or equal to 88. There was one desaturation event over three minutes duration. There were 40 saturation events of less than 3 minutes duration during which the mean high was 93.8 and the mean low was 89 percent. DISCHARGE MEDICATIONS: Continued home medications: 1. Levothyroxine 50 mcg oral daily. 2. Gabapentin 300 mg oral every 12 hours. 3. Multivitamin one tablet oral daily. 4. Acetaminophen 650 mg oral every 6 hours as needed for pain. 5. Losartan 50 mg oral every 12 hours. 6. Temazepam 7.5 mg oral daily at bedtime. 7. MiraLax 17 gm oral daily. 8. Magnesium Oxide 800 mg oral daily. 9. Metformin 500 mg oral twice daily. 10. Lexapro 10 mg oral every morning. 11. Flonase two sprays to both nares every morning. 12. Metoprolol Tartrate 12.5 mg oral every morning. 13. Dulera 200/5 MDI two puffs inhalation twice daily. 14. Alphagan P 0.1% one drop to left eye every 12 hours. 15. Crestor 10 mg oral daily at bedtime. 16. Omeprazole 20 mg oral every 12 hours. 17. Senokot-S one tablet oral daily at bedtime. 18. Ferrous Gluconate 325 mg oral twice daily. 19. Furosemide 80 mg oral daily. Changed home medications: 1. Lispro decreased from 12 units subcutaneous after meals to 5 units subcutaneous after meals. 2. Glargine insulin decreased from 70 units at bedtime to 40 units subcutaneous daily at bedtime. Discontinued home medications: 1. Spironolactone. 2. Norvasc. HISTORY OF PRESENT ILLNESS/HOSPITAL COURSE: Ms. Francis is a 62-year-old female with a past medical history significant for left bundle branch block, diabetes mellitus, hypertension, hyperlipidemia, CVA, coronary artery disease, hypothyroidism, GERD, history of DVT, obesity, diastolic congestive heart failure, and anemia who had two days of progressive worsening of shortness of breath. The patient's sister reported that the patient had been more edematous with swollen hands, looking more puffy. There were no reports of weight change. Due to concern of the patient's breathing while the patient's sister was visiting her at [facility], she was sent to the emergency room for further evaluation. While in the emergency room, the patient had a chest x-ray consistent with CHF exacerbation. She received IV Lasix. The patient was initially placed on BiPAP. The Hospitalists were asked to evaluate the patient for admission. While in the hospital, the patient was continued on BiPAP, able to be weaned off of that. She was continued on IV Lasix and the patient adequately diuresed , was doing well and she was back to her home oxygen requirements of two liters via nasal cannula. It was unclear what the exacerbating factor of her exacerbation was. During her stay, her glucoses were well controlled. Her Lantus and Lispro were decreased. The patient was hypotensive. Her Spironolactone was discontinued in addition to her Norvasc. The patient's baseline chronic anemia stayed at her baseline. She had a urinalysis with no growth. No growth on her blood culture on day five. She had a urinary catheter changed on February 26. The patient is doing well and is able to be discharged back to [facility] today. Ms. Francis is stable for discharge to [facility] today. Vital signs are as follows: Temperature 97.1, heart rate 58, respiratory rate 16, O2 sat 95 percent on 2 liters via nasal cannula, blood pressure 110/44. DISCHARGE PLAN: Ms. Francis will be discharged to [facility]. Activities as tolerated. She should have physical therapy and occupational therapy evaluations and continued treatment. She should be on a low sodium, consistent carbohydrate diet. In regards to the patient's acute diastolic heart failure, continue to monitor her weights. She will be continued on her home Lasix dosing. The patient's acute on chronic respiratory failure has resolved. The patient's Spironolactone has been discontinued due to hypotension. This could be resumed if her hypotension resolves. She should be continued on her oxygen at 2 liters via nasal cannula. The patient appears to have chronic kidney disease. Her acute kidney injury has resolved. She has a chronic indwelling Villegas catheter. She received IV Ceftriaxone, but when her urine culture did not grow any significant pathogens, this was discontinued. Her Villegas catheter was exchanged on February 26. The patient has chronic microcytic anemia which has been stable. She received one unit of packed red blood cells on February 27. Continue to intermittently follow a CBC and continue her iron supplement. In regards to her diabetes mellitus, her glucose has been well controlled. Her Lantus has been decreased to 40 units at bedtime. She was not eating well here, continued on Lispro insulin with her meals and her Metformin. Her insulin coverage will need to be adjusted as her appetite returns and she is eating better. The patient should be seen in follow-up by a provider at [facility] per protocol. The patient should return to the emergency room for any increased shortness of breath or chest pain. This is a summarized report of a complex medical history and hospital stay. For further details, please see the entire medical record. Time for this discharge was approximately 50 minutes, greater than half of that was spent with the patient discussing discharge plans and instructions. CONDITION ON DISCHARGE: Stable. AMBER WEAVER, MAYUR [id number]/[facility] #: [id number] ANRESH
== END 2018-03-03 17:23 | DRG 291 ==
LOC: ED 20:41 → ICU 22:01 → MEDTELE 02-25 10:45
PROVIDERS: ADMIT Hospitalist; ATTEND Student in an Organized Health Care Education/Training Program
PROC: 5A09357 Assistance with Respiratory Ventilation, Less than 24 Consecutive Hours, Continuous Positive Airway Pressure (ICD-10-PCS; 2018-02-24)
PROC: 0T2BX0Z Change Drainage Device in Bladder, External Approach (ICD-10-PCS; 2018-02-26)
PROC: 30233N1 Transfusion of Nonautologous Red Blood Cells into Peripheral Vein, Percutaneous Approach (ICD-10-PCS; principal; 2018-02-27)
DX: I11.0 Hypertensive heart disease with heart failure (principal); J96.21 Acute and chronic respiratory failure with hypoxia; N17.9 Acute kidney failure, unspecified; J44.1 Chronic obstructive pulmonary disease with (acute) exacerbation; Z68.42 Body mass index [BMI] 45.0-49.9, adult; I69.351 Hemiplegia and hemiparesis following cerebral infarction affecting right dominant side; I50.33 Acute on chronic diastolic (congestive) heart failure; I44.7 Left bundle-branch block, unspecified; E11.9 Type 2 diabetes mellitus without complications; E78.5 Hyperlipidemia, unspecified; I25.10 Atherosclerotic heart disease of native coronary artery without angina pectoris; E03.9 Hypothyroidism, unspecified; K21.9 Gastro-esophageal reflux disease without esophagitis; E66.9 Obesity, unspecified; Z96.0 Presence of urogenital implants; K59.00 Constipation, unspecified; D50.9 Iron deficiency anemia, unspecified; Z66 Do not resuscitate; F32.9 Major depressive disorder, single episode, unspecified; Z95.5 Presence of coronary angioplasty implant and graft; Z86.718 Personal history of other venous thrombosis and embolism; I25.2 Old myocardial infarction; Z89.512 Acquired absence of left leg below knee; Z90.710 Acquired absence of both cervix and uterus; Z90.49 Acquired absence of other specified parts of digestive tract; Z88.0 Allergy status to penicillin; Z80.9 Family history of malignant neoplasm, unspecified; Z82.49 Family history of ischemic heart disease and other diseases of the circulatory system; Z87.891 Personal history of nicotine dependence; Z83.3 Family history of diabetes mellitus; Z79.4 Long term (current) use of insulin; Z82.3 Family history of stroke; I95.9 Hypotension, unspecified
CPT/HCPCS: 36415; 71045; 80048; 80053; 81003; 81015; 82272; 82565; 82607; 82728; 82746; 82803; 83540; 83550; 83605; 83735; 83880; 84484; 84520; 85025; 85027; 85610; 85730; 86140; 86850; 86900; 86901; 86922; 87040; 87086; 87641; 93005; 94640; 94660; 94762; 99284; A9270-GY; J0696; J1644; J1940; J2916; P9040

== ENCOUNTER 2018-04-09 00:26 | Inpatient (IN) | payer MEDICARE ==
[2018-04-09] MEDS ORDERED: Nitroglycerin 2% OINT* 1 GM PAK TOPICAL ONE (00:35)
[2018-04-09] MEDS ORDERED: Furosemide IV* 10 MG/ML VIAL (40 MG) IV SLOW PU ONE (00:36)
--- NOTE | 2018-04-09 00:38 | ED ---
Shortness of Breath - HPI Summary HPI Summary: This patient is a 62 year old F BIBA to [facility] with a chief complaint of SOB that began at 1700 yesterday. The patient rates the pain 0/10 in severity. Symptoms aggravated by movement. Symptoms alleviated by EMS treatment. Patient reports cough. Pt reports she has a history of CHF and COPD. - History of Current Complaint Chief Complaint: EDShortnessOfBreath Time Seen by Provider: 04/09/18 00:31 Hx Obtained From: Patient Onset/Duration: Sudden Onset, Lasting Hours, Still Present Timing: Constant Dyspnea At: Rest Aggrevating Factors: Movement Alleviating Factors: EMS Tx Associated Signs & Symptoms: Cough (Nonproductive) Related History: Obesity - Allergy/Home Medications Allergies/Adverse Reactions: Allergies Allergy/AdvReac Type Severity Reaction Status Date / Time Penicillins Allergy Hives Verified 04/09/18 03:23 PMH/Surg Hx/FS Hx/Imm Hx Previously Healthy: No Endocrine/Hematology History: Reports: Hx Anticoagulant Therapy - Eliquis, Hx Diabetes, Hx Anemia Cardiovascular History: Reports: Hx Congestive Heart Failure, Hx Coronary Artery Disease, Hx Deep Vein Thrombosis, Hx Hypercholesterolemia, Hx Hypertension Respiratory History: Reports: Hx Chronic Obstructive Pulmonary Disease (COPD) Denies: Hx Asthma GI History: Reports: Hx Gastroesophageal Reflux Disease, Other GI Disorders - PEG tube History: Reports: Other Problems/Disorders - chronic coleman Denies: Hx Dialysis, Hx Renal Disease Musculoskeletal History: Reports: Other Musculoskeletal History - L BKA Sensory History: Reports: Hx Cataracts Denies: Hx Contacts or Glasses, Hx Hearing Aid Opthamlomology History: Reports: Hx Cataracts Denies: Hx Contacts or Glasses Neurological History: Reports: Other Neuro Impairments/Disorders - CVA Psychiatric History: Reports: Hx Depression - Surgical History Surgery Procedure, Year, and Place: [facility]. PEG Tube. left leg amputaion below knee. AR with stent Hx Anesthesia Reactions: No - Immunization History Date of Tetanus Vaccine: unknown Date of Influenza Vaccine: unknown Infectious Disease History: Reports: Hx of Known/Suspected MRSA - Family History Known Family History: Positive: Cardiac Disease, Diabetes, Other - Cancer, CVA - Social History Occupation: Retired Lives: Assisted Living Alcohol Use: None Hx Substance Use: No Substance Use Type: Reports: None Hx Tobacco Use: No Smoking Status (MU): Former Smoker Review of Systems Negative: Fever Positive: Shortness Of Breath, Cough All Other Systems Reviewed And Are Negative: Yes Physical Exam - Summary Physical Exam Summary: Appearance: Well-appearing, obese, lying in bed comfortably Skin: Warm, dry, no obvious rash Eyes: sclera anicteric, no conjunctival pallor ENT: mucous membranes moist, pharynx appears normal Neck: Supple, nontender Respiratory: Crackles in both bases. Mild respiratory distress. Belly breathing. She can speak in full sentences Cardiovascular: Normal S1, S2. No murmurs. Normal distal pulses in tibial and radial bilaterally. Abdomen: Soft, nontender, normal active bowel sounds present Musculoskeletal: Strength/ROM Intact. Mild peripheral edema in her legs Neurological: A&Ox3, awake and alert, mentation is normal, speech is fluent and appropriate Psychiatric: affect is normal, does not appear anxious or depressed Triage Information Reviewed: Yes Vital Signs Reviewed: Yes Diagnostics - Laboratory Result Diagrams: 04/09/18 01:29 04/09/18 01:29 Lab Statement: Any lab studies that have been ordered have been reviewed, and results considered in the medical decision making process. - Radiology CXR Radiology Interpretation Completed By: ED Physician - CXR reveals, per ED physician, pulmonary vascular congestion consistent with acute pulmonary edema. This is new compared to a film from 02/24/2018. - EKG 0042 Cardiac Rate: NL EKG Rhythm: Sinus Rhythm - [address] Segment: Normal EKG Interpretation: LBBB Course/Dx - Diagnoses Provider Diagnoses: Acute pulmonary edema, Respiratory distress - Physician Notifications Discussed Care of Patient With: Howard King Time Discussed With Above Provider: 03:45 Instructed by Provider To: Other - Consult with Dr. King (hospitalist) at 0345. He agrees to admit pt for further evaluation. - Critical Care Time Critical Care Time: 30-74 min - This is a 62-year-old woman with acute pulmonary edema, acute respiratory distress requiring close monitoring and topical and IV medication. Discharge - Sign-Out/Discharge Documenting (check all that apply): Patient Departure - Discharge Plan Condition: Guarded Disposition: ADMITTED TO [facility] - Billing Disposition and Condition Condition: GUARDED Disposition: Admitted to [facility] - Attestation Statements Document Initiated by Scribe: Yes Documenting Scribe: Em mAes Provider For Whom Scribe is Documenting (Include Credential): Eladio Oh MD Scribe Attestation: I, Em Ames, scribed for Eladio Oh MD on 04/09/18 at 0436. Scribe Documentation Reviewed: Yes Provider Attestation: The documentation as recorded by the scribe, Em Ames accurately reflects the service I personally performed and the decisions made by me, Eladio Oh MD
--- OUTSIDE RECORDS SUMMARY | 2018-04-09 01:05 | XMS REPORT ---
:1955 External Reference #:[id number] Author Organization [facility] Address [address] [place] [address] Phone [phone] Care Team Providers Name Role Phone Rocky Aguiar M.D. Primary Care Physician Unavailable Payers Type Date Identification Numbers Payment Provider Subscriber Medicare Primary Policy Number: [id number] Medicare Leti Francis PayID: [id number] [address] [place] [address] [facility] Part B Policy Number: [id number] Medicaid Leti Francis Group Name: 1 1 [address] PayID: [id number] [place] [address] Problems Description No Information Family History Date Family Member(s) Problem(s) Comments Father due to Cancer () - 70's : (age 68 Mother due to Cancer Years) Siblings 3 Social History Type Date Description Comments Marital Status Lives With Assisted living Lives With Assisted living SNF-[facility] Occupation Disabled Occupation Banking ETOH Use Denies alcohol use Smoking Patient is a former smoker Recreational Drug Use Denies Drug Use Daily Caffeine Consumes on average 1 cup of regular coffee per day Exercise Type/Frequency Does not exercise General Hx Text 2 children adult. Allergies, Adverse Reactions, Alerts Date Description Reaction Status Severity Comments 05/07/2017 Penicillin active Medications Medication Date Status Form Strength Qnty SIG Indications Ordering Provider Spironolactone 03/18/ Active Tablets 25mg 90tab 1 by Jani Yeung s mouth F. every day Angeli Razo Metoprolol 03/03/ Active Tablets 25mg 90tab /2 by Jani Yeung s mouth F. once a Mauser, day M.D. Prilosec OTC 11/21/ Active Tablets DR 20mg 30tab take one R07.9 Lola S. 2018 s by mouth Foster, daily N.P. Rosuvastatin 10/16/ Active Tablets 5mg 90tab take 2 Jani Calcium 2017 s tablet by F. mouth Shanausejessica, every M.D. evening Lispro 05/21/ Active 12 u SQ Jani 2016 with F. meals tid Angeli Razo Dulera / Active Aerosol 200-5mcg/ 2 puff Unknown 0000 Act twice a day Temazepam / Active Capsules 7.5mg 1 cap by Unknown 0000 mouth every night at bedtime Lexapro / Active Tablets 10mg 1 by Unknown 0000 mouth every day Levothyroxine / Active Tablets 50mcg 1 by Unknown Sodium 0000 mouth every day Multi Vitamin / Active Tablets one po Unknown And Minerals 0000 daily Metformin HCL / Active Tablets 500mg 1 by Unknown 0000 mouth twice a day Ferrous Sulfate / Active Tablets DR 325(65Fe) 1 by Unknown 0000 mg mouth a day Magnesium-Oxide / Active Tablets 400(241.3 2 by Unknown 0000 mg) mg mouth every evening Losartan / Active Tablets 50mg 1 by Unknown Potassium 0000 mouth twice daily Amlodipine / Active Tablets 2.5mg 30tab 1 by Jani Besylate 0000 s mouth F. every day Angeli Razo Furosemide / Active Tablets 40mg 90tab 2 by Unknown 0000 s mouth once day Fluticasone / Active Suspension 50mcg/Act 2 sprays Unknown Propionate 0000 each nostril daily as needed Toujeo Solostar / Active Solution 300Unit/M 56 units Unknown 0000 Pen-Inject L sc once a day Gabapentin / Active Capsules 300mg 1 by bid Unknown 0000 Proventil HFA / Active Aerosol 108(90Bas as needed Unknown 0000 e) mcg/Act Acetaminophen / Active Tablets 325mg 2 tablets Unknown 0000 by mouth every 6 hours as needed for pain/feve r Polyethylene / Active Packet 3350NF as needed Unknown Glycol 3350 0000 Brimonidine 00/00/ Active Solution 0.15% 1 drop in Unknown Tartrate 0000 eyes twice a day Carafate / Hx Tablets 1gm 1 by Unknown 0000 - mouth 2018 times a day Lactobacillus / Hx Tablets one po Unknown 0000 - daily 2017 Hydralazine HCL / Hx Tablets 25mg take 1 Unknown 0000 - tablet 2016 Rosuvastatin / Hx Tablets 20mg 1 by Unknown Calcium 0000 - mouth every day 2017 Cyanocobalamin / Hx 500mcg 2 po Unknown 0000 - daily 2017 Metoprolol / Hx Tablets 25mg 1/2 by Unknown Tartrate 0000 - mouth 02/25/ once a 2018 day Cephalexin / Hx Capsules 500mg take one Unknown 0000 - daily 2016 Loperamide HCL / Hx Tablets 2mg 2 tabs Unknown 0000 - 1st loose stool, 2017 then 1 tab per loose stool as needed diarrhea Potassium / Hx Tablets ER 20Meq 1 by Unknown Chloride ER 0000 - mouth every day 2017 Vital Signs Date Vital Result Comment 03/18/2018 Height 65 inches 5'5" Weight 250.00 lb pt stated this weight was done by caregiver today Heart Rate 56 /min BP Systolic 194 mmHg right arm reg cuff BP Diastolic 90 mmHg right arm reg cuff BMI (Body Mass Index) 41.6 kg/m2 Ejection Fraction 60-65%ech8 11/21/2017 Height 65 inches 5'5" Heart Rate 62 /min BP Systolic Sitting 94 mmHg Lue lg cuff BP Diastolic Sitting 70 mmHg Lue lg cuff BP Systolic Recheck 88 mmHg Lue lg cuff BP Diastolic Recheck 68 mmHg Lue lg cuff Respiratory Rate 20 /min O2 % BldC Oximetry 94 % at room air Ejection Fraction 60-65% date 09/26/17 ECHO 10/16/2017 Height 65 inches 5'5" Heart Rate 62 /min BP Systolic Sitting 132 mmHg LA, l cuff BP Diastolic Sitting 70 mmHg LA, l cuff Ejection Fraction 50%-55% echo 01/06/17 05/21/2017 Height 65 inches 5'5" Weight 248.00 lb reported weight from facility Heart Rate 60 /min BP Systolic Sitting 90 mmHg rue large cuff BP Diastolic Sitting 50 mmHg rue large cuff Respiratory Rate 20 /min O2 % BldC Oximetry 9495 % room air BMI (Body Mass Index) 41.3 kg/m2 Results Test Date Test Result H/L Range Note Stool Occult Blood 01/05/2017 Stool Occult Blood, SEE RESULT BELOW 1 Diag Diag 1 SEE RESULT BELOW Name: CINTIALETI : [address]: Roney Morgan MD Acct: [id number] Unit: [id number] AGE: 61 Location: ED Re01/04/17 SEX: F Status: REG ER SPEC: [id number] JAMEY: 01/05/179 [facility] DR: Sebastian Vera MD REQ: [id number] RECD: 01/05/17 STATUS: WILLY ISBELL DR: Roney Valdes MD _ SOURCE: STOOL SPDESC: ORDERED: Occult Bl, Diag Procedure Result Reported Site Stool Occult Blood (1) Final 01/05/17- 0156 ML Stool Occult Blood Positive Collection Date (1) 01/05/17 * ML - MAIN LAB (PSC1) . END OF REPORT * ML=Testing performed at Main Lab DEPARTMENT OF PATHOLOGY, [address] [place] [address] Estuardo Allen M.D. Director [facility] # [id number] Procedures Date CPT Code Description Status 03/18/2018 34417 EKG Tracing & Interpretation Completed 10/16/2017 93489 EKG Tracing & Interpretation Completed 09/26/2017 11904 ECHO Transthorasic Realtime 2D W Doppler & Color Flow Completed Hosp 05/21/2017 68226 EKG Tracing & Interpretation Completed 01/06/2017 82725 ECHO Transthorasic Realtime 2D W Doppler & Color Flow Completed Hosp Encounters Type Date Location Provider CPT E/M Dx Office Visit 03/03/2018 [facility] Assmartínez,nura Patel [address] I50.31 1:46p Hospitalists MAYUR Levin J96.20 N17.9 E11.9 I10 E78.5 Z86.79 E03.9 Office Visit 03/02/2018 1:45p [place] Robert Cifuent[place] [address] I50.31 Hospitalists J96.20 N17.9 Z96.0 D64.9 E11.9 E78.5 I10 Z86.79 E03.9 Office Visit 03/01/2018 1:45p [facility], [place] [address] I50.31 Hospitalists J96.20 N17.9 Z96.0 D64.9 Office Visit 02/28/2018 1:45p [place] Robert Bee, [address] J96.20 Assoc,pc Hospitalists M.D. I50.9 D64.9 E11.9 E78.5 I10 E03.9 N17.9 J44.9 Office Visit 02/27/2018 1:44p [place] Robert Bee, 17877 J96.20 Assoc,pc Hospitalists M.D. I50.9 D64.9 E11.9 E78.5 E03.9 N17.9 Office Visit 02/26/2018 1:44p [place] Robert Bee, 77696 J96.20 Assoc,pc Hospitalists M.D. I50.9 D64.9 E11.9 E78.5 E03.9 N17.9 Office Visit 02/25/2018 1:44p [place] Robert Bee, 50555 J96.20 Assoc,pc Hospitalists M.D. I50.9 D64.9 E11.9 E78.5 E03.9 Office Visit 02/24/2018 1:43p [facility], Jun Tucker, 21811 I50.9 Hospitalists N.P. E11.9 I10 E78.5 E03.9 Office Visit 01/12/2018 2:51p [facility], Sebastian Vera, 76304 I50.9 Hospitalists M.D.,FACP D50.9 R91.1 Office Visit 01/11/2018 2:50p [facility], Sebastian Vera, 80233 I50.9 Hospitalists M.D.,FACP D50.9 R91.1 Office Visit 01/10/2018 2:49p [facility], Caridad Mojica, 73678 I50.9 Hospitalists M.D. Office Visit 01/09/2018 2:48p [facility], Caridad Mojica, 60410 I50.9 Hospitalists M.D. Office Visit 01/08/2018 2:48p [facility],pc Caridad Mojica, 16518 I50.9 Hospitalists M.D. Office Visit 01/07/2018 2:47p [facility],pc Caridad Mojica, 15096 I50.9 Hospitalists M.D. Office Visit 11/21/2017 10:00a [facility] Lola Donahue, 23984 I50.9 N.P. E11.9 I25.10 R07.9 I10 Office Visit 10/16/2017 1:10p [facility] Jani Razo M.D. 74289 I50.9 E11.9 I25.10 I95.2 R07.9 T45.515A E78.00 I10 R53.83 Office Visit 05/21/2017 9:40a [facility] Jani Razo M.D. 85317 I50.9 K92.2 E11.9 Z86.73 I25.10 I95.2 R07.9 Office Visit 01/09/2017 11:07a [facility], Chen Mckeon, TOOL DESIGNER [address]373 I50.9 Hospitalists K92.2 T45.515A Office Visit 01/08/2017 11:06a [facility], Chen Mckeon, TOOL DESIGNER 84480 I50.9 Hospitalists K92.2 T45.515A Office Visit 01/07/2017 11:06a [facility], Chen Mckeon, TOOL DESIGNER 69574 I50.9 Hospitalists K92.2 T45.515A Office Visit 01/06/2017 11:05a [facility], Chen Mckeon, TOOL DESIGNER 38826 I50.9 Hospitalists K92.2 T45.515A Office Visit 01/05/2017 11:04a [facility], Sebastian Vera, 15457 I50.9 Hospitalists [facility] K92.2 T45.515A Office Visit 10/18/2016 2:20p [facility], Pretty Howard, 78775 N30.01 Hospitalists D.O. E11.9 R41.0 Z86.73 Office Visit 10/17/2016 2:19p [facility] [place], [address] N30.01 nura Cifuentes Hospitalists Angeli E86.0 E11.9 Z86.73 Plan of Care Future Appointment(s):04/23/2018 11:00 am - Lola Donahue N.P. at [facility]03/18/2018 - Jani Razo M.D.I50.31 Acute diastolic ( congestive) heart failureNew Orders:EchocardiogramFollow up:ov Lola 1 m ov JFM 6mE11.9 Type 2 diabetes mellitus without [id number] Essential (primary) kehczvjdodquH04.5 Hyperlipidemia, unspecified
[2018-04-09 01:44] LABS: ABS Basophils 0 10^3/ul (0-0.2); ABS Eosinophils 0.2 10^3/ul (0-0.6); ABS Lymphocytes 0.7 10^3/ul (1.0-4.8); ABS Monocytes 0.6 10^3/ul (0-0.8); ABS Neutrophils 5.8 10^3/ul (1.5-7.7); ABS Nucleated RBC 0 10^3/ul; Eosinophil % 3.4 % (0-6); Hematocrit 27 % (35-47); Hemoglobin 8.7 g/dl (12.0-16.0); Lymphocyte % 9.4 % (25-47); Mean Corpuscular HGB Conc 32 g/dl (31-36); Mean Corpuscular Hemoglobin 26 pg (27-31); Mean Corpuscular Volume 81 fL (80-97); Mean Platelet Volume 7.9 um3 (7.4-10.4); Nucleated Red Blood Cells % 0; Platelet Count 222 10^3/ul (150-450); Red Blood Count 3.32 10^6/ul (4.00-5.40); Red Cell Distribution Width 17 % (10.5-15); White Blood Count 7.3 10^3/ul (3.5-10.8)
[2018-04-09 01:59] LABS: EGFR Non-African American 44.1 (>60)
[2018-04-09] MEDS ORDERED: traMADol TAB* 50 MG PO PRN (03:53)
[2018-04-09] MEDS ORDERED: Acetaminophen TAB* 325 MG PO PRN (03:53)
[2018-04-09] MEDS ORDERED: Ondansetron ODT TAB* 4 MG PO PRN (03:53)
[2018-04-09 04:31] LABS: INR 0.95 (0.77-1.02)
--- NOTE | 2018-04-09 05:38 | HP ---
H&P (Free Text) History and Physical: PCP: Azeb Valdes MD Date/Time: 04/09/2018 0340 CC: SOB HPI: Mrs Francis is a 62YO female [facility] resident HX CAD/DE, LBBB, chronic diastolic HF, CVA, DM2, DVT, HTN, HLD, hypothyroidism, anemia who reports onset ~1700 of SOB without other associated symptoms. She specifically denies chest pain, N/V, palpitations, light-headedness, cough, congestion, F/C, and sweats. She reports avoiding salt and adhering to her medications. SOB was worse with activity. PMedHx CAD/DE LBBB chronic diastolic HF CVA DM2 DVT HTN HLD hypothyroidism anemia GERD anxiety/depression Ambulatory Orders Nursing to reconcile. Gabapentin CAP(*) [Neurontin 300 CAP(*)] 300 mg PO Q12HR 10/18/16 Levothyroxine TAB* [Synthroid TAB*] 50 mcg PO 0600 10/18/16 Multivitamins/Minerals TAB* [Thera M Plus TAB*] 1 tab PO DAILY 10/18/16 Acetaminophen TAB* [Tylenol TAB*] 650 mg PO Q6H PRN 01/05/17 Losartan TAB* [Cozaar TAB*] 50 mg PO Q12H 01/05/17 Temazepam 7.5 mg Cap (Nf) [Temazepam] 7.5 mg PO BEDTIME 01/05/17 Escitalopram (NF) [Lexapro 10 mg (NF)] 10 mg PO QAM 02/12/17 Magnesium Oxide TAB* [MagOx 400 TAB*] 800 mg PO DAILY 02/12/17 Polyethylene Glycol 3350* [Miralax*] 17 gm PO DAILY 02/12/17 metFORMIN* [Glucophage 500 MG TAB *] 500 mg PO BID 02/12/17 Fluticasone NASAL * [Flonase *] 2 spray BOTH NARES QAM 05/27/17 Metoprolol Tartrate TAB* [Lopressor TAB*] 12.5 mg PO QAM 05/27/17 Mometasone/Formoter 200/5 MDI* [Dulera 200/5 MDI*] 2 puff INH BID 05/27/17 Brimonidine P 0.15%(NF) [Alphagan P 0.15%(NF)] 1 drop LEFT EYE Q12H 01/07/18 Ferrous Gluconate TAB* [Fergon TAB*] 325 mg PO BID 01/07/18 Omeprazole CAP* [Prilosec CAP* 20 MG] 20 mg PO Q12H 01/07/18 Rosuvastatin (NF) [Crestor (NF)] 10 mg PO 2100 01/07/18 Senna/Docusate (NF) [Sennokot-S(NF)] 1 tab PO BEDTIME 01/07/18 Furosemide TAB* [Lasix TAB*] 80 mg PO DAILY 02/24/18 Insulin GLARGINE(*) [Lantus(*)] 40 units SUBCUT BEDTIME unit 03/03/18 Insulin LISPRO* [HumaLOG*] 5 units SUBCUT PC #0 03/03/18 Allergies Penicillins Allergy (Verified 04/09/18 03:23) Hives PSurgHx L BKA PEG placement, removed hysterectomy appendectomy SocHx: former smoker, no alcohol or recreational drugs; resides at [facility]; DNR/I code status FamHx: positive for cancer, CAD, HTN ROS: as above, otherwise reviewed and all were negative vitals: Vital Signs Temp 37.0 C 04/09/18 04:40 Pulse 73 04/09/18 04:40 Resp 15 04/09/18 04:40 BP 138/78 04/09/18 04:40 Pulse Ox 98 04/09/18 04:40 Intake & Output 04/08/18 04/08/18 04/09/18 11:59 23:59 11:59 Intake Total 0 Balance 0 Weight 92.986 kg Intake: Oral 0 Constitutional: NAD, normally developed, morbidly obese white female HEENM: atraumatic; sclera/conjunctiva: anicteric/clear; hearing: clinically mildly decreased; oropharynx: clear, mucosa moist Neck: soft tissue: non-tender; thyroid: normal Pulmonary: diminished bilaterally with fine cellophane bibasilar crackles, fair to good aeration, no accessory muscle use CV: RR/RR, normal S1S2, no carotid bruit, no jugular venous distention, 1+ R DP/ PT, 2+ RLE & L BKA stump edema Abdominal: soft, non-distended, non-tender, no rebound/guarding/rigidity, normoactive bowel sounds, no hepatosplenomegaly or masses, no costovertebral angle tenderness Musculoskeletal: general: L BKA; gait: non-ambulatory at baseline Integumental: normal appearance and texture of exposed skin Psychiatric orientation: AA&O to PPS affect: fatigued/calm mood: cooperative eye contact: fair content: reliable responses: mildly slowed insight: fair to poor Testing: Lab Results 04/09/18 04/09/18 04/09/18 Range/Units 01:29 01:29 01:29 WBC 7.3 (3.5-10.8) 10^3/ul RBC 3.32 L (4.00-5.40) 10^6/ul Hgb 8.7 L (12.0-16.0) g/dl Hct 27 L (35-47) % MCV 81 (80-97) fL MCH 26 L (27-31) pg MCHC 32 (31-36) g/dl RDW 17 H (10.5-15) % Plt Count 222 (150-450) 10^3/ul MPV 7.9 (7.4-10.4) um3 Neut % (Auto) 78.6 (38-83) % Lymph % (Auto) 9.4 L (25-47) % Dauphin % (Auto) 8.3 H (0-7) % Eos % (Auto) 3.4 (0-6) % Baso % (Auto) 0.3 (0-2) % Absolute Neuts (auto) 5.8 (1.5-7.7) 10^3/ul Absolute Lymphs (auto) 0.7 L (1.0-4.8) 10^3/ul Absolute Monos (auto) 0.6 (0-0.8) 10^3/ul Absolute Eos (auto) 0.2 (0-0.6) 10^3/ul Absolute Basos (auto) 0 (0-0.2) 10^3/ul Absolute Nucleated RBC 0 10^3/ul Nucleated RBC % 0 INR (Anticoag Therapy) (0.77-1.02) APTT (26.0-36.3) seconds Sodium 136 (135-145) mmol/L Potassium 5.2 H (3.5-5.0) mmol/L Chloride 101 (101-111) mmol/L Carbon Dioxide 28 (22-32) mmol/L Anion Gap 7 (2-11) mmol/L BUN 41 H (6-24) mg/dL Creatinine 1.23 H (0.51-0.95) mg/dL Est GFR ( Amer) 53.4 (>60) Est GFR (Non-Af Amer) 44.1 (>60) BUN/Creatinine Ratio 33.3 H (8-20) Glucose 213 H (70-100) mg/dL Lactic Acid 0.9 (0.5-2.0) mmol/L Calcium 9.3 (8.6-10.3) mg/dL Total Bilirubin 1.10 H (0.2-1.0) mg/dL AST 14 (13-39) U/L ALT 9 (7-52) U/L Alkaline Phosphatase 87 (34-104) U/L Troponin I 0.01 (<0.04) ng/mL B-Natriuretic Peptide ( - 100) pg/mL Total Protein 7.7 (6.4-8.9) g/dL Albumin 3.7 (3.2-5.2) g/dL Globulin 4.0 (2-4) g/dL Albumin/Globulin Ratio 0.9 L (1-3) 18 18 Range/Units 01:29 01:29 WBC (3.5-10.8) 10^3/ul RBC (4.00-5.40) 10^6/ul Hgb (12.0-16.0) g/dl Hct (35-47) % MCV (80-97) fL MCH (27-31) pg MCHC (31-36) g/dl RDW (10.5-15) % Plt Count (150-450) 10^3/ul MPV (7.4-10.4) um3 Neut % (Auto) (38-83) % Lymph % (Auto) (25-47) % Dauphin % (Auto) (0-7) % Eos % (Auto) (0-6) % Baso % (Auto) (0-2) % Absolute Neuts (auto) (1.5-7.7) 10^3/ul Absolute Lymphs (auto) (1.0-4.8) 10^3/ul Absolute Monos (auto) (0-0.8) 10^3/ul Absolute Eos (auto) (0-0.6) 10^3/ul Absolute Basos (auto) (0-0.2) 10^3/ul Absolute Nucleated RBC 10^3/ul Nucleated RBC % INR (Anticoag Therapy) 0.95 (0.77-1.02) APTT 30.4 (26.0-36.3) seconds Sodium (135-145) mmol/L Potassium (3.5-5.0) mmol/L Chloride (101-111) mmol/L Carbon Dioxide (22-32) mmol/L Anion Gap (2-11) mmol/L BUN (6-24) mg/dL Creatinine (0.51-0.95) mg/dL Est GFR ( Amer) (>60) Est GFR (Non-Af Amer) (>60) BUN/Creatinine Ratio (8-20) Glucose (70-100) mg/dL Lactic Acid (0.5-2.0) mmol/L Calcium (8.6-10.3) mg/dL Total Bilirubin (0.2-1.0) mg/dL AST (13-39) U/L ALT (7-52) U/L Alkaline Phosphatase (34-104) U/L Troponin I (<0.04) ng/mL B-Natriuretic Peptide 677 H ( - 100) pg/mL Total Protein (6.4-8.9) g/dL Albumin (3.2-5.2) g/dL Globulin (2-4) g/dL Albumin/Globulin Ratio (1-3) ECG, personally reviewed: LBBB rate 78 CXR, personally reviewed: interval increase in interstitial edema & pulmonary vascular congestion ECHO (03/27/2018): Conclusions: The study is technically limited due to patient body habitus. Mild to moderate concentric left ventricular hypertrophy is observed. The estimated ejection fraction is 60-65%. Abnormal left ventricular diastolic filling is observed, consistent with impaired relaxation. The left atrium is mildly dilated. The right ventricle wall thickness is mildly increased. The right ventricle is mildly dilated. The right ventricular global systolic function is mildly reduced. There is trace tricuspid regurgitation. There is evidence of mild pulmonary hypertension. Similar to 09/2017. Impression: 62F HX CAD/DE, LBBB, chronic diastolic HF, CVA, DM2, DVT, HTN, HLD, hypothyroidism, anemia presents with acute on chronic diastolic HF DIAGNOSIS & PLAN Primary acute on chronic diastolic HF : furosemide diuresis : strict I&Os : daily weights : supplemental oxygen : low sodium diet : supportive care Secondary CAD/DE/LBBB : aspirin HX CVA : aspirin DM2 w/ peripheral polyneuropathy : insulin carb ratio diet : basal/bolus/correctional insulin : hold metformin : contiue gabapentin HX DVT : SCDs & heparin SQ HTN : continue losartan & metoprolol HLD : continue rosuvastatin hypothyroidism : continue levothyroxine GERD : continue omeprazole anxiety/depression : continue escitalopram Admission Rational: inpatient for acute on chronic diastolic HF not anticipated to be adequately improved w/i 48h to allow for discharge DVTp: SCDs & heparin SQ Code Status: DNR/I HCP: daughter, Kavita
[2018-04-09] MEDS ORDERED: Omeprazole CAP* 20 MG PO SCH (06:00)
[2018-04-09] MEDS: Levothyroxine TAB* 50 MCG TAB PO SCH (06:46)
[2018-04-09] MEDS: Omeprazole CAP* 20 MG PO SCH ×2 (06:47→17:56)
[2018-04-09] MEDS: Heparin VIAL(*) 5000 UNITS/ML VIAL (FIVE THOUSAND) SUBCUT SCH ×3 (06:49→21:48)
[2018-04-09 07:32] LABS: Hematocrit 25 % (35-47); Hemoglobin 8.3 g/dl (12.0-16.0); Mean Corpuscular HGB Conc 34 g/dl (31-36); Mean Corpuscular Hemoglobin 27 pg (27-31); Mean Corpuscular Volume 80 fL (80-97); Mean Platelet Volume 8.1 um3 (7.4-10.4); Platelet Count 209 10^3/ul (150-450); Red Blood Count 3.09 10^6/ul (4.00-5.40); Red Cell Distribution Width 17 % (10.5-15); White Blood Count 5.6 10^3/ul (3.5-10.8)
[2018-04-09 07:44] LABS: EGFR Non-African American 45.4 (>60)
[2018-04-09] MEDS: Mometasone/Formoter 200/5 MDI INH SCH ×2 (07:53→20:34)
--- NOTE | 2018-04-09 08:17 | RAD ---
INDICATION: Dyspnea COMPARISON: Chest x-ray February 24, 2018 TECHNIQUE: Single AP portable view of the chest was obtained. FINDINGS: Image quality is compromised due to the relative inferiority of a portable chest x-ray. The heart and mediastinum exhibit normal size and contour. The pulmonary vasculature is mildly engorged and indistinct. This appearance is similar to the previous chest x-ray. Otherwise the lungs are grossly clear. Visualized bones are normal for the patient's age. IMPRESSION: Chest x-ray findings could be compatible with pulmonary vascular engorgement in the correct clinical setting. The appearance is similar to the most recent February 24, 2018 chest x-ray. R1
[2018-04-09] MEDS: Gabapentin CAP(*) 300 MG PO SCH ×2 (09:17→21:37)
[2018-04-09] MEDS: Docusate CAP* 100 MG PO SCH ×2 (09:17→21:38)
[2018-04-09] MEDS: Metoprolol Tartrate TAB* 25 MG PO SCH (09:17)
[2018-04-09] MEDS: Citalopram TAB* 20 MG PO SCH (09:17)
[2018-04-09] MEDS: Losartan TAB* 25 MG PO SCH ×2 (09:17→21:38)
[2018-04-09] MEDS: Ferrous Gluconate TAB* 324 MG TAB PO SCH ×2 (09:17→21:37)
[2018-04-09] MEDS: Furosemide IV* 10 MG/ML 10 ML VIAL (100 MG) IV SCH ×2 (09:18→12:54)
[2018-04-09] MEDS: BRIMONIDINE LEFT EYE SCH ×2 (09:18→21:47)
[2018-04-09] MEDS: Polyethylene Glycol 3350* 17 GM PACKET PO SCH (09:19)
[2018-04-09] MEDS: Fluticasone NASAL SPRAY 50MCG* 16 gm SPRAY BTL BOTH NARES SCH (09:19)
[2018-04-09] MEDS: Insulin LISPRO* 1 UNITS UNIT SUBCUT SCH ×7 (09:22→21:51)
--- NOTE | 2018-04-09 13:32 | PN ---
Subjective Date of Service: 04/09/18 Interval History: Patient states that her breathing is improved from yesterday. Cannot think of any provoking factors such as recent illness, increase in fluid or solute intake. No recent changes in diet or medications. Never had colonoscopy recommended after last hospitalization. Has normal caliber stools without blood or melena. Denies CP, N/V, abdominal pain, diarrhea, F/C, palpitations, dizziness, or other pain. Patient uses a mitchell lift to get up at all times. Family History: Unchanged from Admission Social History: Unchanged from Admission Past Medical History: Unchanged from Admission Objective Active Medications: Acetaminophen (Tylenol Tab*) 650 mg PO Q6H PRN PRN Reason: FEVER/PAIN Atorvastatin Calcium (Lipitor*) 20 mg PO 2100 [facility]; Protocol Brimonidine Tartrate (Alphagan P 0.15%(Nf)) 1 drop LEFT EYE Q12H [facility] Last Admin: 04/09/18 09:18 Dose: Not Given Citalopram Hydrobromide (Celexa Tab*) 20 mg PO QAM [facility] Last Admin: 04/09/18 09:17 Dose: 20 mg Docusate Sodium (Colace Cap*) 200 mg PO BID [facility] Last Admin: 04/09/18 09:17 Dose: 200 mg Ferrous Gluconate (Fergon Tab*) 324 mg PO BID [facility] Last Admin: 04/09/18 09:17 Dose: 324 mg Fluticasone Propionate (Flonase Nasal [place] 50mcg*) 2 spray BOTH NARES QAM [facility] Last Admin: 04/09/18 09:19 Dose: Not Given Furosemide (Lasix Iv*) 40 mg IV 0800,1200 [facility] Last Admin: 04/09/18 12:54 Dose: 40 mg Gabapentin (Neurontin Cap(*)) 300 mg PO Q12HR [facility] Last Admin: 04/09/18 09:17 Dose: 300 mg Heparin Sodium (Porcine) (Heparin Vial(*)) 5,000 units SUBCUT Q8HR [facility] Last Admin: 04/09/18 06:49 Dose: 5,000 units Insulin Glargine (Lantus(*)) 30 units SUBCUT 2100 [facility] Stop: 04/10/18 20:00 Insulin Human Lispro (Humalog*) 0 units SUBCUT AC [facility]; Protocol Last Admin: 04/09/18 12:54 Dose: 4 unit Insulin Human Lispro (Humalog*) 0 units SUBCUT ACHS [facility]; Protocol Last Admin: 04/09/18 12:54 Dose: 3 unit Levothyroxine Sodium (Synthroid Tab*) 50 mcg PO 0600 [facility] Last Admin: 04/09/18 06:46 Dose: 50 mcg Lorazepam (Ativan Tab(*)) 1 mg PO BEDTIME [facility] Losartan Potassium (Cozaar Tab*) 50 mg PO Q12H [facility] Last Admin: 04/09/18 09:17 Dose: 50 mg Melatonin (Melatonin) 3 mg PO BEDTIME PRN; Protocol PRN Reason: Sleep Metoprolol Tartrate (Lopressor Tab*) 12.5 mg PO QAM [facility] Last Admin: 04/09/18 09:17 Dose: 12.5 mg Mometasone Furoate/Formoterol Fumar (Dulera 200/5 Mdi*) 2 puff INH BID [facility] Last Admin: 04/09/18 07:53 Dose: 2 puff Omeprazole (Prilosec Cap*) 20 mg PO Q12H [facility] Last Admin: 04/09/18 06:47 Dose: 20 mg Ondansetron HCl (Zofran Odt Tab*) 4 mg PO Q6H PRN PRN Reason: n/v Polyethylene Glycol/Electrolytes (Miralax*) 17 gm PO DAILY [facility] Last Admin: 04/09/18 09:19 Dose: Not Given Senna (Senokot Tab*) 1 tab PO BEDTIME [facility] Tramadol HCl (Ultram*) 50 mg PO Q6H PRN PRN Reason: PAIN Vital Signs - 8 hr 04/09/18 04/09/18 04/09/18 07:40 07:55 08:00 Temperature 97.5 F Pulse Rate 64 Respiratory 20 16 20 Rate Blood Pressure 153/63 (mmHg) O2 Sat by Pulse 99 Oximetry 04/09/18 04/09/18 09:17 11:16 Temperature Pulse Rate Respiratory 18 20 Rate Blood Pressure (mmHg) O2 Sat by Pulse Oximetry Oxygen Devices in Use Now: Nasal Cannula Appearance: Patient is a 62yo female who appears older than stated age and is sitting in the bed in NAD. Eyes: No Scleral Icterus, PERRLA Ears/Nose/Mouth/Throat: NL Teeth, Lips, Gums, Clear Oropharnyx, Mucous Membranes Moist Neck: NL Appearance and Movements; NL JVP, Trachea Midline Respiratory: Symmetrical Chest Expansion and Respiratory Effort, - - Diminished , No other adventitious lung sounds. Cardiovascular: NL Sounds; No Murmurs; No JVD, RRR, - - 2+ edema in RLE. Pulses 2+ Abdominal: NL Sounds; No Tenderness; No Distention, No Hepatosplenomegaly Lymphatic: No Cervical Adenopathy Extremities: No Clubbing, Cyanosis, - - LLE surgically absent. Skin: No Rash or Ulcers, No Nodules or Sclerosis Neurological: Alert and Oriented x 3, - - CN II-XII intact. Result Diagrams: 04/09/18 07:02 04/09/18 07:02 Microbiology and Other Data: Microbiology 04/09/18 05:00 Nasal Screen MRSA (PCR) - Final Nasal Mrsa Not Detected Assess/Plan/Problems-Billing Assessment: Patient is a 62yo female with a PMH for HFpEF, CVA, COPD, Anemia, who is here for CHF exacerbation and is improving with diuresis but has persistent increased oxygen demand over 2L baseline. Patient has persistent microcytic anemia despite iron supplementation. - Patient Problems (1) Acute and chronic respiratory failure Current Visit: No Status: Acute Code(s): J96.20 - ACUTE AND CHR RESP FAILURE , UNSP W HYPOXIA OR HYPERCAPNIA SNOMED Code(s): 62583956 Comment: Due to CHF exacerbation. On 4L O2 NC. Baseline is 2L. Continue IV Lasix. (2) Anemia Current Visit: No Status: Acute Code(s): D64.9 - ANEMIA, UNSPECIFIED SNOMED Code(s): 946444674 Comment: Microcytic, Chronic, Stable. Despite po iron supplements, iron levels low. Repeat Guaic. Repeat Iron Studies Repeat Inflammatory Markers. Recommend outpatient colonoscopy. (3) CHF exacerbation Current Visit: No Status: Acute Code(s): I50.9 - HEART FAILURE, UNSPECIFIED SNOMED Code(s): 36488236 Comment: Acute diastolic CHF exacerbation. Continue diuresis, I/Os, daily weights. (4) H/O deep venous thrombosis Current Visit: No Status: Chronic Code(s): Z86.718 - PERSONAL HISTORY OF OTHER VENOUS THROMBOSIS AND EMBOLISM SNOMED Code(s): 008960305 Comment: In chart but patient denies. Continue Heparin SubQ. (5) HLD (hyperlipidemia) Current Visit: No Status: Chronic Code(s): E78.5 - HYPERLIPIDEMIA, UNSPECIFIED SNOMED Code(s): 29195654 Comment: Continue atorvastatin (6) HTN (hypertension) Current Visit: No Status: Chronic Code(s): I10 - ESSENTIAL (PRIMARY) HYPERTENSION SNOMED Code(s): 94399750 Comment: Slightly hypotensive. Continue metoprolol and losartan (7) History of coronary artery disease Current Visit: No Status: Chronic Code(s): Z86.79 - PERSONAL HISTORY OF OTHER DISEASES OF THE CIRCULATORY SYSTEM SNOMED Code(s): 474668821 Comment: Asymptomatic Continue metoprolol and statin Troponins negative. (8) Indwelling Villegas catheter present Current Visit: No Status: Chronic Code(s): Z96.0 - PRESENCE OF UROGENITAL IMPLANTS SNOMED Code(s): 323356124 Comment: Urinalysis pending. (9) Type II diabetes mellitus Current Visit: No Status: Chronic Priority: Medium Comment: Glucose 120-250's HgA1C 6.6 in 12/2017 Continue Basal Insulin at 30u, Carb Counting and SSI Resume metformin at discharge (10) DVT prophylaxis Current Visit: No Status: Acute Code(s): WFB4066 - SNOMED Code(s): 205623866 Comment: SQ heparin Status and Disposition: Inpatient for CHF exacerbation.
[2018-04-09 15:05] LABS: Urine Appearance Turbid; Urine Blood 2+ (Negative); Urine Color Yellow; Urine Ketones Negative (Negative); Urine Protein 2+(100 mg/dL) (Negative); Urine Red Blood Cell Absent (Absent); Urine Specific Gravity 1.008 (1.010-1.030); Urine Urobilinogen Negative (Negative); Urine White Blood Cell 2+(11-20/hpf) (Absent)
[2018-04-09] MEDS: cefTRIAXone(*) 1 GM in NS 0.9% 50 ML* 50 ML IVPB SCH (17:54)
[2018-04-09] MEDS ORDERED: TEMAZEPAM 7.5 MG PO SCH (21:00)
[2018-04-09] MEDS ORDERED: Insulin GLARGINE(*) 1 UNITS UNIT SUBCUT SCH (21:00)
[2018-04-09] MEDS: LORazepam TAB(*) 1 MG PO SCH (21:37)
[2018-04-09] MEDS: Atorvastatin* 20 MG TAB PO SCH (21:38)
[2018-04-09] MEDS: Senna TAB PO SCH (21:38)
[2018-04-09] MEDS: Melatonin 3 MG TAB PO PRN (21:43)
[2018-04-10] MEDS: Heparin VIAL(*) 5000 UNITS/ML VIAL (FIVE THOUSAND) SUBCUT SCH ×3 (05:37→21:37)
[2018-04-10] MEDS: Omeprazole CAP* 20 MG PO SCH ×2 (05:37→17:52)
[2018-04-10] MEDS: Levothyroxine TAB* 50 MCG TAB PO SCH (05:37)
[2018-04-10 07:03] LABS: EGFR Non-African American 35.9 (>60)
[2018-04-10 07:04] LABS: ABS Basophils 0 10^3/ul (0-0.2); ABS Eosinophils 0.4 10^3/ul (0-0.6); ABS Lymphocytes 1.1 10^3/ul (1.0-4.8); ABS Monocytes 0.5 10^3/ul (0-0.8); ABS Neutrophils 3.7 10^3/ul (1.5-7.7); ABS Nucleated RBC 0 10^3/ul; Eosinophil % 7.4 % (0-6); Hematocrit 23 % (35-47); Hemoglobin 7.5 g/dl (12.0-16.0); Lymphocyte % 18.7 % (25-47); Mean Corpuscular HGB Conc 33 g/dl (31-36); Mean Corpuscular Hemoglobin 27 pg (27-31); Mean Corpuscular Volume 80 fL (80-97); Mean Platelet Volume 8.2 um3 (7.4-10.4); Nucleated Red Blood Cells % 0; Platelet Count 203 10^3/ul (150-450); Red Cell Distribution Width 16 % (10.5-15); White Blood Count 5.8 10^3/ul (3.5-10.8)
[2018-04-10] MEDS: Mometasone/Formoter 200/5 MDI INH SCH ×2 (08:08→20:05)
[2018-04-10] MEDS: Fluticasone NASAL SPRAY 50MCG* 16 gm SPRAY BTL BOTH NARES SCH (09:06)
[2018-04-10] MEDS: BRIMONIDINE LEFT EYE SCH ×2 (09:06→20:51)
[2018-04-10] MEDS: Losartan TAB* 25 MG PO SCH (09:06)
[2018-04-10] MEDS: Ferrous Gluconate TAB* 324 MG TAB PO SCH ×2 (09:07→20:51)
[2018-04-10] MEDS: Metoprolol Tartrate TAB* 25 MG PO SCH (09:07)
[2018-04-10] MEDS: Citalopram TAB* 20 MG PO SCH (09:07)
[2018-04-10] MEDS: Docusate CAP* 100 MG PO SCH ×2 (09:07→20:15)
[2018-04-10] MEDS: Gabapentin CAP(*) 300 MG PO SCH ×2 (09:07→20:51)
[2018-04-10] MEDS: Polyethylene Glycol 3350* 17 GM PACKET PO SCH (09:09)
[2018-04-10] MEDS: Insulin LISPRO* 1 UNITS UNIT SUBCUT SCH ×7 (09:12→20:55)
[2018-04-10] MEDS: Furosemide IV* 10 MG/ML 10 ML VIAL (100 MG) IV SCH (09:15)
[2018-04-10] MEDS ORDERED: Albuterol 2.5 MG/3 ML NEB.SOL* (0.083%) INH PRN (09:44)
[2018-04-10] MEDS ORDERED: Furosemide IV* 10 MG/ML 10 ML VIAL (100 MG) IV SCH (12:00)
[2018-04-10] MEDS: cefTRIAXone(*) 1 GM in NS 0.9% 50 ML* 50 ML IVPB SCH (16:07)
[2018-04-10 16:18] LABS: Hematocrit 23 % (35-47); Hemoglobin 7.5 g/dl (12.0-16.0)
--- NOTE | 2018-04-10 16:44 | PN ---
Subjective Date of Service: 04/10/18 Interval History: Patient's breathing is stable from yesterday. Had one episode of upper airway wheezing yesterday afternoon which resolved without intervention and has not recurred. Patient denies F/C, N/V, abdominal pain, CP, diarrhea, or other pain. Family History: Unchanged from Admission Social History: Unchanged from Admission Past Medical History: Unchanged from Admission Objective Active Medications: Acetaminophen (Tylenol Tab*) 650 mg PO Q6H PRN PRN Reason: FEVER/PAIN Albuterol (Ventolin 2.5 Mg/3 Ml Neb.Katlyn*) 2.5 mg INH Q4H PRN PRN Reason: SOB/WHEEZING Atorvastatin Calcium (Lipitor*) 20 mg PO 2100 [facility]; Protocol Last Admin: 04/09/18 21:38 Dose: 20 mg Brimonidine Tartrate (Alphagan P 0.15%(Nf)) 1 drop LEFT EYE Q12H [facility] Last Admin: 04/10/18 09:06 Dose: 1 drop Citalopram Hydrobromide (Celexa Tab*) 20 mg PO QAM [facility] Last Admin: 04/10/18 09:07 Dose: 20 mg Docusate Sodium (Colace Cap*) 200 mg PO BID [facility] Last Admin: 04/10/18 09:07 Dose: Not Given Ferrous Gluconate (Fergon Tab*) 324 mg PO BID [facility] Last Admin: 04/10/18 09:07 Dose: 324 mg Fluticasone Propionate (Flonase Nasal [place] 50mcg*) 2 spray BOTH NARES QAM [facility] Last Admin: 04/10/18 09:06 Dose: 2 spray Furosemide (Lasix Iv*) 60 mg IV 0800,1200 [facility] Last Admin: 04/10/18 13:03 Dose: 60 mg Gabapentin (Neurontin Cap(*)) 300 mg PO Q12HR [facility] Last Admin: 04/10/18 09:07 Dose: 300 mg Heparin Sodium (Porcine) (Heparin Vial(*)) 5,000 units SUBCUT Q8HR [facility] Last Admin: 04/10/18 13:04 Dose: 5,000 units Ceftriaxone Sodium 1 gm/ (Sodium Chloride) 50 mls @ 200 mls/hr IVPB Q24H [facility] Last Admin: 04/10/18 16:07 Dose: 200 mls/hr Insulin Glargine (Lantus(*)) 30 units SUBCUT 2100 [facility] Stop: 04/10/18 20:00 Last Admin: 04/09/18 21:51 Dose: 30 units Insulin Human Lispro (Humalog*) 0 units SUBCUT AC [facility]; Protocol Last Admin: 04/10/18 13:03 Dose: 7 unit Insulin Human Lispro (Humalog*) 0 units SUBCUT ACHS [facility]; Protocol Last Admin: 04/10/18 13:04 Dose: 3 unit Levothyroxine Sodium (Synthroid Tab*) 50 mcg PO 0600 [facility] Last Admin: 04/10/18 05:37 Dose: 50 mcg Lorazepam (Ativan Tab(*)) 1 mg PO BEDTIME [facility] Last Admin: 04/09/18 21:37 Dose: 1 mg Losartan Potassium (Cozaar Tab*) 50 mg PO DAILY [facility] Melatonin (Melatonin) 3 mg PO BEDTIME PRN; Protocol PRN Reason: Sleep Last Admin: 04/09/18 21:43 Dose: 3 mg Metoprolol Tartrate (Lopressor Tab*) 12.5 mg PO QAM [facility] Last Admin: 04/10/18 09:07 Dose: 12.5 mg Mometasone Furoate/Formoterol Fumar (Dulera 200/5 Mdi*) 2 puff INH BID [facility] Last Admin: 04/10/18 08:08 Dose: 2 puff Omeprazole (Prilosec Cap*) 20 mg PO Q12H [facility] Last Admin: 04/10/18 05:37 Dose: 20 mg Ondansetron HCl (Zofran Odt Tab*) 4 mg PO Q6H PRN PRN Reason: n/v Polyethylene Glycol/Electrolytes (Miralax*) 17 gm PO DAILY [facility] Last Admin: 04/10/18 09:09 Dose: Not Given Senna (Senokot Tab*) 1 tab PO BEDTIME [facility] Last Admin: 04/09/18 21:38 Dose: 1 tab Tramadol HCl (Ultram*) 50 mg PO Q6H PRN PRN Reason: PAIN Vital Signs - 8 hr 04/10/18 04/10/18 04/10/18 09:07 11:28 11:43 Temperature 99.1 F Pulse Rate 55 Respiratory 18 16 16 Rate Blood Pressure 95/69 (mmHg) O2 Sat by Pulse 99 Oximetry 04/10/18 11:48 Temperature Pulse Rate 57 Respiratory Rate Blood Pressure 101/39 (mmHg) O2 Sat by Pulse Oximetry Oxygen Devices in Use Now: Nasal Cannula Appearance: Patient is a 62yo female who appears stated age and is sitting in the bed in NAD. Eyes: No Scleral Icterus, PERRLA Ears/Nose/Mouth/Throat: NL Teeth, Lips, Gums, Clear Oropharnyx, Mucous Membranes Moist Neck: NL Appearance and Movements; NL JVP, Trachea Midline Respiratory: Symmetrical Chest Expansion and Respiratory Effort, - - Slight crackles in B/L Lower lobes. Cardiovascular: NL Sounds; No Murmurs; No JVD, RRR, - Abdominal: NL Sounds; No Tenderness; No Distention, No Hepatosplenomegaly Lymphatic: No Cervical Adenopathy Extremities: No Clubbing, Cyanosis, - Skin: No Rash or Ulcers, No Nodules or Sclerosis Neurological: Alert and Oriented x 3, - - CN II-XII intact. Result Diagrams: 04/10/18 15:58 04/10/18 06:33 Microbiology and Other Data: Microbiology 04/09/18 05:00 Nasal Screen MRSA (PCR) - Final Nasal Mrsa Not Detected Assess/Plan/Problems-Billing Assessment: Patient is a 62yo female with a PMH for HFpEF, CVA, COPD, Anemia, who is here for CHF exacerbation and is improving with diuresis but has persistent increased oxygen demand over 2L baseline. Patient has persistent microcytic anemia despite iron supplementation. - Patient Problems (1) Acute and chronic respiratory failure Current Visit: No Status: Acute Code(s): J96.20 - ACUTE AND CHR RESP FAILURE , UNSP W HYPOXIA OR HYPERCAPNIA SNOMED Code(s): 55096374 Comment: Due to CHF exacerbation. Back to baseline 2L. Increased IV lasix due to poor diuresis. (2) Anemia Current Visit: No Status: Acute Code(s): D64.9 - ANEMIA, UNSPECIFIED SNOMED Code(s): 063375495 Comment: Microcytic, Chronic, Stable. Despite po iron supplements, iron levels low. Repeat Guaic negative Repeat Iron Studies show OSWALDO/AOCD Repeat Inflammatory Markers still highly elevated. Recommend outpatient colonoscopy. Inflammation possibly due in part to UTI. Cannot give IV iron with active infection. Transfuse under 7. (3) CHF exacerbation Current Visit: No Status: Acute Code(s): I50.9 - HEART FAILURE, UNSPECIFIED SNOMED Code(s): 58784548 Comment: Acute diastolic CHF exacerbation. Continue diuresis, I/Os, daily weights Possibly provoked by anemia and UTI. Poor diuresis. IV lasix at 60mg BID. Weight increased by 10 pounds. Likely mistake. Continue to monitor. (4) H/O deep venous thrombosis Current Visit: No Status: Chronic Code(s): Z86.718 - PERSONAL HISTORY OF OTHER VENOUS THROMBOSIS AND EMBOLISM SNOMED Code(s): 223452928 Comment: In chart but patient denies. Continue Heparin SubQ. (5) HLD (hyperlipidemia) Current Visit: No Status: Chronic Code(s): E78.5 - HYPERLIPIDEMIA, UNSPECIFIED SNOMED Code(s): 87657249 Comment: Continue atorvastatin (6) HTN (hypertension) Current Visit: No Status: Chronic Code(s): I10 - ESSENTIAL (PRIMARY) HYPERTENSION SNOMED Code(s): 16827577 Comment: Slightly hypotensive. Continue metoprolol and losartan (7) History of coronary artery disease Current Visit: No Status: Chronic Code(s): Z86.79 - PERSONAL HISTORY OF OTHER DISEASES OF THE CIRCULATORY SYSTEM SNOMED Code(s): 876868362 Comment: Asymptomatic Continue metoprolol and statin Troponins negative. (8) Indwelling Coleman catheter present Current Visit: No Status: Chronic Code(s): Z96.0 - PRESENCE OF UROGENITAL IMPLANTS SNOMED Code(s): 730488437 Comment: Urinalysis shows 3+ leukocyte Esterase. Urine Culture shows 50-75K E Coli. Awaiting sensitivities. Started on Ceftriaxone. Change coleman after sensitivities back. (9) Type II diabetes mellitus Current Visit: No Status: Chronic Priority: Medium Comment: Glucose 120-250's HgA1C 6.6 in 12/2017 Continue Basal Insulin at 30u, Carb Counting and SSI Resume metformin at discharge (10) DVT prophylaxis Current Visit: No Status: Acute Code(s): XVY0677 - SNOMED Code(s): 864590725 Comment: SQ heparin Status and Disposition: Inpatient for CHF exacerbation.
[2018-04-10] MEDS: LORazepam TAB(*) 1 MG PO SCH (20:51)
[2018-04-10] MEDS: Atorvastatin* 20 MG TAB PO SCH (20:51)
[2018-04-10] MEDS: Senna TAB PO SCH (20:56)
[2018-04-10] MEDS: Melatonin 3 MG TAB PO PRN (21:38)
[2018-04-11] MEDS: Levothyroxine TAB* 50 MCG TAB PO SCH (06:07)
[2018-04-11] MEDS: Omeprazole CAP* 20 MG PO SCH ×2 (06:07→18:28)
[2018-04-11] MEDS: Heparin VIAL(*) 5000 UNITS/ML VIAL (FIVE THOUSAND) SUBCUT SCH ×3 (06:09→21:28)
[2018-04-11 07:35] LABS: ABS Basophils 0 10^3/ul (0-0.2); ABS Eosinophils 0.4 10^3/ul (0-0.6); ABS Lymphocytes 1.3 10^3/ul (1.0-4.8); ABS Monocytes 0.5 10^3/ul (0-0.8); ABS Neutrophils 2.9 10^3/ul (1.5-7.7); ABS Nucleated RBC 0 10^3/ul; Eosinophil % 8.1 % (0-6); Hematocrit 24 % (35-47); Hemoglobin 7.8 g/dl (12.0-16.0); Lymphocyte % 25.8 % (25-47); Mean Corpuscular HGB Conc 33 g/dl (31-36); Mean Corpuscular Hemoglobin 27 pg (27-31); Mean Corpuscular Volume 81 fL (80-97); Mean Platelet Volume 8.6 um3 (7.4-10.4); Nucleated Red Blood Cells % 0; Platelet Count 211 10^3/ul (150-450); Red Blood Count 2.91 10^6/ul (4.00-5.40); Red Cell Distribution Width 17 % (10.5-15); White Blood Count 5.1 10^3/ul (3.5-10.8)
[2018-04-11] MEDS: Mometasone/Formoter 200/5 MDI INH SCH ×2 (07:46→20:00)
[2018-04-11 07:50] LABS: EGFR Non-African American 36.5 (>60)
[2018-04-11] MEDS ORDERED: Iron Sucrose* 200 MG in NS 0.9% 100 ML* 100 ML IVPB ONE (08:29)
[2018-04-11] MEDS: Fluticasone NASAL SPRAY 50MCG* 16 gm SPRAY BTL BOTH NARES SCH (09:40)
[2018-04-11] MEDS: BRIMONIDINE LEFT EYE SCH ×2 (09:40→20:34)
[2018-04-11] MEDS: Metoprolol Tartrate TAB* 25 MG PO SCH (09:40)
[2018-04-11] MEDS: Polyethylene Glycol 3350* 17 GM PACKET PO SCH (09:43)
[2018-04-11] MEDS: Gabapentin CAP(*) 300 MG PO SCH ×2 (09:44→20:30)
[2018-04-11] MEDS: Losartan TAB* 25 MG PO SCH (09:45)
[2018-04-11] MEDS: Insulin LISPRO* 1 UNITS UNIT SUBCUT SCH ×7 (09:45→20:29)
[2018-04-11] MEDS: Citalopram TAB* 20 MG PO SCH (09:45)
[2018-04-11] MEDS: Docusate CAP* 100 MG PO SCH ×2 (09:45→20:17)
[2018-04-11] MEDS: Furosemide IV* 10 MG/ML VIAL (40 MG) IV SCH ×2 (09:46→13:44)
--- NOTE | 2018-04-11 15:42 | PN ---
Subjective Date of Service: 04/11/18 Interval History: Patient is feeling as well as yesterday. No changes in respiratory status. Patient now states that she was having suprapubic pain for a week before coming into the hospital. Patient denies F/C, N/V, abdominal pain, CP, Dizziness, palpitations, or other pain. Discussed with daughter and she states that patient previously had an outpatient GI consult and no colonoscopy was done for unknown reasons. Family History: Unchanged from Admission Social History: Unchanged from Admission Past Medical History: Unchanged from Admission Objective Active Medications: Acetaminophen (Tylenol Tab*) 650 mg PO Q6H PRN PRN Reason: FEVER/PAIN Last Admin: 04/10/18 17:52 Dose: 650 mg Albuterol (Ventolin 2.5 Mg/3 Ml Neb.Katlyn*) 2.5 mg INH Q4H PRN PRN Reason: SOB/WHEEZING Atorvastatin Calcium (Lipitor*) 20 mg PO 2100 [facility]; Protocol Last Admin: 04/10/18 20:51 Dose: 20 mg Brimonidine Tartrate (Alphagan P 0.15%(Nf)) 1 drop LEFT EYE Q12H [facility] Last Admin: 04/11/18 09:40 Dose: 1 drop Citalopram Hydrobromide (Celexa Tab*) 20 mg PO QAM [facility] Last Admin: 04/11/18 09:45 Dose: 20 mg Docusate Sodium (Colace Cap*) 200 mg PO BID [facility] Last Admin: 04/11/18 09:45 Dose: 200 mg Fluticasone Propionate (Flonase Nasal [place] 50mcg*) 2 spray BOTH NARES QAM [facility] Last Admin: 04/11/18 09:40 Dose: 2 spray Furosemide (Lasix Iv*) 80 mg IV 0800,1200 [facility] Last Admin: 04/11/18 13:44 Dose: 80 mg Gabapentin (Neurontin Cap(*)) 300 mg PO Q12HR [facility] Last Admin: 04/11/18 09:44 Dose: 300 mg Heparin Sodium (Porcine) (Heparin Vial(*)) 5,000 units SUBCUT Q8HR [facility] Last Admin: 04/11/18 13:44 Dose: 5,000 units Ceftriaxone Sodium 1 gm/ (Sodium Chloride) 50 mls @ 200 mls/hr IVPB Q24H [facility] Last Admin: 04/10/18 16:07 Dose: 200 mls/hr Insulin Human Lispro (Humalog*) 0 units SUBCUT AC [facility]; Protocol Last Admin: 04/11/18 13:43 Dose: 3 unit Insulin Human Lispro (Humalog*) 0 units SUBCUT ACHS [facility]; Protocol Last Admin: 04/11/18 13:43 Dose: 6 unit Levothyroxine Sodium (Synthroid Tab*) 50 mcg PO 0600 [facility] Last Admin: 04/11/18 06:07 Dose: 50 mcg Lorazepam (Ativan Tab(*)) 1 mg PO BEDTIME [facility] Last Admin: 04/10/18 20:51 Dose: 1 mg Losartan Potassium (Cozaar Tab*) 50 mg PO DAILY [facility] Last Admin: 04/11/18 09:45 Dose: 50 mg Melatonin (Melatonin) 3 mg PO BEDTIME PRN; Protocol PRN Reason: Sleep Last Admin: 04/10/18 21:38 Dose: 3 mg Metoprolol Tartrate (Lopressor Tab*) 12.5 mg PO QAM [facility] Last Admin: 04/11/18 09:40 Dose: 12.5 mg Mometasone Furoate/Formoterol Fumar (Dulera 200/5 Mdi*) 2 puff INH BID [facility] Last Admin: 04/11/18 07:46 Dose: 2 puff Omeprazole (Prilosec Cap*) 20 mg PO Q12H [facility] Last Admin: 04/11/18 06:07 Dose: 20 mg Ondansetron HCl (Zofran Odt Tab*) 4 mg PO Q6H PRN PRN Reason: n/v Polyethylene Glycol/Electrolytes (Miralax*) 17 gm PO DAILY [facility] Last Admin: 04/11/18 09:43 Dose: 17 gm Senna (Senokot Tab*) 1 tab PO BEDTIME [facility] Last Admin: 04/10/18 20:56 Dose: Not Given Tramadol HCl (Ultram*) 50 mg PO Q6H PRN PRN Reason: PAIN Vital Signs - 8 hr 04/11/18 04/11/18 09:44 10:18 Pulse Rate 56 Respiratory 20 Rate Oxygen Devices in Use Now: Nasal Cannula Appearance: Patient is a 62yo female who appears stated age and is sitting in the bed in [facility]. Eyes: No Scleral Icterus, PERRLA Ears/Nose/Mouth/Throat: NL Teeth, Lips, Gums, Clear Oropharnyx, Mucous Membranes Moist Neck: NL Appearance and Movements; NL JVP, Trachea Midline Respiratory: Symmetrical Chest Expansion and Respiratory Effort, - - Rales in B/ L Lung bases. Cardiovascular: NL Sounds; No Murmurs; No JVD, RRR, - - 2+ edema in LLE, no change from previous exam. Abdominal: NL Sounds; No Tenderness; No Distention, No Hepatosplenomegaly Lymphatic: No Cervical Adenopathy Extremities: No Clubbing, Cyanosis Skin: No Rash or Ulcers, No Nodules or Sclerosis Neurological: Alert and Oriented x 3, - - CN II-XII intact. Result Diagrams: 04/11/18 06:41 04/11/18 06:41 Microbiology and Other Data: Microbiology 04/09/18 05:00 Nasal Screen MRSA (PCR) - Final Nasal Mrsa Not Detected Assess/Plan/Problems-Billing Assessment: Patient is a 62yo female with a PMH for HFpEF, CVA, COPD, Anemia, who is here for CHF exacerbation and is improving with diuresis but has persistent increased oxygen demand over 2L baseline. Patient has persistent microcytic anemia despite iron supplementation. - Patient Problems (1) Acute and chronic respiratory failure Current Visit: No Status: Acute Code(s): J96.20 - ACUTE AND CHR RESP FAILURE , UNSP W HYPOXIA OR HYPERCAPNIA SNOMED Code(s): 58290814 Comment: Due to CHF exacerbation. Back to baseline 2L. Increased IV lasix again due to poor diuresis. (2) Anemia Current Visit: No Status: Acute Code(s): D64.9 - ANEMIA, UNSPECIFIED SNOMED Code(s): 766036083 Comment: Microcytic, Chronic, Stable. Despite po iron supplements, iron levels low. Repeat Guaic negative Repeat Iron Studies show OSWALDO/AOCD Repeat Inflammatory Markers still highly elevated. Recommend outpatient colonoscopy. Inflammation possibly due in part to UTI. Will give IV iron to help stimulate erythropoesis. Iron Sucrose given today. Transfuse under 7. (3) CHF exacerbation Current Visit: No Status: Acute Code(s): I50.9 - HEART FAILURE, UNSPECIFIED SNOMED Code(s): 20014890 Comment: Acute diastolic CHF exacerbation. Continue diuresis, I/Os, daily weights Possibly provoked by anemia and UTI. Poor diuresis. IV lasix at 80mg BID. Weight increased by 15 pounds. Likely mistake. Continue to monitor. (4) H/O deep venous thrombosis Current Visit: No Status: Chronic Code(s): Z86.718 - PERSONAL HISTORY OF OTHER VENOUS THROMBOSIS AND EMBOLISM SNOMED Code(s): 468967887 Comment: In chart but patient denies. Continue Heparin SubQ. (5) HLD (hyperlipidemia) Current Visit: No Status: Chronic Code(s): E78.5 - HYPERLIPIDEMIA, UNSPECIFIED SNOMED Code(s): 42312794 Comment: Continue atorvastatin (6) HTN (hypertension) Current Visit: No Status: Chronic Code(s): I10 - ESSENTIAL (PRIMARY) HYPERTENSION SNOMED Code(s): 44109749 Comment: Slightly hypotensive. Continue metoprolol and losartan (7) History of coronary artery disease Current Visit: No Status: Chronic Code(s): Z86.79 - PERSONAL HISTORY OF OTHER DISEASES OF THE CIRCULATORY SYSTEM SNOMED Code(s): 030535366 Comment: Asymptomatic Continue metoprolol and statin Troponins negative. (8) Indwelling Villegas catheter present Current Visit: No Status: Chronic Code(s): Z96.0 - PRESENCE OF UROGENITAL IMPLANTS SNOMED Code(s): 007948927 Comment: Urinalysis shows 3+ leukocyte Esterase. Urine Culture shows 50-75K E Coli. Pansensitive Continue Ceftriaxone. Villegas Changed today. (9) Type II diabetes mellitus Current Visit: No Status: Chronic Priority: Medium Comment: Glucose 120-250's HgA1C 6.6 in 12/2017 Continue Basal Insulin at 30u, Carb Counting and SSI Resume metformin at discharge (10) DVT prophylaxis Current Visit: No Status: Acute Code(s): HHK3975 - SNOMED Code(s): 207052910 Comment: SQ heparin Status and Disposition: Inpatient for CHF exacerbation.
[2018-04-11] MEDS: cefTRIAXone(*) 1 GM in NS 0.9% 50 ML* 50 ML IVPB SCH (17:11)
[2018-04-11] MEDS: Senna TAB PO SCH (20:17)
[2018-04-11] MEDS: LORazepam TAB(*) 1 MG PO SCH (20:30)
[2018-04-11] MEDS: Atorvastatin* 20 MG TAB PO SCH (20:30)
[2018-04-11] MEDS: Melatonin 3 MG TAB PO PRN (21:28)
[2018-04-12 05:11] LABS: ABS Basophils 0 10^3/ul (0-0.2); ABS Eosinophils 0.4 10^3/ul (0-0.6); ABS Monocytes 0.5 10^3/ul (0-0.8); ABS Neutrophils 3.2 10^3/ul (1.5-7.7); ABS Nucleated RBC 0 10^3/ul; Eosinophil % 8.6 % (0-6); Hematocrit 24 % (35-47); Hemoglobin 7.8 g/dl (12.0-16.0); Lymphocyte % 19.1 % (25-47); Mean Corpuscular HGB Conc 33 g/dl (31-36); Mean Corpuscular Hemoglobin 26 pg (27-31); Mean Corpuscular Volume 80 fL (80-97); Nucleated Red Blood Cells % 0; Platelet Count 242 10^3/ul (150-450); Red Blood Count 2.95 10^6/ul (4.00-5.40); Red Cell Distribution Width 17 % (10.5-15); White Blood Count 5.2 10^3/ul (3.5-10.8)
[2018-04-12 05:27] LABS: EGFR Non-African American 41.7 (>60)
[2018-04-12] MEDS: Levothyroxine TAB* 50 MCG TAB PO SCH (05:40)
[2018-04-12] MEDS: Omeprazole CAP* 20 MG PO SCH ×2 (05:40→16:00)
[2018-04-12] MEDS: Heparin VIAL(*) 5000 UNITS/ML VIAL (FIVE THOUSAND) SUBCUT SCH ×3 (05:40→22:01)
[2018-04-12] MEDS: Mometasone/Formoter 200/5 MDI INH SCH ×2 (08:00→20:46)
[2018-04-12] MEDS: Furosemide IV* 10 MG/ML VIAL (40 MG) IV SCH ×2 (09:58→13:47)
[2018-04-12] MEDS: Metoprolol Tartrate TAB* 25 MG PO SCH (09:58)
[2018-04-12] MEDS: Gabapentin CAP(*) 300 MG PO SCH ×2 (09:58→22:00)
[2018-04-12] MEDS: Citalopram TAB* 20 MG PO SCH (09:58)
[2018-04-12] MEDS: Losartan TAB* 25 MG PO SCH (09:58)
[2018-04-12] MEDS: Insulin LISPRO* 1 UNITS UNIT SUBCUT SCH ×7 (09:59→22:05)
[2018-04-12] MEDS: BRIMONIDINE LEFT EYE SCH ×2 (09:59→21:59)
[2018-04-12] MEDS: Fluticasone NASAL SPRAY 50MCG* 16 gm SPRAY BTL BOTH NARES SCH (09:59)
[2018-04-12] MEDS: Docusate CAP* 100 MG PO SCH ×2 (09:59→21:57)
[2018-04-12] MEDS: Polyethylene Glycol 3350* 17 GM PACKET PO SCH (10:00)
--- NOTE | 2018-04-12 13:37 | PN ---
Subjective Date of Service: 04/12/18 Interval History: Patient feels breathing has improved. She is less swollen in arms. Not sure about leg edema. She is not sure she's on a low-sodium diet at [facility]. Has some RLQ tenderness in past, denies abdo pain Family History: Unchanged from Admission Social History: Unchanged from Admission Past Medical History: Unchanged from Admission Objective Active Medications: Acetaminophen (Tylenol Tab*) 650 mg PO Q6H PRN PRN Reason: FEVER/PAIN Last Admin: 04/10/18 17:52 Dose: 650 mg Albuterol (Ventolin 2.5 Mg/3 Ml Neb.Katlyn*) 2.5 mg INH Q4H PRN PRN Reason: SOB/WHEEZING Atorvastatin Calcium (Lipitor*) 20 mg PO 2100 [facility]; Protocol Last Admin: 04/11/18 20:30 Dose: 20 mg Brimonidine Tartrate (Alphagan P 0.15%(Nf)) 1 drop LEFT EYE Q12H [facility] Last Admin: 04/12/18 09:59 Dose: Not Given Citalopram Hydrobromide (Celexa Tab*) 20 mg PO QAM [facility] Last Admin: 04/12/18 09:58 Dose: 20 mg Docusate Sodium (Colace Cap*) 200 mg PO BID [facility] Last Admin: 04/12/18 09:59 Dose: Not Given Fluticasone Propionate (Flonase Nasal [place] 50mcg*) 2 spray BOTH NARES QAM [facility] Last Admin: 04/12/18 09:59 Dose: Not Given Furosemide (Lasix Iv*) 60 mg IV 0800,1700 [facility] Gabapentin (Neurontin Cap(*)) 300 mg PO Q12HR [facility] Last Admin: 04/12/18 09:58 Dose: 300 mg Heparin Sodium (Porcine) (Heparin Vial(*)) 5,000 units SUBCUT Q8HR [facility] Last Admin: 04/12/18 05:40 Dose: 5,000 units Ceftriaxone Sodium 1 gm/ (Sodium Chloride) 50 mls @ 200 mls/hr IVPB Q24H [facility] Last Admin: 04/11/18 17:11 Dose: 200 mls/hr Insulin Human Lispro (Humalog*) 0 units SUBCUT AC [facility]; Protocol Last Admin: 04/12/18 09:59 Dose: 5 unit Insulin Human Lispro (Humalog*) 0 units SUBCUT ACHS [facility]; Protocol Last Admin: 04/12/18 10:00 Dose: 2 unit Levothyroxine Sodium (Synthroid Tab*) 50 mcg PO 0600 [facility] Last Admin: 04/12/18 05:40 Dose: 50 mcg Lorazepam (Ativan Tab(*)) 1 mg PO BEDTIME [facility] Last Admin: 04/11/18 20:30 Dose: 1 mg Losartan Potassium (Cozaar Tab*) 50 mg PO DAILY [facility] Last Admin: 04/12/18 09:58 Dose: 50 mg Melatonin (Melatonin) 3 mg PO BEDTIME PRN; Protocol PRN Reason: Sleep Last Admin: 04/11/18 21:28 Dose: 3 mg Metoprolol Tartrate (Lopressor Tab*) 12.5 mg PO QAM [facility] Last Admin: 04/12/18 09:58 Dose: 12.5 mg Mometasone Furoate/Formoterol Fumar (Dulera 200/5 Mdi*) 2 puff INH BID [facility] Last Admin: 04/12/18 08:00 Dose: 2 puff Omeprazole (Prilosec Cap*) 20 mg PO Q12H [facility] Last Admin: 04/12/18 05:40 Dose: 20 mg Ondansetron HCl (Zofran Odt Tab*) 4 mg PO Q6H PRN PRN Reason: n/v Polyethylene Glycol/Electrolytes (Miralax*) 17 gm PO DAILY [facility] Last Admin: 04/12/18 10:00 Dose: Not Given Senna (Senokot Tab*) 1 tab PO BEDTIME [facility] Last Admin: 04/11/18 20:17 Dose: Not Given Tramadol HCl (Ultram*) 50 mg PO Q6H PRN PRN Reason: PAIN Vital Signs - 8 hr 04/12/18 04/12/18 04/12/18 07:27 08:00 08:04 Temperature 37.4 C Pulse Rate 61 60 60 Respiratory 15 15 16 Rate Blood Pressure 138/49 (mmHg) O2 Sat by Pulse 99 95 95 Oximetry 04/12/18 04/12/18 04/12/18 09:58 12:00 12:03 Temperature 36.4 C 36.2 C Pulse Rate 63 Respiratory 16 18 Rate Blood Pressure 129/49 (mmHg) O2 Sat by Pulse 98 Oximetry Oxygen Devices in Use Now: Nasal Cannula Appearance: alert, no distress, obese Ears/Nose/Mouth/Throat: Clear Oropharnyx Neck: No Thyroid Enlargement, Masses Respiratory: Clear to Auscultation Cardiovascular: NL Sounds; No Murmurs; No JVD Abdominal: NL Sounds; No Tenderness; No Distention, No Hepatosplenomegaly Extremities: - - LT BK amputee, 2+ edema bilat LE Lines/Tubes/Other Access: Clean, Dry and Intact Peripheral IV Nutrition: Taking PO's Result Diagrams: 04/12/18 04:38 04/12/18 04:38 Microbiology and Other Data: Microbiology 04/09/18 05:00 Nasal Screen MRSA (PCR) - Final Nasal Mrsa Not Detected Assess/Plan/Problems-Billing Assessment: Patient is a 62yo female with a PMH for HFpEF, CVA, COPD, Anemia, who is here for CHF exacerbation and is improving with diuresis but has persistent increased oxygen demand over 2L baseline. Patient has persistent microcytic anemia despite iron supplementation. - Patient Problems (1) Acute diastolic (congestive) heart failure Current Visit: No Status: Acute Priority: High Code(s): I50.31 - ACUTE DIASTOLIC (CONGESTIVE) HEART FAILURE SNOMED Code(s): 517505831 Comment: - Acute on chronic diastolic CHF - I+O's show excellent diuresis from IV lasix yesterday - Will decrease lasix dose - potential DC tomorrow (2) Anemia Current Visit: No Status: Acute Priority: High Code(s): D64.9 - ANEMIA, UNSPECIFIED SNOMED Code(s): 688916630 Comment: - Microcytic, Chronic, Stable. - Despite po iron supplements, iron levels low. Had IV iron 2 days ago. - Recommend outpatient colonoscopy. (3) UTI (urinary tract infection) Current Visit: No Status: Acute Priority: Medium Comment: -UTI w/ e coli -continue IV ceftrixone (4) DVT prophylaxis Current Visit: No Status: Acute Priority: Low Code(s): WQM5645 - SNOMED Code(s): 888601482 Comment: -SCD Rt leg -SQ heparin (5) Type II diabetes mellitus Current Visit: No Status: Chronic Priority: Medium Comment: -Glucose 120-250's -HgA1C 6.6 in 12/2017 -Continue Basal Insulin at 30u, Carb Counting and SSI -Resume metformin at discharge Status and Disposition: Inpatient for CHF exacerbation. Likely return to SNF tomorrow
[2018-04-12] MEDS: cefTRIAXone(*) 1 GM in NS 0.9% 50 ML* 50 ML IVPB SCH (15:59)
[2018-04-12] MEDS: Furosemide IV* 10 MG/ML 10 ML VIAL (100 MG) IV SCH (15:59)
[2018-04-12] MEDS: Atorvastatin* 20 MG TAB PO SCH (21:58)
[2018-04-12] MEDS: LORazepam TAB(*) 1 MG PO SCH (21:58)
[2018-04-12] MEDS: Senna TAB PO SCH (22:00)
[2018-04-13 06:30] LABS: Hematocrit 25 % (35-47); Hemoglobin 8.1 g/dl (12.0-16.0)
[2018-04-13] MEDS: Omeprazole CAP* 20 MG PO SCH (06:39)
[2018-04-13] MEDS: Levothyroxine TAB* 50 MCG TAB PO SCH (06:39)
[2018-04-13] MEDS: Heparin VIAL(*) 5000 UNITS/ML VIAL (FIVE THOUSAND) SUBCUT SCH (06:39)
[2018-04-13 06:48] LABS: EGFR Non-African American 43.3 (>60)
[2018-04-13] MEDS: Mometasone/Formoter 200/5 MDI INH SCH (08:37)
[2018-04-13] MEDS: Polyethylene Glycol 3350* 17 GM PACKET PO SCH (09:12)
[2018-04-13] MEDS: Metoprolol Tartrate TAB* 25 MG PO SCH (09:13)
[2018-04-13] MEDS: Citalopram TAB* 20 MG PO SCH (09:13)
[2018-04-13] MEDS: Gabapentin CAP(*) 300 MG PO SCH (09:15)
[2018-04-13] MEDS: Docusate CAP* 100 MG PO SCH (09:20)
[2018-04-13] MEDS: Losartan TAB* 25 MG PO SCH (09:21)
[2018-04-13] MEDS: Insulin LISPRO* 1 UNITS UNIT SUBCUT SCH ×4 (09:22→13:10)
[2018-04-13] MEDS: Furosemide IV* 10 MG/ML 10 ML VIAL (100 MG) IV SCH (09:26)
[2018-04-13] MEDS: BRIMONIDINE LEFT EYE SCH (09:30)
[2018-04-13] MEDS: Fluticasone NASAL SPRAY 50MCG* 16 gm SPRAY BTL BOTH NARES SCH (09:30)
--- NOTE | 2018-04-13 10:42 | PN ---
Progress Note - Progress Note Date of Service: 04/13/18 Note: Discharge Note: Primary Diagnosis: decompensation of diastolic CHF Secondary Diagnoses: UTI due to indwelling coleman cath CAD h/o [place] diastolic CHF h/o stroke Type 2 diabetes left BK amputee HTN HL hypothyroid iron def anemia RLQ abdo pain GERD anxiety/depression Consultants: none Procedures: none Pertinent lab/radiology findings: Laboratory Tests 04/09/18 04/09/18 04/09/18 01:29 01:29 01:29 Hgb 8.7 L Hct 27 L ESR Creatinine 1.23 H POC Glucose (mg/dL) Iron TIBC Troponin I 0.01 C-Reactive Protein B-Natriuretic Peptide 677 H 04/09/18 04/10/18 04/10/18 07:02 06:33 06:33 Hgb Hct ESR 120 H Creatinine 1.20 H POC Glucose (mg/dL) Iron 33 L TIBC 258 Troponin I 0.02 C-Reactive Protein 60.37 H B-Natriuretic Peptide 04/12/18 04/12/18 04/13/18 04:38 21:43 05:46 Hgb 8.1 L Hct 25 L ESR Creatinine POC Glucose (mg/dL) 220 H Iron TIBC Troponin I C-Reactive Protein 34.11 H B-Natriuretic Peptide 04/13/18 07:59 Hgb Hct ESR Creatinine POC Glucose (mg/dL) 164 H Iron TIBC Troponin I C-Reactive Protein B-Natriuretic Peptide Tests pending up discharge: none Discharge physical exam: Selected Entries 04/13/18 03:04 Temperature 36.8 C Pulse Rate 60 Respiratory 18 Rate Blood Pressure 127/47 (mmHg) O2 Sat by Pulse 99 Oximetry Alert, conversant morbidly obese LT BK amp RLE 1+ pitting edema
[2018-04-13 11:40] VITALS: BP 145/49
[2018-04-13] MEDS ORDERED: Phenazopyridine TAB* 100 MG PO SCH (14:00)
--- NOTE | 2018-04-13 14:23 | DS ---
CC: Dr. Naila Valdes at [facility] TRANSFER SUMMARY: DATE OF ADMISSION: 04/09/18. DATE OF DISCHARGE: 04/13/18. PRIMARY DIAGNOSIS: Exacerbation of diastolic congestive heart failure. SECONDARY DIAGNOSES: 1. Urinary tract infection due to indwelling Villegas catheter. 2. Coronary artery disease, status post myocardial infarction. 3. Left bundle-branch block. 4. Chronic diastolic heart failure. 5. History of cerebrovascular accident. 6. Type 2 diabetes with left halkm-tht-pcec amputation in the past. 7. History of deep venous thrombosis. 8. Hypertension. 9. Hyperlipidemia. 10. Hypothyroidism. 11. Iron-deficiency anemia. 12. Gastroesophageal reflux disease. 13. Anxiety and depression. 14. She also has chronic right lower quadrant abdominal pain 15. Gastroesophageal reflux disease. MEDICATIONS: On discharge are: 1. Acetaminophen 650 mg p.o. q.6 hours p.r.n. for pain. 2. Brimonidine 0.15% drops 1 drop to left eye every 12 hours. 3. Lexapro 10 mg p.o. q.a.m. 4. Ferrous gluconate 325 mg p.o. b.i.d. 5. Flonase 2 sprays both nostrils daily. 6. Gabapentin 300 mg p.o. q.12 hours. 7. Levothyroxine 50 mcg p.o. q.a.m. 8. Losartan 50 mg p.o. q.12 hours. 9. Magnesium oxide 800 mg p.o. daily. 10. Glucophage 500 mg p.o. b.i.d. 11. Metoprolol 12.5 mg p.o. daily. 12. Mometasone/formoterol 200/5 two puffs inhaled b.i.d. 13. Multivitamin 1 tab p.o. daily. 14. Omeprazole 20 mg p.o. q.12 hours. 15. MiraLAX 17 g p.o. daily for constipation. 16. Crestor 10 mg p.o. q.h.s. 17. Senna with docusate 1 tab p.o. q.p.m. 18. Temazepam 7.5 mg p.o. q.p.m. 19. Albuterol nebulizer q.4 hours p.r.n. wheezing. 20. Cefuroxime 500 mg p.o. b.i.d. for 3 days. 21. Docusate 200 mg p.o. b.i.d. 22. Insulin glargine 40 units subcutaneous daily. 23. Humalog insulin 5 units at each meal t.i.d. 24. Ondansetron 4 mg p.o. q.6 hours p.r.n. nausea. 25. Pyridium 100 mg p.o. t.i.d. for 3 days. 26. Demadex 20 mg p.o. b.i.d. 27. Tramadol 50 mg p.o. q.6 hours p.r.n. for pain. HOSPITAL COURSE: The patient was admitted with subacute onset of shortness of breath and assessed to be in congestive heart failure. Her BNP on admission was 677. Her initial troponins were negative. Her creatinine was 1.23 and hemoglobin was 8.7. The patient was assessed to have diastolic heart failure and received intravenous Lasix for diuresis and she was also placed on strict intake and output, and low-salt diet. The patient's intake and output for the first 3 days of her stay were around 600 mL negative. On the fourth day she was negative 4400 mL and the last 3 days she was negative 1200 mL. Her weight was as high as 131 and went down to 127 kg on discharge. The patient's shortness of breath resolved. She did complain of burning in her urethra and irritation of the vagina at the urinary catheter access. Her urinalysis showed 2+ protein, 3+ blood, 3+ leuk esterase, and 2+ white cells, and urine culture grew E. coli, which was pansensitive. She was treated with intravenous ceftriaxone and switched to oral Ceftin on discharge. Her anemia was assessed to be due to iron-deficiency with stable hemoglobin of 8.1 and iron level of 33 with a TIBC of 258. The patient was transitioned back to oral torsemide on discharge for improved absorption in the gut. Patient is recommended to have outpatient gastroenterology consultation regarding right lower quadrant pain, with consideration of colonoscopy. DISPOSITION: To [facility]. ACTIVITY: Should be out of bed to chair with a Gisela lift. DIET: low sodium, diabetic [id number]/[facility] #: [id number] [facility]
[2018-04-13] MEDS ORDERED: ceFUROXime TAB(*) 250 MG PO SCH (21:00)
== END 2018-04-13 14:30 | DRG 291 ==
LOC: ED 00:26 → MED 03:50
PROVIDERS: ADMIT Hospitalist; ATTEND Internal Medicine
DX: I11.0 Hypertensive heart disease with heart failure (principal); J96.20 Acute and chronic respiratory failure, unspecified whether with hypoxia or hypercapnia; T83.518A Infection and inflammatory reaction due to other urinary catheter, initial encounter; Z68.42 Body mass index [BMI] 45.0-49.9, adult; E11.42 Type 2 diabetes mellitus with diabetic polyneuropathy; I50.33 Acute on chronic diastolic (congestive) heart failure; E66.01 Morbid (severe) obesity due to excess calories; B96.20 Unspecified Escherichia coli [E. coli] as the cause of diseases classified elsewhere; Z66 Do not resuscitate; I25.10 Atherosclerotic heart disease of native coronary artery without angina pectoris; I44.7 Left bundle-branch block, unspecified; E78.5 Hyperlipidemia, unspecified; E03.9 Hypothyroidism, unspecified; D50.9 Iron deficiency anemia, unspecified; K21.9 Gastro-esophageal reflux disease without esophagitis; F41.8 Other specified anxiety disorders; R10.31 Right lower quadrant pain; I25.2 Old myocardial infarction; Z86.73 Personal history of transient ischemic attack (TIA), and cerebral infarction without residual deficits; Z86.718 Personal history of other venous thrombosis and embolism; Z79.84 Long term (current) use of oral hypoglycemic drugs; Z79.1 Long term (current) use of non-steroidal anti-inflammatories (NSAID); Z79.4 Long term (current) use of insulin; Z79.899 Other long term (current) drug therapy; Z88.0 Allergy status to penicillin; Z89.512 Acquired absence of left leg below knee; Z87.891 Personal history of nicotine dependence; Z82.49 Family history of ischemic heart disease and other diseases of the circulatory system; Z80.9 Family history of malignant neoplasm, unspecified
CPT/HCPCS: 36415; 71045; 80048; 80053; 81003; 81015; 82272; 82728; 83540; 83550; 83605; 83735; 83880; 84484; 85014; 85018; 85025; 85027; 85610; 85652; 85730; 86140; 87077; 87086; 87186; 87641; 93005; 94640; 99283; A9270-GY; J0696; J1644; J1756; J1940